=== PATIENT | male | born 1955 | race Caucasian/White ===

== ENCOUNTER 2019-06-09 15:57 | Inpatient (IN) | payer MEDICARE ==
[2019-06-09] MEDS ORDERED: methylPREDNISolone SOD SUCCI 125 MG/2 ML VIAL IV SCH (18:06)
[2019-06-09 19:22] LABS: Basophils # (A) 0.1 k/uL (0-0.2); Basophils % (A) 1 %; Eosinophils # (A) 0.1 k/uL (0-0.7); Eosinophils % (A) 1 %; HCT 41.7 % (39.0-53.0); HGB 12.6 gm/dL (13.0-17.5); Hypochromasia Marked; Lymphocytes # (A) 0.7 k/uL (1.0-4.8); Lymphocytes % (A) 8 %; MCH 32.2 pg (25.0-35.0); MCHC 30.4 g/dL (31.0-37.0); MCV 106.1 fL (80.0-100.0); Macrocytosis Moderate; Mean Platelet Volume 9.3; Monocytes # (A) 0.5 k/uL (0-1.0); Monocytes % (A) 6 %; Neutrophils # (A) 7.3 k/uL (1.3-7.7); Neutrophils % (A) 84 %; Platelet Count 126 k/uL (150-450); RBC 3.93 m/uL (4.30-5.90); RDW 14.2 % (11.5-15.5); WBC 8.7 k/uL (3.8-10.6)
--- NOTE | 2019-06-09 19:36 | P.CNPUL ---
History of Present Illness Consult date: 06/09/19 Reason for consult: dyspnea, COPD History of present illness: This is a 64-year-old male patient with chronic hypoxic respiratory failure maintain oxygen at 5 L per minute nasal cannula, severe COPD with an FEV1 of 20% of predicted and chronic exertional dyspnea and significant limitation in exercise capacity. His other comorbidities include seasonal ALLERGIC rhinitis, generalized anxiety disorder and hypertension. The patient was transferred to us as a direct admit from his PCP because of worsening shortness of breath. His pulse ox was in the mid 70s at the doctor's office. The patient is coughing up some increased mucus which is thick creamy white in color. No hemoptysis. No pleurisy. There is some limited increase in lower extremity edema. No angina. No chest pain. No palpitations. No cardiac arrhythmias. No syncope. No previous history of DVT or pulmonary embolism. No loss in consciousness. Patient currently is on 5 L of oxygen by nasal cannula. His pulse ox was brought up to 90%. Note that his home concentrator was not functioning right and he was given a new concentrator that goes up to 10 L. He states that he was not getting the same benefit from the same machine. Currently he is on a combination of Spiriva and Wixela Inhub regarding his COPD and the patient uses Ventolin rescue inhaler and albuterol nebulizer on an as-needed basis. This is his first admission for COPD related complications. Most of childhood asthma. the patient exposure. No fever or chills. Chest x-ray showing some increased interstitial changes bilaterally in lung bases. The patient has a barrel chest consistent with COPD and some mild cardiomegaly. Labs are still pending for now. Review of Systems Constitutional: Reports daytime sleepiness, Reports fatigue, Reports weight gain Eyes: denies as per HPI, denies blurred vision, denies bulging eye, denies decreased vision, denies diplopia, denies discharge, denies dry eye, denies irritation, denies itching, denies pain, denies photophobia, denies loss of peripheral vision, denies loss of vision, denies tunnel vision/blind spots Ears: deny: decreased hearing, ear discharge, earache, tinnitus Ears, nose, mouth and throat: Reports as per HPI Breasts: absent: as per HPI, gynecomastia Cardiovascular: Reports decreased exercise tolerance, Reports dyspnea on exertion Respiratory: Reports dyspnea, Reports snoring, Reports wheezing Gastrointestinal: Reports as per HPI Genitourinary: Reports as per HPI Musculoskeletal: Reports as per HPI Musculoskeletal: bilateral: ankle swelling, absent: ankle pain, ankle stiffness, as per HPI, elbow pain, elbow stiffness, elbow swelling, foot pain, foot stiffness, foot swelling, hand pain, hand stiffness, hand swelling, hip pain, hi p stiffness, hip swelling, knee pain, knee stiffness, knee swelling, shoulder pain, shoulder stiffness, shoulder swelling, wrist pain, wrist stiffness, wrist swelling Integumentary: Reports as per HPI Neurological: Reports as per HPI, Reports gait dysfunction Endocrine: Reports as per HPI, Reports fatigue Hematologic/Lymphatic: Reports as per HPI Allergic/Immunologic: Reports as per HPI Past Medical History Past Medical History: COPD, Hypertension Additional Past Medical History / Comment(s): Obesity, previous history of cellulitis of the lower extremities, hypertension, COPD, chronic hypoxic respiratory failure, osteoarthritis History of Any Multi-Drug Resistant Organisms: None Reported Past Surgical History: No Surgical Hx Reported Additional Past Surgical History / Comment(s): no Reported history of surgeries Past Anesthesia/Blood Transfusion Reactions: No Reported Reaction Past Psychological History: No Psychological Hx Reported Smoking Status: Never smoker - Past Family History Father Additional Family Medical History / Comment(s): Patient states father at 76 of a blood clot, mother had breast cancer Mother Family Medical History: Dementia Medications and Allergies Home Medications Medication Instructions Recorded Confirmed Type Albuterol Nebulized [Ventolin 2.5 mg INHALATION RT-Q4H PRN 06/22/14 06/09/19 History Nebulized] Albuterol Sulfate [Proair Hfa] 2 puff INHALATION RT-QID PRN 06/22/14 06/09/19 History Tiotropium [place] [Spiriva] 1 cap INHALATION RT-DAILY 06/22/14 06/09/19 History amLODIPine [Norvasc] 5 mg PO DAILY 06/22/14 06/09/19 History Cholecalciferol (Vitamin D3) 2,000 unit PO HS 06/09/19 06/09/19 History [Vitamin D3] Fluticasone Propion/Salmeterol 1 puff INHALATION RT-BID 06/09/19 06/09/19 History [Wixela 250-50 Inhub] Furosemide [Lasix] 20 mg PO DAILY PRN 06/09/19 06/09/19 History Lisinopril [Prinivil] 20 mg PO HS 06/09/19 06/09/19 History Metoprolol Succinate (ER) [Toprol 25 mg PO HS 06/09/19 06/09/19 History Xl] Montelukast [Singulair] 10 mg PO HS 06/09/19 06/09/19 History Otc Allergy(Unknown) 1 tab PO DAILY 06/09/19 06/09/19 History clonazePAM [KlonoPIN] 0.5 mg PO DAILY PRN 06/09/19 06/09/19 History guaiFENesin SYRUP 100MG/5ML 200 mg PO Q6H PRN 06/09/19 06/09/19 History [Robitussin] Allergies Allergy/AdvReac Type Severity Reaction Status Date / Time clarithromycin [From Biaxin] AdvReac TREMORS Verified 06/09/19 19:16 Physical Exam Vitals: Vital Signs Pulse Resp BP Pulse Ox 06/09/19 18:10 93 L 06/09/19 17:57 108 H 24 163/73 92 L Intake and Output 06/09/19 06/09/19 06/09/19 06:59 14:59 22:59 Other: # Voids 0 # Bowel Movements 0 Weight 151.9 kg Morbid obese, comfortable and mild degree of respiratory distress, is able to speak of. This is. He is currently on oxygen at 5 L per minute nasal cannula. Head exam was generally normal. There was no scleral icterus or corneal arcus. Mucous membranes were moist. Neck was supple and without jugular venous distension, thyromegaly, or carotid bruits. Carotids were easily palpable bilaterally. There was no adenopathy. Lungs sounds are diminished bilaterally nearly silent chest with scattered ex piratory wheezes on forced extremity maneuvers. Heart sounds are distant regular rate and rhythm normal S1-S2 and there is no significant murmurs appreciated. Abdominal exam revealed normal bowel sounds. The abdomen was soft, non-tender, and without masses, organomegaly, or appreciable enlargement of the abdominal aorta. Patient is morbidly obese and the organs cannot be accurately palpated. Extremities revealed +1 pitting edema and there is no cyanosis or clubbing or cellulitis. Examination of the skin revealed no evidence of significant rashes, suspicious appearing nevi or other concerning lesions. Neurologically awake and alert and there is no focal neurological deficit. Results - Laboratory Findings CBC and BMP: 06/09/19 18:50 Abnormal lab findings: Abnormal Labs 06/09/19 18:50 RBC 3.93 L Hgb 12.6 L MCV 106.1 H MCHC 30.4 L Plt Count 126 L Lymphocytes # 0.7 L - Diagnostic Findings Chest x-ray: image reviewed Assessment and Plan Plan: 1 acute on chronic hypoxic respiratory failure secondary exacerbation of COPD. The patient was profoundly hypoxic at his doctor's office and currently is back to 5 L about 2 by nasal cannula. Suspect COPD exacerbation 2 severe COPD with a based on FEV1 of less than 20% of predicted at baseline 3 chronic hypoxic respiratory failure maintained on oxygen at 5 L per minute nasal cannula 4 chronic exertional dyspnea secondary to above and marked impairment in exercise capacity 5 obesity with a BMI of 45.4 6 chronic ALLERGIC rhinitis 7 chronic anxiety disorder 8 hypertension 9 osteoarthritis Plan With the patient on DuoNeb about treatments around the clock. Add Pulmicort and Perforomist nebulized treatments during this current hospital stay. IV Solu Medrol 60 mg every 6 hours. Obtain sputum Gram stain and culture. IV Rocephin. Awaiting blood work and of interest will be his electrolytes and cardiac enzymes and BNP level. Gentle diuresis with Lasix 20 mg IV push every 12 hours. Obtain echocardiogram at baseline. DVT and GI prophylaxis. We'll continue to follow. We will arrange home oxygen concentrator. Outpatient respiratory medications for COPD maintenance is adequate. The patient is an ex-smoker.
[2019-06-09 19:38] LABS: ALT 40 U/L (21-72); AST 30 U/L (17-59); African American GFR (CKD) >90 (>60 ml/min/1.73 sqM); Albumin 3.9 g/dL (3.5-5.0); Alkaline Phosphatase 110 U/L (38-126); Blood Urea Nitrogen 18 mg/dL (9-20); Chloride 92 mmol/L (98-107); Glucose 135 mg/dL (74-99); Potassium 4.7 mmol/L (3.5-5.1); Sodium 142 mmol/L (137-145); Total Bilirubin 0.8 mg/dL (0.2-1.3); Total Protein 7.4 g/dL (6.3-8.2)
[2019-06-09 19:44] LABS: Anion Gap 7 mmol/L
[2019-06-09 19:50] LABS: Carbon Dioxide 43 mmol/L (22-30)
[2019-06-09] MEDS: IPRATROPIUM-ALBUTEROL 3 ML NEB INHALATION SCH (20:28)
[2019-06-09] MEDS: BUDESONIDE 1 MG/2 ML NEBU INHALATION SCH (20:28)
[2019-06-09] MEDS: FORMOTEROL FUMARATE 20 MCG/2 ML NEBU INHALATION SCH (20:28)
--- NOTE | 2019-06-09 20:47 | XR ---
EXAMINATION: XR chest 2V DATE AND TIME: 06/09/2019 6:51 PM CLINICAL INDICATION: PHH; COPD exacerbation TECHNIQUE: Departmental protocol COMPARISON: None FINDINGS: There is prominent hyperinflation with a coarse reticular pattern of increased density mildly silhoue tting the arborization of the pulmonary vasculature bilaterally and symmetrically. These changes sugg est chronic interstitial lung change. The lungs are bilaterally well expanded and there are no focal pulmonary consolidative opacity. The pleural spaces are negative. The cardiac silhouette is mildly enlarged. The remainder of the mediastinal silhouette is unremarkabl e. The skeletal structures and soft tissues are negative for acute findings. IMPRESSION: Sable chest radiographic findings. No definite acute radiographic process.
[2019-06-09 21:27] LABS: ABG Base Excess 21.5 mmol/L; ABG Oxygen Saturation 90.9 % (94-97); ABG PH 7.35 (7.35-7.45); ABG PO2 62 mmHg (83-108); ABG TCO2 50 mmol/L (19-24); Allen Test Performed? Yes
[2019-06-09 21:30] LABS: ABG HCO3 47 mmol/L (21-25); ABG PCO2 84 mmHg (35-45)
[2019-06-09 22:16] LABS: Glucose,Whole Blood 219 mg/dL (75-99)
[2019-06-09] MEDS ORDERED: FUROSEMIDE 20 MG TAB PO PRN (23:00)
[2019-06-09] MEDS ORDERED: clonazePAM 0.5 MG TAB PO PRN (23:00)
[2019-06-09] MEDS ORDERED: guaiFENesin SYRUP 100MG/5ML 200 MG/10 ML CUP PO PRN (23:00)
[2019-06-09] MEDS: INSULIN ASPART (NovoLOG) 100 UNIT/ML VIAL SQ SCH (23:35)
[2019-06-09] MEDS: LISINOPRIL 20 MG TAB PO SCH (23:35)
[2019-06-09] MEDS: METOPROLOL SUCCINATE (ER) 25 MG TAB.ER.24H PO SCH (23:35)
[2019-06-09] MEDS: MONTELUKAST 10 MG TAB PO SCH (23:35)
[2019-06-09] MEDS: IPRATROPIUM-ALBUTEROL 3 ML NEB INHALATION PRN (23:36)
[2019-06-09] MEDS: HEPARIN SODIUM,PORCINE 5,000 UNIT/ML 1 ML VIAL SQ SCH (23:38)
[2019-06-10] MEDS: IPRATROPIUM-ALBUTEROL 3 ML NEB INHALATION PRN (04:14)
[2019-06-10 06:26] LABS: Glucose,Whole Blood 174 mg/dL (75-99)
[2019-06-10] MEDS: PANTOPRAZOLE 40 MG TABLET PO SCH (06:26)
[2019-06-10] MEDS: methylPREDNISolone SOD SUCCI 125 MG/2 ML VIAL IV SCH ×3 (06:28→17:47)
[2019-06-10] MEDS: INSULIN ASPART (NovoLOG) 100 UNIT/ML VIAL SQ SCH ×4 (06:28→21:18)
[2019-06-10 07:15] LABS: Basophils % (A) 1 %; Eosinophils % (A) 0 %; HGB 12.1 gm/dL (13.0-17.5); Hypochromasia Marked; Lymphocytes # (A) 0.3 k/uL (1.0-4.8); Lymphocytes % (A) 6 %; MCH 32.4 pg (25.0-35.0); MCV 104.6 fL (80.0-100.0); Macrocytosis Slight; Mean Platelet Volume 9.4; Monocytes # (A) 0.2 k/uL (0-1.0); Monocytes % (A) 3 %; Neutrophils # (A) 4.2 k/uL (1.3-7.7); Neutrophils % (A) 89 %; Platelet Count 103 k/uL (150-450); RBC 3.73 m/uL (4.30-5.90); RDW 13.2 % (11.5-15.5); WBC 4.7 k/uL (3.8-10.6)
[2019-06-10 07:26] LABS: ALT 41 U/L (21-72); AST 28 U/L (17-59); African American GFR (CKD) >90 (>60 ml/min/1.73 sqM); Albumin 3.7 g/dL (3.5-5.0); Alkaline Phosphatase 100 U/L (38-126); Blood Urea Nitrogen 18 mg/dL (9-20); Calcium 8.5 mg/dL (8.4-10.2); Chloride 94 mmol/L (98-107); Glucose 158 mg/dL (74-99); Sodium 141 mmol/L (137-145); Total Bilirubin 0.6 mg/dL (0.2-1.3); Total Protein 6.9 g/dL (6.3-8.2)
[2019-06-10] MEDS ORDERED: INSULIN ASPART (NovoLOG) 100 UNIT/ML VIAL SQ SCH (07:30)
[2019-06-10 07:34] LABS: Anion Gap 6 mmol/L
[2019-06-10 07:37] LABS: Carbon Dioxide 41 mmol/L (22-30)
[2019-06-10] MEDS: IPRATROPIUM-ALBUTEROL 3 ML NEB INHALATION SCH ×4 (08:15→20:05)
[2019-06-10] MEDS: BUDESONIDE 1 MG/2 ML NEBU INHALATION SCH ×2 (08:15→20:04)
[2019-06-10] MEDS: FORMOTEROL FUMARATE 20 MCG/2 ML NEBU INHALATION SCH ×2 (08:15→20:05)
[2019-06-10] MEDS: amLODIPine 5 MG TAB PO SCH (08:22)
[2019-06-10] MEDS: CHOLECALCIFEROL 1,000 UNIT TAB PO SCH (08:22)
[2019-06-10] MEDS: HEPARIN SODIUM,PORCINE 5,000 UNIT/ML 1 ML VIAL SQ SCH ×2 (08:22→17:47)
[2019-06-10] MEDS: METOPROLOL SUCCINATE (ER) 25 MG TAB.ER.24H PO SCH (08:22)
[2019-06-10] MEDS: LISINOPRIL 20 MG TAB PO SCH (08:22)
--- NOTE | 2019-06-10 10:38 | P.HPIM ---
History of Present Illness H&P Date: 06/10/19 This is a 64-year-old male patient was a direct admit from PCP due to COPD exacerbation and low SpO2. Patient's pulse ox in PCP office was in the mid 70s and patient is complaining of worsening shortness of breath. Patient has a known past medical history of advanced COPD in which he wears 5 L at home, essential hypertension, obesity, chronic hypoxic respiratory failure and osteoarthritis. Chest x-ray completed showing stable chest radiographic findings no definitive acute radiographic process. Pulmonary services have been consulted patient started on Rocephin, updraft breathing treatments and IV Solu-Medrol. Patient's BNP 568. Patient is currently resting comfortably bed. Patient reports significant improvement with overall shortness of breath since arrival to the hospital. Sputum culture has been collected. Patient denies any chest pain. Patient denies any nausea vomiting or diarrhea. Patient burning or frequency. Case management will be consulted to address home equipment needs. Review of Systems Please refer to HPI otherwise unremarkable Past Medical History Past Medical History: COPD, Hypertension Additional Past Medical History / Comment(s): Obesity, previous history of cellulitis of the lower extremities, hypertension, COPD, chronic hypoxic respiratory failure, osteoarthritis History of Any Multi-Drug Resistant Organisms: None Reported Past Surgical History: No Surgical Hx Reported Additional Past Surgical History / Comment(s): no Reported history of surgeries Past Anesthesia/Blood Transfusion Reactions: No Reported Reaction Past Psychological History: No Psychological Hx Reported Smoking Status: Never smoker - Past Family History Father Additional Family Medical History / Comment(s): Patient states father at 76 of a blood clot, mother had breast cancer Mother Family Medical History: Dementia Medications and Allergies Home Medications Medication Instructions Recorded Confirmed Type Albuterol Nebulized [Ventolin 2.5 mg INHALATION RT-Q4H PRN 06/22/14 06/09/19 H istory Nebulized] Albuterol Sulfate [Proair Hfa] 2 puff INHALATION RT-QID PRN 06/22/14 06/09/19 History Tiotropium [place] [Spiriva] 1 cap INHALATION RT-DAILY 06/22/14 06/09/19 History amLODIPine [Norvasc] 5 mg PO DAILY 06/22/14 06/09/19 History Cholecalciferol (Vitamin D3) 2,000 unit PO HS 06/09/19 06/09/19 History [Vitamin D3] Fluticasone Propion/Salmeterol 1 puff INHALATION RT-BID 06/09/19 06/09/19 History [Wixela 250-50 Inhub] Furosemide [Lasix] 20 mg PO DAILY PRN 06/09/19 06/09/19 History Lisinopril [Prinivil] 20 mg PO HS 06/09/19 06/09/19 History Metoprolol Succinate (ER) [Toprol 25 mg PO HS 06/09/19 06/09/19 History Xl] Montelukast [Singulair] 10 mg PO HS 06/09/19 06/09/19 History Otc Allergy(Unknown) 1 tab PO DAILY 06/09/19 06/09/19 History clonazePAM [KlonoPIN] 0.5 mg PO DAILY PRN 06/09/19 06/09/19 History guaiFENesin SYRUP 100MG/5ML 200 mg PO Q6H PRN 06/09/19 06/09/19 History [Robitussin] Allergies Allergy/AdvReac Type Severity Reaction Status Date / Time clarithromycin [From Biaxin] AdvReac TREMORS Verified 06/09/19 19:16 Physical Exam Vitals: Vital Signs Temp Pulse Pulse Resp BP Pulse Ox 06/10/19 08:46 108 H 06/10/19 08:35 110 H 06/10/19 08:34 110 H 06/10/19 08:18 116 H 91 L 06/10/19 08:00 98.2 F 100 23 165/70 91 L 06/10/19 04:27 96 06/10/19 04:14 92 96 06/10/19 03:50 98.4 F 98 18 182/86 93 L 06/09/19 23:55 99 F 93 19 180/82 95 06/09/19 23:53 92 L 06/09/19 23:45 96 06/09/19 23:40 88 06/09/19 20:55 112 H 06/09/19 20:47 104 H 06/09/19 20:46 98 06/09/19 20:31 102 H 95 06/09/19 20:00 97.3 F L 100 20 170/88 92 L 06/09/19 18:10 93 L 06/09/19 17:57 108 H 24 163/73 92 L Intake and Output 06/09/19 06/10/19 06/10/19 22:59 06:59 14:59 Intake Total 236 Balance 236 Intake: Oral 236 Other: # Voids 0 1 1 # Bowel Movements 0 Weight 151.9 kg 152 kg Headnormocephalic Neck supple Lungs Diminished bilaterally ith expiratory wheezing Heart regular rate and rhythm S1-S2, no rub or gallop Abdomen is soft nontender nondistended positive bowel sounds no hepatosplenomegaly Extremities no edema. Bilateral lower extremity erythema which patient reports chronicw Neuro alert and orientated to 3 Results CBC & Chem 7: 06/10/19 06:01 06/10/19 06:01 Labs: Abnormal Lab Results - Last 24 Hours (Table) 06/09/19 06/09/19 06/09/19 Range/Units 18:50 18:50 21:22 RBC 3.93 L (4.30-5.90) m/uL Hgb 12.6 L (13.0-17.5) gm/dL MCV 106.1 H (80.0-100.0) fL MCHC 30.4 L (31.0-37.0) g/dL Plt Count 126 L (150-450) k/uL Lymphocytes # 0.7 L (1.0-4.8) k/uL ABG pCO2 84 H* (35-45) mmHg ABG pO2 62 L (83-108) mmHg ABG HCO3 47 H* (21-25) mmol/L ABG Total CO2 50 H (19-24) mmol/L ABG O2 Saturation 90.9 L (94-97) % Chloride 92 L (98-107) mmol/L Carbon Dioxide 43 H* (22-30) mmol/L Glucose 135 H (74-99) mg/dL POC Glucose (mg/dL) (75-99) mg/dL 06/09/19 06/10/19 06/10/19 Range/Units 22:15 06:01 06:01 RBC 3.73 L (4.30-5.90) m/uL Hgb 12.1 L (13.0-17.5) gm/dL MCV 104.6 H (80.0-100.0) fL MCHC (31.0-37.0) g/dL Plt Count 103 L (150-450) k/uL Lymphocytes # 0.3 L (1.0-4.8) k/uL ABG pCO2 (35-45) mmHg ABG pO2 (83-108) mmHg ABG HCO3 (21-25) mmol/L ABG Total CO2 (19-24) mmol/L ABG O2 Saturation (94-97) % Chloride 94 L (98-107) mmol/L Carbon Dioxide 41 H* (22-30) mmol/L Glucose 158 H (74-99) mg/dL POC Glucose (mg/dL) 219 H (75-99) mg/dL 06/10/19 Range/Units 06:25 RBC (4.30-5.90) m/uL Hgb (13.0-17.5) gm/dL MCV (80.0-100.0) fL MCHC (31.0-37.0) g/dL Plt Count (150-450) k/uL Lymphocytes # (1.0-4.8) k/uL ABG pCO2 (35-45) mmHg ABG pO2 (83-108) mmHg ABG HCO3 (21-25) mmol/L ABG Total CO2 (19-24) mmol/L ABG O2 Saturation (94-97) % Chloride (98-107) mmol/L Carbon Dioxide (22-30) mmol/L Glucose (74-99) mg/dL POC Glucose (mg/dL) 174 H (75-99) mg/dL Thrombosis Risk Factor Assmnt - Choose All That Apply Each Factor Represents 1 point: Abnormal pulmonary function (COPD), Obesity (BMI >25), Swollen legs (current) Each Risk Factor Represents 2 Points: Age 61-74 years Thrombosis Risk Factor Assessment Total Risk Factor Score: 5 Thrombosis Risk Factor Assessment Level: High Risk Assessment and Plan Assessment: 1. Increased shortness of breath related to COPD exacerbation. Chest x-ray completed showing stable chest radiographic findings and definitive acute radiographic process. Pulmonary services are following. Patient started on IV Solu-Medrol, updraft breathing treatment and Rocephin for antibiotics. Sputum Culture collected. 2-D echo ordered 2. Acute on chronic hypoxic respiratory failure secondary to COPD exacerbation. Patient is maintained on 5 L oxygen at home services following 3. History of essential hypertension 4. History of arthritis 5. History of obesity 6. History of ALLERGIC rhinitis DVT prophylaxis heparin. GI prophylaxis Protonix Pulmonary services following Patient maintained on IV Solu-Medrol, Rocephin and updraft breathing treatment Hemoglobin A1c ordered Time with Patient: Greater than 30 (Greater than 60% of the total time spent in counseling and coordination of care. I performed an examination of the patient and discussed their management with the Nurse Practitioner. I have reviewed the Nurse Practitioner's notes and agree with the documented findings and plan of care)
--- NOTE | 2019-06-10 11:13 | ECHOF ---
Referral Reason:Dyspnea, CHF MEASUREMENTS -------- HEIGHT: 182.9 cm WEIGHT: 152.0 kg BP: 182/86 RVIDd: 3.7 cm (< 3.3) IVSd: 1.6 cm (0.6 - 1.1) LVIDd: 5.6 cm (3.9 - 5.3) LVPWd: 1.6 cm (0.6 - 1.1) IVSs: 2.1 cm LVIDs: 4.2 cm LVPWs: 2.2 cm LA Diam: 3.8 cm (2.7 - 3.8) LAESV Index (A-L): 27.86 ml/m Ao Diam: 3.5 cm (2.0 - 3.7) AV Cusp: 2.2 cm (1.5 - 2.6) MV EXCURSION: 23.492 mm (> 18.000) MV EF SLOPE: 128 mm/s (70 - 150) EPSS: 1.4 cm MV E Shahab: 1.30 m/s MV DecT: 47 ms MV A Shahab: 1.42 m/s MV E/A Ratio: 0.92 RAP: 5.00 mmHg RVSP: 49.95 mmHg FINDINGS -------- Resting tachycardia (HR>100bpm). This was a technically difficult study with suboptimal views. The left ventricular size is normal. There is moderate concentric left ventricular hypertrophy. O verall left ventricular systolic function is low-normal with, an EF between 50 - 55 %. The right ventricle is mild to moderately enlarged. Normal LA size by volume 22+/-6 ml/m2. The right atrium is normal in size. 5 ml of Lumason was utilized for enhancement of images. Interatrial and interventricular septum intact. The aortic valve was not well visualized. There is trace to mild mitral regurgitation. Mild tricuspid regurgitation present. There is moderate pulmonary hypertension. The right ventric ular systolic pressure, as measured by Doppler, is 49.95mmHg. The pulmonic valve was not well visualized. The aortic root size is normal. IVC Not well visulized. There is no pericardial effusion. CONCLUSIONS -------- 1. Resting tachycardia (HR>100bpm). 2. This was a technically difficult study with suboptimal views. 3. The left ventricular size is normal. 4. There is moderate concentric left ventricular hypertrophy. 5. Overall left ventricular systolic function is low-normal with, an EF between 50 - 55 %. 6. The right ventricle is mild to moderately enlarged. 7. Normal LA size by volume 22+/-6 ml/m2. 8. The right atrium is normal in size. 9. 5 ml of Lumason was utilized for enhancement of images. 10. Interatrial and interventricular septum intact. 11. The aortic valve was not well visualized. 12. There is trace to mild mitral regurgitation. 13. Mild tricuspid regurgitation present. 14. There is moderate pulmonary hypertension. 15. The right ventricular systolic pressure, as measured by Doppler, is 49.95mmHg. 16. The pulmonic valve was not well visualized. 17. The aortic root size is normal. 18. IVC Not well visulized. 19. There is no pericardial effusion. [facility]: Mireya Pryor RDCS
[2019-06-10 11:47] LABS: Glucose,Whole Blood 175 mg/dL (75-99)
--- NOTE | 2019-06-10 13:25 | P.PN ---
Subjective Progress Note Date: 06/10/19 Principal diagnosis: Acute on chronic hypoxic rest or a failure secondary to exacerbation of COPD This is a 64-year-old male patient with chronic hypoxic respiratory failure maintain oxygen at 5 L per minute nasal cannula, severe COPD with an FEV1 of 20% of predicted and chronic exertional dyspnea and significant limitation in exercise capacity. His other comorbidities include seasonal ALLERGIC rhinitis, generalized anxiety disorder and hypertension. The patient was transferred to us as a direct admit from his PCP because of worsening shortness of breath. His pulse ox was in the mid 70s at the doctor's office. The patient is coughing up some increased mucus which is thick creamy white in color. No hemoptysis. No pleurisy. There is some limited increase in lower extremity edema. No angina. No chest pain. No palpitations. No cardiac arrhythmias. No syncope. No previous history of DVT or pulmonary embolism. No loss in consciousness. Patient currently is on 5 L of oxygen by nasal cannula. His pulse ox was brought up to 90%. Note that his home concentrator was not functioning right and he was given a new concentrator that goes up to 10 L. He states that he was not getting the same benefit from the same machine. Currently he is on a combination of Spiriva and Wixela Inhub regarding his COPD and the patient uses Ventolin rescue inhaler and albuterol nebulizer on an as-needed basis. This is his first admission for COPD related complications. Most of childhood asthma. the patient exposure. No fever or chills. Chest x-ray showing some increased interstitial changes bilaterally in lung bases. The patient has a barrel chest consistent with COPD and some mild cardiomegaly. Labs are still pending for now. On 06/10/2019 patient seen in follow-up on selective care unit, he is doing much better today, breathing easier, he did not require BiPAP support last night, is currently at his home dose O2 at 5 L, his pulse ox of 91%, he is afebrile, hemodynamically stable, lung sounds are diminished, with expiratory wheezing, but overall patient states he is feeling much better. Today's labs have been reviewed, showing white blood cell count of 4.7, hemoglobin of 12.1, sodium of 141, potassium is 5.0, chloride is 94, CO2 is 41, BUN is 18, creatinine 0.75, LFTs were within normal limits. Chest x-ray showed no definite acute radiographic process. No fever or chills. Patient states he is hoping to go home tomorrow Objective - Vital Signs Vital signs: Vital Signs Temp 98.2 F 06/10/19 08:00 Pulse 110 H 06/10/19 11:44 Resp 23 06/10/19 08:00 BP 165/70 06/10/19 08:00 Pulse Ox 91 L 06/10/19 08:18 Intake & Output 06/09/19 06/10/19 06/10/19 18:59 06:59 18:59 Intake Total 472 Balance 472 Weight 151.9 kg 152 kg Intake: Oral 472 Other: # Voids 0 1 1 # Bowel Movements 0 - Exam GENERAL EXAM: Alert, pleasant, 64-year-old white male patient on 5 L of oxygen with a pulse ox of 91%, comfortable in no apparent distress. HEAD: Normocephalic/atraumatic. EYES: Normal reaction of pupils, equal size. Conjunctiva pink, sclera white. NOSE: Clear with pink turbinates. THROAT: No erythema or exudates. NECK: No masses, no JVD, no thyroid enlargement, no adenopathy. CHEST: No chest wall deformity. Symmetrical expansion. LUNGS: Diminished air entry with expiratory wheezing CVS: Regular rate and rhythm, normal S1 and S2, no gallops, no murmurs, no rubs ABDOMEN: Soft, nontender. No hepatosplenomegaly, normal bowel sounds, no guarding or rigidity. EXTREMITIES: No clubbing, no edema, no cyanosis, 2+ pulses and upper and lower extremities. MUSCULOSKELETAL: Muscle strength and tone normal. SPINE: No scoliosis or deformity SKIN: No rashes CENTRAL NERVOUS SYSTEM: Alert and oriented -3. No focal deficits, tone is normal in all 4 extremities. PSYCHIATRIC: Alert and oriented -3. Appropriate affect. Intact judgment and insight. - Labs CBC & Chem 7: 06/10/19 06:01 06/10/19 06:01 Labs: Abnormal Lab Results - Last 24 Hours (Table) 06/09/19 06/09/19 06/09/19 Range/Units 18:50 18:50 21:22 RBC 3.93 L (4.30-5.90) m/uL Hgb 12.6 L (13.0-17.5) gm/dL MCV 106.1 H (80.0-100.0) fL MCHC 30.4 L (31.0-37.0) g/dL Plt Count 126 L (150-450) k/uL Lymphocytes # 0.7 L (1.0-4.8) k/uL ABG pCO2 84 H* (35-45) mmHg ABG pO2 62 L (83-108) mmHg ABG HCO3 47 H* (21-25) mmol/L ABG Total CO2 50 H (19-24) mmol/L ABG O2 Saturation 90.9 L (94-97) % Chloride 92 L (98-107) mmol/L Carbon Dioxide 43 H* (22-30) mmol/L Glucose 135 H (74-99) mg/dL POC Glucose (mg/dL) (75-99) mg/dL 06/09/19 06/10/19 06/10/19 Range/Units 22:15 06:01 06:01 RBC 3.73 L (4.30-5.90) m/uL Hgb 12.1 L (13.0-17.5) gm/dL MCV 104.6 H (80.0-100.0) fL MCHC (31.0-37.0) g/dL Plt Count 103 L (150-450) k/uL Lymphocytes # 0.3 L (1.0-4.8) k/uL ABG pCO2 (35-45) mmHg ABG pO2 (83-108) mmHg ABG HCO3 (21-25) mmol/L ABG Total CO2 (19-24) mmol/L ABG O2 Saturation (94-97) % Chloride 94 L (98-107) mmol/L Carbon Dioxide 41 H* (22-30) mmol/L Glucose 158 H (74-99) mg/dL POC Glucose (mg/dL) 219 H (75-99) mg/dL 06/10/19 06/10/19 Range/Units 06:25 11:45 RBC (4.30-5.90) m/uL Hgb (13.0-17.5) gm/dL MCV (80.0-100.0) fL MCHC (31.0-37.0) g/dL Plt Count (150-450) k/uL Lymphocytes # (1.0-4.8) k/uL ABG pCO2 (35-45) mmHg ABG pO2 (83-108) mmHg ABG HCO3 (21-25) mmol/L ABG Total CO2 (19-24) mmol/L ABG O2 Saturation (94-97) % Chloride (98-107) mmol/L Carbon Dioxide (22-30) mmol/L Glucose (74-99) mg/dL POC Glucose (mg/dL) 174 H 175 H (75-99) mg/dL Assessment and Plan Plan: Assessment: 1 acute on chronic hypoxic respiratory failure secondary exacerbation of COPD. The patient was profoundly hypoxic at his doctor's office and currently is back to 5 L about 2 by nasal cannula. Suspect COPD exacerbation 2 severe COPD with a based on FEV1 of less than 20% of predicted at baseline 3 chronic hypoxic respiratory failure maintained on oxygen at 5 L per minute nasal cannula 4 chronic exertional dyspnea secondary to above and marked impairment in exercise capacity 5 obesity with a BMI of 45.4 6 chronic ALLERGIC rhinitis 7 chronic anxiety disorder 8 hypertension 9 osteoarthritis Plan: Continue nebulized bronchodilators, continue Pulmicort and Perforomist, continue IV Solu-Medrol, and empiric antibiotics, sputum culture has been sent, results are pending, patient has been afebrile, he is feeling much better today, breathing easier, did not require BiPAP support last night, patient is hoping to be able to go home tomorrow, he is at home dose O2, no acute events overnight. We'll continue to follow I performed a history & physical examination of the patient and discussed their management with my nurse practitioner, Felisha Banuelos. I reviewed the nurse practitioner's note and agree with the documented findings and plan of care. Lung sounds are positive for diffuse wheezes throughout the lung evans. The findings and the impression was discussed with the patient. I attest to the documentation by the nurse practitioner. Time with Patient: Less than 30
[2019-06-10 16:36] LABS: Glucose,Whole Blood 160 mg/dL (75-99)
[2019-06-10] MEDS ORDERED: methylPREDNISolone SOD SUCCI 125 MG/2 ML VIAL IV SCH ×2 (18:00)
[2019-06-10 18:04] LABS: Hemoglobin A1C 6.2 % (4.0-6.0)
[2019-06-10] MEDS: MONTELUKAST 10 MG TAB PO SCH (20:44)
[2019-06-10 20:58] LABS: Glucose,Whole Blood 175 mg/dL (75-99)
[2019-06-11] MEDS: HEPARIN SODIUM,PORCINE 5,000 UNIT/ML 1 ML VIAL SQ SCH ×2 (00:21→10:05)
[2019-06-11] MEDS: methylPREDNISolone SOD SUCCI 125 MG/2 ML VIAL IV SCH ×3 (00:21→14:32)
[2019-06-11 06:16] LABS: Basophils % (A) 0 %; Eosinophils # (A) 0.1 k/uL (0-0.7); Eosinophils % (A) 1 %; HCT 41.6 % (39.0-53.0); HGB 12.7 gm/dL (13.0-17.5); Hypochromasia Moderate; Lymphocytes # (A) 0.3 k/uL (1.0-4.8); Lymphocytes % (A) 6 %; MCHC 30.4 g/dL (31.0-37.0); MCV 105.2 fL (80.0-100.0); Macrocytosis Slight; Monocytes # (A) 0.3 k/uL (0-1.0); Monocytes % (A) 5 %; Neutrophils # (A) 5.2 k/uL (1.3-7.7); Neutrophils % (A) 88 %; Platelet Count 113 k/uL (150-450); RBC 3.96 m/uL (4.30-5.90); RDW 14.4 % (11.5-15.5)
[2019-06-11 06:30] LABS: Glucose,Whole Blood 170 mg/dL (75-99)
[2019-06-11] MEDS: INSULIN ASPART (NovoLOG) 100 UNIT/ML VIAL SQ SCH ×2 (06:42→14:33)
[2019-06-11] MEDS: PANTOPRAZOLE 40 MG TABLET PO SCH (06:42)
[2019-06-11 06:52] LABS: ALT 37 U/L (21-72); AST 33 U/L (17-59); African American GFR (CKD) >90 (>60 ml/min/1.73 sqM); Alkaline Phosphatase 101 U/L (38-126); Anion Gap 6 mmol/L; Blood Urea Nitrogen 23 mg/dL (9-20); Calcium 9.1 mg/dL (8.4-10.2); Chloride 93 mmol/L (98-107); Glucose 171 mg/dL (74-99); Potassium 5.3 mmol/L (3.5-5.1); Sodium 139 mmol/L (137-145); Total Bilirubin 0.5 mg/dL (0.2-1.3); Total Protein 7.4 g/dL (6.3-8.2)
[2019-06-11 07:16] LABS: Carbon Dioxide 40 mmol/L (22-30)
[2019-06-11] MEDS: FORMOTEROL FUMARATE 20 MCG/2 ML NEBU INHALATION SCH (08:12)
[2019-06-11] MEDS: BUDESONIDE 1 MG/2 ML NEBU INHALATION SCH (08:12)
[2019-06-11] MEDS: IPRATROPIUM-ALBUTEROL 3 ML NEB INHALATION SCH ×2 (08:12→12:21)
[2019-06-11] MEDS: amLODIPine 5 MG TAB PO SCH (10:05)
[2019-06-11] MEDS: METOPROLOL SUCCINATE (ER) 25 MG TAB.ER.24H PO SCH (10:05)
[2019-06-11] MEDS: LISINOPRIL 20 MG TAB PO SCH (10:05)
[2019-06-11] MEDS: CHOLECALCIFEROL 1,000 UNIT TAB PO SCH (10:06)
[2019-06-11] MEDS ORDERED: FUROSEMIDE 20 MG TAB PO SCH (11:27)
--- NOTE | 2019-06-11 11:35 | P.PN ---
Subjective Progress Note Date: 06/11/19 This is a 64-year-old male patient was a direct admit from PCP due to COPD exacerbation and low SpO2. Patient's pulse ox in PCP office was in the mid 70s and patient is complaining of worsening shortness of breath. Patient has a known past medical history of advanced COPD in which he wears 5 L at home, essential hypertension, obesity, chronic hypoxic respiratory failure and osteoarthritis. Chest x-ray completed showing stable chest radiographic findings no definitive acute radiographic process. Pulmonary services have been consulted patient started on Rocephin, updraft breathing treatments and IV Solu-Medrol. Patient's BNP 568. Patient is currently resting comfortably bed. Patient reports significant improvement with overall shortness of breath since arrival to the hospital. Sputum culture has been collected. Patient denies any chest pain. Patient denies any nausea vomiting or diarrhea. Patient burning or frequency. Case management will be consulted to address home equipment needs. 06/11/2019 patient is reporting improvement in his cough and shortness of breath. However, he is still wheezing with coarse breath sounds. He denies any chest pain any nausea or vomiting following changes or urinary symptoms. He is asking when he'll be discharged home. Echo shows an EF of 50-55% with moderate pulmonary hypertension. CO2 level is trending down to 40. A1c 6.2 blood press ure 162/76. Patient does have some lower extremity edema reports that he does Lasix as needed at home. We'll change his Lasix to scheduled dosage. He remains on IV Solu-Medrol and Rocephin for his COPD exacerbation Objective - Vital Signs Vital signs: Vital Signs Temp 96.5 F L 06/11/19 07:57 Pulse 100 06/11/19 08:39 Resp 16 06/11/19 08:26 BP 162/76 06/11/19 07:57 Pulse Ox 94 L 06/11/19 08:12 Intake & Output 06/10/19 06/11/19 06/11/19 18:59 06:59 18:59 Intake Total 708 350 236 Balance 708 350 236 Weight 150.6 kg Intake: Oral 708 350 236 Other: Voiding Method Toilet # Voids 0 2 1 # Bowel Movements 0 - Exam Head normocephalic Neck supple Lungs coarse breath sounds and wheezing noted bilaterally Heart regular rate and rhythm S1-S2, no rub or gallop Abdomen is soft nontender nondistended positive bowel sounds no hepatosplenomegaly Extremities no edema Neuro alert and orientated to 3 - Labs CBC & Chem 7: 06/11/19 05:44 06/11/19 05:44 Labs: Abnormal Lab Results - Last 24 Hours (Table) 06/10/19 06/10/19 06/10/19 Range/Units 06:02 11:45 16:35 RBC (4.30-5.90) m/uL Hgb (13.0-17.5) gm/dL MCV (80.0-100.0) fL MCHC (31.0-37.0) g/dL Plt Count (150-450) k/uL Lymphocytes # (1.0-4.8) k/uL Potassium (3.5-5.1) mmol/L Chloride (98-107) mmol/L Carbon Dioxide (22-30) mmol/L BUN (9-20) mg/dL Glucose (74-99) mg/dL POC Glucose (mg/dL) 175 H 160 H (75-99) mg/dL Hemoglobin A1c 6.2 H (4.0-6.0) % 06/10/19 06/11/19 06/11/19 Range/Units 20:57 05:44 05:44 RBC 3.96 L (4.30-5.90) m/uL Hgb 12.7 L (13.0-17.5) gm/dL MCV 105.2 H (80.0-100.0) fL MCHC 30.4 L (31.0-37.0) g/dL Plt Count 113 L (150-450) k/uL Lymphocytes # 0.3 L (1.0-4.8) k/uL Potassium 5.3 H (3.5-5.1) mmol/L Chloride 93 L (98-107) mmol/L Carbon Dioxide 40 H (22-30) mmol/L BUN 23 H (9-20) mg/dL Glucose 171 H (74-99) mg/dL POC Glucose (mg/dL) 175 H (75-99) mg/dL Hemoglobin A1c (4.0-6.0) % 06/11/19 Range/Units 06:29 RBC (4.30-5.90) m/uL Hgb (13.0-17.5) gm/dL MCV (80.0-100.0) fL MCHC (31.0-37.0) g/dL Plt Count (150-450) k/uL Lymphocytes # (1.0-4.8) k/uL Potassium (3.5-5.1) mmol/L Chloride (98-107) mmol/L Carbon Dioxide (22-30) mmol/L BUN (9-20) mg/dL Glucose (74-99) mg/dL POC Glucose (mg/dL) 170 H (75-99) mg/dL Hemoglobin A1c (4.0-6.0) % Microbiology - Last 24 Hours (Table) 06/09/19 23:43 Gram Stain - Preliminary Sputum Assessment and Plan Assessment: 1. Increased shortness of breath related to COPD exacerbation. Chest x-ray completed showing stable chest radiographic findings and definitive acute radiographic process. Pulmonary services are following. Patient started on IV Solu-Medrol, updraft breathing treatment and Rocephin for antibiotics. Sputum Culture collected. We'll await further pulmonary recommendations 2. Acute on chronic hypoxic respiratory failure secondary to COPD exacerbation. Patient is maintained on 5 L oxygen at home 3. History of essential hypertension: Some mildly elevated blood pressures should show improvement with the addition of the Lasix. We'll monitor 4. History of arthritis 5. History of obesity 6. History of ALLERGIC rhinitis 7. Bilateral lower extremity edema. Patient takes Lasix 20 mg as needed at home for lower extremity swelling. We'll resume Lasix 20 mg daily scheduled 8. Hyperkalemia potassium 5.3 should correct with the Lasix. GI prophylaxis Protonix and DVT prophylaxis subcu heparin Consult physical therapy I performed an examination of the patient and discussed their management with the physician Loan Review Officer. I have reviewed the Physician Loan Review Officer's notes and agree with the documented findings and plan of care
[2019-06-11 11:42] LABS: Glucose,Whole Blood 208 mg/dL (75-99)
[2019-06-11 12:24] VITALS: RESP 22
[2019-06-11 12:52] VITALS: BP 142/77; PULSE 90; TEMP 96.3
--- NOTE | 2019-06-11 13:06 | P.DS ---
Providers Date of admission: 06/09/19 17:28 Expected date of discharge: 06/11/19 Attending physician: Sofiya Albrecht Consults: 06/09/19 18:01 Consult Physician Routine Consulting Provider: Ketan Zepeda Consult Reason/Comments: COPD exacerbation Do you want consulting provider notified?: Yes Placement Type Exists?: Yes Primary care physician: Stated None Hospital Course: Discharge diagnosis 1. Increased shortness of breath related to acute COPD exacerbation. Chest x- ray completed showing stable chest radiographic findings and definitive acute radiographic process. Continue prednisone taper and Ceftin for 7 days 2. Acute on chronic hypoxic respiratory failure secondary to COPD exacerbation. Patient is maintained on 5 L oxygen at home 3. History of essential hypertension: Some mildly elevated blood pressures should show improvement with the addition of the Lasix. We'll monitor 4. History of arthritis 5. History of obesity 6. History of ALLERGIC rhinitis 7. Bilateral lower extremity edema. Patient takes Lasix 20 mg as needed at home for lower extremity swelling. At this time we'll continue Lasix 20 mg by mouth daily for the next 3 days, then he can resume the Lasix as needed for his lower extremity edema 8. Hyperkalemia potassium 5.3 should correct with the Lasix. Hospital course This is a 64-year-old male patient was a direct admit from PCP due to COPD exacerbation and low SpO2. Patient's pulse ox in PCP office was in the mid 70s and patient is complaining of worsening shortness of breath. Patient has a known past medical history of advanced COPD in which he wears 5 L at home, essential hypertension, obesity, chronic hypoxic respiratory failure and osteoarthritis. Chest x-ray completed showing stable chest radiographic fi ndings no definitive acute radiographic process. Pulmonary services have been consulted patient started on Rocephin, updraft breathing treatments and IV Solu-Medrol. Patient's BNP 568. Patient is currently resting comfortably bed. Patient reports significant improvement with overall shortness of breath since arrival to the hospital. Sputum culture has been collected. Patient denies any chest pain. Patient denies any nausea vomiting or diarrhea. Patient burning or frequency. Case management will be consulted to address home equipment needs. 06/11/2019 patient is reporting improvement in his cough and shortness of breath. However, he is still wheezing with coarse breath sounds. He denies any chest pain any nausea or vomiting following changes or urinary symptoms. He is asking when he'll be discharged home. Echo shows an EF of 50-55% with moderate pulmonary hypertension. CO2 level is trending down to 40. A1c 6.2 blood pressure 162/76. Patient does have some lower extremity edema reports that he does Lasix as needed at home. We'll change his Lasix to scheduled dosage. He remains on IV Solu-Medrol and Rocephin for his COPD exacerbation 06/11/2019 patient was seen evaluated by pulmonary service. They have cleared him for discharge. Patient is still having some wheezing even during his breathing treatment. Dr. Albrecht discussed with patient about staying 1 more day for another dose of IV steroids and IV antibiotics. However, patient is very adamant and eager for discharge home. He will be discharged with a prednisone taper and Ceftin for 7 more days. He'll follow-up with pulmonary service in the outpatient setting. While patient follow-up in the office on Saturday. Also educated patient to take the Lasix over daily for the next 3 days. And then he can resume his Lasix as needed for lower extremity edema. Patient is medically stable for discharge. I performed an examination of the patient and discussed their management with [facility] physician Assistant Branch Operations Manager. I have reviewed the Physician Assistant Branch Operations Manager's notes and agree with the documented findings and plan of care Patient Condition at Discharge: Stable Plan - Discharge Summary Discharge Rx Participant: No New Discharge Prescriptions: New Cefuroxime Axetil [Ceftin] 500 mg PO BID #14 tab predniSONE 10 mg PO DIRECTED #30 tab Continue Albuterol Sulfate [Proair Hfa] 2 puff INHALATION RT-QID PRN PRN Reason: Shortness Of Breath Albuterol Nebulized [Ventolin Nebulized] 2.5 mg INHALATION RT-Q4H PRN PRN Reason: Shortness Of Breath amLODIPine [Norvasc] 5 mg PO DAILY Tiotropium [place] [Spiriva] 1 cap INHALATION RT-DAILY guaiFENesin SYRUP 100MG/5ML [Robitussin] 200 mg PO Q6H PRN PRN Reason: Cough Lisinopril [Prinivil] 20 mg PO HS Fluticasone Propion/Salmeterol [Wixela 250-50 Inhub] 1 puff INHALATION RT-BID Cholecalciferol (Vitamin D3) [Vitamin D3] 2,000 unit PO HS Montelukast [Singulair] 10 mg PO HS Metoprolol Succinate (ER) [Toprol XL] 25 mg PO HS clonazePAM [KlonoPIN] 0.5 mg PO DAILY PRN PRN Reason: Anxiety Otc Allergy(Unknown) 1 tab PO DAILY Changed Furosemide [Lasix] 20 mg PO DAILY #0 Discharge Medication List Albuterol Nebulized [Ventolin Nebulized] 2.5 mg INHALATION RT-Q4H PRN 06/22/14 [History] Albuterol Sulfate [Proair Hfa] 2 puff INHALATION RT-QID PRN 06/22/14 [History] Tiotropium [place] [Spiriva] 1 cap INHALATION RT-DAILY 06/22/14 [History] amLODIPine [Norvasc] 5 mg PO DAILY 06/22/14 [History] Cholecalciferol (Vitamin D3) [Vitamin D3] 2,000 unit PO HS 06/09/19 [History] Fluticasone Propion/Salmeterol [Wixela 250-50 Inhub] 1 puff INHALATION RT-BID 06/09/19 [History] Lisinopril [Prinivil] 20 mg PO HS 06/09/19 [History] Metoprolol Succinate (ER) [Toprol XL] 25 mg PO HS 06/09/19 [History] Montelukast [Singulair] 10 mg PO HS 06/09/19 [History] Otc Allergy(Unknown) 1 tab PO DAILY 06/09/19 [History] clonazePAM [KlonoPIN] 0.5 mg PO DAILY PRN 06/09/19 [History] guaiFENesin SYRUP 100MG/5ML [Robitussin] 200 mg PO Q6H PRN 06/09/19 [History] Cefuroxime Axetil [Ceftin] 500 mg PO BID #14 tab 06/11/19 [Rx] Furosemide [Lasix] 20 mg PO DAILY #0 06/11/19 [Rx] predniSONE 10 mg PO DIRECTED #30 tab 06/11/19 [Rx] Follow up Appointment(s)/Referral(s): Cierra Glass NPC [Nurse Practitioner] - 06/26/19 2:45 pm (Saturday) Sofiya Albrecht MD [STAFF PHYSICIAN] - 06/19/19 11:30 am (Saturday) Patient Instructions/Handouts: COPD (Chronic Obstructive Pulmonary Disease) (DC) Activity/Diet/Wound Care/Special Instructions: Diet: cardiac Activity: as tolerated Discharge Disposition: HOME SELF-CARE
--- NOTE | 2019-06-11 14:58 | P.PN ---
Subjective Progress Note Date: 06/11/19 Principal diagnosis: Acute on chronic hypoxic rest or a failure secondary to exacerbation of COPD This is a 64-year-old male patient with chronic hypoxic respiratory failure maintain oxygen at 5 L per minute nasal cannula, severe COPD with an FEV1 of 20% of predicted and chronic exertional dyspnea and significant limitation in exercise capacity. His other comorbidities include seasonal ALLERGIC rhinitis, generalized anxiety disorder and hypertension. The patient was transferred to us as a direct admit from his PCP because of worsening shortness of breath. His pulse ox was in the mid 70s at the doctor's office. The patient is coughing up some increased mucus which is thick creamy white in color. No hemoptysis. No pleurisy. There is some limited increase in lower extremity edema. No angina. No chest pain. No palpitations. No cardiac arrhythmias. No syncope. No previous history of DVT or pulmonary embolism. No loss in consciousness. Patient currently is on 5 L of oxygen by nasal cannula. His pulse ox was brought up to 90%. Note that his home concentrator was not functioning right and he was given a new concentrator that goes up to 10 L. He states that he was not getting the same benefit from the same machine. Currently he is on a combination of Spiriva and Wixela Inhub regarding his COPD and the patient uses Ventolin rescue inhaler and albuterol nebulizer on an as-needed basis. This is his first admission for COPD related complications. Most of childhood asthma. the patient exposure. No fever or chills. Chest x-ray showing some increased interstitial changes bilaterally in lung bases. The patient has a barrel chest consistent with COPD and some mild cardiomegaly. Labs are still pending for now. On 06/10/2019 patient seen in follow-up on selective care unit, he is doing much better today, breathing easier, he did not require BiPAP support last night, is currently at his home dose O2 at 5 L, his pulse ox of 91%, he is afebrile, hemodynamically stable, lung sounds are diminished, with expiratory wheezing, but overall patient states he is feeling much better. Today's labs have been reviewed, showing white blood cell count of 4.7, hemoglobin of 12.1, sodium of 141, potassium is 5.0, chloride is 94, CO2 is 41, BUN is 18, creatinine 0.75, LFTs were within normal limits. Chest x-ray showed no definite acute radiographic process. No fever or chills. Patient states he is hoping to go home tomorrow On 06/11/2019 patient seen in follow-up on selective care unit, he is improving, still has some scattered wheezes, but good air entry noted bilaterally, less dyspneic, he is on his home dose O2, at 5 L with a pulse ox of 94%, afebrile, hemodynamically stable. Today's labs have been reviewed, showing cell count of 6.0, hemoglobin of 12.7, sodium of 139, potassium is 5.3, chloride is 93, CO2 is 40, B1 is 23, creatinine 0.78. Patient has been treated with IV steroids, nebulized bronchodilators, and empiric antibiotics, clinically improving, requesting to go home today. From pulmonary perspective patient is stable for discharge home today Objective - Vital Signs Vital signs: Vital Signs Temp 96.3 F L 06/11/19 12:00 Pulse 106 H 06/11/19 12:35 Resp 22 06/11/19 12:21 BP 142/77 06/11/19 12:00 Pulse Ox 94 L 06/11/19 08:12 Intake & Output 06/10/19 06/11/19 06/11/19 18:59 06:59 18:59 Intake Total 708 350 592 Balance 708 350 592 Weight 150.6 kg Intake: Oral 708 350 592 Other: Voiding Method Toilet # Voids 0 2 1 # Bowel Movements 0 - Exam GENERAL EXAM: Alert, pleasant, 64-year-old white male patient on 5 L of oxygen with a pulse ox of 94%, comfortable in no apparent distress. HEAD: Normocephalic/atraumatic. EYES: Normal reaction of pupils, equal size. Conjunctiva pink, sclera white. NOSE: Clear with pink turbinates. THROAT: No erythema or exudates. NECK: No masses, no JVD, no thyroid enlargement, no adenopathy. CHEST: No chest wall deformity. Symmetrical expansion. LUNGS: Diminished air entry with expiratory wheezing CVS: Regular rate and rhythm, normal S1 and S2, no gallops, no murmurs, no rubs ABDOMEN: Soft, nontender. No hepatosplenomegaly, normal bowel sounds, no guarding or rigidity. EXTREMITIES: No clubbing, no edema, no cyanosis, 2+ pulses and upper and lower extremities. MUSCULOSKELETAL: Muscle strength and tone normal. SPINE: No scoliosis or deformity SKIN: No rashes CENTRAL NERVOUS SYSTEM: Alert and oriented -3. No focal deficits, tone is normal in all 4 extremities. PSYCHIATRIC: Alert and oriented -3. Appropriate affect. Intact judgment and insight. - Labs CBC & Chem 7: 06/11/19 05:44 06/11/19 05:44 Labs: Abnormal Lab Results - Last 24 Hours (Table) 06/10/19 06/10/19 06/10/19 Range/Units 06:02 16:35 20:57 RBC (4.30-5.90) m/uL Hgb (13.0-17.5) gm/dL MCV (80.0-100.0) fL MCHC (31.0-37.0) g/dL Plt Count (150-450) k/uL Lymphocytes # (1.0-4.8) k/uL Potassium (3.5-5.1) mmol/L Chloride (98-107) mmol/L Carbon Dioxide (22-30) mmol/L BUN (9-20) mg/dL Glucose (74-99) mg/dL POC Glucose (mg/dL) 160 H 175 H (75-99) mg/dL Hemoglobin A1c 6.2 H (4.0-6.0) % 06/11/19 06/11/19 06/11/19 Range/Units 05:44 05:44 06:29 RBC 3.96 L (4.30-5.90) m/uL Hgb 12.7 L (13.0-17.5) gm/dL MCV 105.2 H (80.0-100.0) fL MCHC 30.4 L (31.0-37.0) g/dL Plt Count 113 L (150-450) k/uL Lymphocytes # 0.3 L (1.0-4.8) k/uL Potassium 5.3 H (3.5-5.1) mmol/L Chloride 93 L (98-107) mmol/L Carbon Dioxide 40 H (22-30) mmol/L BUN 23 H (9-20) mg/dL Glucose 171 H (74-99) mg/dL POC Glucose (mg/dL) 170 H (75-99) mg/dL Hemoglobin A1c (4.0-6.0) % 06/11/19 Range/Units 11:41 RBC (4.30-5.90) m/uL Hgb (13.0-17.5) gm/dL MCV (80.0-100.0) fL MCHC (31.0-37.0) g/dL Plt Count (150-450) k/uL Lymphocytes # (1.0-4.8) k/uL Potassium (3.5-5.1) mmol/L Chloride (98-107) mmol/L Carbon Dioxide (22-30) mmol/L BUN (9-20) mg/dL Glucose (74-99) mg/dL POC Glucose (mg/dL) 208 H (75-99) mg/dL Hemoglobin A1c (4.0-6.0) % Microbiology - Last 24 Hours (Table) 06/09/19 23:43 Gram Stain - Preliminary Sputum Sputum Culture - Preliminary Assessment and Plan Plan: Assessment: 1 acute on chronic hypoxic respiratory failure secondary exacerbation of COPD. The patient was profoundly hypoxic at his doctor's office and currently is back to 5 L about 2 by nasal cannula. Suspect COPD exacerbation 2 severe COPD with a based on FEV1 of less than 20% of predicted at baseline 3 chronic hypoxic respiratory failure maintained on oxygen at 5 L per minute nasal cannula 4 chronic exertional dyspnea secondary to above and marked impairment in exerci se capacity 5 obesity with a BMI of 45.4 6 chronic ALLERGIC rhinitis 7 chronic anxiety disorder 8 hypertension 9 osteoarthritis Plan: Patient is improving, breathing easier, he is pretty close to his baseline. His home dose O2, his pulse ox is 94%, no fever or chills, sputum culture is pendi ng, Gram stain with many normal respiratory danitza. Vital signs are stable, patient is stable for discharge home from pulmonary perspective with outpatient follow-up Dr. Sanchez in the office he can complete her course of antibiotics, and there are taper, he can resume his normal inhalers and breathing treatments I performed a history & physical examination of the patient and discussed their management with my nurse practitioner, Felisha Banuelos. I reviewed the nurse practitioner's note and agree with the documented findings and plan of care. Lung sounds are positive for diffuse wheezes throughout the lung evans. The findings and the impression was discussed with the patient. I attest to the documentation by the nurse practitioner. Time with Patient: Less than 30
== END 2019-06-11 15:14 | disposition home or self-care (01) | DRG 190 ==
LOC: 3SCARD 17:28
PROVIDERS: ADMIT Internal Medicine; ATTEND Internal Medicine
DX: J44.1 Chronic obstructive pulmonary disease with (acute) exacerbation (principal); J96.21 Acute and chronic respiratory failure with hypoxia; Z68.42 Body mass index [BMI] 45.0-49.9, adult; I27.20 Pulmonary hypertension, unspecified; E87.5 Hyperkalemia; E66.9 Obesity, unspecified; I10 Essential (primary) hypertension; F41.1 Generalized anxiety disorder; M95.4 Acquired deformity of chest and rib; M19.90 Unspecified osteoarthritis, unspecified site; R73.9 Hyperglycemia, unspecified; T38.0X5A Adverse effect of glucocorticoids and synthetic analogues, initial encounter; R60.0 Localized edema; Z99.81 Dependence on supplemental oxygen; Z79.51 Long term (current) use of inhaled steroids; Z79.899 Other long term (current) drug therapy; Z91.048 Other nonmedicinal substance allergy status; Z88.1 Allergy status to other antibiotic agents; Z81.8 Family history of other mental and behavioral disorders; Z80.3 Family history of malignant neoplasm of breast
CPT/HCPCS: 36600; 71046; 80053; 82805; 83036; 83880; 84484; 85025; 87070; 87205; 93306; 94640; 94760

== ENCOUNTER 2019-08-27 15:08 | Inpatient (IN) | payer MEDICARE ==
[2019-08-27] MEDS ORDERED: IPRATROPIUM-ALBUTEROL 3 ML NEB INHALATION STA (15:54)
[2019-08-27] MEDS ORDERED: MAGNESIUM SULFATE-D5W PMX 1 GM in DEXTROSE/WATER 1 100ML.BAG IVPB STA (15:54)
[2019-08-27] MEDS ORDERED: methylPREDNISolone SOD SUCCI 125 MG/2 ML VIAL IV STA (15:54)
[2019-08-27 16:25] LABS: Basophils # (A) 0.1 k/uL (0-0.2); Basophils % (A) 2 %; Eosinophils % (A) 1 %; HCT 46.4 % (39.0-53.0); HGB 13.7 gm/dL (13.0-17.5); Hypochromasia Marked; Lymphocytes # (A) 0.5 k/uL (1.0-4.8); Lymphocytes % (A) 7 %; MCH 31.8 pg (25.0-35.0); MCHC 29.5 g/dL (31.0-37.0); MCV 107.8 fL (80.0-100.0); Macrocytosis Moderate; Mean Platelet Volume 9.4; Monocytes # (A) 0.5 k/uL (0-1.0); Monocytes % (A) 6 %; Neutrophils % (A) 84 %; Platelet Count 116 k/uL (150-450); RDW 12.9 % (11.5-15.5); WBC 7.1 k/uL (3.8-10.6)
--- NOTE | 2019-08-27 16:29 | XR ---
EXAMINATION TYPE: XR chest 2V DATE OF EXAM: 08/27/2019 COMPARISON: 06/09/2019 HISTORY: 64 year-old male shortness of breath, difficulty breathing TECHNIQUE: AP and lateral views FINDINGS: Left heart margin obscured by adjacent pleural parenchymal opacity. Findings suggest a moderate left pleural effusion and small right pleural effusions with adjacent opacity. Diffuse interstitial promin ence. New 5.9 cm posterior left upper lung mass. IMPRESSION: 1. Correlate for CHF with interstitial pulmonary edema. 2. New moderate left and small right pleural effusions with adjacent atelectasis and/or consolidation . 3. As compared to 06/09/2019, there is a new 5.9 cm posterior left upper lung mass. This could represen t loculated fluid along the superior major fissure or a focus of infection. Neoplasm is also possible but considered less likely given the relatively rapid development. Appropriate follow-up and evaluat ion is recommended.
[2019-08-27 16:34] LABS: ALT 49 U/L (21-72); AST 42 U/L (17-59); African American GFR (CKD) >90 (>60 ml/min/1.73 sqM); Albumin 3.9 g/dL (3.5-5.0); Alkaline Phosphatase 105 U/L (38-126); Blood Urea Nitrogen 23 mg/dL (9-20); Calcium 8.8 mg/dL (8.4-10.2); Chloride 93 mmol/L (98-107); Glucose 191 mg/dL (74-99); Non-African American GFR(CKD) >90 (>60 ml/min/1.73 sqM); Sodium 140 mmol/L (137-145); Total Bilirubin 0.9 mg/dL (0.2-1.3); Total Protein 7.2 g/dL (6.3-8.2)
[2019-08-27 16:36] LABS: Partial Thromboplastin Time 24.7 sec (22.0-30.0); Prothrombin Time 10.4 sec (9.0-12.0)
[2019-08-27 16:46] LABS: D-Dimer 1.72 mg/L FEU (<0.60)
[2019-08-27 16:52] LABS: Anion Gap 8 mmol/L; Carbon Dioxide 39 mmol/L (22-30); Potassium 5.1 mmol/L (3.5-5.1)
[2019-08-27] MEDS ORDERED: VANCOMYCIN 1,000 MG in SODIUM CHLORIDE 0.9% 250 ML IVPB STA (18:01)
[2019-08-27] MEDS ORDERED: VANCOMYCIN 2,000 MG in SODIUM CHLORIDE 0.9% 500 ML 500 ML IVPB STA (18:04)
--- NOTE | 2019-08-27 18:04 | CT ---
EXAMINATION TYPE: CT chest angio for PE DATE OF EXAM: 08/27/2019 COMPARISON: None HISTORY: Elevated d-dimer. CT DLP: 714.1 mGycm Automated exposure control for dose reduction was used. CONTRAST: CT Chest for pulmonary embolism performed with with IV Contrast, patient injected with 100 mL of Isov ue 370. FINDINGS: There are moderate bilateral pleural effusions and larger on the left side. There is some atelectasis in both lower lobes and more on the left side. There is probably also some airspace infiltrate both lower lobes. There is no pericardial effusion. There is no mediastinal adenopathy. There is some cystic changes in the inferior left and right thyroid lobe. There are no hilar masses. Thoracic aorta shows no aneurysm or dissection. There is no evidence of fi lling defect in the pulmonary arteries. There is spurring in the thoracic spine. I see no bony destructive process. IMPRESSION: Bilateral pleural effusions. Bilateral basilar pulmonary infiltrates and atelectasis. No evidence of pulmonary embolism.
[2019-08-27] MEDS ORDERED: FUROSEMIDE 10 MG/ML 4 ML VIAL IV STA (18:12)
--- NOTE | 2019-08-27 18:12 | ED ---
General Adult HPI - General Chief complaint: Shortness of Breath Stated complaint: SOB/COPD Time Seen by Provider: 08/27/19 15:34 Source: patient, family Mode of arrival: wheelchair Limitations: no limitations - History of Present Illness Initial comments: The patient is a 64 year old male with past medical history of COPD and hypertension who presents the emergency room with reported shortness of breath. He states that he wears 5 L oxygen at all times. He was recently hospitalized in June for a COPD exacerbation. He sees Dr. Earl. States that over the past several days has had increased shortness of breath. Also had a productive cough with brown sputum production. He is unsure if it is blood. Denies history of DVT or PE. Denies any chest pain. His nephew was recently diagnosed with pneumonia who he lives with. No nausea or vomiting. No lower extremity swelling. Denies a history of congestive heart failure. No fevers or chills. There are no other alleviating, precipitating or modifying factors - Related Data Home Medications Medication Instructions Recorded Confirmed Albuterol Nebulized [Ventolin 2.5 mg INHALATION RT-QID PRN 06/22/14 08/27/19 Nebulized] amLODIPine [Norvasc] 5 mg PO DAILY 06/22/14 08/27/19 Cholecalciferol (Vitamin D3) 2,000 unit PO HS 06/09/19 08/27/19 [Vitamin D3] Lisinopril [Prinivil] 20 mg PO HS 06/09/19 08/27/19 Montelukast [Singulair] 10 mg PO HS 06/09/19 08/27/19 clonazePAM [KlonoPIN] 0.5 mg PO DAILY PRN 06/09/19 08/27/19 Albuterol Sulfate [Ventolin HFA] 2 puff INHALATION RT-Q4H PRN 08/27/19 08/27/19 Fluticasone/Salmeterol [Advair 1 puff INHALATION RT-BID 08/27/19 08/27/19 250-50 Diskus] Pseudoephedrine [Sudafed] 30 mg PO Q4H PRN 08/27/19 08/27/19 diphenhydrAMINE HCL [Benadryl] 25 mg PO BID 08/27/19 08/27/19 guaiFENesin [Mucinex] 600 mg PO BID PRN 08/27/19 08/27/19 Previous Rx's Medication Instructions Recorded Furosemide [Lasix] 40 mg PO BID@0900,1600 30 Days #60 09/01/19 tab Metoprolol Tartrate 25 mg PO BID #60 tab 09/01/19 predniSONE 10 mg PO DIRECTED 12 Days #30 09/01/19 tab Allergies Allergy/AdvReac Type Severity Reaction Status Date / Time clarithromycin [From Biaxin] AdvReac TREMORS Verified 08/27/19 18:40 Review of Systems ROS Statement: Those systems with pertinent positive or pertinent negative responses have been documented in the HPI. ROS Other: All systems not noted in ROS Statement are negative. Past Medical History Past Medical History: COPD, Hypertension Additional Past Medical History / Comment(s): Obesity, previous history of cellulitis of the lower extremities, hypertension, COPD, chronic hypoxic respiratory failure, osteoarthritis History of Any Multi-Drug Resistant Organisms: None Reported Past Surgical History: No Surgical Hx Reported Additional Past Surgical History / Comment(s): no Reported history of surgeries Past Anesthesia/Blood Transfusion Reactions: No Reported Reaction Past Psychological History: No Psychological Hx Reported Smoking Status: Never smoker - Past Family History Father Additional Family Medical History / Comment(s): Patient states father at 76 of a blood clot, mother had breast cancer Mother Family Medical History: Dementia General Exam Limitations: no limitations General appearance: alert, in no apparent distress Head exam: Present: atraumatic, normocephalic, normal inspection Eye exam: Present: normal appearance, PERRL, EOMI. Absent: scleral icterus, conjunctival injection, periorbital swelling ENT exam: Present: normal exam, mucous membranes moist Neck exam: Present: normal inspection. Absent: tenderness, meningismus, lymphadenopathy Respiratory exam: Present: respiratory distress, wheezes, accessory muscle use, decreased breath sounds. Absent: rales, rhonchi, stridor Cardiovascular Exam: Present: normal rhythm, tachycardia, normal heart sounds. Absent: systolic murmur, diastolic murmur, rubs, gallop, clicks GI/Abdominal exam: Present: soft, normal bowel sounds. Absent: distended, tenderness, guarding, rebound, rigid Extremities exam: Present: normal inspection, full ROM, normal capillary refill. Absent: tenderness, pedal edema, joint swelling, calf tenderness Back exam: Present: normal inspection Neurological exam: Present: alert, oriented X3, CN II-XII intact Psychiatric exam: Present: normal affect, normal mood Skin exam: Present: warm, dry, intact, normal color. Absent: rash Course Vital Signs 08/27/19 08/27/19 08/27/19 15:15 16:11 16:26 Temperature 97.6 F Pulse Rate 113 H 99 96 Respiratory 26 H 20 Rate Blood Pressure 128/69 150/78 O2 Sat by Pulse 80 L 93 L Oximetry 08/27/19 08/27/19 08/27/19 16:36 17:20 19:25 Temperature 98.4 F Pulse Rate 96 93 71 Respiratory 22 22 Rate Blood Pressure 128/97 170/90 O2 Sat by Pulse 97 91 L Oximetry 08/27/19 08/27/19 19:28 19:42 Temperature Pulse Rate 98 98 Respiratory Rate Blood Pressure O2 Sat by Pulse Oximetry EKG Findings - EKG Comments: EKG Findings:: EKG demonstrates a sinus tachycardia with a ventricular rate of 103. AL interval 144. QRS 136. QTC of 516. Right bundle branch block present. No acute ST segment elevations or depressions concerning for ischemic changes Medical Decision Making - Medical Decision Making The patient is placed into room 2. He is diffusely wheezy. I do order a DuoNeb breathing treatment. He is also given 125 mg of Solu-Medrol and 1 g of magnesium. He recommended laboratory studies. The patient does have hemoptysis I did order a d-dimer level. CBC shows a platelet count of 116. D-dimer is elevated at 1.7. Chloride low at 93. Trop elevated at 0.051. Original chest x- ray demonstrated interstitial pulmonary edema and new moderate left and right- sided pleural effusions with adjacent atelectasis and or consolidation. There is also a new 5.9 cm posterior left upper lung mass which could represent a loculated fluid collection. Because the patient's elevated d-dimer send him over for a CTA which demonstrates bilateral pleural effusions and bilateral basilar pulmonary infiltrates vs atelectasis. He did obtain blood cultures and initiated the patient on antibiotics. I did give him a dose of Lasix for volume overload. I recommended hospital admission for which the patient did agree. I didn't the patient to Dr. Albrecht. I will consult Dr. Burger and cardiology. I will trend the patient's troponins. He remained in stable condition awaiting a bed on the floor - Lab Data Result diagrams: 09/01/19 09:39 09/01/19 09:39 Lab Results 08/27/19 08/27/19 08/27/19 Range/Units 15:40 15:40 15:40 WBC 7.1 (3.8-10.6) k/uL RBC 4.30 (4.30-5.90) m/uL Hgb 13.7 (13.0-17.5) gm/dL Hct 46.4 (39.0-53.0) % MCV 107.8 H (80.0-100.0) fL MCH 31.8 (25.0-35.0) pg MCHC 29.5 L (31.0-37.0) g/dL RDW 12.9 (11.5-15.5) % Plt Count 116 L (150-450) k/uL Neutrophils % 84 % Lymphocytes % 7 % Monocytes % 6 % Eosinophils % 1 % Basophils % 2 % Neutrophils # 6.0 (1.3-7.7) k/uL Lymphocytes # 0.5 L (1.0-4.8) k/uL Monocytes # 0.5 (0-1.0) k/uL Eosinophils # 0.0 (0-0.7) k/uL Basophils # 0.1 (0-0.2) k/uL Hypochromasia Marked Macrocytosis Moderate PT 10.4 (9.0-12.0) sec INR 1.0 (<1.2) APTT 24.7 (22.0-30.0) sec D-Dimer 1.72 H (<0.60) mg/L FEU Sodium 140 (137-145) mmol/L Potassium 5.1 (3.5-5.1) mmol/L Chloride 93 L (98-107) mmol/L Carbon Dioxide 39 H (22-30) mmol/L Anion Gap 8 mmol/L BUN 23 H (9-20) mg/dL Creatinine 0.86 (0.66-1.25) mg/dL Est GFR (CKD-EPI)AfAm >90 (>60 ml/min/1.73 sqM) Est GFR (CKD-EPI)NonAf >90 (>60 ml/min/1.73 sqM) Glucose 191 H (74-99) mg/dL Calcium 8.8 (8.4-10.2) mg/dL Total Bilirubin 0.9 (0.2-1.3) mg/dL AST 42 (17-59) U/L ALT 49 (21-72) U/L Alkaline Phosphatase 105 (38-126) U/L Troponin I (0.000-0.034) ng/mL NT-Pro-B Natriuret Pep pg/mL Total Protein 7.2 (6.3-8.2) g/dL Albumin 3.9 (3.5-5.0) g/dL 08/27/19 08/27/19 Range/Units 15:40 15:40 WBC (3.8-10.6) k/uL RBC (4.30-5.90) m/uL Hgb (13.0-17.5) gm/dL Hct (39.0-53.0) % MCV (80.0-100.0) fL MCH (25.0-35.0) pg MCHC (31.0-37.0) g/dL RDW (11.5-15.5) % Plt Count (150-450) k/uL Neutrophils % % Lymphocytes % % Monocytes % % Eosinophils % % Basophils % % Neutrophils # (1.3-7.7) k/uL Lymphocytes # (1.0-4.8) k/uL Monocytes # (0-1.0) k/uL Eosinophils # (0-0.7) k/uL Basophils # (0-0.2) k/uL Hypochromasia Macrocytosis PT (9.0-12.0) sec INR (<1.2) APTT (22.0-30.0) sec D-Dimer (<0.60) mg/L FEU Sodium (137-145) mmol/L Potassium (3.5-5.1) mmol/L Chloride (98-107) mmol/L Carbon Dioxide (22-30) mmol/L Anion Gap mmol/L BUN (9-20) mg/dL Creatinine (0.66-1.25) mg/dL Est GFR (CKD-EPI)AfAm (>60 ml/min/1.73 sqM) Est GFR (CKD-EPI)NonAf (>60 ml/min/1.73 sqM) Glucose (74-99) mg/dL Calcium (8.4-10.2) mg/dL Total Bilirubin (0.2-1.3) mg/dL AST (17-59) U/L ALT (21-72) U/L Alkaline Phosphatase (38-126) U/L Troponin I 0.051 H* (0.000-0.034) ng/mL NT-Pro-B Natriuret Pep 1420 pg/mL Total Protein (6.3-8.2) g/dL Albumin (3.5-5.0) g/dL Disposition Clinical Impression: Congestive heart failure, Hypoxia Disposition: ADMITTED IP TO THIS [facility] Condition: Stable Is patient prescribed a controlled substance at d/c from ED?: No Decision to Admit Reason: Admit from EC Decision Date: 08/27/19 Decision Time: 18:23
[2019-08-27] MEDS ORDERED: PIPERACILLIN-TAZOBACTAM 3.375 GM in SODIUM CHLORIDE 0.9% 100 ML IVPB ONE (18:15)
[2019-08-27] MEDS ORDERED: NALOXONE 0.4 MG/ML 1 ML VIAL IV PRN (18:25)
[2019-08-27] MEDS: IPRATROPIUM-ALBUTEROL 3 ML NEB INHALATION SCH (19:28)
[2019-08-27] MEDS ORDERED: guaiFENesin 600 MG TABLET.ER PO PRN (19:52)
[2019-08-27] MEDS ORDERED: ALBUTEROL NEBULIZED 2.5 MG/3 ML INHALATION PRN (19:52)
[2019-08-27] MEDS: SYMBICORT 80-4.5 MCG INHALER INHALATION SCH (20:48)
[2019-08-27] MEDS ORDERED: METOPROLOL SUCCINATE (ER) 25 MG TAB.ER.24H PO SCH (21:00)
[2019-08-27] MEDS: LISINOPRIL 20 MG TAB PO SCH (21:15)
[2019-08-27] MEDS: MONTELUKAST 10 MG TAB PO SCH (21:15)
[2019-08-28] MEDS: IPRATROPIUM-ALBUTEROL 3 ML NEB INHALATION SCH ×6 (00:21→19:13)
[2019-08-28] MEDS: PIPERACILLIN-TAZOBACTAM 3.375 GM in SODIUM CHLORIDE 0.9% 100 ML IVPB SCH ×3 (02:34→18:06)
[2019-08-28 04:01] LABS: Basophils % (A) 1 %; Eosinophils % (A) 0 %; HCT 42.3 % (39.0-53.0); HGB 12.8 gm/dL (13.0-17.5); Hypochromasia Marked; Lymphocytes # (A) 0.3 k/uL (1.0-4.8); Lymphocytes % (A) 6 %; MCHC 30.2 g/dL (31.0-37.0); MCV 105.9 fL (80.0-100.0); Macrocytosis Slight; Monocytes # (A) 0.2 k/uL (0-1.0); Monocytes % (A) 5 %; Neutrophils % (A) 87 %; Platelet Count 110 k/uL (150-450); RBC 3.99 m/uL (4.30-5.90); RDW 12.6 % (11.5-15.5); WBC 4.6 k/uL (3.8-10.6)
[2019-08-28 04:06] LABS: African American GFR (CKD) >90 (>60 ml/min/1.73 sqM); Blood Urea Nitrogen 21 mg/dL (9-20); Calcium 8.6 mg/dL (8.4-10.2); Chloride 89 mmol/L (98-107); Glucose 147 mg/dL (74-99); Non-African American GFR(CKD) >90 (>60 ml/min/1.73 sqM); Potassium 4.7 mmol/L (3.5-5.1); Sodium 139 mmol/L (137-145)
[2019-08-28 04:15] LABS: Anion Gap 4 mmol/L
[2019-08-28 04:22] LABS: Carbon Dioxide 46 mmol/L (22-30)
[2019-08-28] MEDS: FUROSEMIDE 10 MG/ML 4 ML VIAL IV SCH ×2 (08:20→20:50)
[2019-08-28] MEDS: amLODIPine 5 MG TAB PO SCH (08:20)
[2019-08-28] MEDS: SYMBICORT 80-4.5 MCG INHALER INHALATION SCH (09:08)
[2019-08-28] MEDS: acetaZOLAMIDE 250 MG TAB PO SCH ×2 (09:12→20:50)
[2019-08-28] MEDS ORDERED: clonazePAM 0.5 MG TAB PO PRN (10:04)
--- NOTE | 2019-08-28 10:19 | P.HPIM ---
History of Present Illness H&P Date: 08/28/19 Chief Complaint: Increased shortness congestion This is a 64-year-old male patient who presented with complaints of increased shortness of breath. Patient reports that over the past few days he's had increasing shortness of breath with productive cough and increased sputum production. Patient does have known past medical history of COPD in which she is maintained on 5 L nasal cannula at home and follows with Dr. Earl per pulmonary. Patient denies any recent fevers. Patient doesn't above medical history of essential hypertension, obesity, bilateral lower extremity cellulitis and chronic hypoxic respiratory failure. Chest x-ray completed showing correlation for CHF with interstitial pulmonary edema. Moderate left and small right pleural effusions with adjacent atelectasis and/or consolidation as compared to 06/09/2019 there is a new 5.9 cm posterior left lung upper lung masses could represent loculated fluid along this. Major fascia or focus of infection neoplasm is also possible considered less likely given the relatively rapid development. BNP elevated at 1420. D-dimer was elevated at 1.72. Chest CTA performed showing bilateral pleural effusions. Bilateral basilar pulmonary infiltrates and atelectasis no evidence of pulmonary embolism. Troponin 0.051, 0.069 0.059. Patient started on IV Lasix 40 mg every 12 hours. Cardiology services have been consulted. Patient started on Zosyn for IV antibiotics and DuoNeb breathing treatments. Mucinex ordered sputum culture ordered. Pulmonary service is consulted. At this time patient reports improvement with shortness of breath. Patient denies any chest pain. Patient denies nausea vomiting or diarrhea. Patient denies any urinary burning or frequency. Review of Systems Please refer to HPI otherwise unremarkable Past Medical History Past Medical History: COPD, Hypertension Additional Past Medical History / Comment(s): Obesity, previous history of cellulitis of the lower extremities, hypertension, COPD, chronic hypoxic respiratory failure, osteoarthritis History of Any Multi-Drug Resistant Organisms: None Reported Past Surgical History: No Surgical Hx Reported Additional Past Surgical History / Comment(s): no Reported history of surgeries Past Anesthesia/Blood Transfusion Reactions: No Reported Reaction Past Psychological History: No Psychological Hx Reported Smoking Status: Former smoker - Past Family History Father Additional Family Medical History / Comment(s): Patient states father at 76 of a blood clot, mother had breast cancer Mother Family Medical History: Dementia Medications and Allergies Home Medications Medication Instructions Recorded Confirmed Type Albuterol Nebulized [Ventolin 2.5 mg INHALATION RT-QID PRN 06/22/14 08/27/19 History Nebulized] amLODIPine [Norvasc] 5 mg PO DAILY 06/22/14 08/27/19 History Cholecalciferol (Vitamin D3) 2,000 unit PO HS 06/09/19 08/27/19 History [Vitamin D3] Lisinopril [Prinivil] 20 mg PO HS 06/09/19 08/27/19 History Metoprolol Succinate (ER) [Toprol 25 mg PO HS 06/09/19 08/27/19 History XL] Montelukast [Singulair] 10 mg PO HS 06/09/19 08/27/19 History clonazePAM [KlonoPIN] 0.5 mg PO DAILY PRN 06/09/19 08/27/19 History Albuterol Sulfate [Ventolin HFA] 2 puff INHALATION RT-Q4H PRN 08/27/19 08/27/19 History Fluticasone/Salmeterol [Advair 1 puff INHALATION RT-BID 08/27/19 08/27/19 History 250-50 Diskus] Furosemide [Lasix] 20 mg PO DAILY PRN 08/27/19 08/27/19 History Pseudoephedrine [Sudafed] 30 mg PO Q4H PRN 08/27/19 08/27/19 History diphenhydrAMINE HCL [Benadryl] 25 mg PO BID 08/27/19 08/27/19 History guaiFENesin [Mucinex] 600 mg PO BID PRN 08/27/19 08/27/19 History Allergies Allergy/AdvReac Type Severity Reaction Status Date / Time clarithromycin [From Biaxin] AdvReac TREMORS Verified 08/27/19 18:40 Physical Exam Vitals: Vital Signs Temp Pulse Pulse Resp BP BP Pulse Ox 08/28/19 09:34 88 08/28/19 09:24 88 08/28/19 08:25 96.9 F L 79 20 138/96 95 08/28/19 04:34 88 08/28/19 04:27 92 08/28/19 04:00 98.8 F 97 22 109/81 97 08/28/19 00:36 96 08/28/19 00:21 93 08/28/19 00:00 98.9 F 101 H 24 143/73 91 L 08/27/19 20:45 98.4 F 115 H 25 H 155/73 91 L 08/27/19 20:30 98.4 F 115 H 26 H 155/73 85 L 08/27/19 19:42 98 08/27/19 19:28 98 08/27/19 19:25 98.4 F 71 22 170/90 91 L 08/27/19 17:20 93 22 128/97 97 08/27/19 16:36 96 08/27/19 16:26 96 08/27/19 16:11 99 20 150/78 93 L 08/27/19 15:15 97.6 F 113 H 26 H 128/69 80 L Intake and Output 08/27/19 08/28/19 08/28/19 22:59 06:59 14:59 Output Total 500 400 910 Balance -500 -400 -910 Output: Urine 500 400 910 Other: Voiding Method Urinal # Voids 1 Weight 144.242 kg 142.6 kg Head normocephalic Neck supple Lungs diminished bilaterally Heart regular rate and rhythm S1-S2, no rub or gallop Abdomen is soft nontender nondistended positive bowel sounds no hepatosplenomegaly Extremities no edema. Bilateral lower extreme erythema patient reports that this is chronic improved for him Neuro alert and orientated to 3 Results CBC & Chem 7: 08/28/19 03:25 08/28/19 03:25 Labs: Abnormal Lab Results - Last 24 Hours (Table) 08/27/19 08/27/19 08/27/19 Range/Units 15:40 15:40 15:40 RBC (4.30-5.90) m/uL Hgb (13.0-17.5) gm/dL MCV 107.8 H (80.0-100.0) fL MCHC 29.5 L (31.0-37.0) g/dL Plt Count 116 L (150-450) k/uL Lymphocytes # 0.5 L (1.0-4.8) k/uL D-Dimer 1.72 H (<0.60) mg/L FEU Chloride 93 L (98-107) mmol/L Carbon Dioxide 39 H (22-30) mmol/L BUN 23 H (9-20) mg/dL Glucose 191 H (74-99) mg/dL Troponin I (0.000-0.034) ng/mL 08/27/19 08/27/19 08/28/19 Range/Units 15:40 22:21 03:25 RBC 3.99 L (4.30-5.90) m/uL Hgb 12.8 L (13.0-17.5) gm/dL MCV 105.9 H (80.0-100.0) fL MCHC 30.2 L (31.0-37.0) g/dL Plt Count 110 L (150-450) k/uL Lymphocytes # 0.3 L (1.0-4.8) k/uL D-Dimer (<0.60) mg/L FEU Chloride (98-107) mmol/L Carbon Dioxide (22-30) mmol/L BUN (9-20) mg/dL Glucose (74-99) mg/dL Troponin I 0.051 H* 0.069 H* (0.000-0.034) ng/mL 08/28/19 08/28/19 Range/Units 03:25 03:25 RBC (4.30-5.90) m/uL Hgb (13.0-17.5) gm/dL MCV (80.0-100.0) fL MCHC (31.0-37.0) g/dL Plt Count (150-450) k/uL Lymphocytes # (1.0-4.8) k/uL D-Dimer (<0.60) mg/L FEU Chloride 89 L (98-107) mmol/L Carbon Dioxide 46 H* (22-30) mmol/L BUN 21 H (9-20) mg/dL Glucose 147 H (74-99) mg/dL Troponin I 0.059 H* (0.000-0.034) ng/mL Thrombosis Risk Factor Assmnt - Choose All That Apply Any of the Below Risk Factors Present?: Yes Each Factor Represents 1 point: Abnormal pulmonary function (COPD), Obesity (BMI >25) Other Risk Factors: Yes Each Risk Factor Represents 2 Points: Age 61-74 years Thrombosis Risk Factor Assessment Total Risk Factor Score: 4 Thrombosis Risk Factor Assessment Level: Moderate Risk Assessment and Plan Assessment: 1. Increased shortness of breath secondary to possible pneumonia and CHF exacerbation. Chest x-ray completed showing correlation for CHF with interstitial pulmonary edemaModerate left and small right pleural effusions with adjacent atelectasis or consolidation. As compared of 06/09/2019 there is a new 5.9 cm posterior left upper lung mass this could represent loculated fluid along the superior Major fissure or focus of infection neoplasm is also possible but considered less likely given the relatively rapid development. Patient started on IV Lasix. Cardiology services have been consulted. Pulmonary service is consulted. Patient started on IV Zosyn, DuoNeb breathing treatments and sputum culture ordered 2. Elevated troponin. Troponin 0.051, 0.069 and 0.059. Cardiology services have been consulted 3. Elevated d-dimer. D-dimer 1.72. Chest CTA completed showing bilateral pleural effusions. Bilateral basilar pulmonary infiltrates and atelectasis. No evidence of pulmonary embolism. 4. Chronic hypoxic respiratory failure maintained on oxygen at 5 L 5. History of essential hypertension. Home meds resumed 6. History of obesity 7. History of ALLERGIC rhinitis 8. History of bilateral lower extreme any cellulitis. Per patient this is improved. DVT prophylaxis heparin. GI prophylaxis Pepcid Time with Patient: Greater than 30 (Greater than 60% of the total time spent in counseling and coordination of care. I performed an examination of the patient and discussed their management with the Nurse Practitioner. I have reviewed the Nurse Practitioner's notes and agree with the documented findings and plan of care)
--- NOTE | 2019-08-28 11:36 | P.CRDCN ---
History of Present Illness Consult date: 08/28/19 History of present illness: This is a pleasant 60-year-old gentleman with no prior cardiac history but history of hypertension and also history of chronic hypoxic respiratory failure with the patient maintains 5 L of oxygen at home presented to the hospital complaining of increasing in the shortness of breath. He stated that he owes was shortness of breath with exertion which is a chronic but for the last several days, shortness of breath has been increasing and it was associated with cough productive of sputum. He did not have any symptoms of fever or chills. For the last 24 hours he developed bilateral lower extremities edema as well. No change in the weight. No symptoms of chest pain or chest discomfort. When the patient presented to the hospital he underwent a chest x-ray which showed findings consistent with fluid overload as well as left pleural effusion. He also underwent a computed tomography scan of the chest which revealed new 5.9 cm left upper lung mass as well. Earlier today he underwent an ultrasound of the left chest to assess the amount of pleural effusion and also he was seen by the pulmonary team. He was started on Lasix yesterday and the lower extremities edema has improved. The patient is not aware of any prior history of congestive heart failure and never seen any western felt hat blocker in the past. The BMP when he presented was about 1420. Troponin was checked and came in to be slightly abnormal but the patient was tachycardic when he presented to the hospital. The d-dimer was elevated but the computed tomography scan of the chest did not show any evidence of PE. The patient also was started on antibiotic. Otherwise he denies any abdominal discomfort, or nausea or vomiting or any fever or any chills. He states that the lower extremities edema has improved. On examination, he does have diminished breathing sounds over the left lung but he still have bilateral lower extremities edema and chronic skin changes. The patient was admitted to the hospital a month ago and he underwent an echocardiogram which revealed normal LV function was mild MR and mild TR. Past Medical History Past Medical History: COPD, Hypertension Additional Past Medical History / Comment(s): Obesity, previous history of cellulitis of the lower extremities, hypertension, COPD, chronic hypoxic respiratory failure, osteoarthritis History of Any Multi-Drug Resistant Organisms: None Reported Past Surgical History: No Surgical Hx Reported Additional Past Surgical History / Comment(s): no Reported history of surgeries Past Anesthesia/Blood Transfusion Reactions: No Reported Reaction Past Psychological History: No Psychological Hx Reported Smoking Status: Former smoker - Past Family History Father Additional Family Medical History / Comment(s): Patient states father at 76 of a blood clot, mother had breast cancer Mother Family Medical History: Dementia Medications and Allergies Home Medications Medication Instructions Recorded Confirmed Type Albuterol Nebulized [Ventolin 2.5 mg INHALATION RT-QID PRN 06/22/14 08/27/19 History Nebulized] amLODIPine [Norvasc] 5 mg PO DAILY 06/22/14 08/27/19 History Cholecalciferol (Vitamin D3) 2,000 unit PO HS 06/09/19 08/27/19 History [Vitamin D3] Lisinopril [Prinivil] 20 mg PO HS 06/09/19 08/27/19 History Metoprolol Succinate (ER) [Toprol 25 mg PO HS 06/09/19 08/27/19 History XL] Montelukast [Singulair] 10 mg PO HS 06/09/19 08/27/19 History clonazePAM [KlonoPIN] 0.5 mg PO DAILY PRN 06/09/19 08/27/19 History Albuterol Sulfate [Ventolin HFA] 2 puff INHALATION RT-Q4H PRN 08/27/19 08/27/19 History Fluticasone/Salmeterol [Advair 1 puff INHALATION RT-BID 08/27/19 08/27/19 History 250-50 Diskus] Furosemide [Lasix] 20 mg PO DAILY PRN 08/27/19 08/27/19 History Pseudoephedrine [Sudafed] 30 mg PO Q4H PRN 08/27/19 08/27/19 History diphenhydrAMINE HCL [Benadryl] 25 mg PO BID 08/27/19 08/27/19 History guaiFENesin [Mucinex] 600 mg PO BID PRN 08/27/19 08/27/19 History Allergies Allergy/AdvReac Type Severity Reaction Status Date / Time clarithromycin [From Biaxin] AdvReac TREMORS Verified 08/27/19 18:40 Physical Exam Vitals: Vital Signs Temp Pulse Pulse Resp BP BP Pulse Ox 08/28/19 09:34 88 08/28/19 09:24 88 08/28/19 08:25 96.9 F L 79 20 138/96 95 08/28/19 04:34 88 08/28/19 04:27 92 08/28/19 04:00 98.8 F 97 22 109/81 97 08/28/19 00:36 96 08/28/19 00:21 93 08/28/19 00:00 98.9 F 101 H 24 143/73 91 L 08/27/19 20:45 98.4 F 115 H 25 H 155/73 91 L 08/27/19 20:30 98.4 F 115 H 26 H 155/73 85 L 08/27/19 19:42 98 08/27/19 19:28 98 08/27/19 19:25 98.4 F 71 22 170/90 91 L 08/27/19 17:20 93 22 128/97 97 08/27/19 16:36 96 08/27/19 16:26 96 08/27/19 16:11 99 20 150/78 93 L 08/27/19 15:15 97.6 F 113 H 26 H 128/69 80 L Intake and Output 08/27/19 08/28/19 08/28/19 22:59 06:59 14:59 Output Total 500 400 910 Balance -500 -400 -910 Output: Urine 500 400 910 Other: Voiding Method Urinal # Voids 1 Weight 144.242 kg 142.6 kg - Constitutional General appearance: no acute distress - Respiratory Respiratory: right: CTA, left: diminished - Cardiovascular Rhythm: regular Heart sounds: normal: S1, S2 Results 08/28/19 03:25 08/28/19 03:25 Cardiac Enzymes 08/27/19 08/27/19 08/27/19 Range/Units 15:40 15:40 22:21 AST 42 (17-59) U/L Troponin I 0.051 H* 0.069 H* (0.000-0.034) ng/mL 08/28/19 Range/Units 03:25 AST (17-59) U/L Troponin I 0.059 H* (0.000-0.034) ng/mL Coagulation 08/27/19 Range/Units 15:40 PT 10.4 (9.0-12.0) sec APTT 24.7 (22.0-30.0) sec CBC 08/27/19 08/28/19 Range/Units 15:40 03:25 WBC 7.1 4.6 (3.8-10.6) k/uL RBC 4.30 3.99 L (4.30-5.90) m/uL Hgb 13.7 12.8 L (13.0-17.5) gm/dL Hct 46.4 42.3 (39.0-53.0) % Plt Count 116 L 110 L (150-450) k/uL Comprehensive Metabolic Panel 08/27/19 08/28/19 Range/Units 15:40 03:25 Sodium 140 139 (137-145) mmol/L Potassium 5.1 4.7 (3.5-5.1) mmol/L Chloride 93 L 89 L (98-107) mmol/L Carbon Dioxide 39 H 46 H* (22-30) mmol/L BUN 23 H 21 H (9-20) mg/dL Creatinine 0.86 0.74 (0.66-1.25) mg/dL Glucose 191 H 147 H (74-99) mg/dL Calcium 8.8 8.6 (8.4-10.2) mg/dL AST 42 (17-59) U/L ALT 49 (21-72) U/L Alkaline Phosphatase 105 (38-126) U/L Total Protein 7.2 (6.3-8.2) g/dL Albumin 3.9 (3.5-5.0) g/dL Current Medications Generic Name Dose Route Start Last Admin Trade Name Freq PRN Reason Stop Dose Admin Acetazolamide 250 mg 08/28/19 09:00 08/28/19 09:12 Diamox PO 250 mg BID DANA Administration Albuterol Sulfate 2.5 mg 08/27/19 19:52 Ventolin Nebulized INHALATION RT-QID PRN Shortness Of Breath Albuterol/Ipratropium 3 ml 08/27/19 20:00 08/28/19 09:08 Duoneb 0.5 Mg-3 Mg/3 Ml Soln INHALATION 3 ml RT-Q4H DANA Administration Amlodipine Besylate 5 mg 08/28/19 09:00 08/28/19 08:20 Norvasc PO 5 mg DAILY DANA Administration Budesonide/Formoterol Fumarate 2 puff 08/27/19 20:00 11/22/19 09:08 Symbicort 80-4.5 Mcg Inhaler INHALATION 2 puff RT-BID DANA Administration Clonazepam 0.5 mg 08/28/19 10:04 Klonopin PO DAILY PRN Anxiety Famotidine 20 mg 08/29/19 09:00 Pepcid PO DAILY DANA Furosemide 40 mg 08/28/19 09:00 08/28/19 08:20 Lasix IV 40 mg Q12HR DANA Administration Guaifenesin 600 mg 08/27/19 19:52 08/28/19 09:12 Mucinex PO 600 mg BID PRN Administration Congestion Heparin Sodium (Porcine) 5,000 unit 08/28/19 21:00 Heparin SQ Q12HR DANA Piperacillin Sod/Tazobactam 100 mls @ 25 mls/hr 08/28/19 02:00 08/28/19 10:15 Sod 3.375 gm/ Sodium Chloride IVPB 25 mls/hr Q8H DANA Administration Lisinopril 20 mg 08/27/19 21:00 08/27/19 21:15 Zestril PO 20 mg HS DANA Administration Metoprolol Succinate 25 mg 08/27/19 21:00 08/27/19 21:15 Toprol Xl PO 25 mg HS DANA Administration Montelukast Sodium 10 mg 08/27/19 21:00 08/27/19 21:15 Singulair PO 10 mg HS DANA Administration Naloxone HCl 0.2 mg 08/27/19 18:25 Narcan IV Q2M PRN Opioid Reversal Intake and Output 08/27/19 08/28/19 08/28/19 22:59 06:59 14:59 Output Total 500 400 910 Balance -500 -400 -910 Output: Urine 500 400 910 Other: Voiding Method Urinal # Voids 1 Weight 144.242 kg 142.6 kg 08/28/19 03:25 08/28/19 03:25 Assessment and Plan Assessment: Assessment #1 congestive heart failure exacerbation secondary to diastole dysfunction #2 left upper lung mass which seems to be new #3 bilateral pleural effusion worse on the left side #4 sinus tachycardia #5 mildly abnormal troponin #6 chronic hypoxic respiratory failure Plan #1 continue the current dose of Lasix IV #2 follow-up on the ultrasound of the chest #3 continue monitor the kidney function and electrolytes #4 consider conservative medical approach regarding the abnormal troponin which is likely related to the sinus tachycardia and hypoxemia. I would add aspirin to the current medical regimen #5 increase the dose of metoprolol #6 follow-up with the patient Thank you for allowing us participate in his care
--- NOTE | 2019-08-28 12:10 | US ---
EXAMINATION TYPE: US chest DATE OF EXAM: 08/28/2019 COMPARISON: NONE CLINICAL HISTORY: Left pleural effusion. left pleural effusion TECHNIQUE: Targeted ultrasound of the posterior lower left hemithorax EXAM MEASUREMENTS: Left Pleural Effusion pocket size: 12.4 cm Left skin surface to fluid distance: 5.2 cm Left side marked for possible thoracentesis outside the dept. Pulmonologists are able to review the images in the patient?s EMR. IMPRESSIONS: Pleural effusion as noted.
[2019-08-28] MEDS ORDERED: IPRATROPIUM-ALBUTEROL 3 ML NEB INHALATION PRN (13:25)
--- NOTE | 2019-08-28 13:59 | CONS ---
CONSULTATION PULMONARY/CRITICAL CARE CONSULTATION: DATE OF SERVICE: 08/28/2019 This is a 64-year-old male who was brought into the emergency room with complaints of shortness of breath. The patient was recently inpatient for similar episode of shortness of breath back in June. At that time, he saw my partner Dr. Zepeda. At that time, his diagnosis was that of acute on chronic hypoxemic respiratory failure, COPD exacerbation, obesity, chronic allergic rhinitis, chronic anxiety, hypertension and DJD. Anyway, the patient comes in again with shortness of breath. He states is very similar to his prior episode. He does use oxygen of [address] Earl as his dispensing audiologist. Over the past several days prior to admission, he notes increasing shortness of breath. He also has a productive cough with brown sputum. He denies any hemoptysis. He denies any chest pain or chest discomfort. No fever or chills. The patient had a nephew who was recently diagnosed with pneumonia. That nephew lives with him. He was concerned that he might have pneumonia. The patient denies any chest pain or chest discomfort. Denies any nausea, vomiting or diarrhea. Denies any genitourinary complaints. He is resting comfortably in his room. He is currently on O2 of 5 L by nasal cannula, which is his baseline amount of oxygen. HOME MEDICATIONS: Include albuterol updrafts, Norvasc, vitamin D3, lisinopril, metoprolol, Singulair, Klonopin, albuterol inhaler, Advair Diskus, Lasix, Sudafed, Benadryl, and Mucinex. ALLERGIES: Include CLARITHROMYCIN/BIAXIN. MEDICAL HISTORY: Positive for COPD. He also has a history of hypertension, chronic anxiety, DJD, allergic rhinitis, obesity, and chronic hypoxemic respiratory failure. He also carries with him a diagnosis of cellulitis of the lower extremities. SURGICAL HISTORY: Unremarkable. SOCIAL HISTORY: Negative for tobacco use and he denies any illicit drug use or any significant alcohol use. FAMILY HISTORY: Positive for father who had from a blood clot and mother who had breast cancer. His mother apparently also had dementia. REVIEW OF SYSTEMS: CONSTITUTIONAL: Negative. NEUROLOGIC: Negative. HEENT: Negative. CARDIOVASCULAR: Negative. PULMONARY: Shortness of breath, chest tightness, wheezing, cough, chest congestion and brown phlegm production. GI: Negative. : Negative. RHEUMATOLOGIC: Negative. IMMUNOLOGIC: Negative. ENDOCRINOLOGIC: Negative. DERMATOLOGIC: Negative. Current vital signs, good temperature 97.2, heart rate 112, respiratory rate 18, blood pressure 140/73 mean 95, 6 L saturation 92%. Appears in no acute distress. Mildly tachypneic and dyspneic. Mild conversational dyspnea. No audible wheezing or use of accessory muscles. HEENT: Examination is grossly unremarkable. Nasal O2 is noted. NECK: Supple. Full range of motion. No adenopathy or thyromegaly. Neck veins are flat. CARDIOVASCULAR: Examination reveals regular rhythm and rate. Heart rate about 100 beats per minute. S1, S2 normal. Heart sounds are distant. LUNGS: Reveal coarse inspiratory and expiratory rhonchi and wheezes. Breath sounds are diminished. No crackles. Breath sounds are diminished throughout. ABDOMEN: Soft. Bowel sounds are heard. EXTREMITIES: Intact. Slight edema. No cyanosis or clubbing. SKIN: Without rash. NEUROLOGIC: Examination is brief but nonfocal. The patient had a chest x-ray which shows possible CHF with interstitial pulmonary edema. In addition, there is bilateral pleural effusions, left greater than right. Finally, there is apparently a 5.9 cm posterior left upper lung mass. This to me looks like pseudotumor rather than actual neoplasm. His CAT scan suggests bilateral pleural effusions and bilateral basilar pulmonary infiltrates and atelectasis. There is no evidence of pulmonary embolism. The chest ultrasound done today shows a left-sided pleural effusion of 12.4 cm. It is rather deep at 5.2 cm. Current medications are reviewed. ASSESSMENT: 1. Acute shortness of breath with hypoxemic respiratory failure, likely secondary to chronic obstructive pulmonary disease and probably exacerbated by left-sided pleural effusion. 2. Severe chronic obstructive pulmonary disease with an FEV1 that is about 17% of predicted. 3. Chronic hypoxemic respiratory failure, maintained on oxygen at 5 L/minute. 4. Chronic exertional dyspnea. 5. Obesity. 6. Chronic allergic rhinitis. 7. Chronic anxiety disorder. 8. History of hypertension. 9. History of degenerative joint disease. 10.History of lower extremity cellulitis. PLAN: The patient likely would benefit from a left-sided thoracentesis. I likely will have Interventional Radiology do the procedure as the distance from skin to fluid pocket is quite significant and our needles probably will not be able to reach the pleural fluid. It probably also should be done under ultrasound guidance. In addition, he has horrible lung disease with an FEV1 apparently which is at 17% of predicted and he does suffer from chronic hypoxemic respiratory failure. Additional recommendations and suggestions are forthcoming. Prognosis is guarded. Medications are reviewed. Will continue to follow. MMODL / IJN: [id number] /
[2019-08-28 14:21] LABS: Total Protein 6.6 g/dL (6.3-8.2)
--- NOTE | 2019-08-28 15:32 | XR ---
EXAMINATION TYPE: XR chest 1V portable DATE OF EXAM: 08/28/2019 HISTORY: Shortness of breath. COMPARISON: None. TECHNIQUE: Single view of the chest is submitted. FINDINGS: Demonstrated are scattered senescent parenchymal change. Scattered infiltrates noted. No evidence for pneumothorax. Small effusions. The heart is stable. Hilar and mediastinal structures are within normal limits. Degenerative changes are seen of the dorsal spine. IMPRESSION: 1. No evidence for pneumothorax.
[2019-08-28] MEDS: methylPREDNISolone SOD SUCCI 125 MG/2 ML VIAL IV SCH ×3 (15:53→23:50)
--- NOTE | 2019-08-28 16:10 | US ---
EXAMINATION TYPE: US thoracentesis DATE OF EXAM: 08/28/2019 COMPARISON: NONE HISTORY: Pleural effusion. FINDINGS: Maximal barrier technique was utilized. The skin overlying a suitable pocket of fluid was localized and the overlying skin prepped and draped. Lidocaine was used for local anesthesia. Ultras ound was used with sterile technique. A 5 Macedonian catheter over guide needle was advanced into the pl eural fluid collection using ultrasound guidance and the catheter advanced, needle removed. Approxim ately 1 liter(s) of serous fluid was removed. Catheter was withdrawn and hemostasis achieved. There is no immediate complication. The patient discharged in stable condition without complication. IMPRESSION: STATUS POST ULTRASOUND GUIDED THORACENTESIS, POST PROCEDURE CHEST X-RAY PENDING. THIS DC OCEDURE WAS PERFORMED BY THE UNDERSIGNED. Specimen sent for laboratory analysis.
[2019-08-28 18:01] LABS: Appearance,BF Clear; Nucleated Cells, Body Fluid 215 /uL
[2019-08-28 18:02] LABS: RBC, Body Fluid 255 /uL
[2019-08-28 18:22] LABS: Mononuclear WBC,Body Fluid 92 %; Polynuclear WBC,Body Fluid 8 %; Total Cells Counted,Body Fluid 100
[2019-08-28] MEDS: FORMOTEROL FUMARATE 20 MCG/2 ML NEBU INHALATION SCH (19:13)
[2019-08-28] MEDS: BUDESONIDE 1 MG/2 ML NEBU INHALATION SCH (19:13)
[2019-08-28] MEDS: MONTELUKAST 10 MG TAB PO SCH (20:49)
[2019-08-28] MEDS: LISINOPRIL 20 MG TAB PO SCH (20:49)
[2019-08-28] MEDS: METOPROLOL SUCCINATE (ER) 25 MG TAB.ER.24H PO SCH (20:50)
[2019-08-28] MEDS: HEPARIN SODIUM,PORCINE 5,000 UNIT/ML 1 ML VIAL SQ SCH (20:50)
[2019-08-29] MEDS: PIPERACILLIN-TAZOBACTAM 3.375 GM in SODIUM CHLORIDE 0.9% 100 ML IVPB SCH ×3 (02:50→17:16)
[2019-08-29 04:20] LABS: Total Protein, Body Fluid 2951 mg/dL
[2019-08-29 04:35] LABS: Glucose, BF Source Pleural Fluid; Glucose, Body Fluid 158 mg/dL; LDH, Body Fluid Source Pleural Fluid
[2019-08-29 05:46] LABS: Basophils % (A) 0 %; Eosinophils % (A) 0 %; HCT 44.2 % (39.0-53.0); HGB 13.3 gm/dL (13.0-17.5); Hypochromasia Marked; Lymphocytes # (A) 0.3 k/uL (1.0-4.8); Lymphocytes % (A) 6 %; MCH 32.2 pg (25.0-35.0); MCV 107.3 fL (80.0-100.0); Macrocytosis Moderate; Mean Platelet Volume 8.8; Monocytes # (A) 0.2 k/uL (0-1.0); Monocytes % (A) 3 %; Neutrophils # (A) 4.7 k/uL (1.3-7.7); Neutrophils % (A) 90 %; Platelet Count 111 k/uL (150-450); RBC 4.12 m/uL (4.30-5.90); RDW 12.7 % (11.5-15.5); WBC 5.3 k/uL (3.8-10.6)
[2019-08-29 06:00] LABS: Albumin 3.8 g/dL (3.5-5.0); Potassium 4.9 mmol/L (3.5-5.1); Total Bilirubin 0.6 mg/dL (0.2-1.3); Total Protein 7.1 g/dL (6.3-8.2)
[2019-08-29 06:28] LABS: Glucose,Whole Blood 143 mg/dL (75-99)
[2019-08-29] MEDS: methylPREDNISolone SOD SUCCI 125 MG/2 ML VIAL IV SCH ×4 (07:07→23:32)
[2019-08-29] MEDS: INSULIN ASPART (NovoLOG) 100 UNIT/ML VIAL SQ SCH ×4 (07:08→20:59)
[2019-08-29] MEDS: FORMOTEROL FUMARATE 20 MCG/2 ML NEBU INHALATION SCH ×2 (09:16→20:09)
[2019-08-29] MEDS: BUDESONIDE 1 MG/2 ML NEBU INHALATION SCH ×2 (09:16→20:09)
[2019-08-29] MEDS: IPRATROPIUM-ALBUTEROL 3 ML NEB INHALATION SCH ×4 (09:16→20:09)
[2019-08-29] MEDS: FAMOTIDINE 20 MG TAB PO SCH (09:17)
[2019-08-29] MEDS: METOPROLOL SUCCINATE (ER) 25 MG TAB.ER.24H PO SCH ×2 (09:17→20:40)
[2019-08-29] MEDS: ASPIRIN 81 MG PO SCH (09:17)
[2019-08-29] MEDS: acetaZOLAMIDE 250 MG TAB PO SCH ×2 (09:17→20:40)
[2019-08-29] MEDS: amLODIPine 5 MG TAB PO SCH (09:17)
[2019-08-29] MEDS: FUROSEMIDE 10 MG/ML 4 ML VIAL IV SCH ×2 (09:18→20:39)
[2019-08-29] MEDS: HEPARIN SODIUM,PORCINE 5,000 UNIT/ML 1 ML VIAL SQ SCH ×2 (09:18→20:39)
[2019-08-29 11:41] LABS: Glucose,Whole Blood 245 mg/dL (75-99)
--- NOTE | 2019-08-29 12:51 | P.PN ---
Subjective Progress Note Date: 08/29/19 This is a 64-year-old male patient who presented with complaints of increased shortness of breath. Patient reports that over the past few days he's had increasing shortness of breath with productive cough and increased sputum production. Patient does have known past medical history of COPD in which she is maintained on 5 L nasal cannula at home and follows with Dr. Earl per pulmonary. Patient denies any recent fevers. Patient doesn't above medical history of essential hypertension, obesity, bilateral lower extremity cellulitis and chronic hypoxic respiratory failure. Chest x-ray completed showing correlation for CHF with interstitial pulmonary edema. Moderate left and small right pleural effusions with adjacent atelectasis and/or consolidation as compared to 06/09/2019 there is a new 5.9 cm posterior left lung upper lung masses could represent loculated fluid along this. Major fascia or focus of infection neoplasm is also possible considered less likely given the relatively rapid development. BNP elevated at 1420. D-dimer was elevated at 1.72. Chest CTA performed showing bilateral pleural effusions. Bilateral basilar pulmonary infiltrates and atelectasis no evidence of pulmonary embolism. Troponin 0.051, 0.069 0.059. Patient started on IV Lasix 40 mg every 12 hours. Cardiology services have been consulted. Patient started on Zosyn for IV antibiotics and DuoNeb breathing treatments. Mucinex ordered sputum culture ordered. Pulmonary service is consulted. At this time patient reports improvement with shortness of breath. Patient denies any chest pain. Patient denies nausea vomiting or diarrhea. Patient denies any urinary burning or frequency. On 08/29/2019 patient was seen and examined on the medical floor he is alert and oriented 3 he states that his shortness of breath has improved since yesterday he is still complaining of cough otherwise he denies any complaints there is no fever or chills no headache or dizziness no chest pain no nausea or vomiting no abdominal pain no diarrhea no burning with urination no frequency or urgency and no hematuria sided thoracentesis yesterday with about 1 L of fluid removed Objective - Vital Signs Vital signs: Vital Signs Temp 97.7 F 08/29/19 09:15 Pulse 102 H 08/29/19 12:42 Resp 16 08/29/19 11:00 BP 143/65 08/29/19 11:00 Pulse Ox 95 08/29/19 11:00 Intake & Output 08/28/19 08/29/19 08/29/19 18:59 06:59 18:59 Intake Total 600 240 240 Output Total 1750 3525 Balance -1150 -5835 240 Weight 140.3 kg Intake: Oral 600 240 240 Output: Urine 1750 3525 Other: Voiding Method Urinal Urinal # Voids 1 1 - Exam In general patient is alert and oriented 3 in no apparent distress Head normocephalic and atraumatic Neck supple no JVD no goiter Lungs diminished bilaterally Heart regular rate and rhythm S1-S2, no rub or gallop Abdomen is soft nontender nondistended positive bowel sounds no hepatosplenomegaly Extremities no edema. Bilateral lower extreme erythema patient reports that this is chronic improved for him Neuro no gross focal neurological deficit - Labs CBC & Chem 7: 08/29/19 05:31 08/29/19 05:31 Labs: Abnormal Lab Results - Last 24 Hours (Table) 08/29/19 08/29/19 08/29/19 Range/Units 05:31 05:31 06:26 RBC 4.12 L (4.30-5.90) m/uL MCV 107.3 H (80.0-100.0) fL MCHC 30.0 L (31.0-37.0) g/dL Plt Count 111 L (150-450) k/uL Lymphocytes # 0.3 L (1.0-4.8) k/uL Chloride 89 L (98-107) mmol/L Carbon Dioxide 47 H* (22-30) mmol/L BUN 21 H (9-20) mg/dL Glucose 164 H (74-99) mg/dL POC Glucose (mg/dL) 143 H (75-99) mg/dL 08/29/19 Range/Units 11:39 RBC (4.30-5.90) m/uL MCV (80.0-100.0) fL MCHC (31.0-37.0) g/dL Plt Count (150-450) k/uL Lymphocytes # (1.0-4.8) k/uL Chloride (98-107) mmol/L Carbon Dioxide (22-30) mmol/L BUN (9-20) mg/dL Glucose (74-99) mg/dL POC Glucose (mg/dL) 245 H (75-99) mg/dL Microbiology - Last 24 Hours (Table) 08/28/19 13:30 Gram Stain - Preliminary Sputum Sputum Culture - Preliminary 08/28/19 15:09 Body Fluid Culture - Preliminary Pleural Fluid 08/28/19 15:09 Anaerobic Culture - Preliminary Pleural Fluid 08/28/19 15:09 Body Fluid Culture - Preliminary Pleural Fluid 08/27/19 15:40 Blood Culture - Preliminary Blood No Growth after 24 hours Assessment and Plan Plan: 1. Increased shortness of breath secondary to possible pneumonia and CHF exacerbation. Chest x-ray completed showing correlation for CHF with interstitial pulmonary edema witn moderate left and small right pleural ef fusions with adjacent atelectasis or consolidation. As compared of 06/09/2019 there is a new 5.9 cm posterior left upper lung mass this could represent loculated fluid along the superior Major fissure or focus of infection neoplasm is also possible but considered less likely given the relatively rapid development. Patient started on IV Lasix. Cardiology services have been consulted. Pulmonary service is consulted. Patient started on IV Zosyn, DuoNeb breathing treatments and sputum culture ordered 2. Elevated troponin. Troponin 0.051, 0.069 and 0.059. Cardiology services have been consulted 3. Elevated d-dimer. D-dimer 1.72. Chest CTA completed showing bilateral pleural effusions. Bilateral basilar pulmonary infiltrates and atelectasis. No evidence of pulmonary embolism. 4. Chronic hypoxic respiratory failure maintained on oxygen at 5 L 5. History of essential hypertension. Home meds resumed 6. History of obesity 7. History of ALLERGIC rhinitis 8. History of bilateral lower extreme any cellulitis. Per patient this is improved. 9. Moderate to large left sided pleural effusion status post thoracentesis with 1 L of fluid removed yesterday DVT prophylaxis heparin. GI prophylaxis Pepcid
--- NOTE | 2019-08-29 13:40 | PN ---
PROGRESS NOTE PULMONARY/CRITICAL CARE PROGRESS NOTE: 08/29/2019 A 64-year-old male that we saw in consultation on 08/28. He apparently was brought into the emergency room with complaints of shortness of breath. He had a similar episode back in June, was seen by my partner, Dr. Zepeda. At that time, he was diagnosed as having acute on chronic hypoxemic respiratory failure, COPD exacerbation, obesity, chronic allergic rhinitis, chronic anxiety, hypertension and DJD. He does use oxygen at home at 5 L/minute, . His repairer is typically Dr. Earl. He came with complaints of shortness of breath and difficulty breathing as well as cough and productive sputum that was brown. He denied any chest pain or chest discomfort. He was found on x-ray to have a pleural effusion. This was drained by in Interventional Radiology yesterday. One L was removed from the left pleural space and the patient is feeling much better. The patient states that he is much improved. Still having some shortness of breath, cough, wheezing and tightness in his chest. Not coughing up any phlegm today. No fever or chills. No nausea, no vomiting, or diarrhea. No genitourinary complaints. No chest pain or pressure. Current vital signs are reviewed, temperature 97.7, heart rate is 90, respiratory rate 18, blood pressure is 140/67 with mean 91 and 8 L high-flow oxygen. Saturations are 91%-92%. Appears mildly tachypneic and dyspneic with some mild conversational dyspnea. No audible wheezing or use of accessory muscles. HEENT: Examination is grossly unremarkable. Mucous membranes are moist. No oral lesions. Nasal O2 in place. NECK: Supple. Full range of motion. No adenopathy, thyromegaly or neck vein distention. CARDIOVASCULAR: Examination reveals distant heart sounds. Heart rate about 100. S1, S2 normal. No S3, S4, or murmur. LUNGS: Reveal improved breath sounds on the left. There is some inspiratory and expiratory wheezes and rhonchi. No crackles. Breath sounds are diminished throughout. ABDOMEN: Obese. Bowel sounds are heard. EXTREMITIES: Intact. Mild edema. No cyanosis or clubbing. SKIN: Without rash. NEUROLOGIC: Examination is brief but nonfocal. LAB DATA: Reviewed. White count 5.3, hemoglobin 13.3, hematocrit 44.2, platelet count 111,000. Sodium 140, potassium 4.9, chloride 89, CO2 is 47, anion gap 4. BUN and creatinine were 21 and 1.17. The rest of the comprehensive metabolic profile was normal. The pleural fluid analysis reveals a transudate. Total protein 2.9 g, glucose 158, LDH was 108. Microbiologic studies are negative or pending currently. . Chest x-ray following the thoracentesis shows no complication and improved aeration in the left lung. Medications are reviewed. ASSESSMENT: 1. Acute shortness of breath, with hypoxemic respiratory failure, likely secondary to chronic obstructive pulmonary disease exacerbation and complicated by left-sided pleural effusion. 2. Status post left-sided thoracentesis by Interventional Radiology with 1 L removed. 3. Very severe chronic obstructive pulmonary disease with an FEV1 that is about 17% of predicted, Gold stage IV. 4. Chronic hypoxemic respiratory failure, maintained on oxygen at 5 L/minute, . 5. Chronic exertional dyspnea. 6. Obesity. 7. Chronic allergic rhinitis. 8. Chronic anxiety disorder. 9. History of hypertension. 10.Degenerative joint disease. 11.History of lower extremity cellulitis. PLAN: The patient's medications were adjusted yesterday. He feels like his breathing is much improved, status post thoracentesis. He will continue on all the normal medications for COPD exacerbation. Will continue to follow him. Not yet quite quite ready for discharge. Additional recommendations and suggestions are forthcoming. The fluid appears to be transudative in nature. MMODL / IJN: [id number] /
--- NOTE | 2019-08-29 13:40 | PN ---
PROGRESS NOTE Mr. Escalera is a 64-year-old male with a history of severe chronic obstructive lung disease, who presented with symptoms of progressive dyspnea, was found to have a pleural effusion, underwent thoracentesis yesterday and he is feeling much better today. He is denying any chest pain. He denies any dizziness, palpitation. He denies any nausea. The patient continues to be at this time on amlodipine 5 mg daily, aspirin 81 mg daily, Lasix 40 mg IV q.12 hours, lisinopril 20 mg daily, metoprolol succinate of 25 mg twice a day, methyl prednisolone and piperacillin. PHYSICAL EXAMINATION: Blood pressure 140/60 with a heart rate in the 90s. LUNGS: With severe decreased air exchange with scattered wheezes. HEART: Regular rhythm, S1, S2. No S3. No rub. ABDOMEN: Soft, nontender, obese. EXTREMITIES: Chronic skin changes with 1+ edema. LAB DATA: Revealed BUN and creatinine of 21 and 1.17, bicarb 47, potassium 4.9, hemoglobin is 13.3. IMPRESSION: 1. Progressive respiratory failure related to exacerbation of chronic obstructive pulmonary disease. 2. Possible mild fluid overload could be related to diastolic dysfunction and hypoxemia. 3. History of hypertension. 4. History of lower extremities cellulitis. 5. Chronic hypoxemia. RECOMMENDATION: From the cardiac standpoint, will continue present therapy. I will follow his renal function. Continue IV Lasix for another 24 hours and depending on his progress, further recommendation will be made. The patient had an echocardiogram in June of this year that revealed ejection fraction of 50% to 55% with moderate pulmonary hypertension. MMODL / IJN: [id number] /
[2019-08-29 16:56] LABS: Glucose,Whole Blood 194 mg/dL (75-99)
[2019-08-29] MEDS: LISINOPRIL 20 MG TAB PO SCH (20:39)
[2019-08-29] MEDS: MONTELUKAST 10 MG TAB PO SCH (20:40)
[2019-08-29 20:54] LABS: Glucose,Whole Blood 221 mg/dL (75-99)
[2019-08-30] MEDS: PIPERACILLIN-TAZOBACTAM 3.375 GM in SODIUM CHLORIDE 0.9% 100 ML IVPB SCH ×3 (02:34→17:15)
[2019-08-30] MEDS: methylPREDNISolone SOD SUCCI 125 MG/2 ML VIAL IV SCH ×4 (05:43→23:11)
[2019-08-30 06:26] LABS: Glucose,Whole Blood 168 mg/dL (75-99)
[2019-08-30] MEDS: INSULIN ASPART (NovoLOG) 100 UNIT/ML VIAL SQ SCH ×4 (06:37→20:27)
[2019-08-30 06:41] LABS: Basophils % (A) 1 %; Eosinophils % (A) 0 %; HCT 42.9 % (39.0-53.0); HGB 12.6 gm/dL (13.0-17.5); Hypochromasia Marked; Lymphocytes # (A) 0.2 k/uL (1.0-4.8); Lymphocytes % (A) 4 %; MCH 31.3 pg (25.0-35.0); MCHC 29.3 g/dL (31.0-37.0); MCV 106.8 fL (80.0-100.0); Macrocytosis Moderate; Mean Platelet Volume 9.6; Monocytes # (A) 0.3 k/uL (0-1.0); Monocytes % (A) 7 %; Neutrophils % (A) 87 %; Platelet Count 108 k/uL (150-450); RBC 4.01 m/uL (4.30-5.90); RDW 12.8 % (11.5-15.5); WBC 4.6 k/uL (3.8-10.6)
[2019-08-30 06:53] LABS: Albumin 3.5 g/dL (3.5-5.0); Calcium 8.7 mg/dL (8.4-10.2); Potassium 4.3 mmol/L (3.5-5.1); Total Bilirubin 0.4 mg/dL (0.2-1.3); Total Protein 6.5 g/dL (6.3-8.2)
[2019-08-30] MEDS: FORMOTEROL FUMARATE 20 MCG/2 ML NEBU INHALATION SCH ×2 (08:36→19:30)
[2019-08-30] MEDS: IPRATROPIUM-ALBUTEROL 3 ML NEB INHALATION SCH ×4 (08:36→19:30)
[2019-08-30] MEDS: BUDESONIDE 1 MG/2 ML NEBU INHALATION SCH ×2 (08:36→19:30)
[2019-08-30] MEDS: amLODIPine 5 MG TAB PO SCH (09:25)
[2019-08-30] MEDS: ASPIRIN 81 MG PO SCH (09:25)
[2019-08-30] MEDS: FAMOTIDINE 20 MG TAB PO SCH (09:25)
[2019-08-30] MEDS: acetaZOLAMIDE 250 MG TAB PO SCH ×2 (09:25→20:26)
[2019-08-30] MEDS: METOPROLOL SUCCINATE (ER) 25 MG TAB.ER.24H PO SCH ×2 (09:25→20:27)
[2019-08-30] MEDS: HEPARIN SODIUM,PORCINE 5,000 UNIT/ML 1 ML VIAL SQ SCH ×2 (09:27→20:27)
[2019-08-30] MEDS: FUROSEMIDE 10 MG/ML 4 ML VIAL IV SCH (09:27)
--- NOTE | 2019-08-30 10:14 | P.PN ---
Subjective Progress Note Date: 08/30/19 Principal diagnosis: Acute shortness of breath with acute hypoxemic respiratory failure secondary to acute exacerbation of chronic objective pulmonary disease complicated by a left- sided pleural effusion On 08/30/2019 patient seen in follow-up on selective care unit, he is sitting up in the chair, in no acute distress, states his breathing has significantly improved since admission, still has some limited wheezes on today's exam, but overall is feeling better, he is status post left-sided thoracentesis by interventional radiology would removal of 1 L of pleural fluid, which was transudatif in nature. Pleural fluid cytology is pending, pleural fluid cultures are pending, negative thus far. Today's labs have been reviewed, showing white blood cell count of 4.6, hemoglobin 12.6, sodium is 139, potassium is 4.3, chloride is 90, CO2 is 42, B1 is 31 and creatinine is 1.25. Patient states he had a episode of pressure-like sensation in his midsternal area, but no nausea vomiting or diaphoresis, no radiation, the pressure is constant in nature, mild in severity, we'll obtain an EKG Objective - Vital Signs Vital signs: Vital Signs Temp 97.9 F 08/30/19 07:45 Pulse 88 08/30/19 08:57 Resp 16 08/30/19 07:45 BP 136/74 08/30/19 07:45 Pulse Ox 93 L 08/30/19 07:45 Intake & Output 08/29/19 08/30/19 08/30/19 18:59 06:59 18:59 Intake Total 780 360 Output Total 820 2175 Balance -40 -2175 360 Weight 140.5 kg Intake: Oral 780 360 Output: Urine 820 2175 Other: Voiding Method Urinal Urinal # Voids 2 1 # Bowel Movements 1 - Exam GENERAL EXAM: Alert, pleasant, 64-year-old white male on 6 L of oxygen with a pulse ox of 93% comfortable in no apparent distress. HEAD: Normocephalic/atraumatic. EYES: Normal reaction of pupils, equal size. Conjunctiva pink, sclera white. NOSE: Clear with pink turbinates. THROAT: No erythema or exudates. NECK: No masses, no JVD, no thyroid enlargement, no adenopathy. CHEST: No chest wall deformity. Symmetrical expansion. LUNGS: Equal air entry with diffuse expiratory wheezes CVS: Regular rate and rhythm, normal S1 and S2, no gallops, no murmurs, no rubs ABDOMEN: Soft, nontender. No hepatosplenomegaly, normal bowel sounds, no guarding or rigidity. EXTREMITIES: No clubbing, no edema, no cyanosis, 2+ pulses and upper and lower extremities. MUSCULOSKELETAL: Muscle strength and tone normal. SPINE: No scoliosis or deformity SKIN: No rashes CENTRAL NERVOUS SYSTEM: Alert and oriented -3. No focal deficits, tone is normal in all 4 extremities. PSYCHIATRIC: Alert and oriented -3. Appropriate affect. Intact judgment and insight. - Labs CBC & Chem 7: 08/30/19 05:45 08/30/19 05:45 Labs: Abnormal Lab Results - Last 24 Hours (Table) 08/29/19 08/29/19 08/29/19 Range/Units 11:39 16:55 20:54 RBC (4.30-5.90) m/uL Hgb (13.0-17.5) gm/dL MCV (80.0-100.0) fL MCHC (31.0-37.0) g/dL Plt Count (150-450) k/uL Lymphocytes # (1.0-4.8) k/uL Chloride (98-107) mmol/L Carbon Dioxide (22-30) mmol/L BUN (9-20) mg/dL Glucose (74-99) mg/dL POC Glucose (mg/dL) 245 H 194 H 221 H (75-99) mg/dL 08/30/19 08/30/19 08/30/19 Range/Units 05:45 05:45 06:24 RBC 4.01 L (4.30-5.90) m/uL Hgb 12.6 L (13.0-17.5) gm/dL MCV 106.8 H (80.0-100.0) fL MCHC 29.3 L (31.0-37.0) g/dL Plt Count 108 L (150-450) k/uL Lymphocytes # 0.2 L (1.0-4.8) k/uL Chloride 90 L (98-107) mmol/L Carbon Dioxide 42 H* (22-30) mmol/L BUN 31 H (9-20) mg/dL Glucose 193 H (74-99) mg/dL POC Glucose (mg/dL) 168 H (75-99) mg/dL Microbiology - Last 24 Hours (Table) 08/27/19 15:40 Blood Culture - Preliminary Blood No Growth after 48 hours 08/28/19 15:09 Gram Stain - Preliminary Pleural Fluid Body Fluid Culture - Preliminary 08/28/19 15:09 Gram Stain - Preliminary Pleural Fluid Body Fluid Culture - Preliminary 08/28/19 13:30 Gram Stain - Preliminary Sputum Sputum Culture - Preliminary Assessment and Plan Plan: Assessment: #1. Acute hypoxemic respiratory failure related to acute exacerbation of COPD, up acute by left-sided pleural effusion #2. Bilateral pleural effusions, left greater than right, status post left- sided thoracentesis on 08/28/2019 with removal of 1 L of transudate of fluid, cytology and pleural fluid cultures are pending #3. Severe chronic obstructive pulmonary disease with an FEV1 of 17% of predicted, Gold stage IV with chronic hypoxemic respiratory failure on 5 L of home O2 on a regular basis #4. Chronic exertional dyspnea #5. Morbid obesity #6. Chronic ALLERGIC rhinitis #7. Chronic anxiety disorder #8. History of hypertension #9. Degenerative joint disease #10. History of lower extremity cellulitis Plan: Continue current inpatient treatment, patient is breathing easier, still has some residual wheezing, but overall feeling better. Pleural fluid was transudate in nature, cultures and cytology are pending. Patient had episode of chest pressure this morning, constant in nature, mild in severity, not brought on by any exertion, will obtain EKG. Cardiology is following. We'll continue to follow I performed a history & physical examination of the patient and discussed their management with my nurse practitioner, Felisha Banuelos. I reviewed the nurse practitioner's note and agree with the documented findings and plan of care. Lung sounds are positive for diffuse wheezes throughout the lung evans. The findings and the impression was discussed with the patient. I attest to the documentation by the nurse practitioner. Time with Patient: Less than 30
--- NOTE | 2019-08-30 11:13 | PN ---
PROGRESS NOTE Mr. Escalera is a 64-year-old male who presented with symptoms of progressive dyspnea and had a pleural effusion that was drained. He is feeling much better. He is breathing is better. He had a brief episode of chest discomfort today. There was no EKG changes. He denies any dizziness or palpitation. He denies any nausea. He continues to be in sinus mechanism. He continues to be at this time on Diamox 250 mg twice a day, amlodipine 5 mg daily, aspirin once a day, Pepcid, furosemide 40 mg IV q.12 hours, metoprolol succinate 25 mg twice a day, methyl prednisolone, lisinopril 20 mg daily. PHYSICAL EXAMINATION: Blood pressure 136/70 with a heart rate in the 70s. Lungs with decreased air exchange, but no wheezes. HEART: Regular rate and rhythm, S1, S2. No S3. No rub. ABDOMEN: Soft and nontender. EXTREMITIES: No significant edema. LAB DATA: Lab data revealed BUN and creatinine 31 1.25, carbon dioxide of 42. IMPRESSION: 1. Symptoms of progressive dyspnea with element of CHF and pleural effusion, improving. 2. Mild troponin elevation related to his hypoxemia and dyspnea. 3. Obesity. RECOMMENDATIONS: From the cardiac standpoint, I will stop the IV Lasix. Continue on oral medication. Follow his renal function and depending on his progress, further recommendations will be made. MMSIMONL / IJN: [id number] /
[2019-08-30 11:44] LABS: Glucose,Whole Blood 189 mg/dL (75-99)
--- NOTE | 2019-08-30 13:09 | P.PN ---
Subjective Progress Note Date: 08/30/19 This is a 64-year-old male patient who presented with complaints of increased shortness of breath. Patient reports that over the past few days he's had increasing shortness of breath with productive cough and increased sputum production. Patient does have known past medical history of COPD in which she is maintained on 5 L nasal cannula at home and follows with Dr. Earl per pulmonary. Patient denies any recent fevers. Patient doesn't above medical history of essential hypertension, obesity, bilateral lower extremity cellulitis and chronic hypoxic respiratory failure. Chest x-ray completed showing correlation for CHF with interstitial pulmonary edema. Moderate left and small right pleural effusions with adjacent atelectasis and/or consolidation as compared to 06/09/2019 there is a new 5.9 cm posterior left lung upper lung masses could represent loculated fluid along this. Major fascia or focus of infection neoplasm is also possible considered less likely given the relatively rapid development. BNP elevated at 1420. D-dimer was elevated at 1.72. Chest CTA performed showing bilateral pleural effusions. Bilateral basilar pulmonary infiltrates and atelectasis no evidence of pulmonary embolism. Troponin 0.051, 0.069 0.059. Patient started on IV Lasix 40 mg every 12 hours. Cardiology services have been consulted. Patient started on Zosyn for IV antibiotics and DuoNeb breathing treatments. Mucinex ordered sputum culture ordered. Pulmonary service is consulted. At this time patient reports improvement with shortness of breath. Patient denies any chest pain. Patient denies nausea vomiting or diarrhea. Patient denies any urinary burning or frequency. On 08/29/2019 patient was seen and examined on the medical floor he is alert and oriented 3 he states that his shortness of breath has improved since yesterday he is still complaining of cough otherwise he denies any complaints there is no fever or chills no headache or dizziness no chest pain no nausea or vomiting no abdominal pain no diarrhea no burning with urination no frequency or urgency and no hematuria sided thoracentesis yesterday with about 1 L of fluid removed On 08/30/2019 patient was seen and examined on the medical floor he is alert and oriented 3 in no apparent distress he had an episode of chest pain this morning, EKG was done and did not reveal any ischemic changes patient was evalua chelle by cardiology, otherwise patient is feeling well he is stating that his cough and shortness of breath are improving, there is no fever or chills no headache or dizziness no nausea or vomiting no abdominal pain no diarrhea no burning with urination no frequency or urgency and no hematuria. Objective - Vital Signs Vital signs: Vital Signs Temp 97.9 F 08/30/19 07:45 Pulse 88 08/30/19 12:19 Resp 16 08/30/19 11:10 BP 117/68 08/30/19 11:10 Pulse Ox 96 08/30/19 11:10 Intake & Output 08/29/19 08/30/19 08/30/19 18:59 06:59 18:59 Intake Total 780 360 Output Total 820 2175 Balance -40 -2175 360 Weight 140.5 kg Intake: Oral 780 360 Output: Urine 820 2175 Other: Voiding Method Urinal Urinal Urinal # Voids 2 1 # Bowel Movements 1 - Exam In general patient is alert and oriented 3 in no apparent distress Head normocephalic and atraumatic Neck supple no JVD no goiter Lungs diminished bilaterally Heart regular rate and rhythm S1-S2, no rub or gallop Abdomen is soft nontender nondistended positive bowel sounds no hepatosplenomegaly Extremities no edema. Bilateral lower extreme erythema patient reports that th is is chronic improved for him Neuro no gross focal neurological deficit - Labs CBC & Chem 7: 08/30/19 05:45 08/30/19 05:45 Labs: Abnormal Lab Results - Last 24 Hours (Table) 08/29/19 08/29/19 08/30/19 Range/Units 16:55 20:54 05:45 RBC 4.01 L (4.30-5.90) m/uL Hgb 12.6 L (13.0-17.5) gm/dL MCV 106.8 H (80.0-100.0) fL MCHC 29.3 L (31.0-37.0) g/dL Plt Count 108 L (150-450) k/uL Lymphocytes # 0.2 L (1.0-4.8) k/uL Chloride (98-107) mmol/L Carbon Dioxide (22-30) mmol/L BUN (9-20) mg/dL Glucose (74-99) mg/dL POC Glucose (mg/dL) 194 H 221 H (75-99) mg/dL 08/30/19 08/30/19 08/30/19 Range/Units 05:45 06:24 11:42 RBC (4.30-5.90) m/uL Hgb (13.0-17.5) gm/dL MCV (80.0-100.0) fL MCHC (31.0-37.0) g/dL Plt Count (150-450) k/uL Lymphocytes # (1.0-4.8) k/uL Chloride 90 L (98-107) mmol/L Carbon Dioxide 42 H* (22-30) mmol/L BUN 31 H (9-20) mg/dL Glucose 193 H (74-99) mg/dL POC Glucose (mg/dL) 168 H 189 H (75-99) mg/dL Microbiology - Last 24 Hours (Table) 08/28/19 13:30 Gram Stain - Final Sputum Sputum Culture - Final 08/27/19 15:40 Blood Culture - Preliminary Blood No Growth after 48 hours 08/28/19 15:09 Gram Stain - Preliminary Pleural Fluid Body Fluid Culture - Preliminary 08/28/19 15:09 Gram Stain - Preliminary Pleural Fluid Body Fluid Culture - Preliminary Assessment and Plan Plan: 1. Increased shortness of breath secondary to possible pneumonia and CHF exacerbation. Chest x-ray completed showing correlation for CHF with interstitial pulmonary edema witn moderate left and small right pleural effusions with adjacent atelectasis or consolidation. As compared of 06/09/2019 there is a new 5.9 cm posterior left upper lung mass this could represent lo culated fluid along the superior Major fissure or focus of infection neoplasm is also possible but considered less likely given the relatively rapid development. Patient started on IV Lasix. Cardiology services have been consulted. Pulmonary service is consulted. Patient started on IV Zosyn, DuoNeb breathing treatments and sputum culture ordered 2. Elevated troponin. Troponin 0.051, 0.069 and 0.059. Cardiology services have been consulted 3. Elevated d-dimer. D-dimer 1.72. Chest CTA completed showing bilateral pleural effusions. Bilateral basilar pulmonary infiltrates and atelectasis. No evidence of pulmonary embolism. 4. Acute on Chronic hypoxic and hypercapnic respiratory failure maintained on oxygen at 5 L via nasal cannula also started on Diamox during this admission for hypercapnia 5. History of essential hypertension. Home meds resumed 6. History of obesity 7. History of ALLERGIC rhinitis 8. History of bilateral lower extreme any cellulitis. Per patient this is improved. 9. Moderate to large left sided pleural effusion status post thoracentesis with 1 L of fluid removed yesterday DVT prophylaxis heparin. GI prophylaxis Pepcid
[2019-08-30 16:58] LABS: Glucose,Whole Blood 254 mg/dL (75-99)
[2019-08-30] MEDS: FUROSEMIDE 40 MG TAB PO SCH (17:15)
[2019-08-30 20:07] LABS: Glucose,Whole Blood 195 mg/dL (75-99)
[2019-08-30] MEDS: LISINOPRIL 20 MG TAB PO SCH (20:27)
[2019-08-30] MEDS: MONTELUKAST 10 MG TAB PO SCH (20:27)
[2019-08-31] MEDS: PIPERACILLIN-TAZOBACTAM 3.375 GM in SODIUM CHLORIDE 0.9% 100 ML IVPB SCH ×3 (02:51→17:27)
[2019-08-31 06:06] LABS: Glucose,Whole Blood 235 mg/dL (75-99)
[2019-08-31] MEDS: methylPREDNISolone SOD SUCCI 125 MG/2 ML VIAL IV SCH ×2 (06:11→12:37)
[2019-08-31] MEDS: INSULIN ASPART (NovoLOG) 100 UNIT/ML VIAL SQ SCH ×4 (06:11→20:58)
[2019-08-31 06:35] LABS: Basophils % (A) 0 %; Eosinophils % (A) 0 %; HCT 44.7 % (39.0-53.0); HGB 13.4 gm/dL (13.0-17.5); Hypochromasia Marked; Lymphocytes # (A) 0.2 k/uL (1.0-4.8); Lymphocytes % (A) 5 %; MCH 32.3 pg (25.0-35.0); MCV 107.7 fL (80.0-100.0); Macrocytosis Moderate; Monocytes # (A) 0.3 k/uL (0-1.0); Monocytes % (A) 7 %; Neutrophils # (A) 4.2 k/uL (1.3-7.7); Neutrophils % (A) 87 %; Platelet Count 106 k/uL (150-450); RBC 4.15 m/uL (4.30-5.90); RDW 12.8 % (11.5-15.5); WBC 4.8 k/uL (3.8-10.6)
[2019-08-31 06:50] LABS: Albumin 3.6 g/dL (3.5-5.0); Calcium 8.9 mg/dL (8.4-10.2); Potassium 4.4 mmol/L (3.5-5.1); Total Bilirubin 0.5 mg/dL (0.2-1.3); Total Protein 6.4 g/dL (6.3-8.2)
[2019-08-31] MEDS: BUDESONIDE 1 MG/2 ML NEBU INHALATION SCH ×2 (07:51→20:10)
[2019-08-31] MEDS: FORMOTEROL FUMARATE 20 MCG/2 ML NEBU INHALATION SCH ×2 (07:51→20:10)
[2019-08-31] MEDS: IPRATROPIUM-ALBUTEROL 3 ML NEB INHALATION SCH ×4 (07:51→20:10)
[2019-08-31] MEDS: FUROSEMIDE 40 MG TAB PO SCH ×2 (08:02→15:51)
[2019-08-31] MEDS: acetaZOLAMIDE 250 MG TAB PO SCH (08:02)
[2019-08-31] MEDS: HEPARIN SODIUM,PORCINE 5,000 UNIT/ML 1 ML VIAL SQ SCH ×2 (08:02→19:49)
[2019-08-31] MEDS: FAMOTIDINE 20 MG TAB PO SCH (08:03)
[2019-08-31] MEDS: METOPROLOL SUCCINATE (ER) 25 MG TAB.ER.24H PO SCH ×2 (08:03→19:48)
[2019-08-31] MEDS: ASPIRIN 81 MG PO SCH (08:03)
[2019-08-31] MEDS: amLODIPine 5 MG TAB PO SCH (08:03)
--- NOTE | 2019-08-31 09:38 | PN ---
PROGRESS NOTE Mr. Escalera is a 64-year-old male who presented with symptoms of progressive dyspnea, underwent thoracentesis. He is feeling better today. His breathing is better. He denies any chest pain. No dizziness. No palpitation. He denies any nausea. He has been ambulating. He continues to be at this time on Diamox 250 mg twice a day, amlodipine 5 mg daily, aspirin once a day, Pepcid, furosemide 40 mg twice a day, lisinopril 20 mg daily, Solu-Medrol. Toprol-XL 25 mg twice a day. PHYSICAL EXAMINATION: Blood pressure 135/60 with the heart rate in the 80s. LUNGS: With mild decrease in breath sounds at the bases. No wheezes. HEART: Regular rate and rhythm. S1, S2. No S3. No rub. ABDOMEN: Soft, nontender. EXTREMITIES: No edema. LAB DATA: Lab data revealed BUN and creatinine 40 and 1.37, potassium 4.4. IMPRESSION: 1. Progressive dyspnea with chronic obstructive pulmonary disease exacerbation and probable mild congestive heart failure with preserved systolic function. 2. Obesity. 3. Hypertension. RECOMMENDATION: From the cardiac standpoint, he is stable. I would expect he should be able to be discharged home soon. MMODL / IJN: [id number] /
[2019-08-31 12:10] LABS: Glucose,Whole Blood 241 mg/dL (75-99)
--- NOTE | 2019-08-31 14:54 | P.PN ---
Subjective Progress Note Date: 08/31/19 This is a 64-year-old male patient who presented with complaints of increased shortness of breath. Patient reports that over the past few days he's had increasing shortness of breath with productive cough and increased sputum production. Patient does have known past medical history of COPD in which she is maintained on 5 L nasal cannula at home and follows with Dr. Earl per pulmonary. Patient denies any recent fevers. Patient doesn't above medical history of essential hypertension, obesity, bilateral lower extremity cellulitis and chronic hypoxic respiratory failure. Chest x-ray completed showing correlation for CHF with interstitial pulmonary edema. Moderate left and small right pleural effusions with adjacent atelectasis and/or consolidation as compared to 06/09/2019 there is a new 5.9 cm posterior left lung upper lung masses could represent loculated fluid along this. Major fascia or focus of infection neoplasm is also possible considered less likely given the relatively rapid development. BNP elevated at 1420. D-dimer was elevated at 1.72. Chest CTA performed showing bilateral pleural effusions. Bilateral basilar pulmonary infiltrates and atelectasis no evidence of pulmonary embolism. Troponin 0.051, 0.069 0.059. Patient started on IV Lasix 40 mg every 12 hours. Cardiology services have been consulted. Patient started on Zosyn for IV antibiotics and DuoNeb breathing treatments. Mucinex ordered sputum culture ordered. Pulmonary service is consulted. At this time patient reports improvement with shortness of breath. Patient denies any chest pain. Patient denies nausea vomiting or diarrhea. Patient denies any urinary burning or frequency. On 08/29/2019 patient was seen and examined on the medical floor he is alert and oriented 3 he states that his shortness of breath has improved since yesterday he is still complaining of cough otherwise he denies any complaints there is no fever or chills no headache or dizziness no chest pain no nausea or vomiting no abdominal pain no diarrhea no burning with urination no frequency or urgency and no hematuria sided thoracentesis yesterday with about 1 L of fluid removed On 08/30/2019 patient was seen and examined on the medical floor he is alert and oriented 3 in no apparent distress he had an episode of chest pain this morning, EKG was done and did not reveal any ischemic changes patient was evalu ated by cardiology, otherwise patient is feeling well he is stating that his cough and shortness of breath are improving, there is no fever or chills no headache or dizziness no nausea or vomiting no abdominal pain no diarrhea no burning with urination no frequency or urgency and no hematuria. On 08/31/2019 patient is alert and oriented 3. Patient is feeling improved. Per nursing staff pulmonary would like to keep 24 more hours. Patient has been transitioned to oral prednisone. At this time patient denies chest pain. Still having some shortness of breath. Patient denies nausea vomiting or diarrhea. Patient denies any urinary burning or frequency. Elevated creatinine 1.37, will continue to monitor. Steroids and Lasix has been switched to oral Objective - Vital Signs Vital signs: Vital Signs Temp 98.1 F 08/31/19 07:55 Pulse 83 08/31/19 12:00 Resp 18 08/31/19 12:00 BP 125/62 08/31/19 11:20 Pulse Ox 92 L 08/31/19 11:20 Intake & Output 08/30/19 08/31/19 08/31/19 18:59 06:59 18:59 Intake Total 1400 20 480 Output Total 600 850 300 Balance 800 -830 180 Weight 141.1 kg Intake: Intake, IV Titration 200 Amount Piperacillin-Tazobactam 3 200 .375 gm In Sodium Chloride 0.9% 100 ml @ 25 mls/hr IVPB Q8H [facility] Rx#: [id number] Oral 1200 20 480 Output: Urine 600 850 300 Other: Voiding Method Urinal Urinal # Voids 1 1 # Bowel Movements 0 - Exam In general patient is alert and oriented 3 in no apparent distress Head normocephalic and atraumatic Neck supple no JVD no goiter Lungs diminished bilaterally Heart regular rate and rhythm S1-S2, no rub or gallop Abdomen is soft nontender nondistended positive bowel sounds no hepatosplenomegaly Extremities no edema. Bilateral lower extreme erythema patient reports that this is chronic improved for him Neuro no gross focal neurological deficit - Labs CBC & Chem 7: 08/31/19 05:58 08/31/19 05:58 Labs: Abnormal Lab Results - Last 24 Hours (Table) 08/30/19 08/30/19 08/31/19 Range/Units 16:57 20:06 05:58 RBC 4.15 L (4.30-5.90) m/uL MCV 107.7 H (80.0-100.0) fL MCHC 30.0 L (31.0-37.0) g/dL Plt Count 106 L (150-450) k/uL Lymphocytes # 0.2 L (1.0-4.8) k/uL Chloride (98-107) mmol/L Carbon Dioxide (22-30) mmol/L BUN (9-20) mg/dL Creatinine (0.66-1.25) mg/dL Glucose (74-99) mg/dL POC Glucose (mg/dL) 254 H 195 H (75-99) mg/dL ALT (21-72) U/L 08/31/19 08/31/19 08/31/19 Range/Units 05:58 06:04 12:00 RBC (4.30-5.90) m/uL MCV (80.0-100.0) fL MCHC (31.0-37.0) g/dL Plt Count (150-450) k/uL Lymphocytes # (1.0-4.8) k/uL Chloride 92 L (98-107) mmol/L Carbon Dioxide 42 H* (22-30) mmol/L BUN 40 H (9-20) mg/dL Creatinine 1.37 H (0.66-1.25) mg/dL Glucose 237 H (74-99) mg/dL POC Glucose (mg/dL) 235 H 241 H (75-99) mg/dL ALT 89 H (21-72) U/L Microbiology - Last 24 Hours (Table) 08/28/19 15:09 Anaerobic Culture - Preliminary Pleural Fluid 08/28/19 15:09 Gram Stain - Preliminary Pleural Fluid Body Fluid Culture - Preliminary 08/28/19 15:09 Gram Stain - Preliminary Pleural Fluid Body Fluid Culture - Preliminary 08/27/19 15:40 Blood Culture - Preliminary Blood No Growth after 72 hours 08/28/19 13:30 Gram Stain - Final Sputum Sputum Culture - Final Assessment and Plan Assessment: 1. Acute hypoxic respiratory failure related to acute exacerbation of COPD and left-sided pleural effusion . Chest x-ray completed showing correlation for CHF with interstitial pulmonary edema witn moderate left and small right pleural effusions with adjacent atelectasis or consolidation. As compared of 06/09/2019 there is a new 5.9 cm posterior left upper lung mass this could represent loculated fluid along the superior Major fissure or focus of infection neoplasm is also possible but considered less likely given the relatively rapid development. Patient started on IV Lasix. Cardiology services have been consulted. Pulmonary service is consulted. Patient started on IV Zosyn, DuoNeb breathing treatments and sputum culture ordered. Per pulmonary service is patient has been switched to prednisone 40 mg daily. Patient has been switched to oral Lasix 2. Elevated troponin. Troponin 0.051, 0.069 and 0.059. Cardiology services have been consulted. Per cardiology mild troponin elevation related to hypoxemia and dyspnea 3. Elevated d-dimer. D-dimer 1.72. Chest CTA completed showing bilateral pleural effusions. Bilateral basilar pulmonary infiltrates and atelectasis. No evidence of pulmonary embolism. 4. Acute on Chronic hypoxic and hypercapnic respiratory failure maintained on oxygen at 5 L via nasal cannula also started on Diamox during this admission for hypercapnia 5. History of essential hypertension. Home meds resumed 6. History of obesity 7. History of ALLERGIC rhinitis 8. History of bilateral lower extreme any cellulitis. Per patient this is improved. 9. Moderate to large left sided pleural effusion status post thoracentesis with 1 L of fluid removed yesterday 10. Acute kidney injury. Creatinine elevated 1.37 and bun 40. Lasix has been transitioned to oral. We'll continue to monitor DVT prophylaxis heparin. GI prophylaxis Pepcid I performed an examination of the patient and discussed their management with the Nurse Practitioner. I have reviewed the Nurse Practitioner's notes and agree with the documented findings and plan of care
--- NOTE | 2019-08-31 15:19 | P.PN ---
Subjective Progress Note Date: 08/31/19 Principal diagnosis: Acute shortness of breath with acute hypoxemic respiratory failure secondary to acute exacerbation of chronic objective pulmonary disease complicated by a left- sided pleural effusion On 08/30/2019 patient seen in follow-up on selective care unit, he is sitting up in the chair, in no acute distress, states his breathing has significantly improved since admission, still has some limited wheezes on today's exam, but overall is feeling better, he is status post left-sided thoracentesis by interventional radiology would removal of 1 L of pleural fluid, which was transudatif in nature. Pleural fluid cytology is pending, pleural fluid cultures are pending, negative thus far. Today's labs have been reviewed, showing white blood cell count of 4.6, hemoglobin 12.6, sodium is 139, potassium is 4.3, chloride is 90, CO2 is 42, B1 is 31 and creatinine is 1.25. Patient states he had a episode of pressure-like sensation in his midsternal area, but no nausea vomiting or diaphoresis, no radiation, the pressure is constant in nature, mild in severity, we'll obtain an EKG On 08/31/2019 patient seen in follow-up on the selective care unit, he is breathing easier, feeling better, lung sounds are diminished, with decreased air entry bilaterally, but no acute distress, patient is on 6 L of oxygen the pulse ox of 92%, no fever or chills, occasional cough. Patient is on breathing treatments, he is on oral Lasix, IV Solu-Medrol, and Zosyn for empiric anti biotic coverage. He is status post left-sided thoracentesis by interventional radiology would removal of 1 L of pleural fluid which was transudate in nature. Pleural fluid cultures are negative. Cytology is pending Objective - Vital Signs Vital signs: Vital Signs Temp 98.1 F 08/31/19 07:55 Pulse 83 08/31/19 12:00 Resp 18 08/31/19 12:00 BP 125/62 08/31/19 11:20 Pulse Ox 92 L 08/31/19 11:20 Intake & Output 08/30/19 08/31/19 08/31/19 18:59 06:59 18:59 Intake Total 1400 20 480 Output Total 600 850 300 Balance 800 -830 180 Weight 141.1 kg Intake: Intake, IV Titration 200 Amount Piperacillin-Tazobactam 3 200 .375 gm In Sodium Chloride 0.9% 100 ml @ 25 mls/hr IVPB Q8H [facility] Rx#: [id number] Oral 1200 20 480 Output: Urine 600 850 300 Other: Voiding Method Urinal Urinal # Voids 1 1 # Bowel Movements 0 - Exam GENERAL EXAM: Alert, pleasant, 64-year-old white male on 6 L of oxygen with a pulse ox of 92% comfortable in no apparent distress. HEAD: Normocephalic/atraumatic. EYES: Normal reaction of pupils, equal size. Conjunctiva pink, sclera white. NOSE: Clear with pink turbinates. THROAT: No erythema or exudates. NECK: No masses, no JVD, no thyroid enlargement, no adenopathy. CHEST: No chest wall deformity. Symmetrical expansion. LUNGS: Equal air entry with diffuse expiratory wheezes CVS: Regular rate and rhythm, normal S1 and S2, no gallops, no murmurs, no rubs ABDOMEN: Soft, nontender. No hepatosplenomegaly, normal bowel sounds, no guarding or rigidity. EXTREMITIES: No clubbing, no edema, no cyanosis, 2+ pulses and upper and lower extremities. MUSCULOSKELETAL: Muscle strength and tone normal. SPINE: No scoliosis or deformity SKIN: No rashes CENTRAL NERVOUS SYSTEM: Alert and oriented -3. No focal deficits, tone is normal in all 4 extremities. PSYCHIATRIC: Alert and oriented -3. Appropriate affect. Intact judgment and insight. - Labs CBC & Chem 7: 08/31/19 05:58 08/31/19 05:58 Labs: Abnormal Lab Results - Last 24 Hours (Table) 08/30/19 08/30/19 08/31/19 Range/Units 16:57 20:06 05:58 RBC 4.15 L (4.30-5.90) m/uL MCV 107.7 H (80.0-100.0) fL MCHC 30.0 L (31.0-37.0) g/dL Plt Count 106 L (150-450) k/uL Lymphocytes # 0.2 L (1.0-4.8) k/uL Chloride (98-107) mmol/L Carbon Dioxide (22-30) mmol/L BUN (9-20) mg/dL Creatinine (0.66-1.25) mg/dL Glucose (74-99) mg/dL POC Glucose (mg/dL) 254 H 195 H (75-99) mg/dL ALT (21-72) U/L 08/31/19 08/31/19 08/31/19 Range/Units 05:58 06:04 12:00 RBC (4.30-5.90) m/uL MCV (80.0-100.0) fL MCHC (31.0-37.0) g/dL Plt Count (150-450) k/uL Lymphocytes # (1.0-4.8) k/uL Chloride 92 L (98-107) mmol/L Carbon Dioxide 42 H* (22-30) mmol/L BUN 40 H (9-20) mg/dL Creatinine 1.37 H (0.66-1.25) mg/dL Glucose 237 H (74-99) mg/dL POC Glucose (mg/dL) 235 H 241 H (75-99) mg/dL ALT 89 H (21-72) U/L Microbiology - Last 24 Hours (Table) 08/28/19 15:09 Anaerobic Culture - Preliminary Pleural Fluid 08/28/19 15:09 Gram Stain - Preliminary Pleural Fluid Body Fluid Culture - Preliminary 08/28/19 15:09 Gram Stain - Preliminary Pleural Fluid Body Fluid Culture - Preliminary 08/27/19 15:40 Blood Culture - Preliminary Blood No Growth after 72 hours 08/28/19 13:30 Gram Stain - Final Sputum Sputum Culture - Final Assessment and Plan Plan: Assessment: #1. Acute hypoxemic respiratory failure related to acute exacerbation of COPD, up acute by left-sided pleural effusion #2. Bilateral pleural effusions, left greater than right, status post left- sided thoracentesis on 08/28/2019 with removal of 1 L of transudate of fluid, cytology and pleural fluid cultures are pending #3. Severe chronic obstructive pulmonary disease with an FEV1 of 17% of predicted, Gold stage IV with chronic hypoxemic respiratory failure on 5 L of home O2 on a regular basis #4. Chronic exertional dyspnea #5. Morbid obesity #6. Chronic ALLERGIC rhinitis #7. Chronic anxiety disorder #8. History of hypertension #9. Degenerative joint disease #10. History of lower extremity cellulitis Plan: Continue current treatment, will transition the IV steroids to oral prednisone, patient has been diuresed, and he is feeling better, no complaints of chest pain, vital signs have been stable, creased activity as tolerated, patient is clinically stable, will discharge home in the next 24 hours continues to improve I performed a history & physical examination of the patient and discussed their management with my nurse practitioner, Felisha Banuelos. I reviewed the nurse practitioner's note and agree with the documented findings and plan of care. Lung sounds are positive for diffuse wheezes throughout the lung evans. The findings and the impression was discussed with the patient. I attest to the documentation by the nurse practitioner. Time with Patient: Less than 30
[2019-08-31 16:43] LABS: Glucose,Whole Blood 227 mg/dL (75-99)
[2019-08-31] MEDS: MONTELUKAST 10 MG TAB PO SCH (19:49)
[2019-08-31] MEDS: LISINOPRIL 20 MG TAB PO SCH (19:49)
[2019-08-31 20:47] LABS: Glucose,Whole Blood 266 mg/dL (75-99)
[2019-09-01] MEDS: PIPERACILLIN-TAZOBACTAM 3.375 GM in SODIUM CHLORIDE 0.9% 100 ML IVPB SCH ×2 (05:30→09:29)
[2019-09-01 06:14] LABS: Glucose,Whole Blood 157 mg/dL (75-99)
[2019-09-01] MEDS: INSULIN ASPART (NovoLOG) 100 UNIT/ML VIAL SQ SCH ×2 (06:15→12:26)
[2019-09-01] MEDS: FORMOTEROL FUMARATE 20 MCG/2 ML NEBU INHALATION SCH (08:09)
[2019-09-01] MEDS: IPRATROPIUM-ALBUTEROL 3 ML NEB INHALATION SCH ×3 (08:09→16:16)
[2019-09-01] MEDS: BUDESONIDE 1 MG/2 ML NEBU INHALATION SCH (08:09)
[2019-09-01] MEDS: FAMOTIDINE 20 MG TAB PO SCH (08:15)
[2019-09-01] MEDS: FUROSEMIDE 40 MG TAB PO SCH (08:15)
[2019-09-01] MEDS: METOPROLOL SUCCINATE (ER) 25 MG TAB.ER.24H PO SCH (08:15)
[2019-09-01] MEDS: amLODIPine 5 MG TAB PO SCH (08:15)
[2019-09-01] MEDS: ASPIRIN 81 MG PO SCH (08:15)
[2019-09-01] MEDS: HEPARIN SODIUM,PORCINE 5,000 UNIT/ML 1 ML VIAL SQ SCH (08:16)
[2019-09-01] MEDS ORDERED: predniSONE 20 MG TAB PO SCH (09:00)
[2019-09-01 09:46] VITALS: RESP 18; TEMP 98.5
[2019-09-01 10:30] LABS: Albumin 3.6 g/dL (3.5-5.0); Calcium 8.6 mg/dL (8.4-10.2); Potassium 4.2 mmol/L (3.5-5.1); Total Bilirubin 0.8 mg/dL (0.2-1.3); Total Protein 6.4 g/dL (6.3-8.2)
[2019-09-01 11:24] VITALS: BMI 42.6
[2019-09-01 11:38] LABS: Glucose,Whole Blood 165 mg/dL (75-99)
[2019-09-01 11:46] LABS: Basophils # (A) 0.1 k/uL (0-0.2); Basophils % (A) 2 %; Eosinophils % (A) 0 %; HCT 46.8 % (39.0-53.0); HGB 14.2 gm/dL (13.0-17.5); Hypochromasia Marked; Lymphocytes # (A) 0.4 k/uL (1.0-4.8); Lymphocytes % (A) 6 %; MCH 32.4 pg (25.0-35.0); MCHC 30.2 g/dL (31.0-37.0); MCV 107.1 fL (80.0-100.0); Macrocytosis Moderate; Mean Platelet Volume 10.3; Monocytes # (A) 0.7 k/uL (0-1.0); Monocytes % (A) 10 %; Neutrophils # (A) 5.3 k/uL (1.3-7.7); Neutrophils % (A) 79 %; RBC 4.37 m/uL (4.30-5.90); RDW 13.1 % (11.5-15.5); WBC 6.7 k/uL (3.8-10.6)
[2019-09-01 12:26] VITALS: BP 128/62; PULSE 92
--- NOTE | 2019-09-01 12:51 | P.PN ---
Subjective Progress Note Date: 09/01/19 Acute shortness of breath with acute hypoxemic respiratory failure secondary to acute exacerbation of chronic objective pulmonary disease complicated by a left- sided pleural effusion On 08/30/2019 patient seen in follow-up on selective care unit, he is sitting up in the chair, in no acute distress, states his breathing has significantly improved since admission, still has some limited wheezes on today's exam, but overall is feeling better, he is status post left-sided thoracentesis by interventional radiology would removal of 1 L of pleural fluid, which was transudatif in nature. Pleural fluid cytology is pending, pleural fluid cultures are pending, negative thus far. Today's labs have been reviewed, showing white blood cell count of 4.6, hemoglobin 12.6, sodium is 139, potassium is 4.3, chloride is 90, CO2 is 42, B1 is 31 and creatinine is 1.25. Patient states he had a episode of pressure-like sensation in his midsternal area, but no nausea vomiting or diaphoresis, no radiation, the pressure is constant in nature, mild in severity, we'll obtain an EKG On 08/31/2019 patient seen in follow-up on the selective care unit, he is breathing easier, feeling better, lung sounds are diminished, with decreased air entry bilaterally, but no acute distress, patient is on 6 L of oxygen the pulse ox of 92%, no fever or chills, occasional cough. Patient is on breathing treatments, he is on oral Lasix, IV Solu-Medrol, and Zosyn for empiric antibiotic coverage. He is status post left-sided thoracentesis by interventional radiology would removal of 1 L of pleural fluid which was transudate in nature. Pleural fluid cultures are negative. Cytology is pending On 09/01/2019 I'm seeing the patient for a follow-up. Is stable. Taken off the IV Solu-Medrol. Currently on a prednisone burst taper. Completing course of Zosyn. No nausea. No vomiting. No diarrhea. No abdominal pain. He is on high flow oxygen 6 L and his baseline oxygen requirements at 5 L per minute. Still awaiting the fluid cytology from the pleural fluid postthoracentesis on the left. Objective - Vital Signs Vital signs: Vital Signs Temp 98.5 F 09/01/19 08:00 Pulse 90 09/01/19 12:01 Resp 18 09/01/19 12:00 BP 128/62 09/01/19 12:00 Pulse Ox 91 L 09/01/19 12:00 Intake & Output 08/31/19 09/01/19 09/01/19 18:59 06:59 18:59 Intake Total 720 240 480 Output Total 300 300 Balance 420 -60 480 Weight 142.5 kg 142.5 kg Intake: Oral 720 240 480 Output: Urine 300 300 Other: Voiding Method Urinal # Voids 1 1 2 # Bowel Movements 0 - Exam GENERAL EXAM: Alert, pleasant, 64-year-old white male on 6 L of oxygen with a pulse ox of 92% comfortable in no apparent distress. HEAD: Normocephalic/atraumatic. EYES: Normal reaction of pupils, equal size. Conjunctiva pink, sclera white. NOSE: Clear with pink turbinates. THROAT: No erythema or exudates. NECK: No masses, no JVD, no thyroid enlargement, no adenopathy. CHEST: No chest wall deformity. Symmetrical expansion. LUNGS: Equal air entry with diffuse expiratory wheezes CVS: Regular rate and rhythm, normal S1 and S2, no gallops, no murmurs, no rubs ABDOMEN: Soft, nontender. No hepatosplenomegaly, normal bowel sounds, no guarding or rigidity. EXTREMITIES: No clubbing, no edema, no cyanosis, 2+ pulses and upper and lower extremities. MUSCULOSKELETAL: Muscle strength and tone normal. SPINE: No scoliosis or deformity SKIN: No rashes CENTRAL NERVOUS SYSTEM: Alert and oriented -3. No focal deficits, tone is normal in all 4 extremities. PSYCHIATRIC: Alert and oriented -3. Appropriate affect. Intact judgment and insight. - Labs CBC & Chem 7: 09/01/19 09:39 09/01/19 09:39 Labs: Abnormal Lab Results - Last 24 Hours (Table) 08/31/19 08/31/19 09/01/19 Range/Units 16:40 20:46 06:12 MCV (80.0-100.0) fL MCHC (31.0-37.0) g/dL Chloride (98-107) mmol/L Carbon Dioxide (22-30) mmol/L BUN (9-20) mg/dL Creatinine (0.66-1.25) mg/dL Glucose (74-99) mg/dL POC Glucose (mg/dL) 227 H 266 H 157 H (75-99) mg/dL AST (17-59) U/L ALT (21-72) U/L 09/01/19 09/01/19 09/01/19 Range/Units 09:39 09:39 11:36 MCV 107.1 H (80.0-100.0) fL MCHC 30.2 L (31.0-37.0) g/dL Chloride 95 L (98-107) mmol/L Carbon Dioxide 39 H (22-30) mmol/L BUN 44 H (9-20) mg/dL Creatinine 1.33 H (0.66-1.25) mg/dL Glucose 198 H (74-99) mg/dL POC Glucose (mg/dL) 165 H (75-99) mg/dL AST 88 H (17-59) U/L ALT 156 H (21-72) U/L Microbiology - Last 24 Hours (Table) 08/27/19 15:40 Blood Culture - Preliminary Blood No Growth after 96 hours 08/28/19 15:09 Gram Stain - Preliminary Pleural Fluid Body Fluid Culture - Preliminary Assessment and Plan Plan: #1. Acute hypoxemic respiratory failure related to acute exacerbation of COPD, up acute by left-sided pleural effusion #2. Bilateral pleural effusions, left greater than right, status post left- sided thoracentesis on 08/28/2019 with removal of 1 L of transudate of fluid, cytology and pleural fluid cultures are pending #3. Severe chronic obstructive pulmonary disease with an FEV1 of 17% of predict ed, Gold stage IV with chronic hypoxemic respiratory failure on 5 L of home O2 on a regular basis #4. Chronic exertional dyspnea #5. Morbid obesity #6. Chronic ALLERGIC rhinitis #7. Chronic anxiety disorder #8. History of hypertension #9. Degenerative joint disease #10. History of lower extremity cellulitis graft #11 acute kidney injury, improving Plan Continue management. We'll follow. Condition is stable for now. Completed IV Solu-Medrol and currently is on a prednisone burst taper. Continue oral Lasix and monitor the renal function. Discharge planning is in progress. Awaiting the fluid cytology from the thoracentesis was done on the left 7 days ago. Discharge planning is in progress. Monitor kidney function.
[2019-09-01 13:38] LABS: Platelet Count 98 k/uL (150-450)
--- NOTE | 2019-09-01 13:40 | P.DS ---
Providers Date of admission: 08/27/19 18:25 Expected date of discharge: 09/01/19 Attending physician: Sofiya Albrecht Consults: 08/27/19 18:26 Consult Physician Urgent Consulting Provider: [facility] Consult Reason/Comments: AECHF Do you want consulting provider notified?: Yes Consult Physician Urgent Consulting Provider: Chelsea Earl Reason/Comments: acute/chronic hypoxic resp failure Do you want consulting provider notified?: Yes Primary care physician: Sofiya Albrecht Hospital Course: Discharge diagnosis 1. Acute hypoxic respiratory failure related to acute exacerbation of COPD and left-sided pleural effusion . Chest x-ray completed showing correlation for CHF with interstitial pulmonary edema witn moderate left and small right pleural effusions with adjacent atelectasis or consolidation. As compared of 06/09/2019 there is a new 5.9 cm posterior left upper lung mass this could represent loculated fluid along the superior Major fissure or focus of infection neoplasm is also possible but considered less likely given the relatively rapid development. Patient started on IV Lasix. Cardiology services have been consulted. Pulmonary service is consulted. Patient started on IV Zosyn, DuoNeb breathing treatments and sputum culture ordered. Per pulmonary service is patient has been switched to prednisone 40 mg daily. Patient has been switched to oral Lasix 2. Elevated troponin. Troponin 0.051, 0.069 and 0.059. Cardiology services have been consulted. Per cardiology mild troponin elevation related to hypoxe alvino and dyspnea 3. Elevated d-dimer. D-dimer 1.72. Chest CTA completed showing bilateral pleural effusions. Bilateral basilar pulmonary infiltrates and atelectasis. No evidence of pulmonary embolism. 4. Acute on Chronic hypoxic and hypercapnic respiratory failure maintained on oxygen at 5 L via nasal cannula also started on Diamox during this admission for hypercapnia 5. History of essential hypertension. Home meds resumed 6. History of obesity 7. History of ALLERGIC rhinitis 8. History of bilateral lower extreme any cellulitis. Per patient this is improved. 9. Moderate to large left sided pleural effusion status post thoracentesis with 1 L of fluid removed yesterday 10. Acute kidney injury. Creatinine elevated 1.37 and bun 40. Lasix has been transitioned to oral. We'll continue to monitor. Improving to 1.33. Patient follow-up PCP for further management Hospital course This is a 64-year-old male patient who presented with complaints of increased shortness of breath. Patient reports that over the past few days he's had increasing shortness of breath with productive cough and increased sputum production. Patient does have known past medical history of COPD in which she is maintained on 5 L nasal cannula at home and follows with Dr. Earl per pulmonary. Patient denies any recent fevers. Patient doesn't above medical history of essential hypertension, obesity, bilateral lower extremity cellulitis and chronic hypoxic respiratory failure. Chest x-ray completed showing correlation for CHF with interstitial pulmonary edema. Moderate left and small right pleural effusions with adjacent atelectasis and/or consolidation as compared to 06/09/2019 there is a new 5.9 cm posterior left lung upper lung masses could represent loculated fluid along this. Major fascia or focus of infection neoplasm is also possible considered less likely given the relatively rapid development. BNP elevated at 1420. D-dimer was elevated at 1.72. Chest CTA performed showing bilateral pleural effusions. Bilateral basilar pulmonary infiltrates and atelectasis no evidence of pulmonary embolism. Troponin 0.051, 0.069 0.059. Patient started on IV Lasix 40 mg every 12 hours. Cardiology services have been consulted. Patient started on Zosyn for IV antibiotics and DuoNeb breathing treatments. Mucinex ordered sputum culture ordered. Pulmonary service is consulted. At this time patient reports improvement with shortness of breath. Patient denies any chest pain. Patient denies nausea vomiting or diarrhea. Patient denies any urinary burning or frequency. On 08/29/2019 patient was seen and examined on the medical floor he is alert and oriented 3 he states that his shortness of breath has improved since yesterday he is still complaining of cough otherwise he denies any complaints there is no fever or chills no headache or dizziness no chest pain no nausea or vomiting no abdominal pain no diarrhea no burning with urination no frequency or urgency and no hematuria sided thoracentesis yesterday with about 1 L of fluid removed On 08/30/2019 patient was seen and examined on the medical floor he is alert and oriented 3 in no apparent distress he had an episode of chest pain this morning, EKG was done and did not reveal any ischemic changes patient was evaluated by cardiology, otherwise patient is feeling well he is stating that his cough and shortness of breath are improving, there is no fever or chills no headache or dizziness no nausea or vomiting no abdominal pain no diarrhea no burning with urination no frequency or urgency and no hematuria. On 08/31/2019 patient is alert and oriented 3. Patient is feeling improved. Per nursing staff pulmonary would like to keep 24 more hours. Patient has been transitioned to oral prednisone. At this time patient denies chest pain. Still having some shortness of breath. Patient denies nausea vomiting or diarrhea. Patient denies any urinary burning or frequency. Elevated creatinine 1.37, will continue to monitor. Steroids and Lasix has been switched to oral 09/01/2019 patient alert and oriented 3. Patient feels improved and ready to go home. Pulmonary has cleared patient for discharge. Patient will be DC'd on prednisone taper. No antibiotics needed. Patient also will be discharged on increased dose of Lasix per cardiology recommendation discussed case with Dr. Baltazar per cardiology. This time patient has returned to baseline in regards to pulmonary status. Patient denies chest pain. Patient denies nausea vomiting or diarrhea. Patient denies any urinary burning or frequency. Repeat CMP has been ordered for today's patient to follow-up in office with PCP for further management I performed an examination of the patient and discussed their management with the Nurse Practitioner. I have reviewed the Nurse Practitioner's notes and agree with the documented findings and plan of care Patient Condition at Discharge: Stable Plan - Discharge Summary Discharge Rx Participant: Yes New Discharge Prescriptions: New Furosemide [Lasix] 40 mg PO BID@0900,1600 30 Days #60 tab predniSONE 10 mg PO DIRECTED 12 Days #30 tab Continue Albuterol Nebulized [Ventolin Nebulized] 2.5 mg INHALATION RT-QID PRN PRN Reason: Shortness Of Breath amLODIPine [Norvasc] 5 mg PO DAILY Lisinopril [Prinivil] 20 mg PO HS Cholecalciferol (Vitamin D3) [Vitamin D3] 2,000 unit PO HS Montelukast [Singulair] 10 mg PO HS Metoprolol Succinate (ER) [Toprol XL] 25 mg PO HS clonazePAM [KlonoPIN] 0.5 mg PO DAILY PRN PRN Reason: Anxiety Albuterol Sulfate [Ventolin HFA] 2 puff INHALATION RT-Q4H PRN PRN Reason: Shortness Of Breath Fluticasone/Salmeterol [Advair 250-50 Diskus] 1 puff INHALATION RT-BID diphenhydrAMINE HCL [Benadryl] 25 mg PO BID Pseudoephedrine [Sudafed] 30 mg PO Q4H PRN PRN Reason: Congestion guaiFENesin [Mucinex] 600 mg PO BID PRN PRN Reason: Congestion Discontinued Furosemide [Lasix] 20 mg PO DAILY PRN PRN Reason: Edema Discharge Medication List Albuterol Nebulized [Ventolin Nebulized] 2.5 mg INHALATION RT-QID PRN 06/22/14 [History] amLODIPine [Norvasc] 5 mg PO DAILY 06/22/14 [History] Cholecalciferol (Vitamin D3) [Vitamin D3] 2,000 unit PO HS 06/09/19 [History] Lisinopril [Prinivil] 20 mg PO HS 06/09/19 [History] Metoprolol Succinate (ER) [Toprol XL] 25 mg PO HS 06/09/19 [History] Montelukast [Singulair] 10 mg PO HS 06/09/19 [History] clonazePAM [KlonoPIN] 0.5 mg PO DAILY PRN 06/09/19 [History] Albuterol Sulfate [Ventolin HFA] 2 puff INHALATION RT-Q4H PRN 08/27/19 [History] Fluticasone/Salmeterol [Advair 250-50 Diskus] 1 puff INHALATION RT-BID 08/27/19 [History] Pseudoephedrine [Sudafed] 30 mg PO Q4H PRN 08/27/19 [History] diphenhydrAMINE HCL [Benadryl] 25 mg PO BID 08/27/19 [History] guaiFENesin [Mucinex] 600 mg PO BID PRN 08/27/19 [History] Furosemide [Lasix] 40 mg PO BID@0900,1600 30 Days #60 tab 09/01/19 [Rx] predniSONE 10 mg PO DIRECTED 12 Days #30 tab 09/01/19 [Rx] Follow up Appointment(s)/Referral(s): Chelsea Earl MD [Family Provider] - 09/15/19 1:00 pm (Saturday) Sofiya Albrecht MD [Primary Care Provider] - 09/08/19 2:00 pm (Saturday) Ambulatory/Diagnostic Orders: Comprehensive Metabolic Panel [LAB.AMB] Time Frame: 2 Days, Location: None Selected Activity/Diet/Wound Care/Special Instructions: Patient requires a walker at discharge for dx: unsteady gait/COPD Discharge Disposition: HOME SELF-CARE
--- NOTE | 2019-09-01 15:32 | P.PN ---
Subjective Progress Note Date: 09/01/19 This is a pleasant 60-year-old gentleman with no prior cardiac history but history of hypertension and also history of chronic hypoxic respiratory failure with the patient maintains 5 L of oxygen at home presented to the hospital complaining of increasing in the shortness of breath. He was seen in follow-up today, stable, blood pressure 128/60 with a heart rate in the 90s, 91% on 5 L of oxygen. White blood cell count 6.7, hemoglobin 14.2, platelet count 98. Sodium 140, potassium 4.2, BUN 44 and creatinine 1.3. Objective - Vital Signs Vital signs: Vital Signs Temp 98.5 F 09/01/19 08:00 Pulse 90 09/01/19 12:01 Resp 18 09/01/19 12:00 BP 128/62 09/01/19 12:00 Pulse Ox 91 L 09/01/19 12:00 Intake & Output 08/31/19 09/01/19 09/01/19 18:59 06:59 18:59 Intake Total 720 240 480 Output Total 300 300 Balance 420 -60 480 Weight 142.5 kg 142.5 kg Intake: Oral 720 240 480 Output: Urine 300 300 Other: Voiding Method Urinal # Voids 1 1 2 # Bowel Movements 0 - Exam GENERAL EXAM: Alert, pleasant, 64-year-old white male on 6 L of oxygen with a pulse ox of 92% comfortable in no apparent distress. HEAD: Normocephalic/atraumatic. EYES: Normal reaction of pupils, equal size. Conjunctiva pink, sclera white. NOSE: Clear with pink turbinates. THROAT: No erythema or exudates. NECK: No masses, no JVD, no thyroid enlargement, no adenopathy. CHEST: No chest wall deformity. Symmetrical expansion. LUNGS: Equal air entry with diffuse expiratory wheezes CVS: Regular rate and rhythm, normal S1 and S2, no gallops, no murmurs, no rubs ABDOMEN: Soft, nontender. No hepatosplenomegaly, normal bowel sounds, no guarding or rigidity. EXTREMITIES: No clubbing, no edema, no cyanosis, 2+ pulses and upper and lower extremities. MUSCULOSKELETAL: Muscle strength and tone normal. SPINE: No scoliosis or deformity SKIN: No rashes CENTRAL NERVOUS SYSTEM: Alert and oriented -3. No focal deficits, tone is normal in all 4 extremities. PSYCHIATRIC: Alert and oriented -3. Appropriate affect. Intact judgment and insight. - Labs CBC & Chem 7: 09/01/19 09:39 09/01/19 09:39 Labs: Abnormal Lab Results - Last 24 Hours (Table) 08/31/19 08/31/19 09/01/19 Range/Units 16:40 20:46 06:12 MCV (80.0-100.0) fL MCHC (31.0-37.0) g/dL Plt Count (150-450) k/uL Lymphocytes # (1.0-4.8) k/uL Chloride (98-107) mmol/L Carbon Dioxide (22-30) mmol/L BUN (9-20) mg/dL Creatinine (0.66-1.25) mg/dL Glucose (74-99) mg/dL POC Glucose (mg/dL) 227 H 266 H 157 H (75-99) mg/dL AST (17-59) U/L ALT (21-72) U/L 09/01/19 09/01/19 09/01/19 Range/Units 09:39 09:39 11:36 MCV 107.1 H (80.0-100.0) fL MCHC 30.2 L (31.0-37.0) g/dL Plt Count 98 L (150-450) k/uL Lymphocytes # 0.4 L (1.0-4.8) k/uL Chloride 95 L (98-107) mmol/L Carbon Dioxide 39 H (22-30) mmol/L BUN 44 H (9-20) mg/dL Creatinine 1.33 H (0.66-1.25) mg/dL Glucose 198 H (74-99) mg/dL POC Glucose (mg/dL) 165 H (75-99) mg/dL AST 88 H (17-59) U/L ALT 156 H (21-72) U/L Microbiology - Last 24 Hours (Table) 08/27/19 15:40 Blood Culture - Preliminary Blood No Growth after 96 hours 08/28/19 15:09 Gram Stain - Preliminary Pleural Fluid Body Fluid Culture - Preliminary Assessment and Plan Plan: Assessment and Plan: #1. Acute hypoxemic respiratory failure related to acute exacerbation of COPD, up acute by left-sided pleural effusion #2. Bilateral pleural effusions, left greater than right, status post left- sided thoracentesis on 08/28/2019 with removal of 1 L of transudate of fluid, cytology and pleural fluid cultures are pending #3. Severe chronic obstructive pulmonary disease #4. Chronic exertional dyspnea #5. Morbid obesity #6. Chronic ALLERGIC rhinitis #7. Chronic anxiety disorder #8. History of hypertension #9. Degenerative joint disease #10. History of lower extremity cellulitis graft #11 acute kidney injury, improving Plan From cardiology's perspective patient may be able to be discharged home, follow- up appointment in the office post discharge. DNP note has been reviewed, I agree with a documented findings and plan of care. Patient was seen and examined.
== END 2019-09-01 16:32 | disposition home or self-care (01) | DRG 291 ==
LOC: EC 15:08 → 3SCARD 18:25
PROVIDERS: ADMIT Internal Medicine; ATTEND Internal Medicine
PROC: 0W9B3ZZ Drainage of Left Pleural Cavity, Percutaneous Approach (ICD-10-PCS; principal; 2019-08-28)
DX: I50.33 Acute on chronic diastolic (congestive) heart failure (principal); J96.21 Acute and chronic respiratory failure with hypoxia; J96.22 Acute and chronic respiratory failure with hypercapnia; J44.1 Chronic obstructive pulmonary disease with (acute) exacerbation; J98.11 Atelectasis; N17.9 Acute kidney failure, unspecified; Z68.41 Body mass index [BMI] 40.0-44.9, adult; I11.0 Hypertensive heart disease with heart failure; I08.1 Rheumatic disorders of both mitral and tricuspid valves; E66.01 Morbid (severe) obesity due to excess calories; F41.9 Anxiety disorder, unspecified; J30.9 Allergic rhinitis, unspecified; M19.90 Unspecified osteoarthritis, unspecified site; R79.89 Other specified abnormal findings of blood chemistry; R91.8 Other nonspecific abnormal finding of lung field; Z79.82 Long term (current) use of aspirin; Z79.899 Other long term (current) drug therapy; Z99.81 Dependence on supplemental oxygen; Z87.891 Personal history of nicotine dependence; Z88.1 Allergy status to other antibiotic agents; Z80.3 Family history of malignant neoplasm of breast; Z82.49 Family history of ischemic heart disease and other diseases of the circulatory system; Z82.0 Family history of epilepsy and other diseases of the nervous system
CPT/HCPCS: 32555; 36415; 71045; 71046; 71275; 76604; 80048; 80053; 82945; 83615; 83880; 84155; 84157; 84484; 85025; 85379; 85610; 85730; 87040; 87070; 87075; 87205; 88108; 88305; 89050; 93005; 94640; 94760; 96365; 96366; 96367; 96375; 99285

== ENCOUNTER 2022-06-16 15:35 | Inpatient (IN) | payer MEDICARE ==
[2022-06-16] MEDS ORDERED: IPRATROPIUM-ALBUTEROL 3 ML NEB INHALATION STA (15:40)
[2022-06-16] MEDS ORDERED: ALBUTEROL NEBULIZED 2.5 MG/3 ML INHALATION STA (15:40)
[2022-06-16] MEDS ORDERED: methylPREDNISolone SOD SUCCI 125 MG/2 ML VIAL IV STA (15:40)
[2022-06-16] MEDS ORDERED: SODIUM CHLORIDE 0.9% 500 ML 500 ML IV STA (15:56)
[2022-06-16 16:04] LABS: VBG PH 7.31 (7.31-7.41)
[2022-06-16 16:15] LABS: Albumin 4.2 g/dL (3.5-5.0); Calcium 9.1 mg/dL (8.4-10.2); Total Bilirubin 1.1 mg/dL (0.2-1.3); Total Protein 7.3 g/dL (6.3-8.2)
[2022-06-16 16:18] LABS: Prothrombin Time 10.6 sec (9.0-12.0)
--- NOTE | 2022-06-16 16:22 | ED ---
General Adult HPI - General Chief complaint: Shortness of Breath Stated complaint: Respiratory failure Time Seen by Provider: 06/16/22 15:39 Source: patient, family, EMS, RN notes reviewed, old records reviewed Mode of arrival: EMS Limitations: altered mental status - History of Present Illness Initial comments: 67-year-old male presenting in extremis, hypoxia with respiratory distress, history of oxygen dependent COPD normally wear 6 L. Patient was found in the kitchen unresponsive with respiratory distress by family member. Paramedics were called patient was initially in the 50s on nasal cannula. He was transported priority 1. Patient is able to tell me his name but is unable to contribute to the history. There is no external signs of trauma. Uncertain exactly what the circumstances were surrounding his collapse in the kitchen. According the family received been at his usual state of health which is predominantly sedentary. - Related Data Home Medications Medication Instructions Recorded Confirmed Albuterol Nebulized [Ventolin 2.5 mg INHALATION RT-QID PRN 06/22/14 08/27/19 Nebulized] amLODIPine [Norvasc] 5 mg PO DAILY 06/22/14 08/27/19 Cholecalciferol (Vitamin D3) 2,000 unit PO HS 06/09/19 08/27/19 [Vitamin D3] Montelukast [Singulair] 10 mg PO HS 06/09/19 08/27/19 clonazePAM [KlonoPIN] 0.5 mg PO DAILY PRN 06/09/19 08/27/19 lisinopriL [Prinivil] 20 mg PO HS 06/09/19 08/27/19 Albuterol Sulfate [Ventolin HFA] 2 puff INHALATION RT-Q4H PRN 08/27/19 08/27/19 Fluticasone Propion/Salmeterol 1 puff INHALATION RT-BID 08/27/19 08/27/19 [Advair 250-50 Diskus] Pseudoephedrine [Sudafed] 30 mg PO Q4H PRN 08/27/19 08/27/19 diphenhydrAMINE HCL [Benadryl] 25 mg PO BID 08/27/19 08/27/19 guaiFENesin [Mucinex] 600 mg PO BID PRN 08/27/19 08/27/19 Previous Rx's Medication Instructions Recorded Furosemide [Lasix] 40 mg PO BID@0900,1600 30 Days #60 09/01/19 tab Metoprolol Tartrate 25 mg PO BID #60 tab 09/01/19 predniSONE 10 mg PO DIRECTED 12 Days #30 09/01/19 tab Allergies Allergy/AdvReac Type Severity Reaction Status Date / Time clarithromycin [From Biaxin] AdvReac TREMORS Verified 08/27/19 18:40 Review of Systems ROS Statement: Those systems with pertinent positive or pertinent negative responses have been documented in the HPI. ROS Other: All systems not noted in ROS Statement are negative. Past Medical History Past Medical History: COPD, Hypertension Additional Past Medical History / Comment(s): Obesity, previous history of cellulitis of the lower extremities, hypertension, COPD, chronic hypoxic respiratory failure, osteoarthritis History of Any Multi-Drug Resistant Organisms: None Reported Past Surgical History: No Surgical Hx Reported Additional Past Surgical History / Comment(s): no Reported history of surgeries Past Anesthesia/Blood Transfusion Reactions: No Reported Reaction Past Psychological History: No Psychological Hx Reported - Past Family History Father Additional Family Medical History / Comment(s): Patient states father at 76 of a blood clot, mother had breast cancer Mother Family Medical History: Dementia General Exam General appearance: obtunded, in distress Head exam: Present: atraumatic, normocephalic Eye exam: Present: normal appearance, PERRL ENT exam: Present: mucous membranes moist Respiratory exam: Present: respiratory distress, wheezes, accessory muscle use, decreased breath sounds Cardiovascular Exam: Present: normal rhythm, tachycardia GI/Abdominal exam: Present: soft, distended Extremities exam: Present: pedal edema, other (Chronic venous Stasis) Neurological exam: Present: alert. Absent: oriented X3, motor sensory deficit Skin exam: Present: cyanosis, diaphoretic, pallor Course Vital Signs 06/16/22 06/16/22 06/16/22 15:37 15:49 15:50 Temperature 98.9 F Pulse Rate 120 H Respiratory 20 30 H Rate Blood Pressure 104/52 O2 Sat by Pulse 100 Oximetry Fraction of 50 Inspired Oxygen (FIO2) 06/16/22 06/16/22 06/16/22 15:52 15:55 15:57 Temperature Pulse Rate 121 H 120 H 115 H Respiratory 32 H 20 Rate Blood Pressure 95/49 85/45 O2 Sat by Pulse 97 100 Oximetry Fraction of Inspired Oxygen (FIO2) 06/16/22 06/16/22 06/16/22 16:00 16:04 16:10 Temperature Pulse Rate 115 H 114 H 112 H Respiratory 20 24 Rate Blood Pressure 85/45 93/49 O2 Sat by Pulse 100 100 Oximetry Fraction of Inspired Oxygen (FIO2) 06/16/22 06/16/22 06/16/22 16:20 16:30 16:33 Temperature Pulse Rate 112 H 112 H 112 H Respiratory 24 22 Rate Blood Pressure 82/50 91/49 O2 Sat by Pulse 100 99 Oximetry Fraction of Inspired Oxygen (FIO2) 06/16/22 06/16/22 16:40 16:50 Temperature Pulse Rate 109 H 107 H Respiratory 20 20 Rate Blood Pressure 109/93 103/44 O2 Sat by Pulse 99 99 Oximetry Fraction of Inspired Oxygen (FIO2) EKG Findings - EKG Comments: EKG Findings:: Tachycardia, sinus mechanism, right bundle branch block, widening of the QRS, rate of 120, SC interval 167, QRS duration 124, QTC 389 Medical Decision Making - Medical Decision Making 67-year-old male with oxygen dependent COPD presents in respiratory distress, profound hypoxia and altered level consciousness. History limited initially. Patient medially placed on BiPAP, given steroids, albuterol, Atrovent. He has significant improvement while in the emergency department. Mental status improves he is able to answer simple questions. His vital signs improve including decrease in heart rate, improved oxygenation and respiratory rate. Patient has white blood cell count which is elevated, stable chronic anemia, elevated CO2 consistent with retention at 83. He has a hyperkalemia at 6.0 and acute kidney injury with a creatinine of 1.90. His troponin level is mildly elevated which I suspect is from hypoxia this level will be trended. His potassium is treated with IV fluids and albuterol this level will be repeated on the emergency department. Case is discussed with Dr. Houston who will admit covering for Dr. Albrecht, pulmonology placed on consult. Patient will be continued on BiPAP, albuterol, Atrovent, IV steroids. Additionally is given a dose of IV antibiotics given the COPD exacerbation with elevated white blood cell count. - Lab Data Result diagrams: 06/16/22 15:52 06/16/22 15:52 Lab Results 06/16/22 06/16/22 06/16/22 Range/Units 15:52 15:52 15:52 WBC 16.2 H (3.8-10.6) k/uL RBC 3.44 L (4.30-5.90) m/uL Hgb 12.1 L (13.0-17.5) gm/dL Hct 37.8 L (39.0-53.0) % MCV 109.9 H (80.0-100.0) fL MCH 35.1 H (25.0-35.0) pg MCHC 31.9 (31.0-37.0) g/dL RDW 13.4 (11.5-15.5) % Plt Count 95 L (150-450) k/uL MPV 11.0 Neutrophils % 93 % Lymphocytes % 3 % Monocytes % 3 % Eosinophils % 1 % Basophils % 0 % Neutrophils # 15.1 H (1.3-7.7) k/uL Lymphocytes # 0.5 L (1.0-4.8) k/uL Monocytes # 0.4 (0-1.0) k/uL Eosinophils # 0.1 (0-0.7) k/uL Basophils # 0.0 (0-0.2) k/uL Manual Slide Review Performed Macrocytosis Marked A PT 10.6 (9.0-12.0) sec INR 1.0 (<1.2) APTT 22.0 (22.0-30.0) sec VBG pH (7.31-7.41) VBG pCO2 (37-51) mmHg VBG HCO3 (24-28) mmol/L Sodium 137 (137-145) mmol/L Potassium 6.0 H (3.5-5.1) mmol/L Chloride 91 L (98-107) mmol/L Carbon Dioxide 38 H (22-30) mmol/L Anion Gap 8 mmol/L BUN 59 H (9-20) mg/dL Creatinine 1.94 H (0.66-1.25) mg/dL Est GFR (CKD-EPI)AfAm 40 (>60 ml/min/1.73 sqM) Est GFR (CKD-EPI)NonAf 34 (>60 ml/min/1.73 sqM) Glucose 139 H (74-99) mg/dL Plasma Lactic Acid Vikram (0.7-2.0) mmol/L Calcium 9.1 (8.4-10.2) mg/dL Magnesium 2.0 (1.6-2.3) mg/dL Total Bilirubin 1.1 (0.2-1.3) mg/dL AST 49 (17-59) U/L ALT 38 (4-49) U/L Alkaline Phosphatase 142 H (38-126) U/L Troponin I (0.000-0.034) ng/mL NT-Pro-B Natriuret Pep pg/mL Total Protein 7.3 (6.3-8.2) g/dL Albumin 4.2 (3.5-5.0) g/dL 06/16/22 06/16/22 06/16/22 Range/Units 15:52 15:52 15:52 WBC (3.8-10.6) k/uL RBC (4.30-5.90) m/uL Hgb (13.0-17.5) gm/dL Hct (39.0-53.0) % MCV (80.0-100.0) fL MCH (25.0-35.0) pg MCHC (31.0-37.0) g/dL RDW (11.5-15.5) % Plt Count (150-450) k/uL MPV Neutrophils % % Lymphocytes % % Monocytes % % Eosinophils % % Basophils % % Neutrophils # (1.3-7.7) k/uL Lymphocytes # (1.0-4.8) k/uL Monocytes # (0-1.0) k/uL Eosinophils # (0-0.7) k/uL Basophils # (0-0.2) k/uL Manual Slide Review Macrocytosis PT (9.0-12.0) sec INR (<1.2) APTT (22.0-30.0) sec VBG pH (7.31-7.41) VBG pCO2 (37-51) mmHg VBG HCO3 (24-28) mmol/L Sodium (137-145) mmol/L Potassium (3.5-5.1) mmol/L Chloride (98-107) mmol/L Carbon Dioxide (22-30) mmol/L Anion Gap mmol/L BUN (9-20) mg/dL Creatinine (0.66-1.25) mg/dL Est GFR (CKD-EPI)AfAm (>60 ml/min/1.73 sqM) Est GFR (CKD-EPI)NonAf (>60 ml/min/1.73 sqM) Glucose (74-99) mg/dL Plasma Lactic Acid Vikram 1.8 (0.7-2.0) mmol/L Calcium (8.4-10.2) mg/dL Magnesium (1.6-2.3) mg/dL Total Bilirubin (0.2-1.3) mg/dL AST (17-59) U/L ALT (4-49) U/L Alkaline Phosphatase (38-126) U/L Troponin I 0.044 H* (0.000-0.034) ng/mL NT-Pro-B Natriuret Pep 560 pg/mL Total Protein (6.3-8.2) g/dL Albumin (3.5-5.0) g/dL 06/16/22 Range/Units 15:52 WBC (3.8-10.6) k/uL RBC (4.30-5.90) m/uL Hgb (13.0-17.5) gm/dL Hct (39.0-53.0) % MCV (80.0-100.0) fL MCH (25.0-35.0) pg MCHC (31.0-37.0) g/dL RDW (11.5-15.5) % Plt Count (150-450) k/uL MPV Neutrophils % % Lymphocytes % % Monocytes % % Eosinophils % % Basophils % % Neutrophils # (1.3-7.7) k/uL Lymphocytes # (1.0-4.8) k/uL Monocytes # (0-1.0) k/uL Eosinophils # (0-0.7) k/uL Basophils # (0-0.2) k/uL Manual Slide Review Macrocytosis PT (9.0-12.0) sec INR (<1.2) APTT (22.0-30.0) sec VBG pH 7.31 (7.31-7.41) VBG pCO2 83 H* (37-51) mmHg VBG HCO3 42 H (24-28) mmol/L Sodium (137-145) mmol/L Potassium (3.5-5.1) mmol/L Chloride (98-107) mmol/L Carbon Dioxide (22-30) mmol/L Anion Gap mmol/L BUN (9-20) mg/dL Creatinine (0.66-1.25) mg/dL Est GFR (CKD-EPI)AfAm (>60 ml/min/1.73 sqM) Est GFR (CKD-EPI)NonAf (>60 ml/min/1.73 sqM) Glucose (74-99) mg/dL Plasma Lactic Acid Vikram (0.7-2.0) mmol/L Calcium (8.4-10.2) mg/dL Magnesium (1.6-2.3) mg/dL Total Bilirubin (0.2-1.3) mg/dL AST (17-59) U/L ALT (4-49) U/L Alkaline Phosphatase (38-126) U/L Troponin I (0.000-0.034) ng/mL NT-Pro-B Natriuret Pep pg/mL Total Protein (6.3-8.2) g/dL Albumin (3.5-5.0) g/dL Critical Care Time Critical Care Time: Yes Total Critical Care Time: 35 Disposition Clinical Impression: COPD exacerbation, Hypoxia Disposition: ADMITTED IP TO THIS HOSP Condition: Serious Is patient prescribed a controlled substance at d/c from ED?: No Time of Disposition: 17:56
--- NOTE | 2022-06-16 16:23 | XR ---
EXAMINATION TYPE: XR chest 1V portable DATE OF EXAM: 06/16/2022 COMPARISON: NONE HISTORY: Short of breath TECHNIQUE: FINDINGS: There is no heart failure nor confluent pneumonic infiltrate. Costophrenic angles are clear . There are chest leads. There are no hilar masses. There is mild coarsening of interstitial markings . IMPRESSION: Minimal pulmonary fibrotic changes. No acute lung disease. There is probably some COPD.
[2022-06-16 16:25] LABS: Basophils % (A) 0 %; Eosinophils # (A) 0.1 k/uL (0-0.7); Eosinophils % (A) 1 %; HCT 37.8 % (39.0-53.0); HGB 12.1 gm/dL (13.0-17.5); Lymphocytes # (A) 0.5 k/uL (1.0-4.8); Lymphocytes % (A) 3 %; MCH 35.1 pg (25.0-35.0); MCHC 31.9 g/dL (31.0-37.0); MCV 109.9 fL (80.0-100.0); Macrocytosis Marked; Monocytes # (A) 0.4 k/uL (0-1.0); Monocytes % (A) 3 %; Neutrophils # (A) 15.1 k/uL (1.3-7.7); Neutrophils % (A) 93 %; RBC 3.44 m/uL (4.30-5.90); RDW 13.4 % (11.5-15.5); WBC 16.2 k/uL (3.8-10.6)
[2022-06-16] MEDS ORDERED: SODIUM CHLORIDE 0.9% 500 ML 500 ML IV ONE ×2 (16:29→21:52)
[2022-06-16] MEDS ORDERED: LEVOFLOXACIN 500MG-D5W PMX 500 MG in DEXTROSE/WATER 1 100ML.BAG IVPB STA (16:35)
[2022-06-16 16:42] LABS: Platelet Count 95 k/uL (150-450)
[2022-06-16] MEDS ORDERED: IPRATROPIUM-ALBUTEROL 3 ML NEB INHALATION PRN (17:02)
[2022-06-16] MEDS ORDERED: NALOXONE 0.4 MG/ML 1 ML VIAL IVP PRN (17:02)
[2022-06-16 17:56] LABS: Calcium 8.7 mg/dL (8.4-10.2); Potassium 5.3 mmol/L (3.5-5.1)
[2022-06-16] MEDS: SODIUM CHLORIDE 0.9% 1,000 ML IV SCH (18:55)
[2022-06-16] MEDS: methylPREDNISolone SOD SUCCI 125 MG/2 ML VIAL IV SCH (18:55)
[2022-06-16] MEDS: IPRATROPIUM-ALBUTEROL 3 ML NEB INHALATION SCH (19:36)
[2022-06-16] MEDS ORDERED: MORPHINE SULFATE 4 MG/ML SYRINGE IV PRN (21:26)
[2022-06-16] MEDS ORDERED: MORPHINE SULFATE 4 MG/ML SYRINGE IVP STA (21:26)
[2022-06-16] MEDS ORDERED: ACETAMINOPHEN TAB 325 MG TAB PO PRN (21:56)
[2022-06-17] MEDS: methylPREDNISolone SOD SUCCI 125 MG/2 ML VIAL IV SCH ×5 (00:23→23:08)
--- NOTE | 2022-06-17 00:29 | P.HPIM ---
History of Present Illness H&P Date: 06/16/22 Chief Complaint: Found unresponsive Patient is a 67-year-old male with a known history of COPD, chronic hypoxic respiratory failure requiring 6 L oxygen via nasal cannula and chronic dyspnea, bilateral lower extremity cellulitis history and hypertension was brought to the hospital by EMS as a family found him unresponsive on the floor with respiratory distress. Patient was wearing oxygen at that time and found to be hypoxic with pulse ox 70% by EMS. At baseline patient is able to walk from the couch to the bathroom and dyspnea with minimal exertion. On admission patient was able to tell his name but very confused and lethargic. No evidence of bruising noted on the external surface of the body. Patient denied hitting his head. Currently not on any anticoagulation. Patient has been afebrile. No cough or sputum production. Patient was placed on BiPAP in the ER. Chest x-ray showed minimal pulmonary fibrotic changes. No acute lung disease. Probably some COPD. EKG showed sinus tachycardia Laboratory test showed WBC 16.2 hemoglobin 12.9 and platelets 95 Sodium 137 potassium 6.0 chloride 91 bicarb is 38 BUN 59 and creatinine 1.94 and lactic acid 1.8 Troponin 0.044 and 0.081 and proBNP is 560. Review of Systems Complete review of systems could not be obtained from the patient at this time. Past Medical History Past Medical History: COPD, Hypertension Additional Past Medical History / Comment(s): Obesity, previous history of cellulitis of the lower extremities, hypertension, COPD, chronic hypoxic respiratory failure, osteoarthritis History of Any Multi-Drug Resistant Organisms: None Reported Past Surgical History: No Surgical Hx Reported Additional Past Surgical History / Comment(s): no Reported history of surgeries Past Anesthesia/Blood Transfusion Reactions: No Reported Reaction Past Psychological History: No Psychological Hx Reported - Past Family History Father Additional Family Medical History / Comment(s): Patient states father at 76 of a blood clot, mother had breast cancer Mother Family Medical History: Dementia Medications and Allergies Home Medications Medication Instructions Recorded Confirmed Type Albuterol Nebulized [Ventolin 2.5 mg INHALATION RT-QID PRN 06/22/14 06/16/22 History Nebulized] Montelukast [Singulair] 10 mg PO HS@2100 06/09/19 06/16/22 History clonazePAM [KlonoPIN] 0.5 mg PO DAILY PRN 06/09/19 06/16/22 History lisinopriL [Prinivil] 20 mg PO HS@209906/09/19 06/16/22 History Albuterol Sulfate [Ventolin HFA] 2 puff INHALATION RT-Q4H PRN 08/27/19 06/16/22 History Fluticasone Propion/Salmeterol 1 puff INHALATION RT-BID 08/27/19 06/16/22 History [Advair 250-50 Diskus] Furosemide [Lasix] 40 mg PO BID@0900,1600 30 Days #60 09/01/19 06/16/22 Rx tab Cholecalciferol [Vitamin D3 (25 25 mcg PO DAILY 06/16/22 06/16/22 History Mcg = 1000 Iu)] Metoprolol Tartrate [Lopressor] 50 mg PO BID@0900,2100 06/16/22 06/16/22 History Spironolactone [Aldactone] 25 mg PO DAILY 06/16/22 06/16/22 History Allergies Allergy/AdvReac Type Severity Reaction Status Date / Time clarithromycin [From Biaxin] AdvReac TREMORS Verified 06/16/22 18:06 Physical Exam Vitals: Vital Signs Temp Pulse Resp BP Pulse Ox FiO2 06/16/22 21:36 106 H 22 80/49 98 06/16/22 19:50 98 06/16/22 19:37 96 50 06/16/22 18:30 107 H 20 115/87 97 06/16/22 18:00 102 H 16 98/53 98 06/16/22 17:00 105 H 13 105/48 99 06/16/22 16:50 107 H 20 103/44 99 06/16/22 16:40 109 H 20 109/93 99 06/16/22 16:33 112 H 06/16/22 16:30 112 H 22 91/49 99 06/16/22 16:20 112 H 24 82/50 100 06/16/22 16:10 112 H 24 93/49 100 06/16/22 16:04 114 H 06/16/22 16:00 115 H 20 85/45 100 06/16/22 15:57 115 H 20 85/45 100 06/16/22 15:55 120 H 06/16/22 15:52 121 H 32 H 95/49 97 06/16/22 15:50 50 06/16/22 15:49 30 H 06/16/22 15:37 98.9 F 120 H 20 104/52 100 Intake and Output 06/16/22 06/16/22 06/16/22 06:59 14:59 22:59 Other: Weight 113.398 kg PHYSICAL EXAMINATION: Patient is lying in the bed. Mild acute distress. On BiPAP. HEENT: Normocephalic. Neck is supple. Pupils reactive. Nostrils clear. Oral cavity is moist. Neck reveals no JVD, carotid bruits, or thyromegaly. CHEST EXAMINATION: Trachea is central. Symmetrical expansion bibasilar di minished sounds. Wheezing present.. CARDIAC: Normal S1, S2 with no gallops. No murmurs ABDOMEN: Soft. Bowel sounds present. Nontender. No organomegaly. No abdominal bruits. Extremities: reveal trace edema. No clubbing or cyanosis Neurologically awake, alert, oriented x3 with well-coordinated movements. No focal deficits noted Skin: No rash or skin lesions. Psychiatric: Could not be assessed., Musculoskeletal: No joint swelling or deformity. Results CBC & Chem 7: 06/17/22 06:45 06/17/22 06:45 Labs: Abnormal Lab Results - Last 24 Hours (Table) 06/16/22 06/16/22 06/16/22 Range/Units 15:52 15:52 15:52 WBC 16.2 H (3.8-10.6) k/uL RBC 3.44 L (4.30-5.90) m/uL Hgb 12.1 L (13.0-17.5) gm/dL Hct 37.8 L (39.0-53.0) % MCV 109.9 H (80.0-100.0) fL MCH 35.1 H (25.0-35.0) pg Plt Count 95 L (150-450) k/uL Neutrophils # 15.1 H (1.3-7.7) k/uL Lymphocytes # 0.5 L (1.0-4.8) k/uL Macrocytosis Marked A VBG pCO2 (37-51) mmHg VBG HCO3 (24-28) mmol/L Potassium 6.0 H (3.5-5.1) mmol/L Chloride 91 L (98-107) mmol/L Carbon Dioxide 38 H (22-30) mmol/L BUN 59 H (9-20) mg/dL Creatinine 1.94 H (0.66-1.25) mg/dL Glucose 139 H (74-99) mg/dL Alkaline Phosphatase 142 H (38-126) U/L Troponin I 0.044 H* (0.000-0.034) ng/mL 06/16/22 06/16/22 06/16/22 Range/Units 15:52 17:29 17:29 WBC (3.8-10.6) k/uL RBC (4.30-5.90) m/uL Hgb (13.0-17.5) gm/dL Hct (39.0-53.0) % MCV (80.0-100.0) fL MCH (25.0-35.0) pg Plt Count (150-450) k/uL Neutrophils # (1.3-7.7) k/uL Lymphocytes # (1.0-4.8) k/uL Macrocytosis VBG pCO2 83 H* (37-51) mmHg VBG HCO3 42 H (24-28) mmol/L Potassium 5.3 H (3.5-5.1) mmol/L Chloride 92 L (98-107) mmol/L Carbon Dioxide 40 H (22-30) mmol/L BUN 60 H (9-20) mg/dL Creatinine 2.23 H (0.66-1.25) mg/dL Glucose 151 H (74-99) mg/dL Alkaline Phosphatase (38-126) U/L Troponin I 0.081 H* (0.000-0.034) ng/mL Thrombosis Risk Factor Assmnt - DVT/VTE Prophylaxis DVT/VTE Prophylaxis: Pharmacologic Prophylaxis ordered Assessment and Plan Assessment: Acute on chronic acute on chronic hypoxic respiratory failure due to pulmonary fibrosis and COPD. Requiring requiring BiPAP and requiring BiPAP on admission Acute COPD exacerbation Leukocytosis with possible underlying pneumonia Acute kidney injury likely prerenal CKD stage III mild hyperkalemia secondary to acute kidney injury Elevated troponin level due to demand mismatch/type II MO Hypertension DVT prophylaxis with Lovenox subcu Plan: Patient is currently on BiPAP. Continue with oxygen supplementation. Continue with duo nebs and IV steroids and monitor renal function. Patient was given a dose of Levaquin. Procalcitonin level will be ordered. Pulmonary consult for further evaluation. Prognosis is guarded at this time. Discussed with the family at bedside in detail. Time with Patient: Greater than 30
[2022-06-17] MEDS ORDERED: PIPERACILLIN-TAZOBACTAM 3.375 GM in SODIUM CHLORIDE 0.9% 100 ML IVPB STA (07:03)
[2022-06-17] MEDS: SYMBICORT 80-4.5 MCG INHALER INHALATION SCH ×2 (07:12→19:27)
[2022-06-17] MEDS: IPRATROPIUM-ALBUTEROL 3 ML NEB INHALATION SCH ×4 (07:12→19:27)
[2022-06-17 07:25] LABS: HCT 33.5 % (39.0-53.0); HGB 10.5 gm/dL (13.0-17.5); Hypochromasia Moderate; MCH 35.1 pg (25.0-35.0); MCHC 31.2 g/dL (31.0-37.0); MCV 112.3 fL (80.0-100.0); Macrocytosis Marked; RBC 2.98 m/uL (4.30-5.90); RDW 13.2 % (11.5-15.5); WBC 18.6 k/uL (3.8-10.6)
[2022-06-17 07:28] LABS: ALT 36 U/L (4-49); AST 48 U/L (17-59); African American GFR (CKD) 40 (>60 ml/min/1.73 sqM); Albumin 3.5 g/dL (3.5-5.0); Alkaline Phosphatase 92 U/L (38-126); Anion Gap 5 mmol/L; Blood Urea Nitrogen 59 mg/dL (9-20); Calcium 8.2 mg/dL (8.4-10.2); Carbon Dioxide 38 mmol/L (22-30); Chloride 94 mmol/L (98-107); Creatine Kinase 142 U/L (55-170); Glucose 212 mg/dL (74-99); Non-African American GFR(CKD) 34 (>60 ml/min/1.73 sqM); Potassium 5.1 mmol/L (3.5-5.1); Sodium 137 mmol/L (137-145); Total Protein 6.3 g/dL (6.3-8.2)
[2022-06-17 07:54] LABS: Band Neutrophils % 8 %; Lymphocytes # (M) 0.56 k/uL (1.0-4.8); Metamyelocytes # (M) 0.19 k/uL (0); Metamyelocytes % 1 %; Monocytes # (M) 0.37 k/uL (0-1.0); Neutrophils % (M) 87 %; Nucleated Red Blood Cells 0 /100 WBC (0-0); Total Cells Counted 200
[2022-06-17 07:57] LABS: Platelet Count 53 k/uL (150-450)
[2022-06-17 08:23] LABS: T4, Free (Free Thyroxine) 1.02 ng/dL (0.78-2.19)
[2022-06-17] MEDS: SODIUM CHLORIDE 0.9% 1,000 ML IV SCH (08:54)
[2022-06-17] MEDS: METOPROLOL TARTRATE 50 MG TAB PO SCH ×2 (08:55→20:39)
--- NOTE | 2022-06-17 13:11 | P.CNPUL ---
History of Present Illness Consult date: 06/17/22 Requesting physician: Aureliano Foster Reason for consult: dyspnea, COPD Chief complaint: Shortness of breath, cough, congestion History of present illness: and There is a very pleasant 67-year-old male patient who follows with Dr. Albrecht as her history primary care provider. He has a history of chronic obstructive pulmonary disease an FEV1 value 20% of predicted in 2019, oxygen dependent on 6 L in the outpatient setting, previous pleural effusion status post thoracentesis in 2019, hypertension, obesity, chronic cellulitis lower extremities, osteoarthritis. He was last seen in our office in 2019. He's been maintained on Advair, Singulair, albuterol. he presented to the emergency room yesterday with 2-3 day history of increasing shortness of breath, cough congestion chest tightness and wheezing. S x-ray revealed minimal pulmonary fibrotic changes. No acute pulmonary process. Evidence of COPD. One blood culture revealing streptococcus species. white count 18.6. Hemoglobin 10.5. Glipizide 0.56. Sodium 137. Potassium 5.1. Bicarb 38. BUN 59. Creatinine 1.94. Glucose 212. Troponins 0.044, 0.081, 0.098. proBNP 560. He's been initiated and DuoNeb inhalations, Symbicort, IV Solu-Medrol, Singulair. Antibiotics in the form of Zosyn. He is seen today in consultation on the regular medical floor. He is currently sitting up at the bedside. Awake and alert in no acute distress. Breathing a bit easier today compared to yesterday. He's been afebrile. Hemodynamically stable. Currently on 6 L/m per nasal cannula with O2 saturations in the mid 90s. Review of Systems REVIEW OF SYSTEMS: CONSTITUTIONAL: Denies any recent significant weight loss or weight gain. EYES: Denies change in vision. EARS, NOSE, MOUTH, THROAT: Denies headaches, denies sore throat. CARDIOVASCULAR: Denies chest pain, palpitations or syncopal episodes. RESPIRATORY: Positive for shortness of breath, cough, congestion no hemoptysis. GASTROINTESTINAL: Denies change in appetite, denies abdominal pain GENITOURINARY: Denies hematuria, denies infections. MUSKULOSKELETAL: Denies pain, denies swelling. INTEGUMENTARY: Denies rash, denies eczema. NEUROLOGICAL: Denies recent memory loss, no recent seizure activity. PSYCHIATRIC: Denies anxiety, denies depression. HEMATOLOGIC/LYMPHATIC: Denies anemia, denies enlarged lymph nodes. Past Medical History Past Medical History: COPD, Hypertension Additional Past Medical History / Comment(s): Obesity, previous history of cellulitis of the lower extremities, hypertension, COPD, chronic hypoxic respiratory failure, osteoarthritis History of Any Multi-Drug Resistant Organisms: None Reported Past Surgical History: No Surgical Hx Reported Additional Past Surgical History / Comment(s): no Reported history of surgeries Past Anesthesia/Blood Transfusion Reactions: No Reported Reaction Past Psychological History: No Psychological Hx Reported - Past Family History Father Additional Family Medical History / Comment(s): Patient states father at 76 of a blood clot, mother had breast cancer Mother Family Medical History: Dementia Medications and Allergies Home Medications Medication Instructions Recorded Confirmed Type Albuterol Nebulized [Ventolin 2.5 mg INHALATION RT-QID PRN 06/22/14 06/16/22 History Nebulized] Montelukast [Singulair] 10 mg PO HS@209906/09/19 06/16/22 History clonazePAM [KlonoPIN] 0.5 mg PO DAILY PRN 06/09/19 06/16/22 History lisinopriL [Prinivil] 20 mg PO HS@209906/09/19 06/16/22 History Albuterol Sulfate [Ventolin HFA] 2 puff INHALATION RT-Q4H PRN 08/27/19 06/16/22 History Fluticasone Propion/Salmeterol 1 puff INHALATION RT-BID 08/27/19 06/16/22 H istory [Advair 250-50 Diskus] Furosemide [Lasix] 40 mg PO BID@0900,1600 30 Days #60 09/01/19 06/16/22 Rx tab Cholecalciferol [Vitamin D3 (25 25 mcg PO DAILY 06/16/22 06/16/22 History Mcg = 1000 Iu)] Metoprolol Tartrate [Lopressor] 50 mg PO BID@0900,209906/16/22 06/16/22 History Spironolactone [Aldactone] 25 mg PO DAILY 06/16/22 06/16/22 History Allergies Allergy/AdvReac Type Severity Reaction Status Date / Time clarithromycin [From Biaxin] AdvReac TREMORS Verified 06/16/22 18:06 Physical Exam Vitals: Vital Signs Temp Pulse Pulse Resp BP BP Pulse Ox 06/17/22 12:00 89 06/17/22 11:51 87 06/17/22 08:03 98.3 F 76 19 97/62 96 06/17/22 07:21 89 06/17/22 07:18 96 06/17/22 07:13 95 06/17/22 06:46 97.9 F 94 20 142/64 95 06/17/22 04:00 88 18 108/58 98 06/16/22 23:44 100/46 06/16/22 21:36 106 H 22 80/49 98 06/16/22 19:50 98 06/16/22 19:37 96 06/16/22 18:30 107 H 20 115/87 97 06/16/22 18:00 102 H 16 98/53 98 06/16/22 17:00 105 H 13 105/48 99 06/16/22 16:50 107 H 20 103/44 99 06/16/22 16:40 109 H 20 109/93 99 06/16/22 16:33 112 H 06/16/22 16:30 112 H 22 91/49 99 06/16/22 16:20 112 H 24 82/50 100 06/16/22 16:10 112 H 24 93/49 100 06/16/22 16:04 114 H 06/16/22 16:00 115 H 20 85/45 100 06/16/22 15:57 115 H 20 85/45 100 06/16/22 15:55 120 H 06/16/22 15:52 121 H 32 H 95/49 97 06/16/22 15:50 06/16/22 15:49 30 H 06/16/22 15:37 98.9 F 120 H 20 104/52 100 FiO2 06/17/22 12:00 06/17/22 11:51 06/17/22 08:03 06/17/22 07:21 06/17/22 07:18 06/17/22 07:13 06/17/22 06:46 06/17/22 04:00 06/16/22 23:44 06/16/22 21:36 06/16/22 19:50 06/16/22 19:37 50 06/16/22 18:30 06/16/22 18:00 06/16/22 17:00 06/16/22 16:50 06/16/22 16:40 06/16/22 16:33 06/16/22 16:30 06/16/22 16:20 06/16/22 16:10 06/16/22 16:04 06/16/22 16:00 06/16/22 15:57 06/16/22 15:55 06/16/22 15:52 06/16/22 15:50 50 06/16/22 15:49 06/16/22 15:37 Intake and Output 06/16/22 06/17/22 06/17/22 22:59 06:59 14:59 Intake Total 240 Balance 240 Intake: Oral 240 Other: Voiding Method External Catheter # Voids 1 # Bowel Movements 1 Weight 113.398 kg GENERAL EXAM: Alert, 67-year-old male patient, on 6 L nasal cannula, comfortable in no apparent distress. HEAD: Normocephalic. EYES: Normal reaction of pupils, equal size. NOSE: Clear with pink turbinates. THROAT: No erythema or exudates. NECK: No masses, no JVD. CHEST: No chest wall deformity. LUNGS: Equal air entry with faint end expiratory wheeze, diminisheds. CVS: S1 and S2 normal with no audible murmur, regular rhythm. ABDOMEN: No hepatosplenomegaly, normal bowel sounds, no guarding or rigidity. SPINE: No scoliosis or deformity SKIN: No rashes CENTRAL NERVOUS SYSTEM: No focal deficits, tone is normal in all 4 extremities. EXTREMITIES: There is no peripheral edema. No clubbing, no cyanosis. Peripheral pulses are intact. Results - Laboratory Findings CBC and BMP: 06/17/22 06:45 06/17/22 06:45 PT/INR, D-dimer PT 10.6 sec (9.0-12.0) 06/16/22 15:52 INR 1.0 (<1.2) 06/16/22 15:52 Abnormal lab findings: Abnormal Labs 06/16/22 06/16/22 06/16/22 15:52 15:52 15:52 WBC 16.2 H RBC 3.44 L Hgb 12.1 L Hct 37.8 L MCV 109.9 H MCH 35.1 H Plt Count 95 L Neutrophils # 15.1 H Neutrophils # (Manual) Lymphocytes # 0.5 L Lymphocytes # (Manual) Metamyelocytes # (Man) Macrocytosis Marked A VBG pCO2 VBG HCO3 Potassium 6.0 H Chloride 91 L Carbon Dioxide 38 H BUN 59 H Creatinine 1.94 H Glucose 139 H Calcium Alkaline Phosphatase 142 H Troponin I 0.044 H* TSH 06/16/22 06/16/22 06/16/22 15:52 17:29 17:29 WBC RBC Hgb Hct MCV MCH Plt Count Neutrophils # Neutrophils # (Manual) Lymphocytes # Lymphocytes # (Manual) Metamyelocytes # (Man) Macrocytosis VBG pCO2 83 H* VBG HCO3 42 H Potassium 5.3 H Chloride 92 L Carbon Dioxide 40 H BUN 60 H Creatinine 2.23 H Glucose 151 H Calcium Alkaline Phosphatase Troponin I 0.081 H* TSH 06/17/22 06/17/22 06/17/22 00:23 06:45 06:45 WBC 18.6 H RBC 2.98 L Hgb 10.5 L Hct 33.5 L MCV 112.3 H MCH 35.1 H Plt Count 53 L Neutrophils # Neutrophils # (Manual) 17.60 H Lymphocytes # Lymphocytes # (Manual) 0.56 L Metamyelocytes # (Man) 0.19 H Macrocytosis Marked A VBG pCO2 VBG HCO3 Potassium Chloride 94 L Carbon Dioxide 38 H BUN 59 H Creatinine 1.94 H Glucose 212 H Calcium 8.2 L Alkaline Phosphatase Troponin I 0.098 H* TSH 0.130 L - Diagnostic Findings Chest x-ray: image reviewed Assessment and Plan Assessment: Acute on chronic hypoxemic respiratory failure secondary to an acute exacerbation of chronic obstructive pulmonary disease Severe oxygen dependent chronic obstructive pulmonary disease with an FEV1 value 20% of predicted back in 2019 Bacteremia secondary to Streptococcus species Obesity Chronic anxiety Hypertension Chronic ALLERGIC rhinitis Degenerative joint disease History of lower extremity cellulitis Plan: The patient was seen and evaluated Chest x-ray, labs and medications reviewed Continue Symbicort, Singulair, Solu Medrol, DuoNeb inhalations Antibiotics in the form of Zosyn Check a pro-calcitonin We will continue to follow and make further recommendations based on his clinical status I have personally seen and examined the patient, performed the documentation and the assessment and plan as written. Number of minutes spent on the visit: 20
[2022-06-17] MEDS: PIPERACILLIN-TAZOBACTAM 3.375 GM in SODIUM CHLORIDE 0.9% 100 ML IVPB SCH ×2 (13:28→20:39)
--- NOTE | 2022-06-17 16:13 | P.CRDCN ---
History of Present Illness History of present illness: HISTORY OF PRESENTING ILLNESS Patient is a pleasant 67-year-old male with a history of end-stage COPD on 6 L, previous tobacco abuse since quit, pleural effusions status post thoracentesis 2 019, obesity, chronic lower extremity edema, diastolic heart failure who presents secondary to syncopal episode. Patient states he has been chronically short of breath for a number of years. He had been feeling okay however apparently his grandson found him passed out and therefore brought him to emergency department. He does not recall how this happened. Per ER note patient was in respiratory distress per family member. Paramedics found patient with pulse ox in the 50s on nasal cannula and was transported to emergency department. He denies any chest pain or pressure. He was given steroids and inhalers and currently states he feels near his normal self. Initial EKG showing sinus rhythm with right bundle branch block with nonspecific diffuse ST depressions and severe right axis deviation. Telemetry reveals sinus rhythm. Previous echocardiogram had shown EF 50-55% with mild to moderately dilated right ventricle and an RVSP of 49 from 2019. REVIEW OF SYSTEMS At the time of my exam: CONSTITUTIONAL: Denies fever or chills. CARDIOVASCULAR: Denies chest pain, +shortness of breath, no orthopnea, PND or palpitations. +LE edema RESPIRATORY: Denies cough. GASTROINTESTINAL: Denies abdominal pain, diarrhea, constipation, nausea or vomiting. MUSCULOSKELETAL: Denies myalgias. NEUROLOGIC: Denies numbness, tingling or weakness. ENDOCRINE: Denies fatigue, weight change, polydipsia or polyurina. GENITOURINARY: Denies burning, hematuria or urgency with micturation. HEMATOLOGIC: Denies history of anemia or bleeding. PHYSICAL EXAMINATION Vital signs reviewed. CONSTITUTIONAL: No apparent distress, chronically ill appearing HEENT: Head is normocephalic. Pupils are equal, round. Sclerae anicteric. Mucous membranes of the mouth are moist. No JVD. No carotid bruit. CHEST EXAMINATION: Diffuse wheeze HEART EXAMINATION: Regular rate and rhythm. S1, S2 heard. No murmurs, gallops or rub. ABDOMEN: Soft, nontender. Positive bowel sounds. EXTREMITIES: 2+ peripheral pulses, 2+ lower extremity edema and no calf tenderness. NEUROLOGIC EXAMINATION: Patient is awake, alert and oriented x3. ASSESSMENT 1. Acute on chronic respiratory failure mainly related to COPD exacerbation plus component of heart failure exacerbation 2. Acute on chronic diastolic heart failure 3. COPD on home 6 L nasal cannula 4. Previous tobacco abuse 5. Non-STEMI likely type II mechanism related to severe hypoxia oxygen saturations in the 50s on nasal cannula when paramedics arrived 6. Loss of consciousness, unclear if true syncope appears related to severe hypoxia 7. Pulmonary hypertension likely related to COPD 8. CKD PLAN Check 2-D echo to evaluate left ventricular function. Majority of presentation including loss of consciousness and elevated troponins appear related to severe hypoxia. Continue treatment of underlying COPD. Additionally continue Lasix with 80 mg IV twice a day. Monitor kidney function closely. Monitor ins and outs. Further recommendations to follow. Past Medical History Past Medical History: COPD, Hypertension Additional Past Medical History / Comment(s): Obesity, previous history of cellulitis of the lower extremities, hypertension, COPD, chronic hypoxic respiratory failure, osteoarthritis History of Any Multi-Drug Resistant Organisms: None Reported Past Surgical History: No Surgical Hx Reported Additional Past Surgical History / Comment(s): no Reported history of surgeries Past Anesthesia/Blood Transfusion Reactions: No Reported Reaction Past Psychological History: No Psychological Hx Reported Smoking Status: Former smoker Past Alcohol Use History: None Reported Past Drug Use History: None Reported - Past Family History Father History Unknown: Yes Additional Family Medical History / Comment(s): Patient states father at 76 of a blood clot, mother had breast cancer Mother History Unknown: Yes Family Medical History: Dementia Medications and Allergies Home Medications Medication Instructions Recorded Confirmed Type Albuterol Nebulized [Ventolin 2.5 mg INHALATION RT-QID PRN 06/22/14 06/16/22 History Nebulized] Montelukast [Singulair] 10 mg PO HS@209906/09/19 06/16/22 History clonazePAM [KlonoPIN] 0.5 mg PO DAILY PRN 06/09/19 06/16/22 History lisinopriL [Prinivil] 20 mg PO HS@209906/09/19 06/16/22 History Albuterol Sulfate [Ventolin HFA] 2 puff INHALATION RT-Q4H PRN 08/27/19 06/16/22 History Fluticasone Propion/Salmeterol 1 puff INHALATION RT-BID 08/27/19 06/16/22 History [Advair 250-50 Diskus] Furosemide [Lasix] 40 mg PO BID@0900,1600 30 Days #60 09/01/19 06/16/22 Rx tab Cholecalciferol [Vitamin D3 (25 25 mcg PO DAILY 06/16/22 06/16/22 History Mcg = 1000 Iu)] Metoprolol Tartrate [Lopressor] 50 mg PO BID@0900,2100 06/16/22 06/16/22 History Spironolactone [Aldactone] 25 mg PO DAILY 06/16/22 06/16/22 History Allergies Allergy/AdvReac Type Severity Reaction Status Date / Time clarithromycin [From Biaxin] AdvReac TREMORS Verified 06/16/22 18:06 Physical Exam Vitals: Vital Signs Temp Pulse Pulse Resp BP BP Pulse Ox 06/17/22 15:41 93 06/17/22 15:26 94 94 L 06/17/22 14:45 19 06/17/22 12:25 98.3 F 89 19 111/63 97 06/17/22 12:00 89 06/17/22 11:51 87 06/17/22 08:03 98.3 F 76 19 97/62 96 06/17/22 07:21 89 06/17/22 07:18 96 06/17/22 07:13 95 06/17/22 06:46 97.9 F 94 20 142/64 95 06/17/22 04:00 88 18 108/58 98 06/16/22 23:44 100/46 06/16/22 21:36 106 H 22 80/49 98 06/16/22 19:50 98 06/16/22 19:37 96 06/16/22 18:30 107 H 20 115/87 97 06/16/22 18:00 102 H 16 98/53 98 06/16/22 17:00 105 H 13 105/48 99 06/16/22 16:50 107 H 20 103/44 99 06/16/22 16:40 109 H 20 109/93 99 06/16/22 16:33 112 H 06/16/22 16:30 112 H 22 91/49 99 06/16/22 16:20 112 H 24 82/50 100 FiO2 06/17/22 15:41 06/17/22 15:26 06/17/22 14:45 06/17/22 12:25 06/17/22 12:00 06/17/22 11:51 06/17/22 08:03 06/17/22 07:21 06/17/22 07:18 06/17/22 07:13 06/17/22 06:46 06/17/22 04:00 06/16/22 23:44 06/16/22 21:36 06/16/22 19:50 06/16/22 19:37 50 06/16/22 18:30 06/16/22 18:00 06/16/22 17:00 06/16/22 16:50 06/16/22 16:40 06/16/22 16:33 06/16/22 16:30 06/16/22 16:20 Intake and Output 06/17/22 06/17/22 06/17/22 06:59 14:59 22:59 Intake Total 358 Balance 358 Intake: Oral 358 Other: Voiding Method Urinal # Voids 1 # Bowel Movements 1 Weight 113.398 kg Results 06/17/22 06:45 06/17/22 06:45 Cardiac Enzymes 06/16/22 06/16/22 06/16/22 Range/Units 15:52 15:52 17:29 AST 49 (17-59) U/L Troponin I 0.044 H* 0.081 H* (0.000-0.034) ng/mL 06/17/22 06/17/22 Range/Units 00:23 06:45 AST 48 (17-59) U/L Troponin I 0.098 H* (0.000-0.034) ng/mL Coagulation 06/16/22 Range/Units 15:52 PT 10.6 (9.0-12.0) sec APTT 22.0 (22.0-30.0) sec CBC 06/16/22 06/17/22 Range/Units 15:52 06:45 WBC 16.2 H 18.6 H (3.8-10.6) k/uL RBC 3.44 L 2.98 L (4.30-5.90) m/uL Hgb 12.1 L 10.5 L (13.0-17.5) gm/dL Hct 37.8 L 33.5 L (39.0-53.0) % Plt Count 95 L 53 L (150-450) k/uL Comprehensive Metabolic Panel 06/16/22 06/16/22 06/17/22 Range/Units 15:52 17:29 06:45 Sodium 137 138 137 (137-145) mmol/L Potassium 6.0 H 5.3 H 5.1 (3.5-5.1) mmol/L Chloride 91 L 92 L 94 L (98-107) mmol/L Carbon Dioxide 38 H 40 H 38 H (22-30) mmol/L BUN 59 H 60 H 59 H (9-20) mg/dL Creatinine 1.94 H 2.23 H 1.94 H (0.66-1.25) mg/dL Glucose 139 H 151 H 212 H (74-99) mg/dL Calcium 9.1 8.7 8.2 L (8.4-10.2) mg/dL AST 49 48 (17-59) U/L ALT 38 36 (4-49) U/L Alkaline Phosphatase 142 H 92 (38-126) U/L Total Protein 7.3 6.3 (6.3-8.2) g/dL Albumin 4.2 3.5 (3.5-5.0) g/dL Current Medications Generic Name Dose Route Start Last Admin Trade Name Freq PRN Reason Stop Dose Admin Acetaminophen 325 mg 06/16/22 21:56 06/16/22 22:09 Acetaminophen Tab 325 Mg Tab PO 325 mg Q6HR PRN Administration Fever and/ or Pain Albuterol/Ipratropium 3 ml 06/16/22 17:02 Ipratropium-Albuterol 3 Ml Neb INHALATION RT-Q2H PRN Shortness Of Breath Or Wheezing Albuterol/Ipratropium 3 ml 06/16/22 20:00 06/17/22 15:25 Ipratropium-Albuterol 3 Ml Neb INHALATION 3 ml RT-QID DANA Administration Budesonide/Formoterol Fumarate 2 puff 06/17/22 08:00 06/17/22 07:12 Symbicort 80-4.5 Mcg Inhaler INHALATION 2 puff RT-BID DANA Administration Sodium Chloride 1,000 mls @ 75 mls/hr 06/16/22 17:15 06/17/22 08:54 Saline 0.9% IV 75 mls/hr .[id number] DANA Administration Piperacillin Sod/Tazobactam 100 mls @ 25 mls/hr 06/17/22 12:00 06/17/22 13:28 Sod 3.375 gm/ Sodium Chloride IVPB 25 mls/hr Q8H DANA Administration Protocol Methylprednisolone Sodium Succinate 60 mg 06/16/22 18:00 06/17/22 13:27 Methylprednisolone Sod Succi 125 Mg/2 Ml Vial IV 60 mg Q6HR DANA Administration Metoprolol Tartrate 50 mg 06/17/22 09:00 06/17/22 08:55 Metoprolol Tartrate 50 Mg Tab PO 50 mg BID@0900,2100 DANA Administration Montelukast Sodium 10 mg 06/17/22 21:00 Montelukast 10 Mg Tab PO HS@2100 [facility] Morphine Sulfate 4 mg 06/16/22 21:26 Morphine Sulfate 4 Mg/Ml Syringe IV Q4HR PRN Severe Pain (Scale 7 to 10) Naloxone HCl 0.2 mg 06/16/22 17:02 Naloxone 0.4 Mg/Ml 1 Ml Vial IVP Q2M PRN Opioid Reversal Intake and Output 06/17/22 06/17/22 06/17/22 06:59 14:59 22:59 Intake Total 358 Balance 358 Intake: Oral 358 Other: Voiding Method Urinal # Voids 1 # Bowel Movements 1 Weight 113.398 kg Patient Weight 06/18/22 06:59 Weight 113.398 kg 06/17/22 06:45 06/17/22 06:45
[2022-06-17 16:45] LABS: Glucose,Whole Blood 224 mg/dL (70-110)
[2022-06-17] MEDS: FUROSEMIDE 10 MG/ML 10 ML VIAL IV SCH ×2 (17:23→20:39)
[2022-06-17] MEDS ORDERED: DEXTROSE 50% SYRINGE 50 ML IVP PRN ×2 (18:07)
[2022-06-17] MEDS: INSULIN ASPART (NovoLOG) 100 UNIT/ML VIAL SQ SCH ×2 (18:19→20:39)
--- NOTE | 2022-06-17 19:28 | P.PN ---
Subjective Progress Note Date: 06/17/22 Patient is a 67-year-old male with a known history of COPD, chronic hypoxic respiratory failure requiring 6 L oxygen via nasal cannula and chronic dyspnea, bilateral lower extremity cellulitis history and hypertension was brought to the hospital by EMS as a family found him unresponsive on the floor with respiratory distress. Patient was wearing oxygen at that time and found to be hypoxic with pulse ox 70% by EMS. At baseline patient is able to walk from the couch to the bathroom and dyspnea with minimal exertion. On admission patient was able to tell his name but very confused and lethargic. No evidence of bruising noted on the external surface of the body. Patient denied hitting his head. Currently not on any anticoagulation. Patient has been afebrile. No cough or sputum production. Patient was placed on BiPAP in the ER. Chest x-ray showed minimal pulmonary fibrotic changes. No acute lung disease. Probably some COPD. EKG showed sinus tachycardia Laboratory test showed WBC 16.2 hemoglobin 12.9 and platelets 95 Sodium 137 potassium 6.0 chloride 91 bicarb is 38 BUN 59 and creatinine 1.94 and lactic acid 1.8 Troponin 0.044 and 0.081 and proBNP is 560. 06/17/2022 Patient is currently sitting on side of bed. Oxygen titrated down to 6 L via nasal cannula. Patient has been afebrile. No complaints of chest pain or worsening shortness of breath. Blood cultures positive for streptococcal species and was started on Zosyn. Follow-up final culture report. Procalcitonin level is also elevated. Laboratory data showed WBC 18.6 hemoglobin 10.5 and platelets 53 Sodium 137 potassium 5.1 chloride 94 bicarb is 28 BUN 59 creatinine 1.94 and blood sugar is 212 Troponin 0.044, 0.081 and 0.098. Procalcitonin level is 26.4. Pulmonary and cardiology is on board. Current medications reviewed. Objective - Vital Signs Vital signs: Vital Signs Temp 97.9 F 06/17/22 16:29 Pulse 96 06/17/22 16:29 Resp 19 06/17/22 16:29 BP 149/54 06/17/22 16:29 Pulse Ox 91 L 06/17/22 16:29 FiO2 50 06/16/22 19:37 Intake & Output 06/17/22 06/17/22 06/18/22 06:59 18:59 06:59 Intake Total 358 Output Total 600 Balance -242 Weight 113.398 kg Intake: Oral 358 Output: Urine 600 Other: Voiding Method Urinal # Voids 1 # Bowel Movements 1 1 - Exam PHYSICAL EXAMINATION: Patient is lying in the bed comfortably, no acute distress, awake alert and oriented.. HEENT: Normocephalic. Neck is supple. Pupils reactive. Nostrils clear. Oral cavity is moist. Neck reveals no JVD, carotid bruits, or thyromegaly. CHEST EXAMINATION: Trachea is central. Symmetrical expansion. Bilateral wheezing and diminished basilar sounds.. CARDIAC: Normal S1, S2 with no gallops. No murmurs ABDOMEN: Soft. Bowel sounds present. Nontender. No organomegaly. No abdominal bruits. Extremities: reveal no edema. No clubbing or cyanosis Neurologically awake, alert, oriented x2-3 with well-coordinated movements. No focal deficits noted Skin: No rash or skin lesions. Psychiatric: Coperative. Nonsuicidal, Musculoskeletal: No joint swelling or deformity. Normal range of motion. - Labs CBC & Chem 7: 06/17/22 06:45 06/17/22 06:45 Labs: Abnormal Lab Results - Last 24 Hours (Table) 06/17/22 06/17/22 06/17/22 Range/Units 00:23 06:45 06:45 WBC 18.6 H (3.8-10.6) k/uL RBC 2.98 L (4.30-5.90) m/uL Hgb 10.5 L (13.0-17.5) gm/dL Hct 33.5 L (39.0-53.0) % MCV 112.3 H (80.0-100.0) fL MCH 35.1 H (25.0-35.0) pg Plt Count 53 L (150-450) k/uL Neutrophils # (Manual) 17.60 H (1.3-7.7) k/uL Lymphocytes # (Manual) 0.56 L (1.0-4.8) k/uL Metamyelocytes # (Man) 0.19 H (0) k/uL Macrocytosis Marked A Chloride 94 L (98-107) mmol/L Carbon Dioxide 38 H (22-30) mmol/L BUN 59 H (9-20) mg/dL Creatinine 1.94 H (0.66-1.25) mg/dL Glucose 212 H (74-99) mg/dL POC Glucose (mg/dL) (70-110) mg/dL Calcium 8.2 L (8.4-10.2) mg/dL Troponin I 0.098 H* (0.000-0.034) ng/mL Procalcitonin (0.02-0.09) ng/mL TSH 0.130 L (0.465-4.680) mIU/L 06/17/22 06/17/22 Range/Units 06:45 16:43 WBC (3.8-10.6) k/uL RBC (4.30-5.90) m/uL Hgb (13.0-17.5) gm/dL Hct (39.0-53.0) % MCV (80.0-100.0) fL MCH (25.0-35.0) pg Plt Count (150-450) k/uL Neutrophils # (Manual) (1.3-7.7) k/uL Lymphocytes # (Manual) (1.0-4.8) k/uL Metamyelocytes # (Man) (0) k/uL Macrocytosis Chloride (98-107) mmol/L Carbon Dioxide (22-30) mmol/L BUN (9-20) mg/dL Creatinine (0.66-1.25) mg/dL Glucose (74-99) mg/dL POC Glucose (mg/dL) 224 H (70-110) mg/dL Calcium (8.4-10.2) mg/dL Troponin I (0.000-0.034) ng/mL Procalcitonin 26.40 H (0.02-0.09) ng/mL TSH (0.465-4.680) mIU/L Microbiology - Last 24 Hours (Table) 06/16/22 16:30 Blood Culture Gram Stain - Preliminary Blood Blood Culture - Preliminary Streptococcus species 06/16/22 16:30 Blood Culture - Final Blood 06/16/22 16:45 Blood Culture - Final Blood Assessment and Plan Assessment: Acute on chronic acute on chronic hypoxic respiratory failure due to pulmonary fibrosis and COPD. Requiring requiring BiPAP and requiring BiPAP on admission. 6L via NC now Acute COPD exacerbation Streptococcal species bacteremia Acute kidney injury likely prerenal CKD stage III mild hyperkalemia secondary to acute kidney injury Elevated troponin level due to demand mismatch/type II MT Hypertension DVT prophylaxis with Lovenox subcu Plan: Patient is currently off BiPAP and cannula 6 L oxygen via nasal cannula. Continue with Zosyn and follow-up repeat blood cultures and final culture report. Continued IV steroids and duo nebs and follow-up renal function. Pulmonary and cardiology is on board. Prognosis is guarded at this time. . Time with Patient: Greater than 30
[2022-06-17 20:24] LABS: Glucose,Whole Blood 225 mg/dL (70-110)
[2022-06-17] MEDS: MONTELUKAST 10 MG TAB PO SCH (20:38)
[2022-06-18] MEDS: PIPERACILLIN-TAZOBACTAM 3.375 GM in SODIUM CHLORIDE 0.9% 100 ML IVPB SCH (03:27)
[2022-06-18 05:42] LABS: Glucose,Whole Blood 195 mg/dL (70-110)
[2022-06-18] MEDS: methylPREDNISolone SOD SUCCI 125 MG/2 ML VIAL IV SCH ×4 (05:44→23:47)
[2022-06-18] MEDS: INSULIN ASPART (NovoLOG) 100 UNIT/ML VIAL SQ SCH ×4 (06:30→20:08)
[2022-06-18 07:24] LABS: Basophils % (A) 0 %; Eosinophils % (A) 0 %; HCT 35.9 % (39.0-53.0); Hypochromasia Moderate; Lymphocytes # (A) 0.3 k/uL (1.0-4.8); Lymphocytes % (A) 3 %; MCH 34.1 pg (25.0-35.0); MCHC 30.7 g/dL (31.0-37.0); MCV 110.9 fL (80.0-100.0); Macrocytosis Marked; Mean Platelet Volume 11.3; Monocytes # (A) 0.5 k/uL (0-1.0); Monocytes % (A) 4 %; Neutrophils # (A) 11.8 k/uL (1.3-7.7); Neutrophils % (A) 92 %; RBC 3.23 m/uL (4.30-5.90); RDW 12.8 % (11.5-15.5); WBC 12.8 k/uL (3.8-10.6)
[2022-06-18] MEDS: IPRATROPIUM-ALBUTEROL 3 ML NEB INHALATION SCH ×4 (07:31→19:53)
[2022-06-18] MEDS: SYMBICORT 80-4.5 MCG INHALER INHALATION SCH ×2 (07:31→19:53)
[2022-06-18 07:32] LABS: Calcium 8.6 mg/dL (8.4-10.2); Platelet Count 55 k/uL (150-450); Potassium 4.8 mmol/L (3.5-5.1)
[2022-06-18] MEDS: METOPROLOL TARTRATE 50 MG TAB PO SCH ×2 (09:06→20:05)
[2022-06-18] MEDS: FUROSEMIDE 10 MG/ML 10 ML VIAL IV SCH ×2 (09:06→20:05)
--- NOTE | 2022-06-18 10:25 | P.PN ---
Subjective Patient is a pleasant 67-year-old male with a history of end-stage COPD on 6 L, previous tobacco abuse since quit, pleural effusions status post thoracentesis 2019, obesity, chronic lower extremity edema, diastolic heart failure. He followed with Dr. Pearl in the office. Patient presents secondary to syncopal episode. Patient states he has been chronically short of breath for a number of years. He had been feeling okay however apparently his grandson found him passed out and therefore brought him to emergency department. He does not recall how this happened. Per ER note patient was in respiratory distress per family member. Paramedics found patient with pulse ox in the 50s on nasal cannula and was transported to emergency department. He was given steroids and inhalers with improvement. Initial EKG showing sinus rhythm with right bundle branch block with nonspecific diffuse ST depressions and severe right axis deviation. Previous echocardiogram in 2019 had shown EF 50-55% with mild to moderately dilated right ventricle and an RVSP of 49. Troponin 0.04 0.08 and 0.098, serum creatinine also elevated at 2.2. 06/18/2022 Patient seen and examined at bedside, in no distress. Denies an chest pain. Continues to be short of breath. Patient was 2.2 L urine out over the past 24 hours, negative fluid balance. Labs pending. Echo pending. Blood pressure 112/62, heart rate 101, Temp 99, 94% on 6L nasal cannula . Telemetry reviewed patient is in sinus rhythm, heart rate trends 80s-105 PHYSICAL EXAMINATION Vital signs reviewed. CONSTITUTIONAL: No apparent distress, chronically ill appearing HEENT: Head is normocephalic. Neck supple. No JVD. No carotid bruit. CHEST EXAMINATION: Diffuse wheeze HEART EXAMINATION: Regular rate and rhythm. S1, S2 heard. No murmurs, gallops or rub. ABDOMEN: Soft, nontender. Positive bowel sounds. EXTREMITIES: 2+ peripheral pulses, 2+ lower extremity edema and no calf tenderness. NEUROLOGIC EXAMINATION: Patient is awake, alert and oriented x3. ASSESSMENT Acute on chronic respiratory failure mainly related to COPD exacerbation plus component of heart failure exacerbation Acute on chronic heart failure with preserved ejection fraction COPD on home 6 L nasal cannula Previous tobacco abuse Non-STEMI likely type II mechanism related to severe hypoxia oxygen saturations in the 50s on nasal cannula when paramedics arrived Loss of consciousness, unclear if true syncope appears related to severe hypoxia Pulmonary hypertension likely related to COPD CKD PLAN Check 2-D echo to evaluate left ventricular function. Continue IV Lasix for additional 24 hours Monitor I/Os daily weights Monitor renal function and electrolytes Majority of presentation including loss of consciousness and elevated troponins appear related to severe hypoxia. Continue treatment of underlying COPD. Further recommendations to follow Nurse practitioner note has been reviewed by physician. Signing provider agrees with the documented findings, assessment, and plan of care. Objective - Vital Signs Vital signs: Vital Signs Temp 99.0 F 06/18/22 08:43 Pulse 101 H 06/18/22 08:43 Resp 22 06/18/22 08:43 BP 112/62 06/18/22 08:43 Pulse Ox 94 L 06/18/22 08:43 FiO2 50 06/16/22 19:37 Intake & Output 06/17/22 06/18/22 06/18/22 18:59 06:59 18:59 Intake Total 358 100 Output Total 600 1650 Balance -242 -1550 Weight 113.398 kg 126.4 kg Intake: Intake, IV Titration 100 Amount Piperacillin-Tazobactam 3 100 .375 gm In Sodium Chloride 0.9% 100 ml @ 25 mls/hr IVPB Q8H [facility] Rx#: [id number] Oral 358 Output: Urine 600 1650 Other: Voiding Method Urinal Urinal # Voids 1 1 # Bowel Movements 1 1 - Labs CBC & Chem 7: 06/18/22 06:54 06/18/22 06:54 Labs: Abnormal Lab Results - Last 24 Hours (Table) 06/17/22 06/17/22 06/17/22 Range/Units 06:45 16:43 20:22 WBC (3.8-10.6) k/uL RBC (4.30-5.90) m/uL Hgb (13.0-17.5) gm/dL Hct (39.0-53.0) % MCV (80.0-100.0) fL MCHC (31.0-37.0) g/dL Plt Count (150-450) k/uL Neutrophils # (1.3-7.7) k/uL Lymphocytes # (1.0-4.8) k/uL Macrocytosis Chloride (98-107) mmol/L Carbon Dioxide (22-30) mmol/L BUN (9-20) mg/dL Creatinine (0.66-1.25) mg/dL Glucose (74-99) mg/dL POC Glucose (mg/dL) 224 H 225 H (70-110) mg/dL Procalcitonin 26.40 H (0.02-0.09) ng/mL 06/18/22 06/18/22 06/18/22 Range/Units 05:41 06:54 06:54 WBC 12.8 H (3.8-10.6) k/uL RBC 3.23 L (4.30-5.90) m/uL Hgb 11.0 L (13.0-17.5) gm/dL Hct 35.9 L (39.0-53.0) % MCV 110.9 H (80.0-100.0) fL MCHC 30.7 L (31.0-37.0) g/dL Plt Count 55 L (150-450) k/uL Neutrophils # 11.8 H (1.3-7.7) k/uL Lymphocytes # 0.3 L (1.0-4.8) k/uL Macrocytosis Marked A Chloride 93 L (98-107) mmol/L Carbon Dioxide 36 H (22-30) mmol/L BUN 64 H (9-20) mg/dL Creatinine 1.71 H (0.66-1.25) mg/dL Glucose 180 H (74-99) mg/dL POC Glucose (mg/dL) 195 H (70-110) mg/dL Procalcitonin (0.02-0.09) ng/mL Microbiology - Last 24 Hours (Table) 06/16/22 16:45 Blood Culture Gram Stain - Preliminary Blood Blood Culture - Preliminary Beta Hemolytic Strep Group G 06/16/22 16:30 Blood Culture Gram Stain - Preliminary Blood Blood Culture - Preliminary Beta Hemolytic Strep Group G 06/16/22 16:30 Blood Culture - Final Blood
--- NOTE | 2022-06-18 10:32 | P.PN ---
Subjective Progress Note Date: 06/18/22 This is a 67-year-old male patient presented to the hospital on 06/16/2022 with complaints of increased shortness of breath and cough. According to ER report patient was found unresponsive on the floor in respiratory distress with a pulse ox of 70% by EMS. Patient was admitted and pulmonary cardiology services were consulted. Initial chest x-ray showed minimal pulmonary fibrotic changes with no acute lung disease. Patient does have an extensive medical history of COPD in which she is maintained on 6 L home oxygen. Additional medical history includes hypertension, obesity, cellulitis and ex-smoker. She was started on IV steroids and IV Lasix. Patient was also found to have positive blood culture was started on IV Zosyn. On 06/18/2022 patient is alert and oriented 3 currently sitting up in bed. Patient reports improvement with shortness of breath and cough. Patient is on 6 L which is at home. Patient remains on IV Lasix, IV steroids and IV antibiotics. Blood culture positive infectious disease service is consulted. 2-D echo has been ordered per cardiology services. This time she denies chest pain. Patient denies nausea vomiting or diarrhea. Patient denies any urinary burning or frequency. white Blood cell is improving to 12.8. Creatinine down to 1.7 and bun 64 Objective - Vital Signs Vital signs: Vital Signs Temp 99.0 F 06/18/22 08:43 Pulse 101 H 06/18/22 08:43 Resp 22 06/18/22 08:43 BP 112/62 06/18/22 08:43 Pulse Ox 94 L 06/18/22 08:43 FiO2 50 06/16/22 19:37 Intake & Output 06/17/22 06/18/22 06/18/22 18:59 06:59 18:59 Intake Total 358 100 Output Total 600 1650 Balance -242 -1550 Weight 113.398 kg 126.4 kg Intake: Intake, IV Titration 100 Amount Piperacillin-Tazobactam 3 100 .375 gm In Sodium Chloride 0.9% 100 ml @ 25 mls/hr IVPB Q8H [facility] Rx#: [id number] Oral 358 Output: Urine 600 1650 Other: Voiding Method Urinal Urinal # Voids 1 1 # Bowel Movements 1 1 - Exam Head normocephalic Neck supple Lungs diminished bilaterally Heart regular rate and rhythm S1-S2, no rub or gallop Abdomen is soft nontender nondistended positive bowel sounds no hepatosplenomegaly Extremities no edema Neuro alert and orientated to 3 - Labs CBC & Chem 7: 06/18/22 06:54 06/18/22 06:54 Labs: Abnormal Lab Results - Last 24 Hours (Table) 06/17/22 06/17/22 06/17/22 Range/Units 06:45 16:43 20:22 WBC (3.8-10.6) k/uL RBC (4.30-5.90) m/uL Hgb (13.0-17.5) gm/dL Hct (39.0-53.0) % MCV (80.0-100.0) fL MCHC (31.0-37.0) g/dL Plt Count (150-450) k/uL Neutrophils # (1.3-7.7) k/uL Lymphocytes # (1.0-4.8) k/uL Macrocytosis Chloride (98-107) mmol/L Carbon Dioxide (22-30) mmol/L BUN (9-20) mg/dL Creatinine (0.66-1.25) mg/dL Glucose (74-99) mg/dL POC Glucose (mg/dL) 224 H 225 H (70-110) mg/dL Procalcitonin 26.40 H (0.02-0.09) ng/mL 06/18/22 06/18/22 06/18/22 Range/Units 05:41 06:54 06:54 WBC 12.8 H (3.8-10.6) k/uL RBC 3.23 L (4.30-5.90) m/uL Hgb 11.0 L (13.0-17.5) gm/dL Hct 35.9 L (39.0-53.0) % MCV 110.9 H (80.0-100.0) fL MCHC 30.7 L (31.0-37.0) g/dL Plt Count 55 L (150-450) k/uL Neutrophils # 11.8 H (1.3-7.7) k/uL Lymphocytes # 0.3 L (1.0-4.8) k/uL Macrocytosis Marked A Chloride 93 L (98-107) mmol/L Carbon Dioxide 36 H (22-30) mmol/L BUN 64 H (9-20) mg/dL Creatinine 1.71 H (0.66-1.25) mg/dL Glucose 180 H (74-99) mg/dL POC Glucose (mg/dL) 195 H (70-110) mg/dL Procalcitonin (0.02-0.09) ng/mL Microbiology - Last 24 Hours (Table) 06/16/22 16:45 Blood Culture Gram Stain - Preliminary Blood Blood Culture - Preliminary Beta Hemolytic Strep Group G 06/16/22 16:30 Blood Culture Gram Stain - Preliminary Blood Blood Culture - Preliminary Beta Hemolytic Strep Group G 06/16/22 16:30 Blood Culture - Final Blood Assessment and Plan Assessment: 1. Acute on chronic hypoxic respiratory failure secondary to COPD and pulmonary fibrosis. 2. History of COPD maintained on 6 L nasal cannula at home 3. Streptococcal species bacteremia. Patient currently on IV Zosyn infectious disease service is consulted 4. Acute on chronic kidney disease stage III 5. Essential hypertension 6. Elevated troponin level due to demand mismatch type II OR 7. Acute on chronic diastolic heart failure DVT prophylaxis Lovenox. GI prophylaxis Protonix remains on IV steroids, IV antibiotics and IV Lasix 2-D echo has been ordered Pulmonary, cardiology and infectious disease services have been consulted
[2022-06-18 12:15] LABS: Glucose,Whole Blood 303 mg/dL (70-110)
--- NOTE | 2022-06-18 15:00 | P.PN ---
Subjective Progress Note Date: 06/18/22 There is a very pleasant 67-year-old male patient who follows with Dr. Albrecht as her history primary care provider. He has a history of chronic obstructive pulmonary disease an FEV1 value 20% of predicted in 2019, oxygen dependent on 6 L in the outpatient setting, previous pleural effusion status post thoracentesis in 2019, hypertension, obesity, chronic cellulitis lower extremities, osteoarthritis. He was last seen in our office in 2019. He's been maintained on Advair, Singulair, albuterol. he presented to the emergency room yesterday with 2-3 day history of increasing shortness of breath, cough congestion chest tightness and wheezing. S x-ray revealed minimal pulmonary fibrotic changes. No acute pulmonary process. Evidence of COPD. One blood culture revealing streptococcus species. white count 18.6. Hemoglobin 10.5. Glipizide 0.56. Sodium 137. Potassium 5.1. Bicarb 38. BUN 59. Creatinine 1.94. Glucose 212. Troponins 0.044, 0.081, 0.098. proBNP 560. He's been initiated and DuoNeb inhalations, Symbicort, IV Solu-Medrol, Singulair. Antibiotics in the form of Zosyn. He is seen today in consultation on the regular medical floor. He is currently sitting up at the bedside. Awake and alert in no acute distress. Breathing a bit easier today compared to yesterday. He's been afebrile. Hemodynamically stable. Currently on 6 L/m per nasal cannula with O2 saturations in the mid 90s. The patient is seen today 06/18/2022 in follow-up on the regular medical floor. He is currently sitting up at the bedside. Awake and alert in no acute distress. Breathing easier today compared to yesterday. Blood culture showing beta-hemolytic strep group G. white count 12.8. Hemoglobin 11.0. Platelets 55,000 sodium 137. Potassium 4.8. BUN 64. Creatinine 1.71. Glucose 180. He is continued on DuoNeb inhalations, Symbicort, IV Solu-Medrol, Zosyn. Objective - Vital Signs Vital signs: Vital Signs Temp 98.5 F 06/18/22 12:31 Pulse 89 06/18/22 12:31 Resp 22 06/18/22 12:31 BP 117/66 06/18/22 12:31 Pulse Ox 92 L 06/18/22 12:31 FiO2 50 06/16/22 19:37 Intake & Output 06/17/22 06/18/22 06/18/22 18:59 06:59 18:59 Intake Total 358 100 118 Output Total 600 1650 450 Balance -925 -4327 -065 Weight 113.398 kg 126.4 kg Intake: Intake, IV Titration 100 Amount Piperacillin-Tazobactam 3 100 .375 gm In Sodium Chloride 0.9% 100 ml @ 25 mls/hr IVPB Q8H [facility] Rx#: [id number] Oral 358 118 Output: Urine 600 1650 450 Other: Voiding Method Urinal Urinal Urinal # Voids 1 1 # Bowel Movements 1 1 - Exam GENERAL EXAM: Alert, 67-year-old male patient, on 6 L nasal cannula, comfortable in no apparent distress. HEAD: Normocephalic. EYES: Normal reaction of pupils, equal size. NOSE: Clear with pink turbinates. THROAT: No erythema or exudates. NECK: No masses, no JVD. CHEST: No chest wall deformity. LUNGS: Equal air entry with faint end expiratory wheeze, diminisheds. CVS: S1 and S2 normal with no audible murmur, regular rhythm. ABDOMEN: No hepatosplenomegaly, normal bowel sounds, no guarding or rigidity. SPINE: No scoliosis or deformity SKIN: No rashes CENTRAL NERVOUS SYSTEM: No focal deficits, tone is normal in all 4 extremities. EXTREMITIES: There is no peripheral edema. No clubbing, no cyanosis. Peripheral pulses are intact. - Labs CBC & Chem 7: 06/18/22 06:54 06/18/22 06:54 Labs: Abnormal Lab Results - Last 24 Hours (Table) 06/17/22 06/17/22 06/17/22 Range/Units 06:45 16:43 20:22 WBC (3.8-10.6) k/uL RBC (4.30-5.90) m/uL Hgb (13.0-17.5) gm/dL Hct (39.0-53.0) % MCV (80.0-100.0) fL MCHC (31.0-37.0) g/dL Plt Count (150-450) k/uL Neutrophils # (1.3-7.7) k/uL Lymphocytes # (1.0-4.8) k/uL Macrocytosis Chloride (98-107) mmol/L Carbon Dioxide (22-30) mmol/L BUN (9-20) mg/dL Creatinine (0.66-1.25) mg/dL Glucose (74-99) mg/dL POC Glucose (mg/dL) 224 H 225 H (70-110) mg/dL Procalcitonin 26.40 H (0.02-0.09) ng/mL 06/18/22 06/18/22 06/18/22 Range/Units 05:41 06:54 06:54 WBC 12.8 H (3.8-10.6) k/uL RBC 3.23 L (4.30-5.90) m/uL Hgb 11.0 L (13.0-17.5) gm/dL Hct 35.9 L (39.0-53.0) % MCV 110.9 H (80.0-100.0) fL MCHC 30.7 L (31.0-37.0) g/dL Plt Count 55 L (150-450) k/uL Neutrophils # 11.8 H (1.3-7.7) k/uL Lymphocytes # 0.3 L (1.0-4.8) k/uL Macrocytosis Marked A Chloride 93 L (98-107) mmol/L Carbon Dioxide 36 H (22-30) mmol/L BUN 64 H (9-20) mg/dL Creatinine 1.71 H (0.66-1.25) mg/dL Glucose 180 H (74-99) mg/dL POC Glucose (mg/dL) 195 H (70-110) mg/dL Procalcitonin (0.02-0.09) ng/mL 06/18/22 Range/Units 12:02 WBC (3.8-10.6) k/uL RBC (4.30-5.90) m/uL Hgb (13.0-17.5) gm/dL Hct (39.0-53.0) % MCV (80.0-100.0) fL MCHC (31.0-37.0) g/dL Plt Count (150-450) k/uL Neutrophils # (1.3-7.7) k/uL Lymphocytes # (1.0-4.8) k/uL Macrocytosis Chloride (98-107) mmol/L Carbon Dioxide (22-30) mmol/L BUN (9-20) mg/dL Creatinine (0.66-1.25) mg/dL Glucose (74-99) mg/dL POC Glucose (mg/dL) 303 H (70-110) mg/dL Procalcitonin (0.02-0.09) ng/mL Microbiology - Last 24 Hours (Table) 06/16/22 16:45 Blood Culture Gram Stain - Preliminary Blood Blood Culture - Preliminary Beta Hemolytic Strep Group G 06/16/22 16:30 Blood Culture Gram Stain - Preliminary Blood Blood Culture - Preliminary Beta Hemolytic Strep Group G Assessment and Plan Assessment: Acute on chronic hypoxemic respiratory failure secondary to an acute exacerbation of chronic obstructive pulmonary disease Severe oxygen dependent chronic obstructive pulmonary disease with an FEV1 value 20% of predicted back in 2019 Bacteremia secondary to beta hemolytic strep group G. Procalcitonin 26.4 Obesity Chronic anxiety Hypertension Chronic ALLERGIC rhinitis Degenerative joint disease History of lower extremity cellulitis Plan: The patient was seen and evaluated Labs and medications reviewed Continue Symbicort, Singulair, Solu Medrol, DuoNeb inhalations Titrate the FiO2 as tolerated Antibiotics changed to cefazolin We will continue to follow I have personally seen and examined the patient, performed the documentation and the assessment and plan as written. Number of minutes spent on the visit: 10
--- NOTE | 2022-06-18 15:10 | CA ---
Transthoracic Echo Report Name: Chemo Escalera Age: 67 Gender: M : 1955 Exam Date: 06/18/2022 13:31 Exam Location: [place] [facility] Ht (in): 72 Wt (lb): 278 Ordering Physician: Johanna Gooden Attending/Referring Phys: [employer] Worker Mireya Pryor, MARKEL Procedure CPT: Indications: Syncopal episode, elevated troponin Cardiac Hx: Technical Quality: Technically difficult study Contrast 1: Lumason Total Dose (mL): Contrast 2: Total Dose (mL): MEASUREMENTS (Male / Female) Normal Values 2D ECHO LV Diastolic Diameter PLAX 5.0 cm 4.2 - 5.9 / 3.9 - 5.3 cm LV Systolic Diameter PLAX 3.2 cm IVS Diastolic Thickness 1.5 cm 0.6 - 1.0 / 0.6 - 0.9 cm LVPW Diastolic Thickness 1.4 cm 0.6 - 1.0 / 0.6 - 0.9 cm LV Relative Wall Thickness 0.6 RV Internal Dim ED PLAX 3.4 cm M-MODE Aortic Root Diameter MM 3.4 cm MV E Point Septal Separation 1.4 cm AV Cusp Separation MM 2.4 cm DOPPLER AV Peak Velocity 128.4 cm/s AV Peak Gradient 6.6 mmHg MV Area PHT 3.7 cm??? MV Deceleration Time 55.6 ms TR Peak Velocity 299.5 cm/s TR Peak Gradient 35.9 mmHg Right Ventricular Systolic Press 39.4 mmHg FINDINGS Left Ventricle Left ventricular ejection fraction is estimated at 55-60 %. Left ventricular cavity size normal. Moderate concentric left ventricular hypertrophy. Right Ventricle Mild right ventricular dilatation. Mild pulmonary hypertension. Right Atrium Right atrium not well visualized. Left Atrium Left atrium not well visualized. Mitral Valve Structurally normal mitral valve. No mitral stenosis, regurgitation or prolapse. Aortic Valve No aortic valve stenosis or regurgitation. Tricuspid Valve Mild tricuspid regurgitation. Pulmonic Valve Pulmonic valve not well visualized. Pericardium Small pericardial effusion. Aorta Normal size aortic root and proximal ascending aorta. CONCLUSIONS Normal LV size and systolic function Previewed by: Dr. Jose Carlos Calvillo MD (Electronically Signed) Final Date: 18 June 2022 15:09
[2022-06-18 17:14] LABS: Glucose,Whole Blood 174 mg/dL (70-110)
[2022-06-18] MEDS: MONTELUKAST 10 MG TAB PO SCH (20:05)
[2022-06-18 20:09] LABS: Glucose,Whole Blood 281 mg/dL (70-110)
--- NOTE | 2022-06-18 22:18 | P.CONS ---
History of Present Illness - Reason for Consult Consult date: 06/18/22 - History of Present Illness Patient is a 67-year-old male with a past medical history significant for COPD hypertension obesity history of lower extremity cellulitis presenting to the hospital 4 days ago for evaluation of increasing shortness of breath apparently was going on for few days patient was found to be unresponsive in the kitchen with respiratory status by family member paramedics was called and the patient was brought into the hospital patient on presentation to the hospital was afebrile and no fever have been recorded subsequently patient was hypoxic and need for supplemental oxygen patient did have white count 16.2 with a left shift BUN and creatinine has been elevated but improving troponin is elevated, and the patient did have elevated procalcitonin patient did have blood cultures drawn which grew beta-hemolytic group G strep that has prompted this infectious disease consultation patient did have a chest x-ray mild pulmonary fibrotic changes no acute lung disease patient has been treated with Zosyn infectious disease was consulted because of positive blood culture patient did mention he is breathing more comfortably patient denies having any chest pain he did have a cough but not bringing any sputum patient denies having any nausea or vomiting no abdominal pain and no diarrhea Past Medical History Past Medical History: COPD, Hypertension Additional Past Medical History / Comment(s): Obesity, previous history of cellulitis of the lower extremities, hypertension, COPD, chronic hypoxic respiratory failure, osteoarthritis History of Any Multi-Drug Resistant Organisms: None Reported Past Surgical History: No Surgical Hx Reported Additional Past Surgical History / Comment(s): no Reported history of surgeries Past Anesthesia/Blood Transfusion Reactions: No Reported Reaction Past Psychological History: No Psychological Hx Reported - Past Family History Father History Unknown: Yes Additional Family Medical History / Comment(s): Patient states father at 76 of a blood clot, mother had breast cancer Mother History Unknown: Yes Family Medical History: Dementia Medications and Allergies Home Medications Medication Instructions Recorded Confirmed Type Albuterol Nebulized [Ventolin 2.5 mg INHALATION RT-QID PRN 06/22/14 06/16/22 History Nebulized] Montelukast [Singulair] 10 mg PO HS@209906/09/19 06/16/22 History clonazePAM [KlonoPIN] 0.5 mg PO DAILY PRN 06/09/19 06/16/22 History lisinopriL [Prinivil] 20 mg PO HS@209906/09/19 06/16/22 History Albuterol Sulfate [Ventolin HFA] 2 puff INHALATION RT-Q4H PRN 08/27/19 06/16/22 History Fluticasone Propion/Salmeterol 1 puff INHALATION RT-BID 08/27/19 06/16/22 History [Advair 250-50 Diskus] Furosemide [Lasix] 40 mg PO BID@0900,1600 30 Days #60 09/01/19 06/16/22 Rx tab Cholecalciferol [Vitamin D3 (25 25 mcg PO DAILY 06/16/22 06/16/22 History Mcg = 1000 Iu)] Metoprolol Tartrate [Lopressor] 50 mg PO BID@0900,209906/16/22 06/16/22 History Spironolactone [Aldactone] 25 mg PO DAILY 06/16/22 06/16/22 History Allergies Allergy/AdvReac Type Severity Reaction Status Date / Time clarithromycin [From Biaxin] AdvReac TREMORS Verified 06/16/22 18:06 Physical Exam Vitals: Vital Signs Temp Pulse Pulse Resp BP Pulse Ox 06/18/22 11:21 96 06/18/22 11:05 96 06/18/22 08:43 99.0 F 101 H 22 112/62 94 L 06/18/22 07:45 96 06/18/22 07:31 92 06/18/22 03:55 97.6 F 92 18 109/58 97 06/18/22 01:44 90 17 06/18/22 00:00 97.0 F L 95 20 126/60 93 L 06/17/22 20:00 97.8 F 113 H 18 135/61 93 L 06/17/22 19:42 94 06/17/22 19:27 95 06/17/22 16:29 97.9 F 96 19 149/54 91 L 06/17/22 15:41 93 06/17/22 15:26 94 94 L 06/17/22 14:45 19 06/17/22 12:25 98.3 F 89 19 111/63 97 06/17/22 12:00 89 Intake and Output 06/17/22 06/18/22 06/18/22 22:59 06:59 14:59 Intake Total 100 118 Output Total 600 1650 Balance -600 -1550 118 Intake: Intake, IV Titration 100 Amount Piperacillin-Tazobactam 3 100 .375 gm In Sodium Chloride 0.9% 100 ml @ 25 mls/hr IVPB Q8H [facility] Rx#: [id number] Oral 118 Output: Urine 600 1650 Other: Voiding Method Urinal Urinal Urinal # Voids 1 # Bowel Movements 1 1 Weight 126.4 kg Results CBC & Chem 7: 06/18/22 06:54 06/18/22 06:54 Labs: Abnormal Lab Results - Last 24 Hours (Table) 06/17/22 06/17/22 06/17/22 Range/Units 06:45 16:43 20:22 WBC (3.8-10.6) k/uL RBC (4.30-5.90) m/uL Hgb (13.0-17.5) gm/dL Hct (39.0-53.0) % MCV (80.0-100.0) fL MCHC (31.0-37.0) g/dL Plt Count (150-450) k/uL Neutrophils # (1.3-7.7) k/uL Lymphocytes # (1.0-4.8) k/uL Macrocytosis Chloride (98-107) mmol/L Carbon Dioxide (22-30) mmol/L BUN (9-20) mg/dL Creatinine (0.66-1.25) mg/dL Glucose (74-99) mg/dL POC Glucose (mg/dL) 224 H 225 H (70-110) mg/dL Procalcitonin 26.40 H (0.02-0.09) ng/mL 06/18/22 06/18/22 06/18/22 Range/Units 05:41 06:54 06:54 WBC 12.8 H (3.8-10.6) k/uL RBC 3.23 L (4.30-5.90) m/uL Hgb 11.0 L (13.0-17.5) gm/dL Hct 35.9 L (39.0-53.0) % MCV 110.9 H (80.0-100.0) fL MCHC 30.7 L (31.0-37.0) g/dL Plt Count 55 L (150-450) k/uL Neutrophils # 11.8 H (1.3-7.7) k/uL Lymphocytes # 0.3 L (1.0-4.8) k/uL Macrocytosis Marked A Chloride 93 L (98-107) mmol/L Carbon Dioxide 36 H (22-30) mmol/L BUN 64 H (9-20) mg/dL Creatinine 1.71 H (0.66-1.25) mg/dL Glucose 180 H (74-99) mg/dL POC Glucose (mg/dL) 195 H (70-110) mg/dL Procalcitonin (0.02-0.09) ng/mL Microbiology - Last 24 Hours (Table) 06/16/22 16:45 Blood Culture Gram Stain - Preliminary Blood Blood Culture - Preliminary Beta Hemolytic Strep Group G 06/16/22 16:30 Blood Culture Gram Stain - Preliminary Blood Blood Culture - Preliminary Beta Hemolytic Strep Group G Assessment and Plan Plan: 1patient with group G strep bacteremia which is usually of skin and soft tissue origin however the patient currently do not have any evidence of cellulitis minimal swelling erythema to the left leg, patient did have predominantly respiratory symptoms and did have elevated procalcitonin however initial chest x-ray was reported negative and echocardiogram was negative for any vegetation 2-blood cultures will be repeated document clearance of bacteremia 3-antibiotic will be switched to cefazolin 2 g every 8 hours 4-we will repeat his chest x-ray and try to obtain sputum for gram stain and culture We will follow on clinical condition and cultures to further adjust medication if needed Thank you for this consultation will follow this patient along with you Time with Patient: Greater than 30
[2022-06-18 22:37] LABS: Appearance,Urine Clear (Clear); Bilirubin,Urine Negative (Negative); Blood,Urine Negative (Negative); Color,Urine Light Yellow; Glucose,Urine (UA) 2+ (Negative); Ketones,Urine Negative (Negative); Leukocyte Esterase,Urine Negative (Negative); Nitrite,Urine Negative (Negative); Protein,Urine Negative (Negative); Specific Gravity,Urine 1.008 (1.001-1.035); Urobilinogen,Urine <2.0 mg/dL (<2.0)
[2022-06-19 06:23] LABS: Glucose,Whole Blood 226 mg/dL (70-110)
[2022-06-19] MEDS: methylPREDNISolone SOD SUCCI 125 MG/2 ML VIAL IV SCH ×4 (06:23→23:25)
[2022-06-19] MEDS: INSULIN ASPART (NovoLOG) 100 UNIT/ML VIAL SQ SCH ×4 (06:24→20:35)
[2022-06-19] MEDS: PANTOPRAZOLE 40 MG TABLET PO SCH (06:24)
[2022-06-19] MEDS: IPRATROPIUM-ALBUTEROL 3 ML NEB INHALATION SCH ×4 (07:26→19:41)
[2022-06-19] MEDS: SYMBICORT 80-4.5 MCG INHALER INHALATION SCH ×2 (07:27→19:42)
[2022-06-19 08:48] LABS: Basophils % (A) 0 %; Eosinophils % (A) 0 %; HCT 37.8 % (39.0-53.0); HGB 11.9 gm/dL (13.0-17.5); Hypochromasia Moderate; Lymphocytes # (A) 0.5 k/uL (1.0-4.8); Lymphocytes % (A) 4 %; MCH 35.3 pg (25.0-35.0); MCHC 31.4 g/dL (31.0-37.0); MCV 112.7 fL (80.0-100.0); Macrocytosis Marked; Mean Platelet Volume 10.8; Monocytes # (A) 0.5 k/uL (0-1.0); Monocytes % (A) 5 %; Neutrophils % (A) 90 %; RBC 3.36 m/uL (4.30-5.90); RDW 13.3 % (11.5-15.5)
[2022-06-19] MEDS: METOPROLOL TARTRATE 50 MG TAB PO SCH ×2 (09:17→20:35)
[2022-06-19] MEDS: FUROSEMIDE 10 MG/ML 10 ML VIAL IV SCH (09:17)
[2022-06-19] MEDS: ENOXAPARIN 40 MG/0.4 ML SYRINGE SQ SCH (09:17)
[2022-06-19 09:20] LABS: Potassium 4.2 mmol/L (3.5-5.1)
[2022-06-19 09:21] LABS: Calcium 8.9 mg/dL (8.4-10.2); Magnesium 2.3 mg/dL (1.6-2.3); Total Bilirubin 0.7 mg/dL (0.2-1.3); Total Protein 7.1 g/dL (6.3-8.2)
[2022-06-19 09:32] LABS: Platelet Count 63 k/uL (150-450)
--- NOTE | 2022-06-19 11:10 | P.PN ---
Subjective Patient is a pleasant 67-year-old male with a history of end-stage COPD on 6 L, previous tobacco abuse since quit, pleural effusions status post thoracentesis 2019, obesity, chronic lower extremity edema, diastolic heart failure. He followed with Dr. Pearl in the office. Patient presents secondary to syncopal episode. Patient states he has been chronically short of breath for a number of years. He had been feeling okay however apparently his grandson found him passed out and therefore brought him to emergency department. He does not recall how this happened. Per ER note patient was in respiratory distress per family member. Paramedics found patient with pulse ox in the 50s on nasal cannula and was transported to emergency department. He was given steroids and inhalers with improvement. Initial EKG showing sinus rhythm with right bundle branch block with nonspecific diffuse ST depressions and severe right axis deviation. Previous echocardiogram in 2019 had shown EF 50-55% with mild to moderately dilated right ventricle and an RVSP of 49. Troponin 0.04 0.08 and 0.098, serum creatinine also elevated at 2.2. 06/19/2022 Patient seen and examined at bedside, in no distress. Denies an chest pain. Breathing has improved. Echocardiogram revealed an EF of 5560 percent, moderate concentric LVH,\. Blood pressure 119/62, heart rate 83, afebrile 97% on 6L nasal cannula . Telemetry reviewed patient is in sinus rhythm, HR have improved. PHYSICAL EXAMINATION Vital signs reviewed. CONSTITUTIONAL: No apparent distress, chronically ill appearing HEENT: Head is normocephalic. Neck supple. No JVD. No carotid bruit. CHEST EXAMINATION: Diffuse wheeze, improved HEART EXAMINATION: Regular rate and rhythm. S1, S2 heard. No murmurs, gallops or rub. ABDOMEN: Soft, nontender. Positive bowel sounds. EXTREMITIES: 2+ peripheral pulses, 1-2+ lower extremity edema and no calf tenderness. NEUROLOGIC EXAMINATION: Patient is awake, alert and oriented x3. ASSESSMENT Acute on chronic respiratory failure mainly related to COPD exacerbation plus component of heart failure exacerbation Acute on chronic heart failure with preserved ejection fraction COPD on home 6 L nasal cannula Previous tobacco abuse Non-STEMI likely type II mechanism related to severe hypoxia oxygen saturations in the 50s on nasal cannula when paramedics arrived Loss of consciousness, unclear if true syncope appears related to severe hypoxia Pulmonary hypertension likely related to COPD CKD PLAN Decrease IV Lasix, likely transition to PO tomorrow Monitor I/Os daily weights Monitor renal function and electrolytes Majority of presentation including loss of consciousness and elevated troponins appear related to severe hypoxia. Continue treatment of underlying COPD. Further recommendations to follow Nurse practitioner note has been reviewed by physician. Signing provider agrees with the documented findings, assessment, and plan of care. Objective - Vital Signs Vital signs: Vital Signs Temp 97.5 F L 06/19/22 04:00 Pulse 96 06/19/22 11:04 Resp 18 06/19/22 04:00 BP 119/62 06/19/22 04:00 Pulse Ox 97 06/19/22 04:00 FiO2 50 06/16/22 19:37 Intake & Output 06/18/22 06/19/22 06/19/22 18:59 06:59 18:59 Intake Total 1318 Output Total 775 200 Balance 543 -200 Weight 126.6 kg Intake: Oral 1318 Output: Urine 775 200 Other: Voiding Method Urinal Urinal # Voids 1 - Labs CBC & Chem 7: 06/19/22 08:11 06/19/22 08:11 Labs: Abnormal Lab Results - Last 24 Hours (Table) 06/18/22 06/18/22 06/18/22 Range/Units 07:03 12:02 17:02 WBC (3.8-10.6) k/uL RBC (4.30-5.90) m/uL Hgb (13.0-17.5) gm/dL Hct (39.0-53.0) % MCV (80.0-100.0) fL MCH (25.0-35.0) pg Plt Count (150-450) k/uL Neutrophils # (1.3-7.7) k/uL Lymphocytes # (1.0-4.8) k/uL Macrocytosis Chloride (98-107) mmol/L Carbon Dioxide (22-30) mmol/L BUN (9-20) mg/dL Creatinine (0.66-1.25) mg/dL Glucose (74-99) mg/dL POC Glucose (mg/dL) 303 H 174 H (70-110) mg/dL Urine Glucose (UA) 2+ H (Negative) 06/18/22 06/19/22 06/19/22 Range/Units 20:07 06:22 08:11 WBC (3.8-10.6) k/uL RBC (4.30-5.90) m/uL Hgb (13.0-17.5) gm/dL Hct (39.0-53.0) % MCV (80.0-100.0) fL MCH (25.0-35.0) pg Plt Count (150-450) k/uL Neutrophils # (1.3-7.7) k/uL Lymphocytes # (1.0-4.8) k/uL Macrocytosis Chloride 90 L (98-107) mmol/L Carbon Dioxide 38 H (22-30) mmol/L BUN 70 H (9-20) mg/dL Creatinine 1.86 H (0.66-1.25) mg/dL Glucose 191 H (74-99) mg/dL POC Glucose (mg/dL) 281 H 226 H (70-110) mg/dL Urine Glucose (UA) (Negative) 06/19/22 Range/Units 08:11 WBC 11.0 H (3.8-10.6) k/uL RBC 3.36 L (4.30-5.90) m/uL Hgb 11.9 L (13.0-17.5) gm/dL Hct 37.8 L (39.0-53.0) % MCV 112.7 H (80.0-100.0) fL MCH 35.3 H (25.0-35.0) pg Plt Count 63 L (150-450) k/uL Neutrophils # 10.0 H (1.3-7.7) k/uL Lymphocytes # 0.5 L (1.0-4.8) k/uL Macrocytosis Marked A Chloride (98-107) mmol/L Carbon Dioxide (22-30) mmol/L BUN (9-20) mg/dL Creatinine (0.66-1.25) mg/dL Glucose (74-99) mg/dL POC Glucose (mg/dL) (70-110) mg/dL Urine Glucose (UA) (Negative) Microbiology - Last 24 Hours (Table) 06/16/22 16:45 Blood Culture Gram Stain - Preliminary Blood Blood Culture - Preliminary Beta Hemolytic Strep Group G 06/16/22 16:30 Blood Culture Gram Stain - Preliminary Blood Blood Culture - Preliminary Beta Hemolytic Strep Group G
--- NOTE | 2022-06-19 13:37 | P.PN ---
Subjective Progress Note Date: 06/19/22 There is a very pleasant 67-year-old male patient who follows with Dr. Albrecht as her history primary care provider. He has a history of chronic obstructive pulmonary disease an FEV1 value 20% of predicted in 2019, oxygen dependent on 6 L in the outpatient setting, previous pleural effusion status post thoracentesis in 2019, hypertension, obesity, chronic cellulitis lower extremities, osteoarthritis. He was last seen in our office in 2019. He's been maintained on Advair, Singulair, albuterol. he presented to the emergency room yesterday with 2-3 day history of increasing shortness of breath, cough congestion chest tightness and wheezing. S x-ray revealed minimal pulmonary fibrotic changes. No acute pulmonary process. Evidence of COPD. One blood culture revealing streptococcus species. white count 18.6. Hemoglobin 10.5. Glipizide 0.56. Sodium 137. Potassium 5.1. Bicarb 38. BUN 59. Creatinine 1.94. Glucose 212. Troponins 0.044, 0.081, 0.098. proBNP 560. He's been initiated and DuoNeb inhalations, Symbicort, IV Solu-Medrol, Singulair. Antibiotics in the form of Zosyn. He is seen today in consultation on the regular medical floor. He is currently sitting up at the bedside. Awake and alert in no acute distress. Breathing a bit easier today compared to yesterday. He's been afebrile. Hemodynamically stable. Currently on 6 L/m per nasal cannula with O2 saturations in the mid 90s. The patient is seen today 06/18/2022 in follow-up on the regular medical floor. He is currently sitting up at the bedside. Awake and alert in no acute distress. Breathing easier today compared to yesterday. Blood culture showing beta-hemolytic strep group G. white count 12.8. Hemoglobin 11.0. Platelets 55,000 sodium 137. Potassium 4.8. BUN 64. Creatinine 1.71. Glucose 180. He is continued on DuoNeb inhalations, Symbicort, IV Solu-Medrol, Zosyn. The patient is seen today 06/19/2022 in follow-up on the regular medical floor. Currently sitting up at the bedside. Awake and alert in no acute distress. Breathing easier today compared to yesterday. Blood culture positive for beta- hemolytic strep group G. White count 11.0. Hemoglobin 11.9. Platelets 63,000. Sodium 139. Potassium 4.2. Bicarb 30. BUN 70. Creatinine 1.86. Glucose 191. He is continued on DuoNeb inhalations, Symbicort, IV Solu-Medrol. Antibiotics in the form of cefazolin. Lovenox for DVT prophylaxis. Continued on Lasix 40 mg IV every 12 hours. No accurate I&O. Objective - Vital Signs Vital signs: Vital Signs Temp 97.5 F L 06/19/22 04:00 Pulse 96 06/19/22 11:04 Resp 18 06/19/22 04:00 BP 119/62 06/19/22 04:00 Pulse Ox 97 06/19/22 04:00 FiO2 50 06/16/22 19:37 Intake & Output 06/18/22 06/19/22 06/19/22 18:59 06:59 18:59 Intake Total 1318 180 Output Total 775 200 Balance 543 -200 180 Weight 126.6 kg Intake: Oral 1318 180 Output: Urine 775 200 Other: Voiding Method Urinal Urinal # Voids 1 - Exam GENERAL EXAM: Alert, pleasant 67-year-old male patient, on 6 L nasal cannula, comfortable in no apparent distress. HEAD: Normocephalic. EYES: Normal reaction of pupils, equal size. NOSE: Clear with pink turbinates. THROAT: No erythema or exudates. NECK: No masses, no JVD. CHEST: No chest wall deformity. LUNGS: Equal air entry with faint end expiratory wheeze, diminished. CVS: S1 and S2 normal with no audible murmur, regular rhythm. ABDOMEN: No hepatosplenomegaly, normal bowel sounds, no guarding or rigidity. SPINE: No scoliosis or deformity SKIN: No rashes CENTRAL NERVOUS SYSTEM: No focal deficits, tone is normal in all 4 extremities. EXTREMITIES: There is no peripheral edema. No clubbing, no cyanosis. Peripheral pulses are intact. - Labs CBC & Chem 7: 06/19/22 08:11 06/19/22 08:11 Labs: Abnormal Lab Results - Last 24 Hours (Table) 06/18/22 06/18/22 06/18/22 Range/Units 07:03 17:02 20:07 WBC (3.8-10.6) k/uL RBC (4.30-5.90) m/uL Hgb (13.0-17.5) gm/dL Hct (39.0-53.0) % MCV (80.0-100.0) fL MCH (25.0-35.0) pg Plt Count (150-450) k/uL Neutrophils # (1.3-7.7) k/uL Lymphocytes # (1.0-4.8) k/uL Macrocytosis Chloride (98-107) mmol/L Carbon Dioxide (22-30) mmol/L BUN (9-20) mg/dL Creatinine (0.66-1.25) mg/dL Glucose (74-99) mg/dL POC Glucose (mg/dL) 174 H 281 H (70-110) mg/dL Urine Glucose (UA) 2+ H (Negative) 06/19/22 06/19/22 06/19/22 Range/Units 06:22 08:11 08:11 WBC 11.0 H (3.8-10.6) k/uL RBC 3.36 L (4.30-5.90) m/uL Hgb 11.9 L (13.0-17.5) gm/dL Hct 37.8 L (39.0-53.0) % MCV 112.7 H (80.0-100.0) fL MCH 35.3 H (25.0-35.0) pg Plt Count 63 L (150-450) k/uL Neutrophils # 10.0 H (1.3-7.7) k/uL Lymphocytes # 0.5 L (1.0-4.8) k/uL Macrocytosis Marked A Chloride 90 L (98-107) mmol/L Carbon Dioxide 38 H (22-30) mmol/L BUN 70 H (9-20) mg/dL Creatinine 1.86 H (0.66-1.25) mg/dL Glucose 191 H (74-99) mg/dL POC Glucose (mg/dL) 226 H (70-110) mg/dL Urine Glucose (UA) (Negative) Microbiology - Last 24 Hours (Table) 06/16/22 16:45 Blood Culture Gram Stain - Final Blood Blood Culture - Final Beta Hemolytic Strep Group G 06/16/22 16:30 Blood Culture Gram Stain - Final Blood Blood Culture - Final Beta Hemolytic Strep Group G Assessment and Plan Assessment: Acute on chronic hypoxemic respiratory failure secondary to an acute exacerbation of chronic obstructive pulmonary disease Severe oxygen dependent chronic obstructive pulmonary disease with an FEV1 value 20% of predicted back in 2019 Bacteremia secondary to beta hemolytic strep group G. Procalcitonin 26.4 Obesity Chronic anxiety Hypertension Chronic ALLERGIC rhinitis Degenerative joint disease History of lower extremity cellulitis Plan: The patient was seen and evaluated Labs and medications reviewed Continue the current treatment plan Titrate the FiO2 as tolerated We will continue to follow I have personally seen and examined the patient, performed the documentation and the assessment and plan as written. Number of minutes spent on the visit: 10
[2022-06-19 16:10] LABS: Glucose,Whole Blood 288 mg/dL (70-110)
--- NOTE | 2022-06-19 18:22 | P.PN ---
Subjective Progress Note Date: 06/19/22 This is a 67-year-old male patient presented to the hospital on 06/16/2022 with complaints of increased shortness of breath and cough. According to ER report patient was found unresponsive on the floor in respiratory distress with a pulse ox of 70% by EMS. Patient was admitted and pulmonary cardiology services were consulted. Initial chest x-ray showed minimal pulmonary fibrotic changes with no acute lung disease. Patient does have an extensive medical history of COPD in which she is maintained on 6 L home oxygen. Additional medical history includes hypertension, obesity, cellulitis and ex-smoker. She was started on IV steroids and IV Lasix. Patient was also found to have positive blood culture was started on IV Zosyn. On 06/18/2022 patient is alert and oriented 3 currently sitting up in bed. Patient reports improvement with shortness of breath and cough. Patient is on 6 L which is at home. Patient remains on IV Lasix, IV steroids and IV antibiotics. Blood culture positive infectious disease service is consulted. 2-D echo has been ordered per cardiology services. This time she denies chest pain. Patient denies nausea vomiting or diarrhea. Patient denies any urinary burning or frequency. white Blood cell is improving to 12.8. Creatinine down to 1.7 and bun 64 On 06/19/2022 patient was seen and examined on the medical floor he is alert and oriented 3 in no apparent distress he is still complaining of cough and shortness of breath with any activity otherwise he denies any complaints. He is requesting a large wheelchair upon discharge otherwise he has no complaints or concerns at this time. Objective - Vital Signs Vital signs: Vital Signs Temp 98.0 F 06/19/22 12:00 Pulse 92 06/19/22 16:23 Resp 18 06/19/22 16:00 BP 133/67 06/19/22 16:00 Pulse Ox 95 06/19/22 16:00 FiO2 50 06/16/22 19:37 Intake & Output 06/18/22 06/19/22 06/19/22 18:59 06:59 18:59 Intake Total 1318 478 Output Total 992 231 3186 Balance 543 200 574 Weight 126.6 kg Intake: Oral 1318 478 Output: Urine 536 625 9186 Other: Voiding Method Urinal Urinal Urinal # Voids 1 - Exam Head normocephalic and atraumatic Neck supple no JVD no goiter Lungs diminished bilaterally, with coarse crackles bilaterally Heart regular rate and rhythm S1-S2, no rub or gallop Abdomen is soft nontender nondistended positive bowel sounds no hepatosplenomegaly Extremities no edema Neuro alert and orientated to 3 - Labs CBC & Chem 7: 06/19/22 08:11 06/19/22 08:11 Labs: Abnormal Lab Results - Last 24 Hours (Table) 06/18/22 06/18/22 06/19/22 Range/Units 07:03 20:07 06:22 WBC (3.8-10.6) k/uL RBC (4.30-5.90) m/uL Hgb (13.0-17.5) gm/dL Hct (39.0-53.0) % MCV (80.0-100.0) fL MCH (25.0-35.0) pg Plt Count (150-450) k/uL Neutrophils # (1.3-7.7) k/uL Lymphocytes # (1.0-4.8) k/uL Macrocytosis Chloride (98-107) mmol/L Carbon Dioxide (22-30) mmol/L BUN (9-20) mg/dL Creatinine (0.66-1.25) mg/dL Glucose (74-99) mg/dL POC Glucose (mg/dL) 281 H 226 H (70-110) mg/dL Urine Glucose (UA) 2+ H (Negative) 06/19/22 06/19/22 06/19/22 Range/Units 08:11 08:11 16:07 WBC 11.0 H (3.8-10.6) k/uL RBC 3.36 L (4.30-5.90) m/uL Hgb 11.9 L (13.0-17.5) gm/dL Hct 37.8 L (39.0-53.0) % MCV 112.7 H (80.0-100.0) fL MCH 35.3 H (25.0-35.0) pg Plt Count 63 L (150-450) k/uL Neutrophils # 10.0 H (1.3-7.7) k/uL Lymphocytes # 0.5 L (1.0-4.8) k/uL Macrocytosis Marked A Chloride 90 L (98-107) mmol/L Carbon Dioxide 38 H (22-30) mmol/L BUN 70 H (9-20) mg/dL Creatinine 1.86 H (0.66-1.25) mg/dL Glucose 191 H (74-99) mg/dL POC Glucose (mg/dL) 288 H (70-110) mg/dL Urine Glucose (UA) (Negative) Microbiology - Last 24 Hours (Table) 06/16/22 16:45 Blood Culture Gram Stain - Final Blood Blood Culture - Final Beta Hemolytic Strep Group G 06/16/22 16:30 Blood Culture Gram Stain - Final Blood Blood Culture - Final Beta Hemolytic Strep Group G Assessment and Plan Assessment: 1. Acute on chronic hypoxic respiratory failure secondary to COPD and pulmonary fibrosis. 2. History of COPD maintained on 6 L nasal cannula at home 3. Streptococcal species bacteremia. Patient currently on IV Zosyn infectious disease service is consulted 4. Acute on chronic kidney disease stage III 5. Essential hypertension 6. Elevated troponin level due to demand mismatch type II GA 7. Acute on chronic diastolic heart failure DVT prophylaxis Lovenox. GI prophylaxis Protonix remains on IV steroids, IV antibiotics and IV Lasix 2-D echo has been ordered Pulmonary, cardiology and infectious disease services have been consulted
[2022-06-19 20:27] LABS: Glucose,Whole Blood 221 mg/dL (70-110)
[2022-06-19] MEDS: MONTELUKAST 10 MG TAB PO SCH (20:34)
[2022-06-19] MEDS: guaiFENesin 600 MG TABLET.ER PO SCH (20:35)
[2022-06-19] MEDS ORDERED: FUROSEMIDE 10 MG/ML 4 ML VIAL IV SCH (21:00)
--- NOTE | 2022-06-19 21:59 | P.PN ---
Subjective Progress Note Date: 06/19/22 Principal diagnosis: Bacteremia Patient is a 67 year old male with a past medical history significant for COPD presented to hospital with increasing shortness of breath, patient did have evidence of probably strep bacteremia. On today's evaluation and that is 06/19/2022, the patient denies having any fever or chills his previous study comfortably, patient denies having any chest pain no worsening cough or sputum production no abdominal pain no diarrhea Objective - Vital Signs Vital signs: Vital Signs Temp 97.5 F L 06/19/22 04:00 Pulse 96 06/19/22 11:04 Resp 18 06/19/22 04:00 BP 119/62 06/19/22 04:00 Pulse Ox 97 06/19/22 04:00 FiO2 50 06/16/22 19:37 Intake & Output 06/18/22 06/19/22 06/19/22 18:59 06:59 18:59 Intake Total 1318 180 Output Total 775 200 Balance 543 -200 180 Weight 126.6 kg Intake: Oral 1318 180 Output: Urine 775 200 Other: Voiding Method Urinal Urinal # Voids 1 - Exam GENERAL DESCRIPTION: An elderly male lying in bed in no distress RESPIRATORY SYSTEM: Unlabored breathing , decreased breath sounds at bases HEART: S1 S2 regular rate and rhythm , ABDOMEN: Soft , no tenderness EXTREMITIES: Diffuse swelling but no significant redness - Labs CBC & Chem 7: 06/19/22 08:11 06/19/22 08:11 Labs: Abnormal Lab Results - Last 24 Hours (Table) 06/18/22 06/18/22 06/18/22 Range/Units 07:03 17:02 20:07 WBC (3.8-10.6) k/uL RBC (4.30-5.90) m/uL Hgb (13.0-17.5) gm/dL Hct (39.0-53.0) % MCV (80.0-100.0) fL MCH (25.0-35.0) pg Plt Count (150-450) k/uL Neutrophils # (1.3-7.7) k/uL Lymphocytes # (1.0-4.8) k/uL Macrocytosis Chloride (98-107) mmol/L Carbon Dioxide (22-30) mmol/L BUN (9-20) mg/dL Creatinine (0.66-1.25) mg/dL Glucose (74-99) mg/dL POC Glucose (mg/dL) 174 H 281 H (70-110) mg/dL Urine Glucose (UA) 2+ H (Negative) 06/19/22 06/19/22 06/19/22 Range/Units 06:22 08:11 08:11 WBC 11.0 H (3.8-10.6) k/uL RBC 3.36 L (4.30-5.90) m/uL Hgb 11.9 L (13.0-17.5) gm/dL Hct 37.8 L (39.0-53.0) % MCV 112.7 H (80.0-100.0) fL MCH 35.3 H (25.0-35.0) pg Plt Count 63 L (150-450) k/uL Neutrophils # 10.0 H (1.3-7.7) k/uL Lymphocytes # 0.5 L (1.0-4.8) k/uL Macrocytosis Marked A Chloride 90 L (98-107) mmol/L Carbon Dioxide 38 H (22-30) mmol/L BUN 70 H (9-20) mg/dL Creatinine 1.86 H (0.66-1.25) mg/dL Glucose 191 H (74-99) mg/dL POC Glucose (mg/dL) 226 H (70-110) mg/dL Urine Glucose (UA) (Negative) Microbiology - Last 24 Hours (Table) 06/16/22 16:45 Blood Culture Gram Stain - Final Blood Blood Culture - Final Beta Hemolytic Strep Group G 06/16/22 16:30 Blood Culture Gram Stain - Final Blood Blood Culture - Final Beta Hemolytic Strep Group G Assessment and Plan (1) Bacteremia Current Visit: Yes Status: Acute Code(s): R78.81 - BACTEREMIA SNOMED Code(s): 3806967 Plan: 1patient with group G strep bacteremia which is usually of skin and soft tissue origin however the patient currently do not have any evidence of cellulitis minimal swelling erythema to the left leg, patient did have predominantly respiratory symptoms and did have elevated procalcitonin however initial chest x-ray was reported negative and echocardiogram was negative for any vegetation 2-blood cultures has been repeated document clearance of bacteremia The patient will continue with cefazolin 2 g every 8 hours
[2022-06-19] MEDS: FLUTICASONE 50MCG/SPRAY NASAL 16GM EA NOSTRIL SCH (23:08)
[2022-06-20] MEDS: methylPREDNISolone SOD SUCCI 125 MG/2 ML VIAL IV SCH ×2 (05:41→12:48)
[2022-06-20 06:23] LABS: Glucose,Whole Blood 240 mg/dL (70-110)
[2022-06-20] MEDS: PANTOPRAZOLE 40 MG TABLET PO SCH (06:23)
[2022-06-20] MEDS: INSULIN ASPART (NovoLOG) 100 UNIT/ML VIAL SQ SCH ×2 (06:23→12:49)
--- NOTE | 2022-06-20 07:42 | XR ---
EXAMINATION TYPE: XR chest 2V DATE OF EXAM: 06/20/2022 6:18 AM COMPARISON: Chest radiographs from 06/16/2022 TECHNIQUE: XR chest 2V Frontal and lateral views of the chest. CLINICAL INDICATION:Male, 67 years old with history of Pneumonia; FINDINGS: Lungs/Pleura: There is no evidence of pleural effusion, focal consolidation, or pneumothorax. Minima l increased fibrotic changes in the lung bases. Pulmonary vascularity: Unremarkable. Heart/mediastinum: Cardiomediastinal silhouette is unremarkable. Musculoskeletal: No acute osseous pathology. IMPRESSION: 1. No acute cardiopulmonary disease/process. 2. Minimal fibrotic changes suggested in the lung bases right greater than left.
[2022-06-20] MEDS: IPRATROPIUM-ALBUTEROL 3 ML NEB INHALATION SCH ×3 (07:51→15:21)
[2022-06-20] MEDS: SYMBICORT 80-4.5 MCG INHALER INHALATION SCH (07:51)
[2022-06-20] MEDS: ENOXAPARIN 40 MG/0.4 ML SYRINGE SQ SCH (08:41)
[2022-06-20] MEDS: FLUTICASONE 50MCG/SPRAY NASAL 16GM EA NOSTRIL SCH (08:42)
[2022-06-20] MEDS: METOPROLOL TARTRATE 50 MG TAB PO SCH (08:43)
[2022-06-20] MEDS: guaiFENesin 600 MG TABLET.ER PO SCH (08:43)
[2022-06-20 08:50] LABS: Albumin 3.7 g/dL (3.5-5.0); Potassium 5.1 mmol/L (3.5-5.1); Total Bilirubin 0.7 mg/dL (0.2-1.3); Total Protein 6.8 g/dL (6.3-8.2)
[2022-06-20 09:00] LABS: Basophils % (A) 0 %; Eosinophils % (A) 0 %; HCT 37.9 % (39.0-53.0); Hypochromasia Slight; Lymphocytes # (A) 0.3 k/uL (1.0-4.8); Lymphocytes % (A) 4 %; MCH 35.3 pg (25.0-35.0); MCHC 31.7 g/dL (31.0-37.0); MCV 111.4 fL (80.0-100.0); Macrocytosis Marked; Mean Platelet Volume 11.5; Monocytes # (A) 0.4 k/uL (0-1.0); Monocytes % (A) 6 %; Neutrophils # (A) 5.7 k/uL (1.3-7.7); Neutrophils % (A) 89 %; RDW 13.2 % (11.5-15.5); WBC 6.4 k/uL (3.8-10.6)
[2022-06-20] MEDS ORDERED: FUROSEMIDE 20 MG TAB PO SCH (09:00)
--- NOTE | 2022-06-20 11:35 | P.PN ---
Subjective Progress Note Date: 06/20/22 Principal diagnosis: Shortness of breath. There is a very pleasant 67-year-old male patient who follows with Dr. Albrecht as her history primary care provider. He has a history of chronic obstructive pulmonary disease an FEV1 value 20% of predicted in 2019, oxygen dependent on 6 L in the outpatient setting, previous pleural effusion status post thoracentesis in 2019, hypertension, obesity, chronic cellulitis lower extremities, osteoarthritis. He was last seen in our office in 2019. He's been maintained on Advair, Singulair, albuterol. he presented to the emergency room yesterday with 2-3 day history of increasing shortness of breath, cough congestion chest tightness and wheezing. S x-ray revealed minimal pulmonary fibrotic changes. No acute pulmonary process. Evidence of COPD. One blood culture revealing streptococcus species. white count 18.6. Hemoglobin 10.5. Glipizide 0.56. Sodium 137. Potassium 5.1. Bicarb 38. BUN 59. Creatinine 1.94. Glucose 212. Troponins 0.044, 0.081, 0.098. proBNP 560. He's been initiated and DuoNeb inhalations, Symbicort, IV Solu-Medrol, Singulair. Antibiotics in the form of Zosyn. He is seen today in consultation on the regular medical floor. He is currently sitting up at the bedside. Awake and alert in no acute distress. Breathing a bit easier today compared to yesterday. He's been afebrile. Hemodynamically stable. Currently on 6 L/m per nasal cannula with O2 saturations in the mid 90s. The patient is seen today 06/18/2022 in follow-up on the regular medical floor. He is currently sitting up at the bedside. Awake and alert in no acute distress. Breathing easier today compared to yesterday. Blood culture showing beta-hemolytic strep group G. white count 12.8. Hemoglobin 11.0. Platelets 55,000 sodium 137. Potassium 4.8. BUN 64. Creatinine 1.71. Glucose 180. He is continued on DuoNeb inhalations, Symbicort, IV Solu-Medrol, Zosyn. The patient is seen today 06/19/2022 in follow-up on the regular medical floor. Currently sitting up at the bedside. Awake and alert in no acute distress. Breathing easier today compared to yesterday. Blood culture positive for beta- hemolytic strep group G. White count 11.0. Hemoglobin 11.9. Platelets 63,000. Sodium 139. Potassium 4.2. Bicarb 30. BUN 70. Creatinine 1.86. Glucose 191. He is continued on DuoNeb inhalations, Symbicort, IV Solu-Medrol. Antibiotics in the form of cefazolin. Lovenox for DVT prophylaxis. Continued on Lasix 40 mg IV every 12 hours. No accurate I&O. Progress note dated 06/20/2022. The patient continues to be seen in room 373. He remains on 6 L of oxygen. The patient is on saline at 10 mL an hour. The patient has group B strep in the bloodstream, and for that he is receiving Ancef. Clinically is doing well from the pulmonary standpoint. The patient does have a quite severe COPD, with an FEV1 that is 20% of predicted. That was back in 2019. White count 6.4, hemoglobin 12, hematocrit 37.9, and platelet count is currently pending. Sodium 138, potassium 5.1, chlorides 92, CO2 38, BUN 83, and creatinine 2.02. Chest x- ray shows no acute cardiopulmonary disease, with some minimal fibrotic changes, at the bases. Objective - Vital Signs Vital signs: Vital Signs Temp 98.0 F 06/20/22 00:00 Pulse 91 06/20/22 08:09 Resp 16 06/20/22 08:09 BP 153/78 06/20/22 04:00 Pulse Ox 97 06/20/22 07:51 FiO2 50 06/16/22 19:37 Intake & Output 06/19/22 06/20/22 06/20/22 18:59 06:59 18:59 Intake Total 478 240 Output Total 1050 600 650 Balance -572 -600 -410 Weight 127.5 kg Intake: Oral 478 240 Output: Urine 1050 600 650 Other: Voiding Method Urinal Urinal Urinal # Voids 1 # Bowel Movements 1 - Exam No acute distress, oriented 3. No acute respiratory distress, audible wheezing, or use of accessory muscles. The patient remains on 6 L of oxygen. HEENT examination is grossly unremarkable. Neck supple. Full range of motion. No adenopathy thyromegaly or neck vein distention. Cardiovascular examination reveals regular rhythm rate. S1-S2 normal. No S3 or S4. No discernible murmur noted. Heart sounds are distant. Heart rate 91 bpm. Lungs reveal severely diminished bilateral breath sounds. No wheezes. Scattered rhonchi. No crackles. Breath sounds are equal bilaterally. Saturations are 97% on 6 L. Abdomen soft bowel sounds are heard. No masses or tenderness. Extremities are intact. No cyanosis clubbing or edema. Skin is without rash or lesion. Neurologic examination is brief but nonfocal. - Labs CBC & Chem 7: 06/20/22 07:54 06/20/22 07:54 Labs: Abnormal Lab Results - Last 24 Hours (Table) 06/19/22 06/19/22 06/20/22 Range/Units 16:07 20:25 06:22 RBC (4.30-5.90) m/uL Hgb (13.0-17.5) gm/dL Hct (39.0-53.0) % MCV (80.0-100.0) fL MCH (25.0-35.0) pg Macrocytosis Chloride (98-107) mmol/L Carbon Dioxide (22-30) mmol/L BUN (9-20) mg/dL Creatinine (0.66-1.25) mg/dL Glucose (74-99) mg/dL POC Glucose (mg/dL) 288 H 221 H 240 H (70-110) mg/dL 06/20/22 06/20/22 Range/Units 07:54 07:54 RBC 3.40 L (4.30-5.90) m/uL Hgb 12.0 L (13.0-17.5) gm/dL Hct 37.9 L (39.0-53.0) % MCV 111.4 H (80.0-100.0) fL MCH 35.3 H (25.0-35.0) pg Macrocytosis Marked A Chloride 92 L (98-107) mmol/L Carbon Dioxide 38 H (22-30) mmol/L BUN 83 H (9-20) mg/dL Creatinine 2.02 H (0.66-1.25) mg/dL Glucose 228 H (74-99) mg/dL POC Glucose (mg/dL) (70-110) mg/dL Microbiology - Last 24 Hours (Table) 06/19/22 08:11 Blood Culture - Preliminary Blood No Growth after 24 hours 06/16/22 16:45 Blood Culture Gram Stain - Final Blood Blood Culture - Final Beta Hemolytic Strep Group G 06/16/22 16:30 Blood Culture Gram Stain - Final Blood Blood Culture - Final Beta Hemolytic Strep Group G Assessment and Plan Assessment: Acute on chronic hypoxemic respiratory failure secondary to an acute exacerbation of chronic obstructive pulmonary disease Severe oxygen dependent chronic obstructive pulmonary disease with an FEV1 value 20% of predicted back in 2019 Bacteremia secondary to beta hemolytic strep group G. Obesity Chronic anxiety Hypertension Chronic ALLERGIC rhinitis Degenerative joint disease History of lower extremity cellulitis Plan: Plan dated 06/20/2022. The patient continues on appropriate medications. Labs, x-rays, and medications are reviewed. Clinically, the patient is stable. After discharge, the patient should follow-up with my partner, who he has seen in the distant past. He didn't updated PFTs. I did have a conversation with his daughter Janette. Prognosis is guarded. We will continue to follow while the patient is in the hospital. Time with Patient: Less than 30
[2022-06-20 11:45] LABS: Glucose,Whole Blood 252 mg/dL (70-110)
--- NOTE | 2022-06-20 11:45 | P.PN ---
Subjective Patient is a pleasant 67-year-old male with a history of end-stage COPD on 6 L, previous tobacco abuse since quit, pleural effusions status post thoracentesis 2019, obesity, chronic lower extremity edema, diastolic heart failure. He followed with Dr. Alatorre in the office. Patient presents secondary to syncopal episode. Patient states he has been chronically short of breath for a number of years. He had been feeling okay however apparently his grandson found him passed out and therefore brought him to emergency department. He does not recall how this happened. Per ER note patient was in respiratory distress per family member. Paramedics found patient with pulse ox in the 50s on nasal cannula and was transported to emergency department. He was given steroids and inhalers with improvement. Initial EKG showing sinus rhythm with right bundle branch block with nonspecific diffuse ST depressions and severe right axis deviation. Previous echocardiogram in 2019 had shown EF 50-55% with mild to moderately dilated right ventricle and an RVSP of 49. Troponin 0.04 0.08 and 0.098, serum creatinine also elevated at 2.2. 06/20/2022 Patient seen and examined at bedside, in no distress. Denies an chest pain. Breathing has improved. Echocardiogram revealed an EF of 5560 percent, moderate concentric LVH . BUN 83, serum creatinine 2.02 Blood pressure 153/78 heart rate 77, afebrile 97% on 6L nasal cannula . Telemetry reviewed patient is in sinus rhythm, HR have improved in the 70s PHYSICAL EXAMINATION Vital signs reviewed. CONSTITUTIONAL: No apparent distress, chronically ill appearing HEENT: Head is normocephalic. Neck supple. No JVD. No carotid bruit. CHEST EXAMINATION: Diffuse wheeze, improved HEART EXAMINATION: Regular rate and rhythm. S1, S2 heard. No murmurs, gallops or rub. ABDOMEN: Soft, nontender. Positive bowel sounds. EXTREMITIES: 2+ peripheral pulses, 1-2+ lower extremity edema and no calf tenderness. NEUROLOGIC EXAMINATION: Patient is awake, alert and oriented x3. ASSESSMENT Acute on chronic respiratory failure mainly related to COPD exacerbation plus component of heart failure exacerbation Acute on chronic heart failure with preserved ejection fraction COPD on home 6 L nasal cannula Previous tobacco abuse Non-STEMI likely type II mechanism related to severe hypoxia oxygen saturations in the 50s on nasal cannula when paramedics arrived Loss of consciousness, unclear if true syncope appears related to severe hypoxia Pulmonary hypertension likely related to COPD CKD PLAN Transition to PO Lasix Pulmonary following Continue treatment of underlying COPD. No further changes from a cardiology perspective, discharge per primary and clearance from other consultants Follow up outpatient with Dr. Alatorre Nurse practitioner note has been reviewed by physician. Signing provider agrees with the documented findings, assessment, and plan of care. Objective - Vital Signs Vital signs: Vital Signs Temp 98.0 F 06/20/22 00:00 Pulse 80 06/20/22 11:41 Resp 16 06/20/22 08:09 BP 153/78 06/20/22 04:00 Pulse Ox 97 06/20/22 07:51 FiO2 50 06/16/22 19:37 Intake & Output 06/19/22 06/20/22 06/20/22 18:59 06:59 18:59 Intake Total 478 240 Output Total 1050 600 650 Balance -572 -600 -410 Weight 127.5 kg Intake: Oral 478 240 Output: Urine 1050 600 650 Other: Voiding Method Urinal Urinal Urinal # Voids 1 # Bowel Movements 1 - Labs CBC & Chem 7: 06/20/22 07:54 06/20/22 07:54 Labs: Abnormal Lab Results - Last 24 Hours (Table) 06/19/22 06/19/22 06/20/22 Range/Units 16:07 20:25 06:22 RBC (4.30-5.90) m/uL Hgb (13.0-17.5) gm/dL Hct (39.0-53.0) % MCV (80.0-100.0) fL MCH (25.0-35.0) pg Macrocytosis Chloride (98-107) mmol/L Carbon Dioxide (22-30) mmol/L BUN (9-20) mg/dL Creatinine (0.66-1.25) mg/dL Glucose (74-99) mg/dL POC Glucose (mg/dL) 288 H 221 H 240 H (70-110) mg/dL 06/20/22 06/20/22 Range/Units 07:54 07:54 RBC 3.40 L (4.30-5.90) m/uL Hgb 12.0 L (13.0-17.5) gm/dL Hct 37.9 L (39.0-53.0) % MCV 111.4 H (80.0-100.0) fL MCH 35.3 H (25.0-35.0) pg Macrocytosis Marked A Chloride 92 L (98-107) mmol/L Carbon Dioxide 38 H (22-30) mmol/L BUN 83 H (9-20) mg/dL Creatinine 2.02 H (0.66-1.25) mg/dL Glucose 228 H (74-99) mg/dL POC Glucose (mg/dL) (70-110) mg/dL Microbiology - Last 24 Hours (Table) 06/19/22 08:11 Blood Culture - Preliminary Blood No Growth after 24 hours 06/16/22 16:45 Blood Culture Gram Stain - Final Blood Blood Culture - Final Beta Hemolytic Strep Group G 06/16/22 16:30 Blood Culture Gram Stain - Final Blood Blood Culture - Final Beta Hemolytic Strep Group G
[2022-06-20 12:22] VITALS: BP 168/70; RESP 18; TEMP 97.9
--- NOTE | 2022-06-20 12:55 | P.DS ---
Providers Date of admission: 06/16/22 17:03 Expected date of discharge: 06/20/22 Attending physician: Sofiya Albrecht Consults: 06/16/22 17:02 Consult Physician Routine Consulting Provider: Chelsea Earl Consult Reason/Comments: COPD, resp failure Do you want consulting provider notified?: Already Contacted 06/16/22 21:55 Consult Physician Routine Consulting Provider: Andrea Coates Consult Reason/Comments: blood pressure Do you want consulting provider notified?: Yes, Notify in am 06/18/22 10:25 Consult Physician Routine Consulting Provider: Kingston Salcido Consult Reason/Comments: Positive blood culture Do you want consulting provider notified?: Yes Primary care physician: Sofiya Albrecht [facility] Course: Discharge diagnosis 1. Acute on chronic hypoxic respiratory failure secondary to COPD and pulmonary fibrosis. 2. History of COPD maintained on 6 L nasal cannula at home 3. Streptococcal species bacteremia. Patient currently on IV Zosyn infectious disease service is consulted 4. Acute on chronic kidney disease stage III 5. Essential hypertension 6. Elevated troponin level due to demand mismatch type II [place] 7. Acute on chronic diastolic heart failure Hospital course This is a 67-year-old male patient presented to the hospital on 06/16/2022 with complaints of increased shortness of breath and cough. According to ER report patient was found unresponsive on the floor in respiratory distress with a pulse ox of 70% by EMS. Patient was admitted and pulmonary cardiology services were consulted. Initial chest x-ray showed minimal pulmonary fibrotic changes with no acute lung disease. Patient does have an extensive medical history of COPD in which she is maintained on 6 L home oxygen. Additional medical history includes hypertension, obesity, cellulitis and ex-smoker. She was started on IV steroids and IV Lasix. Patient was also found to have positive blood culture was started on IV Zosyn. On 06/18/2022 patient is alert and oriented 3 currently sitting up in bed. Patient reports improvement with shortness of breath and cough. Patient is on 6 L which is at home. Patient remains on IV Lasix, IV steroids and IV antibiotics. Blood culture positive infectious disease service is consulted. 2-D echo has been ordered per cardiology services. This time she denies chest pain. Patient denies nausea vomiting or diarrhea. Patient denies any urinary burning or frequency. white Blood cell is improving to 12.8. Creatinine down to 1.7 and bun 64 On 06/19/2022 patient was seen and examined on the medical floor he is alert and oriented 3 in no apparent distress he is still complaining of cough and shortness of breath with any activity otherwise he denies any complaints. He is requesting a large wheelchair upon discharge otherwise he has no complaints or concerns at this time. On 06/20/2022 patient's alert and oriented 3. Patient stresses that he is eager to go home. Patient is back to baseline per patient on 6 L in which she wears at home. Discussed case with infectious disease services. Patient will be discharged on Keflex for 10 days. Patient also transitioned to by mouth Lasix increased dose of 60 mg twice a day. Patient will need follow-up with PCP and monitoring of creatinine level. Pulmonary and cardiology services have cleared patient for discharge. We'll be discharged On prednisone taper Patient Condition at Discharge: Stable Plan - Discharge Summary Discharge Rx Participant: No New Discharge Prescriptions: New predniSONE 10 mg PO DIRECTED 12 Days #30 tab Furosemide [Lasix] 60 mg PO BID 30 Days #120 tab Cephalexin [Keflex] 500 mg PO Q6HR 10 Days #40 cap Continue Albuterol Nebulized [Ventolin Nebulized] 2.5 mg INHALATION RT-QID PRN PRN Reason: Shortness Of Breath Montelukast [Singulair] 10 mg PO HS@2100 clonazePAM [KlonoPIN] 0.5 mg PO DAILY PRN PRN Reason: Anxiety Albuterol Sulfate [Ventolin HFA] 2 puff INHALATION RT-Q4H PRN PRN Reason: Shortness Of Breath Fluticasone Propion/Salmeterol [Advair 250-50 Diskus] 1 puff INHALATION RT- BID Cholecalciferol [Vitamin D3 (25 Mcg = 1000 Iu)] 25 mcg PO DAILY Metoprolol Tartrate [Lopressor] 50 mg PO BID@0900,2100 Discontinued lisinopriL [Prinivil] 20 mg PO HS@2100 Furosemide [Lasix] 40 mg PO BID@0900,1600 30 Days #60 tab Spironolactone [Aldactone] 25 mg PO DAILY Discharge Medication List Albuterol Nebulized [Ventolin Nebulized] 2.5 mg INHALATION RT-QID PRN 06/22/14 [History] Montelukast [Singulair] 10 mg PO HS@209906/09/19 [History] clonazePAM [KlonoPIN] 0.5 mg PO DAILY PRN 06/09/19 [History] Albuterol Sulfate [Ventolin HFA] 2 puff INHALATION RT-Q4H PRN 08/27/19 [History] Fluticasone Propion/Salmeterol [Advair 250-50 Diskus] 1 puff INHALATION RT-BID 08/27/19 [History] Cholecalciferol [Vitamin D3 (25 Mcg = 1000 Iu)] 25 mcg PO DAILY 06/16/22 [History] Metoprolol Tartrate [Lopressor] 50 mg PO BID@0900,209906/16/22 [History] Cephalexin [Keflex] 500 mg PO Q6HR 10 Days #40 cap 06/20/22 [Rx] Furosemide [Lasix] 60 mg PO BID 30 Days #120 tab 06/20/22 [Rx] predniSONE 10 mg PO DIRECTED 12 Days #30 tab 06/20/22 [Rx] Follow up Appointment(s)/Referral(s): Danilo Whatley [NON-STAFF] - Sofiya Albrecht MD [Primary Care Provider] - 1-2 days Chelsea Earl MD [STAFF PHYSICIAN] - 1 Week Activity/Diet/Wound Care/Special Instructions: Patient will require a transport chair r/t COPD and weakness and needs this to complete ADLs which cannot be complete with a walker, cane or a regular wheelch air. Patient has a family member who can assist to propel patient. Discharge/Stand Alone Forms: Who Do I Call?, Community Resources, Personal Oceanographer Assistant
[2022-06-20 13:25] LABS: Platelet Count 53 k/uL (150-450)
[2022-06-20 15:34] VITALS: PULSE 80
== END 2022-06-20 17:24 | disposition home health service (06) | DRG 196 ==
LOC: EC 15:35 → 3SCARD 17:03
PROVIDERS: ADMIT Internal Medicine; ATTEND Internal Medicine
PROC: 5A09357 Assistance with Respiratory Ventilation, Less than 24 Consecutive Hours, Continuous Positive Airway Pressure (ICD-10-PCS; principal; 2022-06-19)
DX: J84.10 Pulmonary fibrosis, unspecified (principal); I21.A1 Myocardial infarction type 2; J96.21 Acute and chronic respiratory failure with hypoxia; I50.33 Acute on chronic diastolic (congestive) heart failure; R78.81 Bacteremia; N17.9 Acute kidney failure, unspecified; I13.0 Hypertensive heart and chronic kidney disease with heart failure and stage 1 through stage 4 chronic kidney disease, or unspecified chronic kidney disease; J44.1 Chronic obstructive pulmonary disease with (acute) exacerbation; L03.116 Cellulitis of left lower limb; L03.115 Cellulitis of right lower limb; I27.20 Pulmonary hypertension, unspecified; N18.30 Chronic kidney disease, stage 3 unspecified; E66.9 Obesity, unspecified; D63.1 Anemia in chronic kidney disease; M19.90 Unspecified osteoarthritis, unspecified site; E87.5 Hyperkalemia; R00.0 Tachycardia, unspecified; B95.4 Other streptococcus as the cause of diseases classified elsewhere; F41.9 Anxiety disorder, unspecified; J30.9 Allergic rhinitis, unspecified; I45.10 Unspecified right bundle-branch block; Z99.81 Dependence on supplemental oxygen; Z87.891 Personal history of nicotine dependence; Z79.51 Long term (current) use of inhaled steroids; Z79.899 Other long term (current) drug therapy; Z88.1 Allergy status to other antibiotic agents; Z80.3 Family history of malignant neoplasm of breast; Z82.49 Family history of ischemic heart disease and other diseases of the circulatory system; Z82.0 Family history of epilepsy and other diseases of the nervous system
CPT/HCPCS: 36415; 71045; 71046; 80048; 80053; 81003; 82550; 82803; 83605; 83735; 83880; 84145; 84439; 84443; 84484; 85025; 85610; 85730; 87040; 87077; 87186; 93005; 93306; 94640; 94644; 94660; 94760; 96361; 96365; 96375; 96376; 99291

== ENCOUNTER 2022-08-29 09:35 | Inpatient (IN) | payer MEDICARE ==
[2022-08-29] MEDS ORDERED: methylPREDNISolone SOD SUCCI 125 MG/2 ML VIAL IV STA (09:42)
[2022-08-29] MEDS ORDERED: IPRATROPIUM-ALBUTEROL 3 ML NEB INHALATION STA (09:42)
--- NOTE | 2022-08-29 09:44 | ED ---
General Adult HPI - General Stated complaint: SOB Time Seen by Provider: 08/29/22 09:37 Source: patient, EMS, RN notes reviewed Mode of arrival: EMS Limitations: no limitations - History of Present Illness Initial comments: Patient is a pleasant 67-year-old male presenting to the emergency department with concerns with difficulty breathing. Onset of symptoms was a few days ago. Patient does have cough that is been nonproductive. No fevers however EMS reports temperature of 99.5. Patient states symptoms are similar to previous COPD. Patient does have history of previous COPD as well as CHF. Patient denies leg edema. No calf pain. - Related Data Home Medications Medication Instructions Recorded Confirmed Albuterol Nebulized [Ventolin 2.5 mg INHALATION RT-QID PRN 06/22/14 06/16/22 Nebulized] Montelukast [Singulair] 10 mg PO HS@209906/09/19 06/16/22 clonazePAM [KlonoPIN] 0.5 mg PO DAILY PRN 06/09/19 06/16/22 Albuterol Sulfate [Ventolin HFA] 2 puff INHALATION RT-Q4H PRN 08/27/19 06/16/22 Fluticasone Propion/Salmeterol 1 puff INHALATION RT-BID 08/27/19 06/16/22 [Advair 250-50 Diskus] Cholecalciferol [Vitamin D3 (25 25 mcg PO DAILY 06/16/22 06/16/22 Mcg = 1000 Iu)] Metoprolol Tartrate [Lopressor] 50 mg PO BID@0900,2100 06/16/22 06/16/22 Previous Rx's Medication Instructions Recorded Cephalexin [Keflex] 500 mg PO Q6HR 10 Days #40 cap 06/20/22 Furosemide [Lasix] 60 mg PO BID 30 Days #120 tab 06/20/22 predniSONE 10 mg PO DIRECTED 12 Days #30 06/20/22 tab Allergies Allergy/AdvReac Type Severity Reaction Status Date / Time clarithromycin [From Biaxin] AdvReac TREMORS Verified 06/16/22 18:06 Review of Systems ROS Statement: Those systems with pertinent positive or pertinent negative responses have been documented in the HPI. ROS Other: All systems not noted in ROS Statement are negative. Constitutional: Reports: as per HPI. Denies: fever Eyes: Denies: eye pain ENT: Denies: ear pain Respiratory: Reports: as per HPI, cough, dyspnea Cardiovascular: Denies: chest pain Endocrine: Denies: fatigue Gastrointestinal: Denies: abdominal pain Genitourinary: Denies: dysuria Musculoskeletal: Denies: back pain Skin: Denies: rash Neurological: Denies: weakness Past Medical History Past Medical History: COPD, Hypertension Additional Past Medical History / Comment(s): Obesity, previous history of cellulitis of the lower extremities, hypertension, COPD, chronic hypoxic respiratory failure, osteoarthritis History of Any Multi-Drug Resistant Organisms: None Reported Past Surgical History: No Surgical Hx Reported Additional Past Surgical History / Comment(s): no Reported history of surgeries Past Anesthesia/Blood Transfusion Reactions: No Reported Reaction Past Psychological History: No Psychological Hx Reported Smoking Status: Former smoker Past Alcohol Use History: None Reported Past Drug Use History: None Reported - Past Family History Father History Unknown: Yes Additional Family Medical History / Comment(s): Patient states father at 76 of a blood clot, mother had breast cancer Mother History Unknown: Yes Family Medical History: Dementia General Exam Limitations: no limitations General appearance: alert, in no apparent distress Head exam: Present: normocephalic Eye exam: Present: normal appearance Neck exam: Present: normal inspection Respiratory exam: Present: wheezes, rhonchi Cardiovascular Exam: Present: tachycardia GI/Abdominal exam: Present: soft. Absent: tenderness Extremities exam: Present: pedal edema. Absent: calf tenderness Neurological exam: Present: alert Psychiatric exam: Present: normal affect, normal mood Skin exam: Present: normal color Course Vital Signs 08/29/22 08/29/22 08/29/22 09:36 09:43 10:23 Temperature 99.3 F Pulse Rate 138 H 125 H Respiratory 18 24 Rate Blood Pressure 102/54 O2 Sat by Pulse 99 Oximetry Fraction of Inspired Oxygen (FIO2) 08/29/22 08/29/22 08/29/22 10:34 10:35 10:36 Temperature Pulse Rate 129 H 128 H Respiratory 24 Rate Blood Pressure 100/50 O2 Sat by Pulse 99 Oximetry Fraction of 75 Inspired Oxygen (FIO2) 08/29/22 08/29/22 11:00 11:19 Temperature 99.5 F Pulse Rate 110 H 125 H Respiratory 20 24 Rate Blood Pressure 126/74 90/68 O2 Sat by Pulse 99 99 Oximetry Fraction of Inspired Oxygen (FIO2) - Reevaluation(s) Reevaluation #1: 08/29/22 09:58 Repeat EKG shows tachycardia 133. QRS 129. QT 296. QTc 374. Carey indeterminate. Right bundle branch block. Artifact present. Nonspecific ST-T. 08/29/22 11: Case was discussed with Dr. Zepeda who will consult. 08/29/22 11: Patient has been placed on BiPAP with some improvement. Dr. Albrecht has been pag ed for admission of this patient and patient again reevaluated. Patient and family updated on results and plan. 08/29/22: Case was also discussed with Dr. Albrecht, who will admit his patient. EKG Findings - EKG Comments: EKG Findings:: Tachycardia with rate of 136. NJ 133. QRS 126. QT 288. QTC 368. Carey indeterminate. Right bundle branch block. Nonspecific ST-T. Previous EKG reviewed dated 06/16/22 Medical Decision Making - Lab Data Result diagrams: 08/29/22 09:59 08/29/22 09:59 Lab Results 08/29/22 08/29/22 08/29/22 Range/Units 09:59 09:59 09:59 WBC 16.5 H (3.8-10.6) k/uL RBC 3.57 L (4.30-5.90) m/uL Hgb 12.4 L (13.0-17.5) gm/dL Hct 38.7 L (39.0-53.0) % MCV 108.5 H (80.0-100.0) fL MCH 34.7 (25.0-35.0) pg MCHC 32.0 (31.0-37.0) g/dL RDW 12.8 (11.5-15.5) % MPV 11.6 Hypochromasia Slight Macrocytosis Moderate PT 10.7 (9.0-12.0) sec INR 1.0 (<1.2) APTT 25.0 (22.0-30.0) sec VBG pH (7.31-7.41) VBG pCO2 (37-51) mmHg VBG HCO3 (24-28) mmol/L Sodium 138 (137-145) mmol/L Potassium 5.6 H (3.5-5.1) mmol/L Chloride 95 L (98-107) mmol/L Carbon Dioxide 40 H (22-30) mmol/L Anion Gap 3 mmol/L BUN 36 H (9-20) mg/dL Creatinine 1.44 H (0.66-1.25) mg/dL Est GFR (CKD-EPI)AfAm 57 (>60 ml/min/1.73 sqM) Est GFR (CKD-EPI)NonAf 49 (>60 ml/min/1.73 sqM) Glucose 158 H (74-99) mg/dL Plasma Lactic Acid Vikram (0.7-2.0) mmol/L Calcium 9.1 (8.4-10.2) mg/dL Total Bilirubin 1.3 (0.2-1.3) mg/dL AST 46 (17-59) U/L ALT 34 (4-49) U/L Alkaline Phosphatase 142 H (38-126) U/L Troponin I (0.000-0.034) ng/mL Total Protein 7.8 (6.3-8.2) g/dL Albumin 4.2 (3.5-5.0) g/dL Coronavirus (PCR) (Not Detectd) Influenza Type A RNA (Not Detectd) Influenza Type B (PCR) (Not Detectd) 08/29/22 08/29/22 08/29/22 Range/Units 09:59 09:59 09:59 WBC (3.8-10.6) k/uL RBC (4.30-5.90) m/uL Hgb (13.0-17.5) gm/dL Hct (39.0-53.0) % MCV (80.0-100.0) fL MCH (25.0-35.0) pg MCHC (31.0-37.0) g/dL RDW (11.5-15.5) % MPV Hypochromasia Macrocytosis PT (9.0-12.0) sec INR (<1.2) APTT (22.0-30.0) sec VBG pH (7.31-7.41) VBG pCO2 (37-51) mmHg VBG HCO3 (24-28) mmol/L Sodium (137-145) mmol/L Potassium (3.5-5.1) mmol/L Chloride (98-107) mmol/L Carbon Dioxide (22-30) mmol/L Anion Gap mmol/L BUN (9-20) mg/dL Creatinine (0.66-1.25) mg/dL Est GFR (CKD-EPI)AfAm (>60 ml/min/1.73 sqM) Est GFR (CKD-EPI)NonAf (>60 ml/min/1.73 sqM) Glucose (74-99) mg/dL Plasma Lactic Acid Vikram 2.9 H* (0.7-2.0) mmol/L Calcium (8.4-10.2) mg/dL Total Bilirubin (0.2-1.3) mg/dL AST (17-59) U/L ALT (4-49) U/L Alkaline Phosphatase (38-126) U/L Troponin I (0.000-0.034) ng/mL Total Protein (6.3-8.2) g/dL Albumin (3.5-5.0) g/dL Coronavirus (PCR) Not Detected (Not Detectd) Influenza Type A RNA Not Detected (Not Detectd) Influenza Type B (PCR) Not Detected (Not Detectd) 08/29/22 08/29/22 Range/Units 09:59 10:05 WBC (3.8-10.6) k/uL RBC (4.30-5.90) m/uL Hgb (13.0-17.5) gm/dL Hct (39.0-53.0) % MCV (80.0-100.0) fL MCH (25.0-35.0) pg MCHC (31.0-37.0) g/dL RDW (11.5-15.5) % MPV Hypochromasia Macrocytosis PT (9.0-12.0) sec INR (<1.2) APTT (22.0-30.0) sec VBG pH 7.23 L (7.31-7.41) VBG pCO2 92 H* (37-51) mmHg VBG HCO3 37 H (24-28) mmol/L Sodium (137-145) mmol/L Potassium (3.5-5.1) mmol/L Chloride (98-107) mmol/L Carbon Dioxide (22-30) mmol/L Anion Gap mmol/L BUN (9-20) mg/dL Creatinine (0.66-1.25) mg/dL Est GFR (CKD-EPI)AfAm (>60 ml/min/1.73 sqM) Est GFR (CKD-EPI)NonAf (>60 ml/min/1.73 sqM) Glucose (74-99) mg/dL Plasma Lactic Acid Vikram (0.7-2.0) mmol/L Calcium (8.4-10.2) mg/dL Total Bilirubin (0.2-1.3) mg/dL AST (17-59) U/L ALT (4-49) U/L Alkaline Phosphatase (38-126) U/L Troponin I 1.150 H* (0.000-0.034) ng/mL Total Protein (6.3-8.2) g/dL Albumin (3.5-5.0) g/dL Coronavirus (PCR) (Not Detectd) Influenza Type A RNA (Not Detectd) Influenza Type B (PCR) (Not Detectd) - Radiology Data Radiology results: image reviewed (Chest x-ray also interpreted by myself reveals no acute process) Critical Care Time Critical Care Time: Yes Total Critical Care Time: 33 Disposition Clinical Impression: COPD exacerbation, Acute respiratory failure Disposition: ADMITTED IP TO THIS HOSP Condition: Serious Is patient prescribed a controlled substance at d/c from ED?: No Referrals: Sofiya Albrecht MD [Primary Care Provider] - 1-2 days Time of Disposition: 11:24
[2022-08-29] MEDS ORDERED: ACETAMINOPHEN TAB 500 MG TAB PO STA (09:57)
[2022-08-29 10:16] LABS: VBG PH 7.23 (7.31-7.41)
[2022-08-29 10:26] LABS: Basophils # (A) 0.1 k/uL (0-0.2); Basophils % (A) 0 %; Eosinophils # (A) 0.1 k/uL (0-0.7); Eosinophils % (A) 0 %; HCT 38.7 % (39.0-53.0); HGB 12.4 gm/dL (13.0-17.5); Hypochromasia Slight; Lymphocytes # (A) 0.2 k/uL (1.0-4.8); Lymphocytes % (A) 1 %; MCH 34.7 pg (25.0-35.0); MCV 108.5 fL (80.0-100.0); Macrocytosis Moderate; Mean Platelet Volume 11.6; Monocytes # (A) 0.8 k/uL (0-1.0); Monocytes % (A) 5 %; Neutrophils # (A) 15.1 k/uL (1.3-7.7); Neutrophils % (A) 92 %; RBC 3.57 m/uL (4.30-5.90); RDW 12.8 % (11.5-15.5); WBC 16.5 k/uL (3.8-10.6)
[2022-08-29 10:28] LABS: Albumin 4.2 g/dL (3.5-5.0); Calcium 9.1 mg/dL (8.4-10.2); Potassium 5.6 mmol/L (3.5-5.1); Total Bilirubin 1.3 mg/dL (0.2-1.3); Total Protein 7.8 g/dL (6.3-8.2)
--- NOTE | 2022-08-29 10:28 | XR ---
EXAMINATION TYPE: XR chest 2V DATE OF EXAM: 08/29/2022 CLINICAL HISTORY: pain COMPARISON: 06/20/2022 TECHNIQUE: Frontal, lateral, oblique, swimmers, and open mouth view of the cervical spine are obtaine d. FINDINGS: The cervical spine is visualized in its entirety from C1 thru the top of T1 level. It is s atisfactory in alignment without evidence of acute fracture or dislocation. The pre-vertebral soft t issue appears within normal limits. Disc spaces are well preserved. The C1-C2 articulation is unremar kable on the open mouth view. The oblique images are within normal limits. IMPRESSION: No acute fracture or dislocation is seen in the cervical spine.ICD 10 NO FRACTURE, INITI AL EVALUATION
[2022-08-29 10:31] LABS: Prothrombin Time 10.7 sec (9.0-12.0)
[2022-08-29] MEDS ORDERED: NALOXONE 0.4 MG/ML 1 ML VIAL IVP PRN (11:21)
[2022-08-29] MEDS ORDERED: IPRATROPIUM-ALBUTEROL 3 ML NEB INHALATION PRN (11:21)
[2022-08-29 11:28] LABS: Platelet Count 73 k/uL (150-450)
[2022-08-29] MEDS: methylPREDNISolone SOD SUCCI 125 MG/2 ML VIAL IV SCH ×3 (11:57→23:44)
[2022-08-29] MEDS ORDERED: clonazePAM 0.5 MG TAB PO PRN (12:29)
[2022-08-29] MEDS ORDERED: DEXTROSE 50% SYRINGE 50 ML IVP PRN ×2 (12:30)
--- NOTE | 2022-08-29 13:16 | P.HPIM ---
History of Present Illness H&P Date: 08/29/22 Chief Complaint: Shortness of breath This is a 67-year-old male patient presents to ER with concerns of difficulty breathing. Patient reports that initial symptoms started a few days ago but increasingly became difficulty breathing this a.m. around 4 AM. Patient denies fevers at home. Patient does have a past medical history of COPD, CHF, cellulitis, obesity, ex-smoker, chronic hypoxic respiratory failure and hypertension. Chest x-ray completed showing no evidence for acute pulmonary disease. COVID-19 negative influenza A and B negative. Patient noted to have elevated white count 16.5. Lactic acid 2.9. Troponin also elevated at 1.150. Creatinine 1.44 and bun 36 this does appear improved from baseline. Patient was placed on BiPAP. Pulmonary and cardiology service is consulted. Patient started on IV Solu-Medrol and DuoNeb breathing treatments. Blood cultures ordered. Repeat troponin ordered urine current vital signs temp 98.6, heart rate 108, blood pressure 126/74 patient satting 99% on BiPAP. Review of Systems Please refer to HPI otherwise unremarkable Past Medical History Past Medical History: COPD, Hypertension Additional Past Medical History / Comment(s): Obesity, previous history of cellulitis of the lower extremities, hypertension, COPD, chronic hypoxic respiratory failure, osteoarthritis History of Any Multi-Drug Resistant Organisms: None Reported Past Surgical History: No Surgical Hx Reported Additional Past Surgical History / Comment(s): no Reported history of surgeries Past Anesthesia/Blood Transfusion Reactions: No Reported Reaction Past Psychological History: No Psychological Hx Reported Smoking Status: Former smoker Past Alcohol Use History: None Reported Past Drug Use History: None Reported - Past Family History Father History Unknown: Yes Additional Family Medical History / Comment(s): Patient states father at 76 of a blood clot, mother had breast cancer Mother History Unknown: Yes Family Medical History: Dementia Medications and Allergies Home Medications Medication Instructions Recorded Confirmed Type Albuterol Nebulized [Ventolin 2.5 mg INHALATION RT-QID PRN 06/22/14 08/29/22 History Nebulized] Montelukast [Singulair] 10 mg PO HS@2100 06/09/19 08/29/22 History clonazePAM [KlonoPIN] 0.5 mg PO DAILY PRN 06/09/19 08/29/22 History Albuterol Sulfate [Ventolin HFA] 2 puff INHALATION RT-Q4H PRN 08/27/19 08/29/22 History Fluticasone Propion/Salmeterol 1 puff INHALATION RT-BID 08/27/19 08/29/22 History [Advair 250-50 Diskus] Cholecalciferol [Vitamin D3 (25 25 mcg PO DAILY 06/16/22 08/29/22 History Mcg = 1000 Iu)] Metoprolol Tartrate [Lopressor] 50 mg PO BID@0900,2100 06/16/22 08/29/22 History Furosemide [Lasix] 60 mg PO TID 08/29/22 08/29/22 History Allergies Allergy/AdvReac Type Severity Reaction Status Date / Time clarithromycin [From Biaxin] AdvReac TREMORS Verified 08/29/22 11:41 Physical Exam Vitals: Vital Signs Temp Pulse Resp BP Pulse Ox FiO2 08/29/22 12:00 98.6 F 108 H 20 142/113 100 08/29/22 11:19 125 H 24 90/68 99 08/29/22 11:00 99.5 F 110 H 20 126/74 99 08/29/22 10:36 128 H 08/29/22 10:35 75 08/29/22 10:34 129 H 24 100/50 99 08/29/22 10:23 125 H 08/29/22 09:43 24 08/29/22 09:36 99.3 F 138 H 18 102/54 99 Intake and Output 08/28/22 08/29/22 08/29/22 22:59 06:59 14:59 Other: Weight 121.563 kg Head normocephalic Neck supple Lungs diminished breath sounds with expiratory wheezing Heart regular rate and rhythm S1-S2, no rub or gallop Abdomen is soft nontender nondistended positive bowel sounds no hepatosplenomegaly Extremities erythema bilaterally noted with open areas of ulceration Neuro alert and orientated to 3 Results CBC & Chem 7: 08/29/22 09:59 08/29/22 09:59 Labs: Abnormal Lab Results - Last 24 Hours (Table) 08/29/22 08/29/22 08/29/22 Range/Units 09:59 09:59 09:59 WBC 16.5 H (3.8-10.6) k/uL RBC 3.57 L (4.30-5.90) m/uL Hgb 12.4 L (13.0-17.5) gm/dL Hct 38.7 L (39.0-53.0) % MCV 108.5 H (80.0-100.0) fL Plt Count 73 L (150-450) k/uL Neutrophils # 15.1 H (1.3-7.7) k/uL Lymphocytes # 0.2 L (1.0-4.8) k/uL VBG pH (7.31-7.41) VBG pCO2 (37-51) mmHg VBG HCO3 (24-28) mmol/L Potassium 5.6 H (3.5-5.1) mmol/L Chloride 95 L (98-107) mmol/L Carbon Dioxide 40 H (22-30) mmol/L BUN 36 H (9-20) mg/dL Creatinine 1.44 H (0.66-1.25) mg/dL Glucose 158 H (74-99) mg/dL Plasma Lactic Acid Vikram 2.9 H* (0.7-2.0) mmol/L Alkaline Phosphatase 142 H (38-126) U/L Troponin I (0.000-0.034) ng/mL 08/29/22 08/29/22 08/29/22 Range/Units 09:59 10:05 12:46 WBC (3.8-10.6) k/uL RBC (4.30-5.90) m/uL Hgb (13.0-17.5) gm/dL Hct (39.0-53.0) % MCV (80.0-100.0) fL Plt Count (150-450) k/uL Neutrophils # (1.3-7.7) k/uL Lymphocytes # (1.0-4.8) k/uL VBG pH 7.23 L (7.31-7.41) VBG pCO2 92 H* (37-51) mmHg VBG HCO3 37 H (24-28) mmol/L Potassium (3.5-5.1) mmol/L Chloride (98-107) mmol/L Carbon Dioxide (22-30) mmol/L BUN (9-20) mg/dL Creatinine (0.66-1.25) mg/dL Glucose (74-99) mg/dL Plasma Lactic Acid Vikram 2.1 H* (0.7-2.0) mmol/L Alkaline Phosphatase (38-126) U/L Troponin I 1.150 H* (0.000-0.034) ng/mL Assessment and Plan Assessment: 1. Difficulty in breathing secondary to COPD exacerbation 2. Acute on chronic hypoxic respiratory failure secondary to COPD and pulmonary fibrosis. Patient is maintained on 6 L nasal cannula at home 3. Acute on chronic kidney disease stage III 4. Elevated troponins. Repeat troponin order cardiology consult placed 5. Lower extremity cellulitis 6. History of essential hypertension 7. Acute on chronic diastolic heart failure DVT prophylaxis Lovenox. GI prophylaxis Pepcid Cardiology, pulmonary and infectious disease service is consulted Patient currently maintained on BiPAP, IV Solu-Medrol and DuoNeb breathing treatments Repeat labs ordered Blood culture ordered Two-view chest x-ray ordered for a.m. Time with Patient: Greater than 30 (Greater than 60% of the total time spent in counseling and coordination of care)
[2022-08-29] MEDS: IPRATROPIUM-ALBUTEROL 3 ML NEB INHALATION SCH ×3 (15:13→19:06)
--- NOTE | 2022-08-29 15:46 | P.CNPUL ---
History of Present Illness Consult date: 08/29/22 Reason for consult: dyspnea History of present illness: 67-year-old male patient with known history of advanced COPD and the patient is obese with a BMI of 30.5 and the patient has an FEV1 of 17% of predicted and the patient has been chronically dependent at 5 L O2 nasal cannula. He has had previous hospitalization for COPD exacerbation. The patient has had a recent admission approximately 2 months ago for a Streptococcus sepsis, treated without antibiotics and ultimately the patient was discharged home on oral antibiotics. He did not any valvular vegetation and the patient had an echocardiogram at that time showed negative vegetation. The source of the infection was probably soft tissue and the patient has chronic ulceration and edema lower oximetry is bilaterally. He does get episodic cellulitis of the lower oximetry is bilate rally. The patient came into the hospital because of worsening shortness of breath as of 4:00 this morning. No fever. No chills. His vital screening including Covid 19, influenza A and B were all negative. In the ED, the patient had a white cell count 16.5 and his lactic acid level was at 2.9. The patient's had a hemoglobin of 12.4, BUN of 36 and a creatinine of 1.4 and his sodium was at 138 with a creatinine of 5.6. His lactic acid level was at 2.1. He was quite short of breath and immediately the patient was placed on BiPAP therapy. The patient is also started on bronchodilators and the patient also started on systemic steroids. Chest x-ray showed cardiomegaly, no airspace disease and there was no evidence of any acute cardiopulmonary abnormalities. There is some chronic changes related to COPD and hyperinflation. Noted the patient's to have any chest pain. Initial troponin was at 1.1 and subsequent troponin came back at 1.8. The patient was started on IV cefazolin by emergency. The patient was started on bronchodilators with DuoNeb about treatments [id number] and IV Solu-Medrol. Cultures were sent and is also still pending for now. Note that his EKG showed a chronic left bundle branch block pattern the patient had a normal sinus rhythm. His previous echocardiogram from 06/18/2022 showed no evidence of any valvular vegetation. He had a normal LV function and he had moderate concentric LVH. Review of Systems CONSTITUTIONAL: Denies any recent significant weight loss or weight gain. EYES: Denies change in vision. EARS, NOSE, MOUTH, THROAT: Denies headaches, denies sore throat. CARDIOVASCULAR: Denies chest pain, palpitations or syncopal episodes. No chest pain and worsening shortness of breath RESPIRATORY: Positive for shortness of breath, cough, congestion no hemoptysis. GASTROINTESTINAL: Denies change in appetite, denies abdominal pain GENITOURINARY: Denies hematuria, denies infections. MUSKULOSKELETAL: Denies pain, INTEGUMENTARY: Denies rash, denies eczema. NEUROLOGICAL: Denies recent memory loss, no recent seizure activity. PSYCHIATRIC: Denies anxiety, denies depression. HEMATOLOGIC/LYMPHATIC: Denies anemia, denies enlarged lymph nodes. Past Medical History Past Medical History: COPD, Hypertension Additional Past Medical History / Comment(s): Obesity, previous history of cellulitis of the lower extremities, hypertension, COPD, chronic hypoxic respiratory failure, osteoarthritis History of Any Multi-Drug Resistant Organisms: None Reported Past Surgical History: No Surgical Hx Reported Additional Past Surgical History / Comment(s): no Reported history of surgeries Past Anesthesia/Blood Transfusion Reactions: No Reported Reaction Past Psychological History: No Psychological Hx Reported Smoking Status: Former smoker Past Alcohol Use History: None Reported Past Drug Use History: None Reported - Past Family History Father History Unknown: Yes Additional Family Medical History / Comment(s): Patient states father at 76 of a blood clot, mother had breast cancer Mother History Unknown: Yes Family Medical History: Dementia Medications and Allergies Home Medications Medication Instructions Recorded Confirmed Type Albuterol Nebulized [Ventolin 2.5 mg INHALATION RT-QID PRN 06/22/14 08/29/22 History Nebulized] Montelukast [Singulair] 10 mg PO HS@2100 06/09/19 08/29/22 History clonazePAM [KlonoPIN] 0.5 mg PO DAILY PRN 06/09/19 08/29/22 History Albuterol Sulfate [Ventolin HFA] 2 puff INHALATION RT-Q4H PRN 08/27/19 08/29/22 History Fluticasone Propion/Salmeterol 1 puff INHALATION RT-BID 08/27/19 08/29/22 History [Advair 250-50 Diskus] Cholecalciferol [Vitamin D3 (25 25 mcg PO DAILY 06/16/22 08/29/22 History Mcg = 1000 Iu)] Metoprolol Tartrate [Lopressor] 50 mg PO BID@0900,2100 06/16/22 08/29/22 History Furosemide [Lasix] 60 mg PO TID 08/29/22 08/29/22 History Allergies Allergy/AdvReac Type Severity Reaction Status Date / Time clarithromycin [From Biaxin] AdvReac TREMORS Verified 08/29/22 11:41 Physical Exam Vitals: Vital Signs Temp Pulse Resp BP Pulse Ox FiO2 08/29/22 15:24 101 H 08/29/22 15:13 97 75 08/29/22 13:00 99 20 117/92 99 08/29/22 12:00 98.6 F 108 H 20 142/113 100 08/29/22 11:19 125 H 24 90/68 99 08/29/22 11:00 99.5 F 110 H 20 126/74 99 08/29/22 10:36 128 H 08/29/22 10:35 75 08/29/22 10:34 129 H 24 100/50 99 08/29/22 10:23 125 H 08/29/22 09:43 24 08/29/22 09:36 99.3 F 138 H 18 102/54 99 Intake and Output 08/29/22 08/29/22 08/29/22 06:59 14:59 22:59 Other: Weight 121.563 kg GENERAL EXAM: Alert, pleasant, 64-year-old white male currently having shortness of breath, and the patient is currently on a BiPAP HEAD: Normocephalic/atraumatic. EYES: Normal reaction of pupils, equal size. Conjunctiva pink, sclera white. NOSE: Clear with pink turbinates. THROAT: No erythema or exudates. NECK: No masses, no JVD, no thyroid enlargement, no adenopathy. CHEST: No chest wall deformity. Symmetrical expansion. LUNGS: Equal air entry with diffuse expiratory wheezes CVS: Regular rate and rhythm, normal S1 and S2, no gallops, no murmurs, no rubs ABDOMEN: Soft, nontender. No hepatosplenomegaly, normal bowel sounds, no guarding or rigidity. EXTREMITIES: No clubbing, , no cyanosis, 2+ pulses and upper and lower extrem ities.the patient has chronic edema lower extremities and chronic ulceration no evidence of any acute infection MUSCULOSKELETAL: Muscle strength and tone normal. SPINE: No scoliosis or deformity SKIN: No rashes CENTRAL NERVOUS SYSTEM: Alert and oriented -3. No focal deficits, tone is normal in all 4 extremities. PSYCHIATRIC: Alert and oriented -3. Appropriate affect. Intact judgment and insight. Results - Laboratory Findings CBC and BMP: 08/29/22 09:59 08/29/22 09:59 PT/INR, D-dimer PT 10.7 sec (9.0-12.0) 08/29/22 09:59 INR 1.0 (<1.2) 08/29/22 09:59 Abnormal lab findings: Abnormal Labs 08/29/22 08/29/22 08/29/22 09:59 09:59 09:59 WBC 16.5 H RBC 3.57 L Hgb 12.4 L Hct 38.7 L MCV 108.5 H Plt Count 73 L Neutrophils # 15.1 H Lymphocytes # 0.2 L VBG pH VBG pCO2 VBG HCO3 Potassium 5.6 H Chloride 95 L Carbon Dioxide 40 H BUN 36 H Creatinine 1.44 H Glucose 158 H Plasma Lactic Acid Vikram 2.9 H* Alkaline Phosphatase 142 H Troponin I 08/29/22 08/29/22 08/29/22 09:59 10:05 12:46 WBC RBC Hgb Hct MCV Plt Count Neutrophils # Lymphocytes # VBG pH 7.23 L VBG pCO2 92 H* VBG HCO3 37 H Potassium Chloride Carbon Dioxide BUN Creatinine Glucose Plasma Lactic Acid Vikram 2.1 H* Alkaline Phosphatase Troponin I 1.150 H* 08/29/22 13:21 WBC RBC Hgb Hct MCV Plt Count Neutrophils # Lymphocytes # VBG pH VBG pCO2 VBG HCO3 Potassium Chloride Carbon Dioxide BUN Creatinine Glucose Plasma Lactic Acid Vikram Alkaline Phosphatase Troponin I 1.840 H* - Diagnostic Findings Chest x-ray: image reviewed Assessment and Plan Plan: acute exacerbation of chronic COPD with impending respiratory failure, currently on a BiPAP for respiratory support, chest x-ray is free of any acute pulmonary infiltrates. Acute on chronic hypoxic respiratory failure, the patient is typically on oxygen at 5 L/m nasal cannula Acute shortness of breath secondary to above Advanced COPD with a FEV1 of 70% of predicted at baseline Chronic exertional dyspnea. Acute non-ST segment elevation myocardial infarction. The troponin peaked at 1.8 and this is the second set and the patient is free of any chest pain and EKG showing a chronic left bundle branch block pattern Morbid obesity with a body mass index of 38.5 Hypertension Recent hospitalization for a streptococcal septicemia, treated. Echo showed no valvular vegetation Concentric LVH with hypertensive heart disease Hypertension Chronic lower extremity edema Chronic kidney disease stage III Chronic anxiety Chronic ALLERGIC rhinitis. Plan Continue BiPAP for now Start the patient on DuoNeb about treatments [id number] start the patient on IV Solu-Medrol Continue monitoring the cardiac enzymes Cardiology consultation Recent echo of the heart was within normal limits Blood cultures Check pro calcitonin level Monitor renal function IV cefazolin as an empiric antibiotic coverage resume all home medications We'll continue to follow
[2022-08-29] MEDS: FUROSEMIDE 20 MG TAB PO SCH ×2 (17:28→23:44)
[2022-08-29] MEDS: INSULIN ASPART (NovoLOG) 100 UNIT/ML VIAL SQ SCH ×3 (17:29→22:21)
[2022-08-29 17:30] LABS: Glucose,Whole Blood 233 mg/dL (70-110)
[2022-08-29] MEDS: FORMOTEROL FUMARATE 20 MCG/2 ML NEBU INHALATION SCH (19:06)
[2022-08-29] MEDS: BUDESONIDE 1 MG/2 ML NEBU INHALATION SCH (19:06)
[2022-08-29 20:56] LABS: Glucose,Whole Blood 182 mg/dL (70-110)
[2022-08-29] MEDS: MONTELUKAST 10 MG TAB PO SCH (22:20)
[2022-08-29] MEDS: METOPROLOL TARTRATE 50 MG TAB PO SCH (22:21)
[2022-08-30 06:12] LABS: Glucose,Whole Blood 149 mg/dL (70-110)
[2022-08-30] MEDS: INSULIN ASPART (NovoLOG) 100 UNIT/ML VIAL SQ SCH ×4 (06:23→20:41)
[2022-08-30] MEDS: methylPREDNISolone SOD SUCCI 125 MG/2 ML VIAL IV SCH ×3 (06:23→17:10)
--- NOTE | 2022-08-30 08:06 | XR ---
EXAMINATION TYPE: XR chest 1V portable DATE OF EXAM: 08/30/2022 COMPARISON: 08/29/2022 HISTORY: Shortness of breath TECHNIQUE: Single frontal view of the chest is obtained. FINDINGS: There is no focal air space opacity, pleural effusion, or pneumothorax seen. The cardiac silhouette size is within normal limits. The osseous structures are intact. IMPRESSION: Mildly prominent interstitial markings unchanged compared to the previous. No pneumothor ax, airspace consolidation or pleural effusion. Mild chronic interstitial changes versus mild pulmona ry vascular congestion. Clinical correlation recommended.
[2022-08-30] MEDS: CHOLECALCIFEROL 25 MCG (1000 IU) TABLET PO SCH (08:11)
[2022-08-30] MEDS: METOPROLOL TARTRATE 50 MG TAB PO SCH ×2 (08:11→20:41)
[2022-08-30] MEDS: FAMOTIDINE 20 MG TAB PO SCH (08:11)
[2022-08-30] MEDS: ENOXAPARIN 40 MG/0.4 ML SYRINGE SQ SCH (08:12)
[2022-08-30] MEDS: FUROSEMIDE 20 MG TAB PO SCH ×3 (08:15→20:41)
[2022-08-30] MEDS: FORMOTEROL FUMARATE 20 MCG/2 ML NEBU INHALATION SCH ×2 (08:33→21:25)
[2022-08-30] MEDS: BUDESONIDE 1 MG/2 ML NEBU INHALATION SCH ×2 (08:33→21:25)
[2022-08-30] MEDS: IPRATROPIUM-ALBUTEROL 3 ML NEB INHALATION SCH ×4 (08:34→21:25)
--- NOTE | 2022-08-30 10:10 | P.CONS ---
History of Present Illness - Reason for Consult Consult date: 08/29/22 Elevated lactic acid and lower extremity cellulitis Requesting physician: Sofiya Albrecht - Chief Complaint Increasing shortness of breath x few days - History of Present Illness Patient is a 67-year-old male with a past medical history significant for COPD CHF presenting to the ER for evaluation of increasing shortness of breath patient symptom has been going on for few days before presentation to the hospital patient also complaining of a cough which is mild to moderate intensity but not bring up any sputum patient denies having any pleuritic chest pain anthony ent denies having any nausea no vomiting no abdominal pain or any diarrhea patient also have a bilateral lower extremity swelling and redness concerning for cellulitis did have some relief with pain to the lower legs about 3-4 out of 10 and no radiation patient on presentation to the hospital did have a low-grade fever of 99.5 F patient did have white count of 16.5 with a left shift did have elevated lactic acid creatinine mild elevated 1.44 COVID influenza testing was negative patient did have a chest x-ray no evidence of acute cardiopulmonary disease patient was started on cefazolin for lower extremity cellulitis admitted to the hospital infectious disease was consulted for further management of antibiotic therapy Review of Systems Positive point has been mentioned in the HPI rest of the systems are negative Past Medical History Past Medical History: COPD, Hypertension Additional Past Medical History / Comment(s): Obesity, previous history of cellulitis of the lower extremities, hypertension, COPD, chronic hypoxic respiratory failure, osteoarthritis History of Any Multi-Drug Resistant Organisms: None Reported Past Surgical History: No Surgical Hx Reported Additional Past Surgical History / Comment(s): no Reported history of surgeries Past Anesthesia/Blood Transfusion Reactions: No Reported Reaction Past Psychological History: No Psychological Hx Reported Smoking Status: Former smoker Past Alcohol Use History: None Reported Past Drug Use History: None Reported - Past Family History Father History Unknown: Yes Additional Family Medical History / Comment(s): Patient states father at 76 of a blood clot, mother had breast cancer Mother History Unknown: Yes Family Medical History: Dementia Medications and Allergies Home Medications Medication Instructions Recorded Confirmed Type Albuterol Nebulized [Ventolin 2.5 mg INHALATION RT-QID PRN 06/22/14 08/29/22 History Nebulized] Montelukast [Singulair] 10 mg PO HS@2100 06/09/19 08/29/22 History clonazePAM [KlonoPIN] 0.5 mg PO DAILY PRN 06/09/19 08/29/22 History Albuterol Sulfate [Ventolin HFA] 2 puff INHALATION RT-Q4H PRN 08/27/19 08/29/22 History Fluticasone Propion/Salmeterol 1 puff INHALATION RT-BID 08/27/19 08/29/22 History [Advair 250-50 Diskus] Cholecalciferol [Vitamin D3 (25 25 mcg PO DAILY 06/16/22 08/29/22 History Mcg = 1000 Iu)] Metoprolol Tartrate [Lopressor] 50 mg PO BID@0900,2100 06/16/22 08/29/22 History Furosemide [Lasix] 60 mg PO TID 08/29/22 08/29/22 History Aspirin 81 mg PO DAILY 30 Days #30 tab 09/02/22 Rx Cephalexin [Keflex] 500 mg PO Q6HR 10 Days #40 cap 09/02/22 Rx predniSONE 10 mg PO DIRECTED 12 Days #30 09/02/22 Rx tab Allergies Allergy/AdvReac Type Severity Reaction Status Date / Time clarithromycin [From Biaxin] AdvReac TREMORS Verified 08/29/22 11:41 Physical Exam Vitals: Vital Signs Temp Pulse Resp BP Pulse Ox FiO2 08/29/22 13:00 99 20 117/92 99 08/29/22 12:00 98.6 F 108 H 20 142/113 100 08/29/22 11:19 125 H 24 90/68 99 08/29/22 11:00 99.5 F 110 H 20 126/74 99 08/29/22 10:36 128 H 08/29/22 10:35 75 08/29/22 10:34 129 H 24 100/50 99 08/29/22 10:23 125 H 08/29/22 09:43 24 08/29/22 09:36 99.3 F 138 H 18 102/54 99 Intake and Output 08/28/22 08/29/22 08/29/22 22:59 06:59 14:59 Other: Weight 121.563 kg GENERAL DESCRIPTION: Daily male lying in bed, no distress. No tachypnea or accessory muscle of respiration use. HEENT: Shows Pallor , no scleral icterus. Oral mucous membrane is dry. No pharyngeal erythema or thrush NECK: Trachea central, no thyromegaly. LUNGS: Unlabored breathing. Coarse breath sounds bilaterally with occasional wheeze HEART: S1, S2, regular rate and rhythm. No loud murmur ABDOMEN: Soft, no tenderness , guarding or rigidity, no organomegaly EXTREMITIES: Diffuse swelling to the lower extremity some superficial scratch Vasquez and redness no drainage SKIN: No rash, no masses palpable. NEUROLOGICAL: The patient is awake, alert, oriented x3, mood and affect normal. Results CBC & Chem 7: 09/02/22 10:03 09/02/22 10:03 Labs: Abnormal Lab Results - Last 24 Hours (Table) 08/29/22 08/29/22 08/29/22 Range/Units 09:59 09:59 09:59 WBC 16.5 H (3.8-10.6) k/uL RBC 3.57 L (4.30-5.90) m/uL Hgb 12.4 L (13.0-17.5) gm/dL Hct 38.7 L (39.0-53.0) % MCV 108.5 H (80.0-100.0) fL Plt Count 73 L (150-450) k/uL Neutrophils # 15.1 H (1.3-7.7) k/uL Lymphocytes # 0.2 L (1.0-4.8) k/uL VBG pH (7.31-7.41) VBG pCO2 (37-51) mmHg VBG HCO3 (24-28) mmol/L Potassium 5.6 H (3.5-5.1) mmol/L Chloride 95 L (98-107) mmol/L Carbon Dioxide 40 H (22-30) mmol/L BUN 36 H (9-20) mg/dL Creatinine 1.44 H (0.66-1.25) mg/dL Glucose 158 H (74-99) mg/dL Plasma Lactic Acid Vikram 2.9 H* (0.7-2.0) mmol/L Alkaline Phosphatase 142 H (38-126) U/L Troponin I (0.000-0.034) ng/mL 08/29/22 08/29/22 08/29/22 Range/Units 09:59 10:05 12:46 WBC (3.8-10.6) k/uL RBC (4.30-5.90) m/uL Hgb (13.0-17.5) gm/dL Hct (39.0-53.0) % MCV (80.0-100.0) fL Plt Count (150-450) k/uL Neutrophils # (1.3-7.7) k/uL Lymphocytes # (1.0-4.8) k/uL VBG pH 7.23 L (7.31-7.41) VBG pCO2 92 H* (37-51) mmHg VBG HCO3 37 H (24-28) mmol/L Potassium (3.5-5.1) mmol/L Chloride (98-107) mmol/L Carbon Dioxide (22-30) mmol/L BUN (9-20) mg/dL Creatinine (0.66-1.25) mg/dL Glucose (74-99) mg/dL Plasma Lactic Acid Vikram 2.1 H* (0.7-2.0) mmol/L Alkaline Phosphatase (38-126) U/L Troponin I 1.150 H* (0.000-0.034) ng/mL 08/29/ Range/Units 13:21 WBC (3.8-10.6) k/uL RBC (4.30-5.90) m/uL Hgb (13.0-17.5) gm/dL Hct (39.0-53.0) % MCV (80.0-100.0) fL Plt Count (150-450) k/uL Neutrophils # (1.3-7.7) k/uL Lymphocytes # (1.0-4.8) k/uL VBG pH (7.31-7.41) VBG pCO2 (37-51) mmHg VBG HCO3 (24-28) mmol/L Potassium (3.5-5.1) mmol/L Chloride (98-107) mmol/L Carbon Dioxide (22-30) mmol/L BUN (9-20) mg/dL Creatinine (0.66-1.25) mg/dL Glucose (74-99) mg/dL Plasma Lactic Acid Vikram (0.7-2.0) mmol/L Alkaline Phosphatase (38-126) U/L Troponin I 1.840 H* (0.000-0.034) ng/mL Assessment and Plan (1) Cellulitis Current Visit: Yes Status: Acute Code(s): L03.90 - CELLULITIS, UNSPECIFIED SNOMED Code(s): 225498751 Plan: 1patient with bilateral lower extremity swelling and redness some superficial ulceration to scratching concerning for cellulitis likely from gram-positive skin danitza such as strep. 2patient presenting mostly with increasing shortness of breath more likely related to COPD exacerbation chest x-ray was negative for any pneumonia. 3we will increase the dose of cefazolin to 2 g every 8 hour. We will follow on clinical condition and cultures to further adjust medication if needed Thank you for this consultation will follow this patient along with you Time with Patient: Greater than 30
[2022-08-30 11:48] LABS: Glucose,Whole Blood 188 mg/dL (70-110)
[2022-08-30 12:25] LABS: Basophils % (A) 0 %; Eosinophils % (A) 0 %; HGB 10.5 gm/dL (13.0-17.5); Hypochromasia Marked; Lymphocytes # (A) 0.4 k/uL (1.0-4.8); Lymphocytes % (A) 4 %; MCH 35.1 pg (25.0-35.0); MCHC 31.9 g/dL (31.0-37.0); MCV 110.1 fL (80.0-100.0); Macrocytosis Marked; Mean Platelet Volume 11.1; Monocytes # (A) 0.5 k/uL (0-1.0); Monocytes % (A) 5 %; Neutrophils # (A) 8.3 k/uL (1.3-7.7); Neutrophils % (A) 90 %; Platelet Count 100 k/uL (150-450); RDW 12.3 % (11.5-15.5); WBC 9.3 k/uL (3.8-10.6)
[2022-08-30 12:34] LABS: Albumin 3.6 g/dL (3.5-5.0); Calcium 8.6 mg/dL (8.4-10.2); Total Bilirubin 0.7 mg/dL (0.2-1.3); Total Protein 6.5 g/dL (6.3-8.2)
[2022-08-30 12:51] LABS: Potassium 6.3 mmol/L (3.5-5.1)
[2022-08-30] MEDS: ASPIRIN 81 MG PO SCH (13:57)
[2022-08-30] MEDS: SODIUM CHLORIDE 0.9% 1,000 ML IV STA (13:58)
--- NOTE | 2022-08-30 14:00 | P.CRDCN ---
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 Patient had previously presented 06/18/2022 with questionable syncopal episode and shortness breath and was treated for COPD exacerbation as well as heart failure. At the time he had mildly elevated troponins and echo showed EF 55-60% with mild pulmonary hypertension RVSP 39 and no significant valvular disease. He states that over the last 2 days he has been feeling more short of breath, fatigue and dyspnea with minimal exertion and therefore told family members to bring him in the emergency department. He did have previous hospitalization with strep bacteremia. He denies any fevers or chills. Previous echo did not show any significant vegetation. Workup shows white blood cell count 16.5, hemoglobin 12.4, platelets 73, pCO2 92, creatinine 1.4, potassium 5.6, hemoglobin A1c 6.4, troponin 1.1, 1.8, pro- calcitonin 0.7, proBNP 1960. EKG showing poor R-wave progression with interventricular conduction delay and left bundle branch morphology with what appears to be sinus rhythm. Telemetry reveals REVIEW OF SYSTEMS At the time of my exam: CONSTITUTIONAL: Denies fever or chills. CARDIOVASCULAR: Denies chest pain, +shortness of breath, no orthopnea, PND or palpitations. +chronic LE edema RESPIRATORY: Denies cough. GASTROINTESTINAL: Denies abdominal pain, diarrhea, constipation, nausea or vomiting. MUSCULOSKELETAL: Denies myalgias. NEUROLOGIC: Denies numbness, tingling or weakness. ENDOCRINE: Denies fatigue, weight change, polydipsia or polyurina. GENITOURINARY: Denies burning, hematuria or urgency with micturation. HEMATOLOGIC: Denies history of anemia or bleeding. PHYSICAL EXAMINATION Vital signs reviewed. CONSTITUTIONAL: No apparent distress, chronically ill appearing HEENT: Head is normocephalic. Pupils are equal, round. Sclerae anicteric. Mucous membranes of the mouth are moist. No JVD. No carotid bruit. CHEST EXAMINATION: Diffuse wheeze HEART EXAMINATION: Regular rate and rhythm. S1, S2 heard. No murmurs, gallops or rub. ABDOMEN: Soft, nontender. Positive bowel sounds. EXTREMITIES: 2+ peripheral pulses, 2+ lower extremity edema and no calf tenderness. NEUROLOGIC EXAMINATION: Patient is awake, alert and oriented x3. ASSESSMENT 1. Acute on chronic respiratory failure mainly related to COPD 2. Chronic diastolic heart failure 3. COPD on home 6 L nasal cannula 4. Previous tobacco abuse 5. Non-STEMI somewhat more elevated than previous levels up to 1.7 6. Loss of consciousness, unclear if true syncope appears related to severe hypoxia 7. Pulmonary hypertension likely related to COPD 8. CKD 9. Hyperkalemia PLAN Patient with generalized fatigue and did have previous bacteremia. Monitor symptomatically. Check repeat limited 2-D echo to the left ventricular function with increase in troponin more than expected. Not having any angina-type symptoms. Aspirin and beta kel. Further recommendations to follow. Past Medical History Past Medical History: COPD, Hypertension Additional Past Medical History / Comment(s): Obesity, previous history of cellulitis of the lower extremities, hypertension, COPD, chronic hypoxic respiratory failure, osteoarthritis History of Any Multi-Drug Resistant Organisms: None Reported Past Surgical History: No Surgical Hx Reported Additional Past Surgical History / Comment(s): no Reported history of surgeries Past Anesthesia/Blood Transfusion Reactions: No Reported Reaction Past Psychological History: No Psychological Hx Reported Smoking Status: Former smoker Past Alcohol Use History: None Reported Past Drug Use History: None Reported - Past Family History Father History Unknown: Yes Additional Family Medical History / Comment(s): Patient states father at 76 of a blood clot, mother had breast cancer Mother History Unknown: Yes Family Medical History: Dementia Medications and Allergies Home Medications Medication Instructions Recorded Confirmed Type Albuterol Nebulized [Ventolin 2.5 mg INHALATION RT-QID PRN 06/22/14 08/29/22 History Nebulized] Montelukast [Singulair] 10 mg PO HS@2100 06/09/19 08/29/22 History clonazePAM [KlonoPIN] 0.5 mg PO DAILY PRN 06/09/19 08/29/22 History Albuterol Sulfate [Ventolin HFA] 2 puff INHALATION RT-Q4H PRN 08/27/19 08/29/22 History Fluticasone Propion/Salmeterol 1 puff INHALATION RT-BID 08/27/19 08/29/22 History [Advair 250-50 Diskus] Cholecalciferol [Vitamin D3 (25 25 mcg PO DAILY 06/16/22 08/29/22 History Mcg = 1000 Iu)] Metoprolol Tartrate [Lopressor] 50 mg PO BID@0900,2100 06/16/22 08/29/22 History Furosemide [Lasix] 60 mg PO TID 08/29/22 08/29/22 History Allergies Allergy/AdvReac Type Severity Reaction Status Date / Time clarithromycin [From Biaxin] AdvReac TREMORS Verified 08/29/22 11:41 Physical Exam Vitals: Vital Signs Temp Pulse Pulse Resp BP BP Pulse Ox 08/30/22 12:00 86 71 18 104/56 94 L 08/30/22 11:50 87 08/30/22 09:04 104 H 08/30/22 08:49 106 H 08/30/22 08:48 106 H 08/30/22 08:46 08/30/22 08:36 90 L 08/30/22 08:35 103 H 08/30/22 08:17 92 L 08/30/22 08:11 94 L 08/30/22 08:04 97.5 F L 83 15 117/53 08/30/22 04:00 97.6 F 87 16 103/61 100 08/30/22 03:42 08/30/22 00:00 98.6 F 71 16 98/57 96 08/29/22 23:23 08/29/22 20:00 98.8 F 102 H 18 108/57 100 08/29/22 19:23 107 H 08/29/22 19:20 110 H 08/29/22 19:18 110 H 08/29/22 19:07 107 H 08/29/22 18:57 08/29/22 18:34 95 08/29/22 18:10 98.6 F 106 H 16 104/62 95 08/29/22 17:00 93 16 98/64 99 08/29/22 15:24 101 H 08/29/22 15:13 97 FiO2 08/30/22 12:00 08/30/22 11:50 08/30/22 09:04 08/30/22 08:49 08/30/22 08:48 08/30/22 08:46 70 08/30/22 08:36 08/30/22 08:35 08/30/22 08:17 08/30/22 08:11 08/30/22 08:04 70 08/30/22 04:00 70 08/30/22 03:42 70 08/30/22 00:00 70 08/29/22 23:23 70 08/29/22 20:00 70 08/29/22 19:23 08/29/22 19:20 08/29/22 19:18 08/29/22 19:07 08/29/22 18:57 70 08/29/22 18:34 70 08/29/22 18:10 08/29/22 17:00 08/29/22 15:24 08/29/22 15:13 75 Intake and Output 08/29/22 08/30/22 08/30/22 22:59 06:59 14:59 Output Total 300 300 625 Balance -300 -300 -625 Output: Urine 300 300 625 Other: Voiding Method Urinal Urinal Results 08/30/22 11:18 08/30/22 11:18 Cardiac Enzymes 08/29/22 08/30/22 Range/Units 13:21 11:18 AST 50 (17-59) U/L Troponin I 1.840 H* (0.000-0.034) ng/mL CBC 08/30/22 Range/Units 11:18 WBC 9.3 (3.8-10.6) k/uL RBC 3.00 L (4.30-5.90) m/uL Hgb 10.5 L (13.0-17.5) gm/dL Hct 33.0 L (39.0-53.0) % Plt Count 100 L (150-450) k/uL Comprehensive Metabolic Panel 08/30/22 Range/Units 11:18 Sodium 137 (137-145) mmol/L Potassium 6.3 H* (3.5-5.1) mmol/L Chloride 94 L (98-107) mmol/L Carbon Dioxide 38 H (22-30) mmol/L BUN 57 H (9-20) mg/dL Creatinine 1.49 H (0.66-1.25) mg/dL Glucose 165 H (74-99) mg/dL Calcium 8.6 (8.4-10.2) mg/dL AST 50 (17-59) U/L ALT 30 (4-49) U/L Alkaline Phosphatase 88 (38-126) U/L Total Protein 6.5 (6.3-8.2) g/dL Albumin 3.6 (3.5-5.0) g/dL Current Medications Generic Name Dose Route Start Last Admin Trade Name Freq PRN Reason Stop Dose Admin Albuterol/Ipratropium 3 ml 08/29/22 12:00 08/30/22 11:50 Ipratropium-Albuterol 3 Ml Neb INHALATION 3 ml RT-QID DANA Administration Albuterol/Ipratropium 3 ml 08/29/22 11:21 Ipratropium-Albuterol 3 Ml Neb INHALATION RT-Q2H PRN Shortness Of Breath Or Wheezing Budesonide 1 mg 08/29/22 20:00 08/30/22 08:33 Budesonide 1 Mg/2 Ml Nebu INHALATION 1 mg RT-BID DANA Administration Cholecalciferol 25 mcg 08/30/22 09:00 08/30/22 08:11 Cholecalciferol 25 Mcg (1000 Iu) Tablet PO 25 mcg DAILY DANA Administration Clonazepam 0.5 mg 08/29/22 12:29 Clonazepam 0.5 Mg Tab PO DAILY PRN Anxiety Dextrose/Water 25 ml 08/29/22 12:30 Dextrose 50% Syringe 50 Ml IVP PER PROTOCOL PRN Hypoglycemia Protocol Dextrose/Water 50 ml 08/29/22 12:30 Dextrose 50% Syringe 50 Ml IVP PER PROTOCOL PRN Hypoglycemia Protocol Enoxaparin Sodium 40 mg 08/30/22 09:00 08/30/22 08:12 Enoxaparin 40 Mg/0.4 Ml Syringe SQ 40 mg DAILY DANA Administration Famotidine 20 mg 08/30/22 09:00 08/30/22 08:11 Famotidine 20 Mg Tab PO 20 mg DAILY DANA Administration Formoterol Fumarate 20 mcg 08/29/22 20:00 08/30/22 08:33 Formoterol Fumarate 20 Mcg/2 Ml Nebu INHALATION 20 mcg RT-BID DANA Administration Furosemide 60 mg 08/29/22 16:00 08/30/22 08:15 Furosemide 20 Mg Tab PO 60 mg TID DANA Administration Cefazolin Sodium 2 gm/ Sodium 50 mls @ 100 mls/hr 08/30/22 16:00 Chloride IVPB Q8HR DANA Sodium Chloride 1,000 mls @ 50 mls/hr 08/30/22 13:17 Saline 0.9% IV 08/31/22 09:16 .Q20H STA Insulin Aspart 0 unit 08/29/22 12:30 08/30/22 12:27 Insulin Aspart (Novolog) 100 Unit/Ml Vial SQ 1 unit ACHS DANA Administration Protocol Methylprednisolone Sodium Succinate 60 mg 08/29/22 12:00 08/30/22 12:27 Methylprednisolone Sod Succi 125 Mg/2 Ml Vial IV 60 mg Q6HR DANA Administration Metoprolol Tartrate 50 mg 08/29/22 21:00 08/30/22 08:11 Metoprolol Tartrate 50 Mg Tab PO 50 mg BID@0900,2100 [facility] Administration Montelukast Sodium 10 mg 08/29/22 21:00 08/29/22 22:20 Montelukast 10 Mg Tab PO 10 mg HS@2100 DANA Administration Naloxone HCl 0.2 mg 08/29/22 11:21 Naloxone 0.4 Mg/Ml 1 Ml Vial IVP Q2M PRN Opioid Reversal Intake and Output 08/29/22 08/30/22 08/30/22 22:59 06:59 14:59 Output Total 300 300 625 Balance -300 -300 -625 Output: Urine 300 300 625 Other: Voiding Method Urinal Urinal 08/30/22 11:18 08/30/22 11:18
[2022-08-30] MEDS ORDERED: INSULIN REGULAR 100 UNIT/ML VIAL (IV) IV ONE (14:32)
[2022-08-30] MEDS ORDERED: CALCIUM GLUCONATE IN NACL 1 GM in SALINE 1 100ML.BAG IVPB ONE (14:32)
--- NOTE | 2022-08-30 14:32 | P.PN ---
Subjective Progress Note Date: 08/30/22 This is a 67-year-old male patient presents to ER with concerns of difficulty breathing. Patient reports that initial symptoms started a few days ago but increasingly became difficulty breathing this a.m. around 4 AM. Patient denies fevers at home. Patient does have a past medical history of COPD, CHF, cellulitis, obesity, ex-smoker, chronic hypoxic respiratory failure and hypertension. Chest x-ray completed showing no evidence for acute pulmonary disease. COVID-19 negative influenza A and B negative. Patient noted to have elevated white count 16.5. Lactic acid 2.9. Troponin also elevated at 1.150. Creatinine 1.44 and bun 36 this does appear improved from baseline. Patient was placed on BiPAP. Pulmonary and cardiology service is consulted. Patient started on IV Solu-Medrol and DuoNeb breathing treatments. Blood cultures ordered. Repeat troponin ordered urine current vital signs temp 98.6, heart rate 108, blood pressure 126/74 patient satting 99% on BiPAP. On 08/30/2022 patient was seen and examined on the medical floor, he is alert and oriented 3 in no apparent distress, he reports improvement in his shortness of breath since yesterday there is no fever or chills no headache or dizziness no chest pain, no nausea or vomiting no abdominal pain no diarrhea and no urinary symptoms Objective - Vital Signs Vital signs: Vital Signs Temp 97.5 F L 08/30/22 08:04 Pulse 106 H 08/30/22 08:49 Resp 15 08/30/22 08:04 BP 117/53 08/30/22 08:04 Pulse Ox 90 L 08/30/22 08:36 FiO2 70 08/30/22 08:46 Intake & Output 08/29/22 08/30/22 08/30/22 18:59 06:59 18:59 Output Total 600 625 Balance -600 -625 Weight 121.563 kg Output: Urine 600 625 Other: Voiding Method Urinal - Exam In general patient is alert and oriented x 3 in no distress HEENT head normocephalic and atraumatic Neck is supple no JVD no goiter no lymphadenopathy no carotid bruit Chest examination reveals a scattered crackles bilaterally no wheezing Cardiac exam reveals regular heart sounds S1 and S2 no gallops no murmurs Abdomen is soft nontender no organomegaly with normal bowel sounds Extremity exam reveals no edema no cyanosis or clubbing Neurological examination reveals no gross focal deficits - Labs CBC & Chem 7: 08/30/22 11:18 08/30/22 11:18 Labs: Abnormal Lab Results - Last 24 Hours (Table) 08/29/22 08/29/22 08/29/22 Range/Units 09:59 09:59 09:59 WBC 16.5 H (3.8-10.6) k/uL RBC 3.57 L (4.30-5.90) m/uL Hgb 12.4 L (13.0-17.5) gm/dL Hct 38.7 L (39.0-53.0) % MCV 108.5 H (80.0-100.0) fL Plt Count 73 L (150-450) k/uL Neutrophils # 15.1 H (1.3-7.7) k/uL Lymphocytes # 0.2 L (1.0-4.8) k/uL VBG pH (7.31-7.41) VBG pCO2 (37-51) mmHg VBG HCO3 (24-28) mmol/L Potassium 5.6 H (3.5-5.1) mmol/L Chloride 95 L (98-107) mmol/L Carbon Dioxide 40 H (22-30) mmol/L BUN 36 H (9-20) mg/dL Creatinine 1.44 H (0.66-1.25) mg/dL Glucose 158 H (74-99) mg/dL POC Glucose (mg/dL) (70-110) mg/dL Hemoglobin A1c (0.0-6.0) % Plasma Lactic Acid Vikram 2.9 H* (0.7-2.0) mmol/L Alkaline Phosphatase 142 H (38-126) U/L Troponin I (0.000-0.034) ng/mL Procalcitonin (0.02-0.09) ng/mL 08/29/22 08/29/22 08/29/22 Range/Units 09:59 09:59 09:59 WBC (3.8-10.6) k/uL RBC (4.30-5.90) m/uL Hgb (13.0-17.5) gm/dL Hct (39.0-53.0) % MCV (80.0-100.0) fL Plt Count (150-450) k/uL Neutrophils # (1.3-7.7) k/uL Lymphocytes # (1.0-4.8) k/uL VBG pH (7.31-7.41) VBG pCO2 (37-51) mmHg VBG HCO3 (24-28) mmol/L Potassium (3.5-5.1) mmol/L Chloride (98-107) mmol/L Carbon Dioxide (22-30) mmol/L BUN (9-20) mg/dL Creatinine (0.66-1.25) mg/dL Glucose (74-99) mg/dL POC Glucose (mg/dL) (70-110) mg/dL Hemoglobin A1c 6.4 H (0.0-6.0) % Plasma Lactic Acid Vikram (0.7-2.0) mmol/L Alkaline Phosphatase (38-126) U/L Troponin I 1.150 H* (0.000-0.034) ng/mL Procalcitonin 0.71 H (0.02-0.09) ng/mL 08/29/22 08/29/22 08/29/22 Range/Units 10:05 12:46 13:21 WBC (3.8-10.6) k/uL RBC (4.30-5.90) m/uL Hgb (13.0-17.5) gm/dL Hct (39.0-53.0) % MCV (80.0-100.0) fL Plt Count (150-450) k/uL Neutrophils # (1.3-7.7) k/uL Lymphocytes # (1.0-4.8) k/uL VBG pH 7.23 L (7.31-7.41) VBG pCO2 92 H* (37-51) mmHg VBG HCO3 37 H (24-28) mmol/L Potassium (3.5-5.1) mmol/L Chloride (98-107) mmol/L Carbon Dioxide (22-30) mmol/L BUN (9-20) mg/dL Creatinine (0.66-1.25) mg/dL Glucose (74-99) mg/dL POC Glucose (mg/dL) (70-110) mg/dL Hemoglobin A1c (0.0-6.0) % Plasma Lactic Acid Vikram 2.1 H* (0.7-2.0) mmol/L Alkaline Phosphatase (38-126) U/L Troponin I 1.840 H* (0.000-0.034) ng/mL Procalcitonin (0.02-0.09) ng/mL 08/29/22 08/29/22 08/30/22 Range/Units 17:28 20:53 06:11 WBC (3.8-10.6) k/uL RBC (4.30-5.90) m/uL Hgb (13.0-17.5) gm/dL Hct (39.0-53.0) % MCV (80.0-100.0) fL Plt Count (150-450) k/uL Neutrophils # (1.3-7.7) k/uL Lymphocytes # (1.0-4.8) k/uL VBG pH (7.31-7.41) VBG pCO2 (37-51) mmHg VBG HCO3 (24-28) mmol/L Potassium (3.5-5.1) mmol/L Chloride (98-107) mmol/L Carbon Dioxide (22-30) mmol/L BUN (9-20) mg/dL Creatinine (0.66-1.25) mg/dL Glucose (74-99) mg/dL POC Glucose (mg/dL) 233 H 182 H 149 H (70-110) mg/dL Hemoglobin A1c (0.0-6.0) % Plasma Lactic Acid Vikram (0.7-2.0) mmol/L Alkaline Phosphatase (38-126) U/L Troponin I (0.000-0.034) ng/mL Procalcitonin (0.02-0.09) ng/mL Microbiology - Last 24 Hours (Table) 08/29/22 09:48 Blood Culture Gram Stain - Preliminary Blood 08/29/22 09:48 Blood Culture - Final Blood Assessment and Plan Assessment: 1. Difficulty in breathing secondary to COPD exacerbation 2. Acute on chronic hypoxic respiratory failure secondary to COPD and pulmonary fibrosis. Patient is maintained on 6 L nasal cannula at home 3. Acute on chronic kidney disease stage III 4. Elevated troponins. Repeat troponin order cardiology consult placed 5. Lower extremity cellulitis 6. History of essential hypertension 7. Acute on chronic diastolic heart failure DVT prophylaxis Lovenox. GI prophylaxis Pepcid Cardiology, pulmonary and infectious disease service is consulted Patient currently maintained on BiPAP, IV Solu-Medrol and DuoNeb breathing treatments Repeat labs ordered Blood culture ordered Two-view chest x-ray ordered for a.m.
[2022-08-30] MEDS ORDERED: DEXTROSE 50% SYRINGE 50 ML IVP STA (14:33)
[2022-08-30] MEDS: SODIUM ZIRCONIUM CYCLOSILICATE 10 GM PACKET PO SCH ×2 (15:15→20:41)
--- NOTE | 2022-08-30 15:29 | P.PN ---
Subjective Progress Note Date: 08/30/22 67-year-old male patient with known history of advanced COPD and the patient is obese with a BMI of 30.5 and the patient has an FEV1 of 17% of predicted and the patient has been chronically dependent at 5 L O2 nasal cannula. He has had previous hospitalization for COPD exacerbation. The patient has had a recent admission approximately 2 months ago for a Streptococcus sepsis, treated without antibiotics and ultimately the patient was discharged home on oral antibiotics. He did not any valvular vegetation and the patient had an echocardiogram at that time showed negative vegetation. The source of the infection was probably soft tissue and the patient has chronic ulceration and edema lower oximetry is bilaterally. He does get episodic cellulitis of the lower oximetry is bilaterally. The patient came into the hospital because of worsening shortness of breath as of 4:00 this morning. No fever. No chills. His vital screening including Covid 19, influenza A and B were all negative. In the ED, the patient had a white cell count 16.5 and his lactic acid level was at 2.9. The patient's had a hemoglobin of 12.4, BUN of 36 and a creatinine of 1.4 and his sodium was at 138 with a creatinine of 5.6. His lactic acid level was at 2.1. He was quite short of breath and immediately the patient was placed on BiPAP therapy. The patient is also started on bronchodilators and the patient also started on systemic steroids. Chest x-ray showed cardiomegaly, no airspace disease and there was no evidence of any acute cardiopulmonary abnormalities. There is some chronic changes related to COPD and hyperinflation. Noted the patient's to have any chest pain. Initial troponin was at 1.1 and subsequent troponin came back at 1.8. The patient was started on IV cefazolin by emergency. The patient was started on bronchodilators with DuoNeb about treatments [id number] and IV Solu-Medrol. Cultures were sent and is also still pending for now. Note that his EKG showed a chronic left bundle branch block pattern the patient had a normal sinus rhythm. His previous echocardiogram from 06/18/2022 showed no evidence of any valvular vegetation. He had a normal LV function and he had m oderate concentric LVH. On 08/30/2022, patient is doing better. The patient was taken off the BiPAP this morning and the patient was placed on oxygen at 6 L. Less short of breath. Less bronchospastic. Less wheezy. No signs of any CO2 narcosis. Troponin was elevated at 1.8 and the patient is still awaiting cardiology evaluation. The patient on aspirin. The patient on Lovenox for DVT prophylaxis. The patient remains on DuoNeb about treatments [id number], Perforomist and Pulmicort n eb treatments twice a day and IV Solu-Medrol. The bloodwork was noted. The white cycles of 9.3 with a hemoglobin of 7.5 and a platelet count which is chronically low at 100. The patient's potassium level was at 6.3 and the patient was treated accordingly and his sodium levels is 137, BUN is 57 with a creatinine of 1.4. Troponin is down to 0.98. Objective - Vital Signs Vital signs: Vital Signs Temp 97.5 F L 08/30/22 08:04 Pulse 71 08/30/22 12:00 Resp 18 08/30/22 12:00 BP 104/56 08/30/22 12:00 Pulse Ox 94 L 08/30/22 12:00 FiO2 70 08/30/22 08:46 Intake & Output 08/29/22 08/30/22 08/30/22 18:59 06:59 18:59 Intake Total 118 Output Total 600 625 Balance -600 -507 Weight 121.563 kg Intake: Oral 118 Output: Urine 600 625 Other: Voiding Method Urinal - Exam GENERAL EXAM: Alert, pleasant, 64-year-old white male currently having shortness of breath, and the patient is currently was on BiPAP and the patient has been weaned down to 6 L O2 nasal cannula HEAD: Normocephalic/atraumatic. EYES: Normal reaction of pupils, equal size. Conjunctiva pink, sclera white. NOSE: Clear with pink turbinates. THROAT: No erythema or exudates. NECK: No masses, no JVD, no thyroid enlargement, no adenopathy. CHEST: No chest wall deformity. Symmetrical expansion. LUNGS: Equal air entry with diffuse expiratory wheezes CVS: Regular rate and rhythm, normal S1 and S2, no gallops, no murmurs, no rubs ABDOMEN: Soft, nontender. No hepatosplenomegaly, normal bowel sounds, no guarding or rigidity. EXTREMITIES: No clubbing, , no cyanosis, 2+ pulses and upper and lower extremities.the patient has chronic edema lower extremities and chronic ulceration no evidence of any acute infection MUSCULOSKELETAL: Muscle strength and tone normal. SPINE: No scoliosis or deformity SKIN: No rashes CENTRAL NERVOUS SYSTEM: Alert and oriented -3. No focal deficits, tone is normal in all 4 extremities. PSYCHIATRIC: Alert and oriented -3. Appropriate affect. Intact judgment and insight. - Labs CBC & Chem 7: 08/30/22 11:18 08/30/22 11:18 Labs: Abnormal Lab Results - Last 24 Hours (Table) 08/29/22 08/29/22 08/29/22 Range/Units 09:59 09:59 17:28 RBC (4.30-5.90) m/uL Hgb (13.0-17.5) gm/dL Hct (39.0-53.0) % MCV (80.0-100.0) fL MCH (25.0-35.0) pg Plt Count (150-450) k/uL Neutrophils # (1.3-7.7) k/uL Lymphocytes # (1.0-4.8) k/uL Macrocytosis Potassium (3.5-5.1) mmol/L Chloride (98-107) mmol/L Carbon Dioxide (22-30) mmol/L BUN (9-20) mg/dL Creatinine (0.66-1.25) mg/dL Glucose (74-99) mg/dL POC Glucose (mg/dL) 233 H (70-110) mg/dL Hemoglobin A1c 6.4 H (0.0-6.0) % Troponin I (0.000-0.034) ng/mL Procalcitonin 0.71 H (0.02-0.09) ng/mL 08/29/22 08/30/22 08/30/22 Range/Units 20:53 06:11 11:18 RBC 3.00 L (4.30-5.90) m/uL Hgb 10.5 L (13.0-17.5) gm/dL Hct 33.0 L (39.0-53.0) % MCV 110.1 H (80.0-100.0) fL MCH 35.1 H (25.0-35.0) pg Plt Count 100 L (150-450) k/uL Neutrophils # 8.3 H (1.3-7.7) k/uL Lymphocytes # 0.4 L (1.0-4.8) k/uL Macrocytosis Marked A Potassium (3.5-5.1) mmol/L Chloride (98-107) mmol/L Carbon Dioxide (22-30) mmol/L BUN (9-20) mg/dL Creatinine (0.66-1.25) mg/dL Glucose (74-99) mg/dL POC Glucose (mg/dL) 182 H 149 H (70-110) mg/dL Hemoglobin A1c (0.0-6.0) % Troponin I (0.000-0.034) ng/mL Procalcitonin (0.02-0.09) ng/mL 08/30/22 08/30/22 08/30/22 Range/Units 11:18 11:46 14:31 RBC (4.30-5.90) m/uL Hgb (13.0-17.5) gm/dL Hct (39.0-53.0) % MCV (80.0-100.0) fL MCH (25.0-35.0) pg Plt Count (150-450) k/uL Neutrophils # (1.3-7.7) k/uL Lymphocytes # (1.0-4.8) k/uL Macrocytosis Potassium 6.3 H* (3.5-5.1) mmol/L Chloride 94 L (98-107) mmol/L Carbon Dioxide 38 H (22-30) mmol/L BUN 57 H (9-20) mg/dL Creatinine 1.49 H (0.66-1.25) mg/dL Glucose 165 H (74-99) mg/dL POC Glucose (mg/dL) 188 H (70-110) mg/dL Hemoglobin A1c (0.0-6.0) % Troponin I 0.984 H* (0.000-0.034) ng/mL Procalcitonin (0.02-0.09) ng/mL Microbiology - Last 24 Hours (Table) 08/29/22 10:05 Blood Culture - Preliminary Blood No Growth after 24 hours 08/29/22 09:48 Blood Culture Gram Stain - Preliminary Blood 08/29/22 09:48 Blood Culture - Final Blood Assessment and Plan Plan: acute exacerbation of chronic COPD with impending respiratory failure, currently on a BiPAP for respiratory support, chest x-ray is free of any acute pulmonary infiltrates. The patient was on a BiPAP and the patient has been weaned down to 6 L O2 nasal cannula Acute on chronic hypoxic respiratory failure, the patient is typically on oxygen at 6 L/m nasal cannula Acute shortness of breath secondary to above, improving Advanced COPD with a FEV1 of 70% of predicted at baseline Chronic exertional dyspnea, improving Acute non-ST segment elevation myocardial infarction. The troponin peaked at 1.8 and this is the second set and the patient is free of any chest pain and EKG showing a chronic left bundle branch block pattern. Subsequent troponin levels have been low and the patient is awaiting a cardiology evaluation. The patient on aspirin. Morbid obesity with a body mass index of 38.5 Hypertension Recent hospitalization for a streptococcal septicemia, treated. Echo showed no valvular vegetation Concentric LVH with hypertensive heart disease Hypertension Chronic lower extremity edema Chronic kidney disease stage III, creatinine is stable and a potassium level is at 6.3, treated Chronic anxiety Chronic ALLERGIC rhinitis. Acute hyperkalemia, received treatment Plan Continue BiPAP on off during the day and the patient is currently on 6 L O2 nasal cannul Continue DuoNeb about treatments [id number] continue IV Solu-Medrol Continue monitoring the cardiac enzymes, downtrending Cardiology consultation Recent echo of the heart was within normal limits Blood cultures Check pro calcitonin level , mildly elevated at 0.71 Monitor renal function IV cefazolin as an empiric antibiotic coverage resume all home medications We'll continue to follow
[2022-08-30 16:43] LABS: Glucose,Whole Blood 341 mg/dL (70-110)
[2022-08-30 20:12] LABS: Glucose,Whole Blood 158 mg/dL (70-110)
[2022-08-30] MEDS: MONTELUKAST 10 MG TAB PO SCH (20:41)
--- NOTE | 2022-08-30 23:02 | P.PN ---
Subjective Progress Note Date: 08/30/22 Principal diagnosis: Bilateral leg cellulitis Patient is a 67-year-old male with a past medical history significant for COPD/CHF presented to hospital with increasing shortness of breath patient also noticed to have increasing swelling redness to lower extremities conc erning for cellulitis. On today's evaluation that is 08/30/2022, patient denies having any fever or any chills he is breathing slightly comfortably today denies any chest pain or cough pain to the lower extremity slightly decreased, no abdominal pain no diarrhea Objective - Vital Signs Vital signs: Vital Signs Temp 98 F 08/30/22 20:10 Pulse 100 08/30/22 21:43 Resp 17 08/30/22 20:15 BP 120/67 08/30/22 20:10 Pulse Ox 94 L 08/30/22 20:15 FiO2 70 08/30/22 08:46 Intake & Output 08/30/22 08/30/22 08/31/22 06:59 18:59 06:59 Intake Total 118 Output Total 600 1175 1300 Balance -798 -6879 -1288 Intake: Oral 118 Output: Urine 600 1175 1300 Other: Voiding Method Urinal Urinal # Voids 1 # Bowel Movements 1 - Exam GENERAL DESCRIPTION: An elderly male lying in bed in no distress RESPIRATORY SYSTEM: Unlabored breathing , decreased breath sounds at bases HEART: S1 S2 regular rate and rhythm , ABDOMEN: Soft , no tenderness EXTREMITIES: Diffuse swelling bilateral lower extremity minimal redness - Labs CBC & Chem 7: 08/30/22 11:18 08/30/22 17:47 Labs: Abnormal Lab Results - Last 24 Hours (Table) 08/29/22 08/29/22 08/30/22 Range/Units 09:59 09:59 06:11 RBC (4.30-5.90) m/uL Hgb (13.0-17.5) gm/dL Hct (39.0-53.0) % MCV (80.0-100.0) fL MCH (25.0-35.0) pg Plt Count (150-450) k/uL Neutrophils # (1.3-7.7) k/uL Lymphocytes # (1.0-4.8) k/uL Macrocytosis Potassium (3.5-5.1) mmol/L Chloride (98-107) mmol/L Carbon Dioxide (22-30) mmol/L BUN (9-20) mg/dL Creatinine (0.66-1.25) mg/dL Glucose (74-99) mg/dL POC Glucose (mg/dL) 149 H (70-110) mg/dL Hemoglobin A1c 6.4 H (0.0-6.0) % Troponin I (0.000-0.034) ng/mL Procalcitonin 0.71 H (0.02-0.09) ng/mL 08/30/22 08/30/22 08/30/22 Range/Units 11:18 11:18 11:46 RBC 3.00 L (4.30-5.90) m/uL Hgb 10.5 L (13.0-17.5) gm/dL Hct 33.0 L (39.0-53.0) % MCV 110.1 H (80.0-100.0) fL MCH 35.1 H (25.0-35.0) pg Plt Count 100 L (150-450) k/uL Neutrophils # 8.3 H (1.3-7.7) k/uL Lymphocytes # 0.4 L (1.0-4.8) k/uL Macrocytosis Marked A Potassium 6.3 H* (3.5-5.1) mmol/L Chloride 94 L (98-107) mmol/L Carbon Dioxide 38 H (22-30) mmol/L BUN 57 H (9-20) mg/dL Creatinine 1.49 H (0.66-1.25) mg/dL Glucose 165 H (74-99) mg/dL POC Glucose (mg/dL) 188 H (70-110) mg/dL Hemoglobin A1c (0.0-6.0) % Troponin I (0.000-0.034) ng/mL Procalcitonin (0.02-0.09) ng/mL 08/30/22 08/30/22 08/30/22 Range/Units 14:31 16:41 20:09 RBC (4.30-5.90) m/uL Hgb (13.0-17.5) gm/dL Hct (39.0-53.0) % MCV (80.0-100.0) fL MCH (25.0-35.0) pg Plt Count (150-450) k/uL Neutrophils # (1.3-7.7) k/uL Lymphocytes # (1.0-4.8) k/uL Macrocytosis Potassium (3.5-5.1) mmol/L Chloride (98-107) mmol/L Carbon Dioxide (22-30) mmol/L BUN (9-20) mg/dL Creatinine (0.66-1.25) mg/dL Glucose (74-99) mg/dL POC Glucose (mg/dL) 341 H 158 H (70-110) mg/dL Hemoglobin A1c (0.0-6.0) % Troponin I 0.984 H* (0.000-0.034) ng/mL Procalcitonin (0.02-0.09) ng/mL Microbiology - Last 24 Hours (Table) 08/29/22 10:05 Blood Culture - Preliminary Blood No Growth after 24 hours 08/29/22 09:48 Blood Culture Gram Stain - Preliminary Blood 08/29/22 09:48 Blood Culture - Final Blood Assessment and Plan (1) Cellulitis Current Visit: Yes Status: Acute Code(s): L03.90 - CELLULITIS, UNSPECIFIED SNOMED Code(s): 143545550 Plan: 1patient with bilateral lower extremity swelling and redness some superficial ulceration to scratching concerning for cellulitis likely from gram-positive skin danitza such as strep. 2patient presenting mostly with increasing shortness of breath more likely related to COPD exacerbation chest x-ray was negative for any pneumonia. 3patient also have a positive blood culture with gram-positive cocci in chain questionably Streptococcus related to his leg cellulitis versus skin contamination 4patient continue with cefazolin to 2 g every 8 hour and monitor clinical course closely Time with Patient: Less than 30
[2022-08-31] MEDS: SODIUM CHLORIDE 0.9% 1,000 ML IV STA (00:14)
[2022-08-31] MEDS: methylPREDNISolone SOD SUCCI 125 MG/2 ML VIAL IV SCH ×5 (01:19→23:56)
[2022-08-31 06:14] LABS: Glucose,Whole Blood 181 mg/dL (70-110)
[2022-08-31] MEDS: INSULIN ASPART (NovoLOG) 100 UNIT/ML VIAL SQ SCH ×4 (06:39→20:30)
[2022-08-31] MEDS: BUDESONIDE 1 MG/2 ML NEBU INHALATION SCH ×2 (07:59→20:54)
[2022-08-31] MEDS: FORMOTEROL FUMARATE 20 MCG/2 ML NEBU INHALATION SCH ×2 (07:59→20:54)
[2022-08-31] MEDS: IPRATROPIUM-ALBUTEROL 3 ML NEB INHALATION SCH ×4 (07:59→20:54)
[2022-08-31] MEDS: SODIUM ZIRCONIUM CYCLOSILICATE 10 GM PACKET PO SCH ×2 (09:04→20:30)
[2022-08-31] MEDS: ENOXAPARIN 40 MG/0.4 ML SYRINGE SQ SCH (09:06)
[2022-08-31] MEDS: CHOLECALCIFEROL 25 MCG (1000 IU) TABLET PO SCH (09:06)
[2022-08-31] MEDS: ASPIRIN 81 MG PO SCH (09:06)
[2022-08-31] MEDS: FAMOTIDINE 20 MG TAB PO SCH (09:06)
[2022-08-31] MEDS: METOPROLOL TARTRATE 50 MG TAB PO SCH ×2 (09:06→20:30)
[2022-08-31] MEDS: FUROSEMIDE 20 MG TAB PO SCH ×3 (09:06→20:30)
[2022-08-31 09:25] LABS: Calcium 8.3 mg/dL (8.4-10.2); Magnesium 2.2 mg/dL (1.6-2.3)
[2022-08-31 09:39] LABS: Potassium 4.6 mmol/L (3.5-5.1)
--- NOTE | 2022-08-31 11:13 | CA ---
Transthoracic Echo Report Name: Chemo Escalera Age: 67 Gender: M : 1955 Exam Date: 08/31/2022 09:23 Exam Location: [facility] Ht (in): 70 Wt (lb): 277 Ordering Physician: Solomon Antonio DO ([email or web address]) Attending/Referring Phys: Painting Manager Tish Mclaughlin RDCS Procedure CPT: Indications: re: LV function, NSTEMI Cardiac Hx: Technical Quality: Poor Contrast 1: Lumason Total Dose (mL): 4 Contrast 2: Total Dose (mL): MEASUREMENTS (Male / Female) Normal Values FINDINGS Left Ventricle Limited study, no obvious regional wall motion abnormalities. Left ventricular ejection fraction is estimated at 50 %. Right Ventricle Right Atrium Left Atrium Mitral Valve Aortic Valve Tricuspid Valve Pulmonic Valve Pericardium No pericardial effusion. Aorta CONCLUSIONS Limited 2-D echo Left ventricular ejection fraction 50% with global hypokinesis No pericardial effusion Previewed by: Dr. Solomon Antonio DO (Electronically Signed) Final Date: 31 August 2022 11:12
--- NOTE | 2022-08-31 11:35 | P.NPCON ---
History of Present Illness - Reason for Consult chronic renal failure, hyperkalemia - History of Present Illness Reason for consultation: Chronic kidney disease and hyperkalemia History of present illness: Patient is a 67-year-old male seen in renal consultation for chronic kidney disease and hyperkalemia. Creatinine in January 2022 and September 2021 was in the range of 1.3-1.4. This admission renal function has been stable with creatinine in the range of 1.4-1.5. Patient's potassium level has been on the higher side and was up to 6.3 yesterday which was medically treated with multiple medications. It improved to 4.5 as of last night and was 4.6 this morning. Patient came to the hospital on 08/29/2022 with shortness of breath. He was having a cough and had a low-grade fever. Patient complained of redness and swelling in his lower extremities and is currently being treated for cellulitis. Patient's blood cultures positive for group G strep. He is on oral Lasix 60 mg 3 times daily. He admits to good urine output. No evidence of urinary retention. He does wear 6 L oxygen at home. Patient's echocardiogram showed ejection fraction of 50%. Denies history of diabetes. Denies family history of renal disease. Denies use of nonsteroidals. Vital signs are stable. General: Awake. No acute distress. HEENT: Head exam is unremarkable. On nasal cannula. LUNGS: Breath sounds decreased. HEART: Rate and Rhythm are regular. ABDOMEN: Soft, obese. EXTREMITITES: 1+ edema. Past Medical History Past Medical History: COPD, Hypertension Additional Past Medical History / Comment(s): Obesity, previous history of cellulitis of the lower extremities, hypertension, COPD, chronic hypoxic respiratory failure, osteoarthritis History of Any Multi-Drug Resistant Organisms: None Reported Past Surgical History: No Surgical Hx Reported Additional Past Surgical History / Comment(s): no Reported history of surgeries Past Anesthesia/Blood Transfusion Reactions: No Reported Reaction Past Psychological History: No Psychological Hx Reported Smoking Status: Former smoker Past Alcohol Use History: None Reported Past Drug Use History: None Reported - Past Family History Father History Unknown: Yes Additional Family Medical History / Comment(s): Patient states father at 76 of a blood clot, mother had breast cancer Mother History Unknown: Yes Family Medical History: Dementia Medications and Allergies Home Medications Medication Instructions Recorded Confirmed Type Albuterol Nebulized [Ventolin 2.5 mg INHALATION RT-QID PRN 06/22/14 08/29/22 History Nebulized] Montelukast [Singulair] 10 mg PO HS@209906/09/19 08/29/22 History clonazePAM [KlonoPIN] 0.5 mg PO DAILY PRN 06/09/19 08/29/22 History Albuterol Sulfate [Ventolin HFA] 2 puff INHALATION RT-Q4H PRN 08/27/19 08/29/22 History Fluticasone Propion/Salmeterol 1 puff INHALATION RT-BID 08/27/19 08/29/22 History [Advair 250-50 Diskus] Cholecalciferol [Vitamin D3 (25 25 mcg PO DAILY 06/16/22 08/29/22 History Mcg = 1000 Iu)] Metoprolol Tartrate [Lopressor] 50 mg PO BID@0900,2100 06/16/22 08/29/22 History Furosemide [Lasix] 60 mg PO TID 08/29/22 08/29/22 History Allergies Allergy/AdvReac Type Severity Reaction Status Date / Time clarithromycin [From Biaxin] AdvReac TREMORS Verified 08/29/22 11:41 Physical Exam Vitals: Vital Signs Temp Pulse Pulse Resp BP BP Pulse Ox 08/31/22 08:40 98.1 F 91 18 128/61 92 L 08/31/22 08:21 100 08/31/22 08:14 103 H 08/31/22 08:13 103 H 08/31/22 08:01 98 98 08/31/22 04:00 84 18 129/72 96 08/31/22 03:20 08/31/22 01:19 100 08/31/22 00:00 98 19 122/68 95 08/30/22 21:43 100 08/30/22 21:32 101 H 08/30/22 21:31 100 08/30/22 21:25 99 08/30/22 20:15 17 94 L 08/30/22 20:10 98 F 105 H 18 120/67 98 08/30/22 15:59 104 H 08/30/22 15:47 95 08/30/22 15:39 98.0 F 93 18 123/59 91 L 08/30/22 12:00 86 71 18 104/56 94 L 08/30/22 11:50 87 FiO2 08/31/22 08:40 08/31/22 08:21 08/31/22 08:14 08/31/22 08:13 08/31/22 08:01 08/31/22 04:00 08/31/22 03:20 40 08/31/22 01:19 40 08/31/22 00:00 08/30/22 21:43 08/30/22 21:32 08/30/22 21:31 08/30/22 21:25 08/30/22 20:15 08/30/22 20:10 08/30/22 15:59 08/30/22 15:47 08/30/22 15:39 08/30/22 12:00 08/30/22 11:50 Intake and Output 08/30/22 08/31/22 08/31/22 22:59 06:59 14:59 Intake Total 358 Output Total 1850 700 Balance -1850 -700 358 Intake: Oral 358 Output: Urine 1850 700 Other: Voiding Method Urinal Urinal # Voids 1 # Bowel Movements 1 Weight 125.9 kg Results - Lab Results Most recent lab results Calcium 8.3 mg/dL (8.4-10.2) L 08/31/22 08:13 Magnesium 2.2 mg/dL (1.6-2.3) 08/31/22 08:13 08/30/22 11:18 08/31/22 08:13 Assessment and Plan Plan: Assessment: 1. Chronic kidney disease stage IIIa with baseline creatinine near 1.5 secondary to nephrosclerosis and cardiorenal syndrome. 2. Hyperkalemia secondary to chronic kidney disease, hyperglycemia. Improved with medical management. 3. Acute on chronic diastolic CHF. 4. Lower extremity cellulitis and group G strep bacteremia on antibiotics. ID following. 5. Acute on chronic hypercapnic respiratory failure. Plan: Maintain oral Lasix. Monitor bladder scans to make sure no urinary retention. Check UA. No proteinuria on UA done June 2022. Avoid nephrotoxins. Continue to monitor renal function and urine output. Thank you for the consultation. I will continue to follow patient with you during his hospital stay.
[2022-08-31 11:48] LABS: Glucose,Whole Blood 172 mg/dL (70-110)
--- NOTE | 2022-08-31 13:48 | P.PN ---
Subjective Progress Note Date: 08/31/22 This is a 67-year-old male patient presents to ER with concerns of difficulty breathing. Patient reports that initial symptoms started a few days ago but increasingly became difficulty breathing this a.m. around 4 AM. Patient denies fevers at home. Patient does have a past medical history of COPD, CHF, cellulitis, obesity, ex-smoker, chronic hypoxic respiratory failure and hypertension. Chest x-ray completed showing no evidence for acute pulmonary disease. COVID-19 negative influenza A and B negative. Patient noted to have elevated white count 16.5. Lactic acid 2.9. Troponin also elevated at 1.150. Creatinine 1.44 and bun 36 this does appear improved from baseline. Patient was placed on BiPAP. Pulmonary and cardiology service is consulted. Patient started on IV Solu-Medrol and DuoNeb breathing treatments. Blood cultures ordered. Repeat troponin ordered urine current vital signs temp 98.6, heart rate 108, blood pressure 126/74 patient satting 99% on BiPAP. On 08/30/2022 patient was seen and examined on the medical floor, he is alert and oriented 3 in no apparent distress, he reports improvement in his shortness of breath since yesterday there is no fever or chills no headache or dizziness no chest pain, no nausea or vomiting no abdominal pain no diarrhea and no urinary symptoms 08/31/2022 patient's alert and oriented 3. Patient reports improvement with shortness of breath. Pulmonary patient to stay an additional 24 hours. Patient remains on IV cephalosporins: For lower extremity cellulitis. Creatinine 1.53 bun 71 potassium improved to 4.6. This time patient denies chest pain. Patient denies nausea vomiting or diarrhea. Patient denies any urinary burning or frequency Objective - Vital Signs Vital signs: Vital Signs Temp 98.1 F 08/31/22 08:40 Pulse 90 08/31/22 12:18 Resp 18 08/31/22 08:40 BP 128/61 08/31/22 08:40 Pulse Ox 92 L 08/31/22 08:40 FiO2 40 08/31/22 03:20 Intake & Output 08/30/22 08/31/22 08/31/22 18:59 06:59 18:59 Intake Total 118 358 Output Total 1175 1999 Balance -1056 358 Weight 125.9 kg Intake: Oral 118 358 Output: Urine 1175 2000 Other: Voiding Method Urinal Urinal # Voids 1 # Bowel Movements 1 - Exam In general patient is alert and oriented x 3 in no distress HEENT head normocephalic and atraumatic Neck is supple no JVD no goiter no lymphadenopathy no carotid bruit Chest examination reveals a scattered crackles bilaterally no wheezing Cardiac exam reveals regular heart sounds S1 and S2 no gallops no murmurs Abdomen is soft nontender no organomegaly with normal bowel sounds Extremity exam reveals no edema no cyanosis or clubbing Neurological examination reveals no gross focal deficits - Labs CBC & Chem 7: 08/30/22 11:18 08/31/22 08:13 Labs: Abnormal Lab Results - Last 24 Hours (Table) 08/30/22 08/30/22 08/30/22 Range/Units 11:18 14:31 16:41 Neutrophils # 8.3 H (1.3-7.7) k/uL Lymphocytes # 0.4 L (1.0-4.8) k/uL Chloride (98-107) mmol/L Carbon Dioxide (22-30) mmol/L BUN (9-20) mg/dL Creatinine (0.66-1.25) mg/dL Glucose (74-99) mg/dL POC Glucose (mg/dL) 341 H (70-110) mg/dL Calcium (8.4-10.2) mg/dL Troponin I 0.984 H* (0.000-0.034) ng/mL 08/30/22 08/31/22 08/31/22 Range/Units 20:09 06:13 08:13 Neutrophils # (1.3-7.7) k/uL Lymphocytes # (1.0-4.8) k/uL Chloride 94 L (98-107) mmol/L Carbon Dioxide 36 H (22-30) mmol/L BUN 71 H (9-20) mg/dL Creatinine 1.53 H (0.66-1.25) mg/dL Glucose 224 H (74-99) mg/dL POC Glucose (mg/dL) 158 H 181 H (70-110) mg/dL Calcium 8.3 L (8.4-10.2) mg/dL Troponin I (0.000-0.034) ng/mL 08/31/22 Range/Units 11:46 Neutrophils # (1.3-7.7) k/uL Lymphocytes # (1.0-4.8) k/uL Chloride (98-107) mmol/L Carbon Dioxide (22-30) mmol/L BUN (9-20) mg/dL Creatinine (0.66-1.25) mg/dL Glucose (74-99) mg/dL POC Glucose (mg/dL) 172 H (70-110) mg/dL Calcium (8.4-10.2) mg/dL Troponin I (0.000-0.034) ng/mL Microbiology - Last 24 Hours (Table) 08/29/22 10:05 Blood Culture - Preliminary Blood No Growth after 48 hours 08/29/22 09:48 Blood Culture Gram Stain - Preliminary Blood Blood Culture - Preliminary Beta Hemolytic Strep Group G Assessment and Plan Assessment: 1. Difficulty in breathing secondary to COPD exacerbation 2. Acute on chronic hypoxic respiratory failure secondary to COPD and pulmonary fibrosis. Patient is maintained on 6 L nasal cannula at home 3. Acute on chronic kidney disease stage III 4. Elevated troponins. Repeat troponin order cardiology consult placed 5. Lower extremity cellulitis 6. History of essential hypertension 7. Acute on chronic diastolic heart failure DVT prophylaxis Lovenox. GI prophylaxis Pepcid Cardiology, pulmonary and infectious disease service is consulted Patient currently maintained on BiPAP, IV Solu-Medrol and DuoNeb breathing treatments Repeat labs ordered Blood culture ordered
--- NOTE | 2022-08-31 15:18 | P.PN ---
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 Patient had previously presented 06/18/2022 with questionable syncopal episode and shortness breath and was treated for COPD exacerbation as well as heart failure. At the time he had mildly elevated troponins and echo showed EF 55-60% with mild pulmonary hypertension RVSP 39 and no significant valvular disease. He states that over the last 2 days he has been feeling more short of breath, fatigue and dyspnea with minimal exertion and therefore told family members to bring him in the emergency department. He did have previous hospitalization with strep bacteremia. He denies any fevers or chills. Previous echo did not show any significant vegetation. Workup shows white blood cell count 16.5, hemoglobin 12.4, platelets 73, pCO2 92, creatinine 1.4, potassium 5.6, hemoglobin A1c 6.4, troponin 1.1, 1.8, pro-calcitonin 0.7, proBNP 1960. EKG showing poor R-wave progression with interventricular conduction delay and left bundle branch morphology with what appears to be sinus rhythm. Telemetry reveals 08/31 Patient seen and examined. Overall he states he is feeling much better. Diuresing well with oral Lasix and has had a good urine output. Denies any fevers or chills. He admits his lower extremity edema has improved however still has 2+ lower extremity edema. Limited echo shows EF 50% without signifi cant pericardial effusion. Blood culture 1/2 + for Strep. PHYSICAL EXAMINATION Vital signs reviewed. CONSTITUTIONAL: No apparent distress, chronically ill appearing HEENT: Head is normocephalic. Pupils are equal, round. Sclerae anicteric. Mucous membranes of the mouth are moist. No JVD. No carotid bruit. CHEST EXAMINATION: Diffuse wheeze HEART EXAMINATION: Regular rate and rhythm. S1, S2 heard. No murmurs, gallops or rub. ABDOMEN: Soft, nontender. Positive bowel sounds. EXTREMITIES: 2+ peripheral pulses, 2+ lower extremity edema and no calf tenderness. NEUROLOGIC EXAMINATION: Patient is awake, alert and oriented x3. ASSESSMENT 1. Acute on chronic respiratory failure mainly related to COPD 2. Chronic diastolic heart failure 3. COPD on home 6 L nasal cannula 4. Previous tobacco abuse 5. Non-STEMI somewhat more elevated than previous levels up to 1.7 6. Loss of consciousness, unclear if true syncope appears related to severe hypoxia 7. Pulmonary hypertension likely related to COPD 8. CKD 9. Hyperkalemia 10. Strep bacteremia PLAN Patient with generalized fatigue and still has bacteremia. Monitor symptomatically. Elevated troponins appear type 2 mechanism from bacteremia, CKD and EF predominantly preserved EF 50% Not having any angina-type symptoms. Aspirin and beta kel. Further recommendations to follow. Objective - Vital Signs Vital signs: Vital Signs Temp 98.1 F 08/31/22 08:40 Pulse 90 08/31/22 12:18 Resp 18 08/31/22 12:00 BP 120/63 08/31/22 12:00 Pulse Ox 92 L 08/31/22 12:00 FiO2 40 08/31/22 03:20 Intake & Output 08/30/22 08/31/22 08/31/22 18:59 06:59 18:59 Intake Total 118 358 Output Total 1175 1999 450 Balance -1057 -1999 - Weight 125.9 kg Intake: Oral 118 358 Output: Urine 1175 1999 450 Other: Voiding Method Urinal Urinal # Voids 1 # Bowel Movements 1 - Labs CBC & Chem 7: 08/30/22 11:18 08/31/22 08:13 Labs: Abnormal Lab Results - Last 24 Hours (Table) 08/30/22 08/30/22 08/30/22 Range/Units 14:31 16:41 20:09 Chloride (98-107) mmol/L Carbon Dioxide (22-30) mmol/L BUN (9-20) mg/dL Creatinine (0.66-1.25) mg/dL Glucose (74-99) mg/dL POC Glucose (mg/dL) 341 H 158 H (70-110) mg/dL Calcium (8.4-10.2) mg/dL Troponin I 0.984 H* (0.000-0.034) ng/mL 08/31/22 08/31/22 08/31/22 Range/Units 06:13 08:13 11:46 Chloride 94 L (98-107) mmol/L Carbon Dioxide 36 H (22-30) mmol/L BUN 71 H (9-20) mg/dL Creatinine 1.53 H (0.66-1.25) mg/dL Glucose 224 H (74-99) mg/dL POC Glucose (mg/dL) 181 H 172 H (70-110) mg/dL Calcium 8.3 L (8.4-10.2) mg/dL Troponin I (0.000-0.034) ng/mL Microbiology - Last 24 Hours (Table) 08/29/22 10:05 Blood Culture - Preliminary Blood No Growth after 48 hours 08/29/22 09:48 Blood Culture Gram Stain - Preliminary Blood Blood Culture - Preliminary Beta Hemolytic Strep Group G
--- NOTE | 2022-08-31 15:38 | P.PN ---
Subjective Progress Note Date: 08/31/22 67-year-old male patient with known history of advanced COPD and the patient is obese with a BMI of 30.5 and the patient has an FEV1 of 17% of predicted and the patient has been chronically dependent at 5 L O2 nasal cannula. He has had previous hospitalization for COPD exacerbation. The patient has had a recent admission approximately 2 months ago for a Streptococcus sepsis, treated without antibiotics and ultimately the patient was discharged home on oral antibiotics. He did not any valvular vegetation and the patient had an echocardiogram at that time showed negative vegetation. The source of the infection was probably soft tissue and the patient has chronic ulceration and edema lower oximetry is bilaterally. He does get episodic cellulitis of the lower oximetry is bilaterally. The patient came into the hospital because of worsening shortness of breath as of 4:00 this morning. No fever. No chills. His vital screening including Covid 19, influenza A and B were all negative. In the ED, the patient had a white cell count 16.5 and his lactic acid level was at 2.9. The patient's had a hemoglobin of 12.4, BUN of 36 and a creatinine of 1.4 and his sodium was at 138 with a creatinine of 5.6. His lactic acid level was at 2.1. He was quite short of breath and immediately the patient was placed on BiPAP therapy. The patient is also started on bronchodilators and the patient also started on systemic steroids. Chest x-ray showed cardiomegaly, no airspace disease and there was no evidence of any acute cardiopulmonary abnormalities. There is some chronic changes related to COPD and hyperinflation. Noted the patient's to have any chest pain. Initial troponin was at 1.1 and subsequent troponin came back at 1.8. The patient was started on IV cefazolin by emergency. The patient was started on bronchodilators with DuoNeb about treatments [id number] and IV Solu-Medrol. Cultures were sent and is also still pending for now. Note that his EKG showed a chronic left bundle branch block pattern the patient had a normal sinus rhythm. His previous echocardiogram from 06/18/2022 showed no evidence of any valvular vegetation. He had a normal LV function and he had m oderate concentric LVH. On 08/30/2022, patient is doing better. The patient was taken off the BiPAP this morning and the patient was placed on oxygen at 6 L. Less short of breath. Less bronchospastic. Less wheezy. No signs of any CO2 narcosis. Troponin was elevated at 1.8 and the patient is still awaiting cardiology evaluation. The patient on aspirin. The patient on Lovenox for DVT prophylaxis. The patient remains on DuoNeb about treatments [id number], Perforomist and Pulmicort n eb treatments twice a day and IV Solu-Medrol. The bloodwork was noted. The white cycles of 9.3 with a hemoglobin of 7.5 and a platelet count which is chronically low at 100. The patient's potassium level was at 6.3 and the patient was treated accordingly and his sodium levels is 137, BUN is 57 with a creatinine of 1.4. Troponin is down to 0.98. On today's evaluation of 08/31/2022, the patient is doing well. No specific complaints. Less short of breath and the patient is gradually improving. His on 6 L of oxygen by nasal cannula. On and off, is utilizing BiPAP at a pressure of 10/5 cm of water. He was being diuresed with po Lasix 60 mg by mouth 3 times a day and the patient is feeling better in terms of his fluid balance. Echocardiogram showed a preserved LV function. Troponins were elevated and cardiology thought that this is a type II ischemia. In same time, the patient was found to have Streptococcus group B . This is related to soft tissue infection and episodic serum lites of the lower extremities. Endocarditis cannot be completely ruled out. Echocardiogram during his last admission was negative and limited echocardiogram was done during this current admission showing no vegetation and the patient had a preserved LV function. Infectious diseases on the case. Cardiac is on the case. The patient remains on IV cefazolin. He remains on DuoNeb about treatments [id number]. He is on IV Solu-Medrol 60 mg every 6 hours. He has advanced COPD. Objective - Vital Signs Vital signs: Vital Signs Temp 98.1 F 08/31/22 08:40 Pulse 90 08/31/22 15:30 Resp 18 08/31/22 12:00 BP 120/63 08/31/22 12:00 Pulse Ox 92 L 08/31/22 12:00 FiO2 40 08/31/22 03:20 Intake & Output 08/30/22 08/31/22 08/31/22 18:59 06:59 18:59 Intake Total 118 358 Output Total 1175 1999 Balance -1057 -2000 -92 Weight 125.9 kg Intake: Oral 118 358 Output: Urine 1175 1999 Other: Voiding Method Urinal Urinal # Voids 1 # Bowel Movements 1 - Exam GENERAL EXAM: Alert, pleasant, 64-year-old white male currently having shortness of breath, and the patient is currently was on BiPAP and the patient has been weaned down to 6 L O2 nasal cannula HEAD: Normocephalic/atraumatic. EYES: Normal reaction of pupils, equal size. Conjunctiva pink, sclera white. NOSE: Clear with pink turbinates. THROAT: No erythema or exudates. NECK: No masses, no JVD, no thyroid enlargement, no adenopathy. CHEST: No chest wall deformity. Symmetrical expansion. LUNGS: Equal air entry with diffuse expiratory wheezes CVS: Regular rate and rhythm, normal S1 and S2, no gallops, no murmurs, no rubs ABDOMEN: Soft, nontender. No hepatosplenomegaly, normal bowel sounds, no guarding or rigidity. EXTREMITIES: No clubbing, , no cyanosis, 2+ pulses and upper and lower extremities.the patient has chronic edema lower extremities and chronic ulceration no evidence of any acute infection MUSCULOSKELETAL: Muscle strength and tone normal. SPINE: No scoliosis or deformity SKIN: No rashes CENTRAL NERVOUS SYSTEM: Alert and oriented -3. No focal deficits, tone is normal in all 4 extremities. PSYCHIATRIC: Alert and oriented -3. Appropriate affect. Intact judgment and insight. - Labs CBC & Chem 7: 08/30/22 11:18 08/31/22 08:13 Labs: Abnormal Lab Results - Last 24 Hours (Table) 08/30/22 08/30/22 08/31/22 Range/Units 16:41 20:09 06:13 Chloride (98-107) mmol/L Carbon Dioxide (22-30) mmol/L BUN (9-20) mg/dL Creatinine (0.66-1.25) mg/dL Glucose (74-99) mg/dL POC Glucose (mg/dL) 341 H 158 H 181 H (70-110) mg/dL Calcium (8.4-10.2) mg/dL 08/31/22 08/31/22 Range/Units 08:13 11:46 Chloride 94 L (98-107) mmol/L Carbon Dioxide 36 H (22-30) mmol/L BUN 71 H (9-20) mg/dL Creatinine 1.53 H (0.66-1.25) mg/dL Glucose 224 H (74-99) mg/dL POC Glucose (mg/dL) 172 H (70-110) mg/dL Calcium 8.3 L (8.4-10.2) mg/dL Microbiology - Last 24 Hours (Table) 08/29/22 10:05 Blood Culture - Preliminary Blood No Growth after 48 hours 08/29/22 09:48 Blood Culture Gram Stain - Preliminary Blood Blood Culture - Preliminary Beta Hemolytic Strep Group G Assessment and Plan Plan: acute exacerbation of chronic COPD with impending respiratory failure, currently on a BiPAP for respiratory support, chest x-ray is free of any acute pulmonary infiltrates. The patient is currently on 6 L of oxygen by nasal cannula. Continues to be on examination bronchodilators and steroids. Currently off BiPAP Acute on chronic hypoxic respiratory failure, the patient is typically on oxygen at 6 L/m nasal cannula Acute shortness of breath secondary to above, improving Advanced COPD with a FEV1 of 17 % of predicted at baseline Chronic exertional dyspnea, improving Acute non-ST segment elevation myocardial infarction. The troponin peaked at 1.8 and this is the second set and the patient is free of any chest pain and EKG showing a chronic left bundle branch block pattern. Subsequent troponin levels have been low and the patient is awaiting a cardiology evaluation. The patient on aspirin. Cardiology evaluated the patient and the patient is told to have type II ischemia Septicemia with Streptococcus group B and the patient is currently on IV cefazolin. No evidence of any vegetation based on transthoracic echocardiogram. The patient has a preserved LV function. Morbid obesity with a body mass index of 38.5 Hypertension Recent hospitalization for a streptococcal septicemia, treated. Echo showed no valvular vegetation Concentric LVH with hypertensive heart disease Hypertension Chronic lower extremity edema Chronic kidney disease stage III, creatinine is stable and a potassium level is at 6.3, treated Chronic anxiety Chronic ALLERGIC rhinitis. Acute hyperkalemia, received treatment, recovered and the potassium level is normalized Plan Continue BiPAP on off during the day and the patient is currently on 6 L O2 n renetta cannul Continue DuoNeb about treatments [id number] continue IV Solu-Medrol Continue oral Lasix 60 mg by mouth 3 times a day Continue monitoring the cardiac enzymes, downtrending, likely type II ischemia Cardiology consultation appreciated Recent echo of the heart was within normal limits , no evidence of any vegetation Blood cultures positive for strep and the patient is on IV cefazolin Check pro calcitonin level , mildly elevated at 0.71 Monitor renal function IV cefazolin to be continued l continue to follow
[2022-08-31 16:40] LABS: Glucose,Whole Blood 235 mg/dL (70-110)
[2022-08-31 17:48] LABS: Appearance,Urine Clear (Clear); Bilirubin,Urine Negative (Negative); Blood,Urine Negative (Negative); Color,Urine Light Yellow; Glucose,Urine (UA) Negative (Negative); Ketones,Urine Negative (Negative); Leukocyte Esterase,Urine Negative (Negative); Nitrite,Urine Negative (Negative); Protein,Urine Negative (Negative); Specific Gravity,Urine 1.012 (1.001-1.035); Urobilinogen,Urine <2.0 mg/dL (<2.0)
[2022-08-31 20:20] LABS: Glucose,Whole Blood 208 mg/dL (70-110)
[2022-08-31] MEDS: MONTELUKAST 10 MG TAB PO SCH (20:30)
[2022-09-01 05:58] LABS: Glucose,Whole Blood 193 mg/dL (70-110)
[2022-09-01] MEDS: INSULIN ASPART (NovoLOG) 100 UNIT/ML VIAL SQ SCH ×4 (06:17→20:24)
[2022-09-01] MEDS: methylPREDNISolone SOD SUCCI 125 MG/2 ML VIAL IV SCH ×3 (06:17→19:03)
[2022-09-01] MEDS: BUDESONIDE 1 MG/2 ML NEBU INHALATION SCH ×2 (08:03→20:30)
[2022-09-01] MEDS: IPRATROPIUM-ALBUTEROL 3 ML NEB INHALATION SCH ×4 (08:03→20:30)
[2022-09-01] MEDS: FORMOTEROL FUMARATE 20 MCG/2 ML NEBU INHALATION SCH ×2 (08:03→20:30)
[2022-09-01 09:26] LABS: Basophils % (A) 0 %; Eosinophils % (A) 0 %; HCT 34.9 % (39.0-53.0); HGB 11.3 gm/dL (13.0-17.5); Hypochromasia Moderate; Lymphocytes # (A) 0.4 k/uL (1.0-4.8); Lymphocytes % (A) 5 %; MCH 35.3 pg (25.0-35.0); MCHC 32.3 g/dL (31.0-37.0); MCV 109.3 fL (80.0-100.0); Macrocytosis Moderate; Mean Platelet Volume 11.5; Monocytes # (A) 0.5 k/uL (0-1.0); Monocytes % (A) 7 %; Neutrophils # (A) 6.4 k/uL (1.3-7.7); Neutrophils % (A) 87 %; RBC 3.19 m/uL (4.30-5.90); RDW 12.4 % (11.5-15.5); WBC 7.4 k/uL (3.8-10.6)
[2022-09-01 09:30] LABS: Platelet Count 81 k/uL (150-450)
--- NOTE | 2022-09-01 09:35 | P.PN ---
Subjective Progress Note Date: 09/01/22 Principal diagnosis: This is a 67-year-old male seen in consultation because of chronic kidney disease. Came in with the shortness of breath. Found to have beta-hemolytic strep group G bacteremia. He feels fine denying any chest pain shortness of breath fever chills cough. No nausea vomiting good appetite. Intake and output is documented 780 and 225 mL. Labs not reported yet this morning SA creatinine was 1.53 to stable. History of present illness: Patient is a 67-year-old male seen in renal consultation for chronic kidney disease and hyperkalemia. Creatinine in January 2022 and September 2021 was in the range of 1.3-1.4. This admission renal function has been stable with creatinine in the range of 1.4-1.5. Patient's potassium level has been on the higher side and was up to 6.3 yesterday which was medically treated with multiple medications. It improved to 4.5 as of last night and was 4.6 this morning. Patient came to the hospital on 08/29/2022 with shortness of breath. He was having a cough and had a low-grade fever. Patient complained of redness and swe lling in his lower extremities and is currently being treated for cellulitis. Patient's blood cultures positive for group G strep. He is on oral Lasix 60 mg 3 times daily. He admits to good urine output. No evidence of urinary retention. He does wear 6 L oxygen at home. Patient's echocardiogram showed ejection fraction of 50%. Denies history of diabetes. Denies family history of renal disease. Denies use of nonsteroidals. Objective - Vital Signs Vital signs: Vital Signs Temp 97.8 F 09/01/22 04:00 Pulse 84 09/01/22 08:25 Resp 20 09/01/22 04:00 BP 143/72 09/01/22 04:00 Pulse Ox 98 09/01/22 04:00 FiO2 40 08/31/22 03:20 Intake & Output 08/31/22 09/01/22 09/01/22 18:59 06:59 18:59 Intake Total 476 780 Output Total 450 225 Balance 26 555 Intake: Oral 476 780 Output: Urine 450 225 Other: Voiding Method Urinal Urinal # Voids 1 Vital signs are stable. General: Awake. No acute distress. HEENT: Head exam is unremarkable. On nasal cannula. LUNGS: Breath sounds decreased. HEART: Rate and Rhythm are regular. ABDOMEN: Soft, obese. EXTREMITITES: 1+ edema. - Labs CBC & Chem 7: 08/30/22 11:18 08/31/22 08:13 Labs: Abnormal Lab Results - Last 24 Hours (Table) 08/31/22 08/31/22 08/31/22 Range/Units 08:13 11:46 16:38 Chloride 94 L (98-107) mmol/L Carbon Dioxide 36 H (22-30) mmol/L BUN 71 H (9-20) mg/dL Creatinine 1.53 H (0.66-1.25) mg/dL Glucose 224 H (74-99) mg/dL POC Glucose (mg/dL) 172 H 235 H (70-110) mg/dL Calcium 8.3 L (8.4-10.2) mg/dL 08/31/22 09/01/22 Range/Units 20:18 05:57 Chloride (98-107) mmol/L Carbon Dioxide (22-30) mmol/L BUN (9-20) mg/dL Creatinine (0.66-1.25) mg/dL Glucose (74-99) mg/dL POC Glucose (mg/dL) 208 H 193 H (70-110) mg/dL Calcium (8.4-10.2) mg/dL Microbiology - Last 24 Hours (Table) 08/29/22 10:05 Blood Culture - Preliminary Blood No Growth after 48 hours 08/29/22 09:48 Blood Culture Gram Stain - Preliminary Blood Blood Culture - Preliminary Beta Hemolytic Strep Group G Assessment and Plan Assessment: Assessment: 1. Chronic kidney disease stage IIIa with baseline creatinine near 1.5 secondary to nephrosclerosis and cardiorenal syndrome. 2. Hyperkalemia secondary to chronic kidney disease, hyperglycemia. Improved with medical management. 3. Acute on chronic diastolic CHF. 4. Lower extremity cellulitis and group G strep bacteremia on antibiotics. ID following. 5. Acute on chronic hypercapnic respiratory failure. 6. Mild degree of metabolic alkalosis from diuretics improving with bicarbonate going from 40-36 Plan: Maintain oral Lasix. 60 3 times a day, by mouth Avoid nephrotoxins. Continue to monitor renal function and urine output. Thank you for the consultation. I will continue to follow patient with you during his hospital stay.
[2022-09-01 09:36] LABS: Albumin 3.6 g/dL (3.5-5.0); Calcium 8.2 mg/dL (8.4-10.2); Magnesium 2.2 mg/dL (1.6-2.3); Potassium 3.6 mmol/L (3.5-5.1); Total Bilirubin 0.6 mg/dL (0.2-1.3); Total Protein 6.7 g/dL (6.3-8.2)
[2022-09-01] MEDS: METOPROLOL TARTRATE 50 MG TAB PO SCH ×2 (09:38→20:20)
[2022-09-01] MEDS: FUROSEMIDE 20 MG TAB PO SCH ×3 (09:38→20:20)
[2022-09-01] MEDS: ASPIRIN 81 MG PO SCH (09:38)
[2022-09-01] MEDS: CHOLECALCIFEROL 25 MCG (1000 IU) TABLET PO SCH (09:38)
[2022-09-01] MEDS: FAMOTIDINE 20 MG TAB PO SCH (09:38)
[2022-09-01] MEDS: ENOXAPARIN 40 MG/0.4 ML SYRINGE SQ SCH (09:38)
[2022-09-01 11:36] LABS: Glucose,Whole Blood 229 mg/dL (70-110)
--- NOTE | 2022-09-01 15:31 | P.PN ---
Subjective Progress Note Date: 09/01/22 67-year-old male patient with known history of advanced COPD and the patient is obese with a BMI of 30.5 and the patient has an FEV1 of 17% of predicted and the patient has been chronically dependent at 5 L O2 nasal cannula. He has had previous hospitalization for COPD exacerbation. The patient has had a recent admission approximately 2 months ago for a Streptococcus sepsis, treated without antibiotics and ultimately the patient was discharged home on oral antibiotics. He did not any valvular vegetation and the patient had an echocardiogram at that time showed negative vegetation. The source of the infection was probably soft tissue and the patient has chronic ulceration and edema lower oximetry is bilaterally. He does get episodic cellulitis of the lower oximetry is bilaterally. The patient came into the hospital because of worsening shortness of breath as of 4:00 this morning. No fever. No chills. His vital screening including Covid 19, influenza A and B were all negative. In the ED, the patient had a white cell count 16.5 and his lactic acid level was at 2.9. The patient's had a hemoglobin of 12.4, BUN of 36 and a creatinine of 1.4 and his sodium was at 138 with a creatinine of 5.6. His lactic acid level was at 2.1. He was quite short of breath and immediately the patient was placed on BiPAP therapy. The patient is also started on bronchodilators and the patient also started on systemic steroids. Chest x-ray showed cardiomegaly, no airspace disease and there was no evidence of any acute cardiopulmonary abnormalities. There is some chronic changes related to COPD and hyperinflation. Noted the patient's to have any chest pain. Initial troponin was at 1.1 and subsequent troponin came back at 1.8. The patient was started on IV cefazolin by emergency. The patient was started on bronchodilators with DuoNeb about treatments [id number] and IV Solu-Medrol. Cultures were sent and is also still pending for now. Note that his EKG showed a chronic left bundle branch block pattern the patient had a normal sinus rhythm. His previous echocardiogram from 06/18/2022 showed no evidence of any valvular vegetation. He had a normal LV function and he had m oderate concentric LVH. On 08/30/2022, patient is doing better. The patient was taken off the BiPAP this morning and the patient was placed on oxygen at 6 L. Less short of breath. Less bronchospastic. Less wheezy. No signs of any CO2 narcosis. Troponin was elevated at 1.8 and the patient is still awaiting cardiology evaluation. The patient on aspirin. The patient on Lovenox for DVT prophylaxis. The patient remains on DuoNeb about treatments [id number], Perforomist and Pulmicort n eb treatments twice a day and IV Solu-Medrol. The bloodwork was noted. The white cycles of 9.3 with a hemoglobin of 7.5 and a platelet count which is chronically low at 100. The patient's potassium level was at 6.3 and the patient was treated accordingly and his sodium levels is 137, BUN is 57 with a creatinine of 1.4. Troponin is down to 0.98. On today's evaluation of 08/31/2022, the patient is doing well. No specific complaints. Less short of breath and the patient is gradually improving. His on 6 L of oxygen by nasal cannula. On and off, is utilizing BiPAP at a pressure of 10/5 cm of water. He was being diuresed with po Lasix 60 mg by mouth 3 times a day and the patient is feeling better in terms of his fluid balance. Echocardiogram showed a preserved LV function. Troponins were elevated and cardiology thought that this is a type II ischemia. In same time, the patient was found to have Streptococcus group B . This is related to soft tissue infection and episodic serum lites of the lower extremities. Endocarditis cannot be completely ruled out. Echocardiogram during his last admission was negative and limited echocardiogram was done during this current admission showing no vegetation and the patient had a preserved LV function. Infectious diseases on the case. Cardiac is on the case. The patient remains on IV cefazolin. He remains on DuoNeb about treatments [id number]. He is on IV Solu-Medrol 60 mg every 6 hours. He has advanced COPD. 09/01/2022, the patient is on 6 L of oxygen by nasal cannula. He continues to improve. He remains on DuoNeb about treatments [id number]. He remains on IV Solu-Medrol 60 mg every 6 hours. He is also bacteremic with Streptococcus and the patient is completing a course of IV cefazolin. No fever. No chills. No other new complaints otherwise for now. The patient's echoes at 7.4 with a hemoglobin of 11.3 and a platelet count of 81. BUN is at 69 with a creatinine of 1.67. Sodium is at 141. Glucose this morning is up to 29. He is not using his BiPAP on a regular basis. BiPAP is at the bedside. Objective - Vital Signs Vital signs: Vital Signs Temp 97.9 F 09/01/22 12:00 Pulse 72 09/01/22 14:00 Resp 19 09/01/22 14:00 BP 146/62 09/01/22 12:00 Pulse Ox 93 L 09/01/22 12:00 FiO2 40 08/31/22 03:20 Intake & Output 08/31/22 09/01/22 09/01/22 18:59 06:59 18:59 Intake Total 476 898 Output Total 450 675 Balance 26 223 Intake: Oral 476 898 Output: Urine 450 225 Stool 450 Other: Voiding Method Urinal Urinal Urinal # Voids 1 - Exam GENERAL EXAM: Alert, pleasant, 64-year-old white male currently having shortness of breath, and the patient is currently was on BiPAP and the patient has been weaned down to 6 L O2 nasal cannula HEAD: Normocephalic/atraumatic. EYES: Normal reaction of pupils, equal size. Conjunctiva pink, sclera white. NOSE: Clear with pink turbinates. THROAT: No erythema or exudates. NECK: No masses, no JVD, no thyroid enlargement, no adenopathy. CHEST: No chest wall deformity. Symmetrical expansion. LUNGS: Equal air entry with diffuse expiratory wheezes CVS: Regular rate and rhythm, normal S1 and S2, no gallops, no murmurs, no rubs ABDOMEN: Soft, nontender. No hepatosplenomegaly, normal bowel sounds, no guarding or rigidity. EXTREMITIES: No clubbing, , no cyanosis, 2+ pulses and upper and lower extremities.the patient has chronic edema lower extremities and chronic ulceration no evidence of any acute infection MUSCULOSKELETAL: Muscle strength and tone normal. SPINE: No scoliosis or deformity SKIN: No rashes CENTRAL NERVOUS SYSTEM: Alert and oriented -3. No focal deficits, tone is normal in all 4 extremities. PSYCHIATRIC: Alert and oriented -3. Appropriate affect. Intact judgment and insight. - Labs CBC & Chem 7: 09/01/22 08:29 09/01/22 08:29 Labs: Abnormal Lab Results - Last 24 Hours (Table) 08/31/22 08/31/22 09/01/22 Range/Units 16:38 20:18 05:57 RBC (4.30-5.90) m/uL Hgb (13.0-17.5) gm/dL Hct (39.0-53.0) % MCV (80.0-100.0) fL MCH (25.0-35.0) pg Plt Count (150-450) k/uL Lymphocytes # (1.0-4.8) k/uL Chloride (98-107) mmol/L Carbon Dioxide (22-30) mmol/L BUN (9-20) mg/dL Creatinine (0.66-1.25) mg/dL Glucose (74-99) mg/dL POC Glucose (mg/dL) 235 H 208 H 193 H (70-110) mg/dL Calcium (8.4-10.2) mg/dL 09/01/22 09/01/22 09/01/22 Range/Units 08:29 08:29 11:35 RBC 3.19 L (4.30-5.90) m/uL Hgb 11.3 L (13.0-17.5) gm/dL Hct 34.9 L (39.0-53.0) % MCV 109.3 H (80.0-100.0) fL MCH 35.3 H (25.0-35.0) pg Plt Count 81 L (150-450) k/uL Lymphocytes # 0.4 L (1.0-4.8) k/uL Chloride 93 L (98-107) mmol/L Carbon Dioxide 40 H (22-30) mmol/L BUN 69 H (9-20) mg/dL Creatinine 1.67 H (0.66-1.25) mg/dL Glucose 253 H (74-99) mg/dL POC Glucose (mg/dL) 229 H (70-110) mg/dL Calcium 8.2 L (8.4-10.2) mg/dL Microbiology - Last 24 Hours (Table) 08/29/22 09:48 Blood Culture Gram Stain - Final Blood Blood Culture - Final Beta Hemolytic Strep Group G 08/29/22 10:05 Blood Culture - Preliminary Blood No Growth after 72 hours Assessment and Plan Plan: acute exacerbation of chronic COPD with impending respiratory failure, currently on a BiPAP for respiratory support, chest x-ray is free of any acute pulmonary infiltrates. The patient is currently on 6 L of oxygen by nasal cannula. Continues to be on examination bronchodilators and steroids. Currently off BiPAP, less short of breath on today's evaluation. Not using BiPAP on a regular basis. Acute on chronic hypoxic respiratory failure, the patient is typically on oxygen at 6 L/m nasal cannula Acute shortness of breath secondary to above, improving Advanced COPD with a FEV1 of 17 % of predicted at baseline Chronic exertional dyspnea, improving Acute non-ST segment elevation myocardial infarction. The troponin peaked at 1.8 and this is the second set and the patient is free of any chest pain and EKG showing a chronic left bundle branch block pattern. Subsequent troponin levels have been low and the patient is awaiting a cardiology evaluation. The patient on aspirin. Cardiology evaluated the patient and the patient is told to have type II ischemia Septicemia with Streptococcus group B and the patient is currently on IV cefazolin. No evidence of any vegetation based on transthoracic echocardiogram. The patient has a preserved LV function. Morbid obesity with a body mass index of 38.5 Hypertension Recent hospitalization for a streptococcal septicemia, treated. Echo showed no valvular vegetation Concentric LVH with hypertensive heart disease Hypertension Chronic lower extremity edema Chronic kidney disease stage III, creatinine is stable and a potassium level is at 6.3, treated Chronic anxiety Chronic ALLERGIC rhinitis. Acute hyperkalemia, received treatment, recovered and the potassium level is normalized Plan Clinically improving 6 L O2 nasal cannul Continue DuoNeb about treatments [id number] continue IV Solu-Medrol at a dose of 60 mg IV every 6 hours Continue oral Lasix 60 mg by mouth 3 times a day Continue monitoring the cardiac enzymes, downtrending, likely type II ischemia Cardiology consultation appreciated Recent echo of the heart was within normal limits , no evidence of any vegetation Blood cultures positive for strep and the patient is on IV cefazolin Check pro calcitonin level , mildly elevated at 0.71 Monitor renal function IV cefazolin to be continued l will continue to follow
--- NOTE | 2022-09-01 15:46 | P.PN ---
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 Patient had previously presented 06/18/2022 with questionable syncopal episode and shortness breath and was treated for COPD exacerbation as well as heart failure. At the time he had mildly elevated troponins and echo showed EF 55-60% with mild pulmonary hypertension RVSP 39 and no significant valvular disease. He states that over the last 2 days he has been feeling more short of breath, fatigue and dyspnea with minimal exertion and therefore told family members to bring him in the emergency department. He did have previous hospitalization with strep bacteremia. He denies any fevers or chills. Previous echo did not show any significant vegetation. Workup shows white blood cell count 16.5, hemoglobin 12.4, platelets 73, pCO2 92, creatinine 1.4, potassium 5.6, hemoglobin A1c 6.4, troponin 1.1, 1.8, pro-calcitonin 0.7, proBNP 1960. EKG showing poor R-wave progression with interventricular conduction delay and left bundle branch morphology with what appears to be sinus rhythm. Telemetry reveals 08/31 Patient seen and examined. Overall he states he is feeling much better. Diuresing well with oral Lasix and has had a good urine output. Denies any fevers or chills. He admits his lower extremity edema has improved however still has 2+ lower extremity edema. Limited echo shows EF 50% without signifi cant pericardial effusion. Blood culture 1/2 + for Strep. 09/01 Patient seen and examined. Patient with mild increase in creatinine up to 1.6. Denies any chest pain or pressure. States that shortness breath is slowly improving. Repeat blood culture negative to date PHYSICAL EXAMINATION Vital signs reviewed. CONSTITUTIONAL: No apparent distress, chronically ill appearing HEENT: Head is normocephalic. Pupils are equal, round. Sclerae anicteric. Mucous membranes of the mouth are moist. No JVD. No carotid bruit. CHEST EXAMINATION: Diffuse wheeze HEART EXAMINATION: Regular rate and rhythm. S1, S2 heard. No murmurs, gallops or rub. ABDOMEN: Soft, nontender. Positive bowel sounds. EXTREMITIES: 2+ peripheral pulses, 2+ lower extremity edema and no calf tenderness. NEUROLOGIC EXAMINATION: Patient is awake, alert and oriented x3. ASSESSMENT 1. Acute on chronic respiratory failure mainly related to COPD 2. Chronic diastolic heart failure 3. COPD on home 6 L nasal cannula 4. Previous tobacco abuse 5. Non-STEMI somewhat more elevated than previous levels up to 1.7 6. Loss of consciousness, unclear if true syncope appears related to severe hypoxia 7. Pulmonary hypertension likely related to COPD 8. CKD 9. Hyperkalemia 10. Strep bacteremia 2/2 on presentation PLAN Patient with generalized fatigue and still has bacteremia. Monitor symptomatically. Elevated troponins appear type 2 mechanism from bacteremia, CKD and EF predominantly preserved EF 50% Not having any angina-type symptoms. Aspirin and beta kel. Further recommendations to follow. Continue with current supportive care, antibiotics per ID. Objective - Vital Signs Vital signs: Vital Signs Temp 97.9 F 09/01/22 12:00 Pulse 72 09/01/22 14:00 Resp 19 09/01/22 14:00 BP 146/62 09/01/22 12:00 Pulse Ox 93 L 09/01/22 12:00 FiO2 40 08/31/22 03:20 Intake & Output 08/31/22 09/01/22 09/01/22 18:59 06:59 18:59 Intake Total 476 898 Output Total 450 675 Balance 26 223 Intake: Oral 476 898 Output: Urine 450 225 Stool 450 Other: Voiding Method Urinal Urinal Urinal # Voids 1 - Labs CBC & Chem 7: 09/01/22 08:29 09/01/22 08:29 Labs: Abnormal Lab Results - Last 24 Hours (Table) 08/31/22 08/31/22 09/01/22 Range/Units 16:38 20:18 05:57 RBC (4.30-5.90) m/uL Hgb (13.0-17.5) gm/dL Hct (39.0-53.0) % MCV (80.0-100.0) fL MCH (25.0-35.0) pg Plt Count (150-450) k/uL Lymphocytes # (1.0-4.8) k/uL Chloride (98-107) mmol/L Carbon Dioxide (22-30) mmol/L BUN (9-20) mg/dL Creatinine (0.66-1.25) mg/dL Glucose (74-99) mg/dL POC Glucose (mg/dL) 235 H 208 H 193 H (70-110) mg/dL Calcium (8.4-10.2) mg/dL 09/01/22 09/01/22 09/01/22 Range/Units 08:29 08:29 11:35 RBC 3.19 L (4.30-5.90) m/uL Hgb 11.3 L (13.0-17.5) gm/dL Hct 34.9 L (39.0-53.0) % MCV 109.3 H (80.0-100.0) fL MCH 35.3 H (25.0-35.0) pg Plt Count 81 L (150-450) k/uL Lymphocytes # 0.4 L (1.0-4.8) k/uL Chloride 93 L (98-107) mmol/L Carbon Dioxide 40 H (22-30) mmol/L BUN 69 H (9-20) mg/dL Creatinine 1.67 H (0.66-1.25) mg/dL Glucose 253 H (74-99) mg/dL POC Glucose (mg/dL) 229 H (70-110) mg/dL Calcium 8.2 L (8.4-10.2) mg/dL Microbiology - Last 24 Hours (Table) 08/29/22 09:48 Blood Culture Gram Stain - Final Blood Blood Culture - Final Beta Hemolytic Strep Group G 08/29/22 10:05 Blood Culture - Preliminary Blood No Growth after 72 hours
--- NOTE | 2022-09-01 15:54 | P.PN ---
Subjective Progress Note Date: 09/01/22 This is a 67-year-old male patient presents to ER with concerns of difficulty breathing. Patient reports that initial symptoms started a few days ago but increasingly became difficulty breathing this a.m. around 4 AM. Patient denies fevers at home. Patient does have a past medical history of COPD, CHF, cellulitis, obesity, ex-smoker, chronic hypoxic respiratory failure and hypertension. Chest x-ray completed showing no evidence for acute pulmonary disease. COVID-19 negative influenza A and B negative. Patient noted to have elevated white count 16.5. Lactic acid 2.9. Troponin also elevated at 1.150. Creatinine 1.44 and bun 36 this does appear improved from baseline. Patient was placed on BiPAP. Pulmonary and cardiology service is consulted. Patient started on IV Solu-Medrol and DuoNeb breathing treatments. Blood cultures ordered. Repeat troponin ordered urine current vital signs temp 98.6, heart rate 108, blood pressure 126/74 patient satting 99% on BiPAP. On 08/30/2022 patient was seen and examined on the medical floor, he is alert and oriented 3 in no apparent distress, he reports improvement in his shortness of breath since yesterday there is no fever or chills no headache or dizziness no chest pain, no nausea or vomiting no abdominal pain no diarrhea and no urinary symptoms 08/31/2022 patient's alert and oriented 3. Patient reports improvement with shortness of breath. Pulmonary patient to stay an additional 24 hours. Patient remains on IV cephalosporins: For lower extremity cellulitis. Creatinine 1.53 bun 71 potassium improved to 4.6. This time patient denies chest pain. Patient denies nausea vomiting or diarrhea. Patient denies any urinary burning or frequency. On 09/01/2022 patient was seen and examined on the telemetry floor he is alert and oriented 3 in no apparent distress, he is still maintained on oxygen 6 L via nasal cannula, he is reporting some improvement in shortness of breath he is still maintained on IV Solu-Medrol otherwise he denies any complaints there is no fever or chills no headache or dizziness no chest pain no nausea or vomiting no abdominal pain no diarrhea and no urinary symptoms Objective - Vital Signs Vital signs: Vital Signs Temp 97.8 F 09/01/22 08:35 Pulse 80 09/01/22 11:58 Resp 19 09/01/22 08:35 BP 129/63 09/01/22 08:35 Pulse Ox 96 09/01/22 08:35 FiO2 40 08/31/22 03:20 Intake & Output 08/31/22 09/01/22 09/01/22 18:59 06:59 18:59 Intake Total 476 780 Output Total 450 225 Balance 26 555 Intake: Oral 476 780 Output: Urine 450 225 Other: Voiding Method Urinal Urinal # Voids 1 - Exam In general patient is alert and oriented x 3 in no distress HEENT head normocephalic and atraumatic Neck is supple no JVD no goiter no lymphadenopathy no carotid bruit Chest examination reveals a scattered crackles bilaterally no wheezing Cardiac exam reveals regular heart sounds S1 and S2 no gallops no murmurs Abdomen is soft nontender no organomegaly with normal bowel sounds Extremity exam reveals no edema no cyanosis or clubbing Neurological examination reveals no gross focal deficits - Labs CBC & Chem 7: 09/01/22 08:29 09/01/22 08:29 Labs: Abnormal Lab Results - Last 24 Hours (Table) 08/31/22 08/31/22 09/01/22 Range/Units 16:38 20:18 05:57 RBC (4.30-5.90) m/uL Hgb (13.0-17.5) gm/dL Hct (39.0-53.0) % MCV (80.0-100.0) fL MCH (25.0-35.0) pg Plt Count (150-450) k/uL Lymphocytes # (1.0-4.8) k/uL Chloride (98-107) mmol/L Carbon Dioxide (22-30) mmol/L BUN (9-20) mg/dL Creatinine (0.66-1.25) mg/dL Glucose (74-99) mg/dL POC Glucose (mg/dL) 235 H 208 H 193 H (70-110) mg/dL Calcium (8.4-10.2) mg/dL 09/01/22 09/01/22 09/01/22 Range/Units 08:29 08:29 11:35 RBC 3.19 L (4.30-5.90) m/uL Hgb 11.3 L (13.0-17.5) gm/dL Hct 34.9 L (39.0-53.0) % MCV 109.3 H (80.0-100.0) fL MCH 35.3 H (25.0-35.0) pg Plt Count 81 L (150-450) k/uL Lymphocytes # 0.4 L (1.0-4.8) k/uL Chloride 93 L (98-107) mmol/L Carbon Dioxide 40 H (22-30) mmol/L BUN 69 H (9-20) mg/dL Creatinine 1.67 H (0.66-1.25) mg/dL Glucose 253 H (74-99) mg/dL POC Glucose (mg/dL) 229 H (70-110) mg/dL Calcium 8.2 L (8.4-10.2) mg/dL Microbiology - Last 24 Hours (Table) 08/29/22 09:48 Blood Culture Gram Stain - Final Blood Blood Culture - Final Beta Hemolytic Strep Group G 08/29/22 10:05 Blood Culture - Preliminary Blood No Growth after 72 hours Assessment and Plan Assessment: 1. Difficulty in breathing secondary to COPD exacerbation 2. Acute on chronic hypoxic respiratory failure secondary to COPD and pulmonary fibrosis. Patient is maintained on 6 L nasal cannula at home 3. Acute on chronic kidney disease stage III 4. Elevated troponins. Repeat troponin order cardiology consult placed 5. Lower extremity cellulitis 6. History of essential hypertension 7. Acute on chronic diastolic heart failure DVT prophylaxis Lovenox. GI prophylaxis Pepcid Cardiology, pulmonary and infectious disease service is consulted Patient currently maintained on BiPAP, IV Solu-Medrol and DuoNeb breathing treatments Repeat labs ordered Blood culture ordered
[2022-09-01 16:53] LABS: Glucose,Whole Blood 211 mg/dL (70-110)
[2022-09-01] MEDS: MONTELUKAST 10 MG TAB PO SCH (20:20)
[2022-09-01 20:24] LABS: Glucose,Whole Blood 204 mg/dL (70-110)
--- NOTE | 2022-09-01 23:56 | P.PN ---
Subjective Progress Note Date: 08/31/22 Principal diagnosis: Bilateral leg cellulitis and bacteremia Patient is a 67-year-old male with a past medical history significant for COPD/CHF presented to hospital with increasing shortness of breath patient also noticed to have increasing swelling redness to lower extremities concerning for cellulitis. On today's evaluation that is 08/31/2022, patient remains to be afebrile, the patient is breathing slightly comfortably on nasal cannula oxygen, denies any chest pain or cough pain to the lower extremity slightly decreased, no abdominal pain no diarrhea Objective - Vital Signs Vital signs: Vital Signs Temp 98.1 F 08/31/22 08:40 Pulse 90 08/31/22 12:18 Resp 18 08/31/22 08:40 BP 128/61 08/31/22 08:40 Pulse Ox 92 L 08/31/22 08:40 FiO2 40 08/31/22 03:20 Intake & Output 08/30/22 08/31/22 08/31/22 18:59 06:59 18:59 Intake Total 118 358 Output Total 1175 1999 Balance -1056 358 Weight 125.9 kg Intake: Oral 118 358 Output: Urine 1175 1999 Other: Voiding Method Urinal Urinal # Voids 1 # Bowel Movements 1 - Exam GENERAL DESCRIPTION: An elderly male lying in bed in no distress RESPIRATORY SYSTEM: Unlabored breathing , decreased breath sounds at bases HEART: S1 S2 regular rate and rhythm , ABDOMEN: Soft , no tenderness EXTREMITIES: Diffuse swelling bilateral lower extremity minimal redness - Labs CBC & Chem 7: 09/01/22 08:29 09/01/22 08:29 Labs: Abnormal Lab Results - Last 24 Hours (Table) 08/30/22 08/30/22 08/30/22 Range/Units 11:18 14:31 16:41 Neutrophils # 8.3 H (1.3-7.7) k/uL Lymphocytes # 0.4 L (1.0-4.8) k/uL Chloride (98-107) mmol/L Carbon Dioxide (22-30) mmol/L BUN (9-20) mg/dL Creatinine (0.66-1.25) mg/dL Glucose (74-99) mg/dL POC Glucose (mg/dL) 341 H (70-110) mg/dL Calcium (8.4-10.2) mg/dL Troponin I 0.984 H* (0.000-0.034) ng/mL 08/30/22 08/31/22 08/31/22 Range/Units 20:09 06:13 08:13 Neutrophils # (1.3-7.7) k/uL Lymphocytes # (1.0-4.8) k/uL Chloride 94 L (98-107) mmol/L Carbon Dioxide 36 H (22-30) mmol/L BUN 71 H (9-20) mg/dL Creatinine 1.53 H (0.66-1.25) mg/dL Glucose 224 H (74-99) mg/dL POC Glucose (mg/dL) 158 H 181 H (70-110) mg/dL Calcium 8.3 L (8.4-10.2) mg/dL Troponin I (0.000-0.034) ng/mL 08/31/22 Range/Units 11:46 Neutrophils # (1.3-7.7) k/uL Lymphocytes # (1.0-4.8) k/uL Chloride (98-107) mmol/L Carbon Dioxide (22-30) mmol/L BUN (9-20) mg/dL Creatinine (0.66-1.25) mg/dL Glucose (74-99) mg/dL POC Glucose (mg/dL) 172 H (70-110) mg/dL Calcium (8.4-10.2) mg/dL Troponin I (0.000-0.034) ng/mL Microbiology - Last 24 Hours (Table) 08/29/22 10:05 Blood Culture - Preliminary Blood No Growth after 48 hours 08/29/22 09:48 Blood Culture Gram Stain - Preliminary Blood Blood Culture - Preliminary Beta Hemolytic Strep Group G Assessment and Plan (1) Cellulitis Current Visit: Yes Status: Acute Code(s): L03.90 - CELLULITIS, UNSPECIFIED SNOMED Code(s): 371954023 Plan: 1patient with bilateral lower extremity swelling and redness some superficial ulceration to scratching concerning for cellulitis likely from gram-positive s kin danitza such as strep. 2patient presenting mostly with increasing shortness of breath more likely related to COPD exacerbation chest x-ray was negative for any pneumonia. 3patient also have a positive blood culture with gram-positive cocci in chain likely Streptococcus related to his leg cellulitis 4patient has shown some clinical improvement and will continue with cefazolin to 2 g every 8 hour and monitor clinical course closely Time with Patient: Less than 30
--- NOTE | 2022-09-01 23:58 | P.PN ---
Subjective Progress Note Date: 09/01/22 Principal diagnosis: Bilateral leg cellulitis and bacteremia Patient is a 67-year-old male with a past medical history significant for COPD/CHF presented to hospital with increasing shortness of breath patient also noticed to have increasing swelling redness to lower extremities concerning for cellulitis. On today's evaluation that is 09/01/2022, patient continues to be afebrile, the patient is breathing comfortably on nasal cannula oxygen, the patient denies any chest pain, did have occasional dry cough , the patient pain to the lower extremity slightly decreased, no abdominal pain no diarrhea Objective - Vital Signs Vital signs: Vital Signs Temp 97.9 F 09/01/22 12:00 Pulse 88 09/01/22 15:51 Resp 19 09/01/22 14:00 BP 146/62 09/01/22 12:00 Pulse Ox 93 L 09/01/22 12:00 FiO2 40 08/31/22 03:20 Intake & Output 08/31/22 09/01/22 09/01/22 18:59 06:59 18:59 Intake Total 476 898 Output Total 450 675 Balance 26 223 Intake: Oral 476 898 Output: Urine 450 225 Stool 450 Other: Voiding Method Urinal Urinal Urinal # Voids 1 - Exam GENERAL DESCRIPTION: An elderly male lying in bed in no distress RESPIRATORY SYSTEM: Unlabored breathing , decreased breath sounds at bases HEART: S1 S2 regular rate and rhythm , ABDOMEN: Soft , no tenderness EXTREMITIES: Diffuse swelling bilateral lower extremity minimal redness - Labs CBC & Chem 7: 09/01/22 08:29 09/01/22 08:29 Labs: Abnormal Lab Results - Last 24 Hours (Table) 08/31/22 09/01/22 09/01/22 Range/Units 20:18 05:57 08:29 RBC (4.30-5.90) m/uL Hgb (13.0-17.5) gm/dL Hct (39.0-53.0) % MCV (80.0-100.0) fL MCH (25.0-35.0) pg Plt Count (150-450) k/uL Lymphocytes # (1.0-4.8) k/uL Chloride 93 L (98-107) mmol/L Carbon Dioxide 40 H (22-30) mmol/L BUN 69 H (9-20) mg/dL Creatinine 1.67 H (0.66-1.25) mg/dL Glucose 253 H (74-99) mg/dL POC Glucose (mg/dL) 208 H 193 H (70-110) mg/dL Calcium 8.2 L (8.4-10.2) mg/dL 09/01/22 09/01/22 09/01/22 Range/Units 08:29 11:35 16:52 RBC 3.19 L (4.30-5.90) m/uL Hgb 11.3 L (13.0-17.5) gm/dL Hct 34.9 L (39.0-53.0) % MCV 109.3 H (80.0-100.0) fL MCH 35.3 H (25.0-35.0) pg Plt Count 81 L (150-450) k/uL Lymphocytes # 0.4 L (1.0-4.8) k/uL Chloride (98-107) mmol/L Carbon Dioxide (22-30) mmol/L BUN (9-20) mg/dL Creatinine (0.66-1.25) mg/dL Glucose (74-99) mg/dL POC Glucose (mg/dL) 229 H 211 H (70-110) mg/dL Calcium (8.4-10.2) mg/dL Microbiology - Last 24 Hours (Table) 08/29/22 09:48 Blood Culture Gram Stain - Final Blood Blood Culture - Final Beta Hemolytic Strep Group G 08/29/22 10:05 Blood Culture - Preliminary Blood No Growth after 72 hours Assessment and Plan (1) Cellulitis Current Visit: Yes Status: Acute Code(s): L03.90 - CELLULITIS, UNSPECIFIED SNOMED Code(s): 216615402 Plan: 1patient with bilateral lower extremity swelling and redness some superficial ulceration to scratching concerning for cellulitis likely from gram-positive skin danitza such as strep. 2patient presenting mostly with increasing shortness of breath more likely related to COPD exacerbation chest x-ray was negative for any pneumonia. 3patient also have a positive blood culture with gram-positive cocci which has been finalized as group G Streptococcus related to his leg cellulitis 4patient has shown some clinical improvement and will continue with cefazolin to 2 g every 8 hour hopefully finishing therapy with oral antibiotics Time with Patient: Less than 30
[2022-09-02] MEDS: methylPREDNISolone SOD SUCCI 125 MG/2 ML VIAL IV SCH ×3 (00:18→13:09)
[2022-09-02 06:18] LABS: Glucose,Whole Blood 187 mg/dL (70-110)
[2022-09-02] MEDS: INSULIN ASPART (NovoLOG) 100 UNIT/ML VIAL SQ SCH ×2 (06:35→13:10)
[2022-09-02] MEDS: IPRATROPIUM-ALBUTEROL 3 ML NEB INHALATION SCH ×2 (08:10→11:27)
[2022-09-02] MEDS: FORMOTEROL FUMARATE 20 MCG/2 ML NEBU INHALATION SCH (08:11)
[2022-09-02] MEDS: BUDESONIDE 1 MG/2 ML NEBU INHALATION SCH (08:11)
--- NOTE | 2022-09-02 09:11 | P.PN ---
Subjective Progress Note Date: 09/02/22 Principal diagnosis: This is a 67-year-old male seen in consultation because of chronic kidney disease. Came in with the shortness of breath. Found to have beta-hemolytic strep group G bacteremia. There is also concern for cellulitis of his legs. His significant edema. His on Lasix 60 3 times a day by mouth. 24-hour hour intake is 1438 output is 5 He feels fine denying any chest pain shortness of breath fever chills cough. No nausea vomiting good appetite. Remains on oxygen, and is on oxygen at home as well Creatinine is trending up, 1.49 g, 1.53, 1.67 as of yesterday 09/01/2022 History of present illness: Patient is a 67-year-old male seen in renal consultation for chronic kidney disease and hyperkalemia. Creatinine in January 2022 and September 2021 was in the range of 1.3-1.4. This admission renal function has been stable with creatinine in the range of 1.4-1.5. Patient's potassium level has been on the higher side and was up to 6.3 yesterday which was medically treated with multiple medications. It improved to 4.5 as of last night and was 4.6 this morning. Patient came to the hospital on 08/29/2022 with shortness of breath. He was having a cough and had a low-grade fever. Patient complained of redness and swelling in his lower extremities and is currently being treated for cellulitis. Patient's blood cultures positive for group G strep. He is on oral Lasix 60 mg 3 times daily. He admits to good urine output. No evidence of urinary r etention. He does wear 6 L oxygen at home. Patient's echocardiogram showed ejection fraction of 50%. Denies history of diabetes. Denies family history of renal disease. Denies use of nonsteroidals. Objective - Vital Signs Vital signs: Vital Signs Temp 98 F 09/02/22 04:00 Pulse 88 09/02/22 08:35 Resp 22 09/02/22 04:00 BP 131/63 09/02/22 04:00 Pulse Ox 97 09/02/22 04:00 FiO2 40 08/31/22 03:20 Intake & Output 09/01/22 09/02/22 09/02/22 18:59 06:59 18:59 Intake Total 1438 118 Output Total 675 1400 Balance 763 -1400 118 Intake: Oral 1438 118 Output: Urine 225 1400 Stool 450 Other: Voiding Method Urinal Urinal Exam general awake alert oriented comfortable on nasal cannula oxygen HEENT exam no JVP neck is supple no facial asymmetry Lungs are significant for bilateral coarse crackles and mild end expiratory wheezing Heart sounds unremarkable for any murmur rub gallop Abdomen soft protuberant Extremity exam was 2+ edema Neurologically awake alert oriented - Labs CBC & Chem 7: 09/01/22 08:29 09/01/22 08:29 Labs: Abnormal Lab Results - Last 24 Hours (Table) 09/01/22 09/01/22 09/01/22 Range/Units 08:29 08:29 11:35 RBC 3.19 L (4.30-5.90) m/uL Hgb 11.3 L (13.0-17.5) gm/dL Hct 34.9 L (39.0-53.0) % MCV 109.3 H (80.0-100.0) fL MCH 35.3 H (25.0-35.0) pg Plt Count 81 L (150-450) k/uL Lymphocytes # 0.4 L (1.0-4.8) k/uL Chloride 93 L (98-107) mmol/L Carbon Dioxide 40 H (22-30) mmol/L BUN 69 H (9-20) mg/dL Creatinine 1.67 H (0.66-1.25) mg/dL Glucose 253 H (74-99) mg/dL POC Glucose (mg/dL) 229 H (70-110) mg/dL Calcium 8.2 L (8.4-10.2) mg/dL 09/01/22 09/01/22 09/02/22 Range/Units 16:52 20:22 06:17 RBC (4.30-5.90) m/uL Hgb (13.0-17.5) gm/dL Hct (39.0-53.0) % MCV (80.0-100.0) fL MCH (25.0-35.0) pg Plt Count (150-450) k/uL Lymphocytes # (1.0-4.8) k/uL Chloride (98-107) mmol/L Carbon Dioxide (22-30) mmol/L BUN (9-20) mg/dL Creatinine (0.66-1.25) mg/dL Glucose (74-99) mg/dL POC Glucose (mg/dL) 211 H 204 H 187 H (70-110) mg/dL Calcium (8.4-10.2) mg/dL Microbiology - Last 24 Hours (Table) 08/29/22 09:48 Blood Culture Gram Stain - Final Blood Blood Culture - Final Beta Hemolytic Strep Group G 08/29/22 10:05 Blood Culture - Preliminary Blood No Growth after 72 hours Assessment and Plan Assessment: Assessment: 1. Chronic kidney disease stage IIIa with baseline creatinine near 1.5 secondary to nephrosclerosis and cardiorenal syndrome. 2. Hyperkalemia secondary to chronic kidney disease, hyperglycemia. Improved with medical management. 3. Acute on chronic diastolic CHF. 4. Lower extremity cellulitis and group G strep bacteremia on antibiotics. ID following. 5. Acute on chronic hypercapnic respiratory failure. 6. Mild degree of metabolic alkalosis from diuretics improving with bicarbonate going from 40-36. 7. Severe edema Plan: Maintain oral Lasix. 60 grams, 3 times a day, by mouth Avoid nephrotoxins. Continue to monitor renal function and urine output. Thank you for the consultation. I will continue to follow patient with you during his hospital stay.
[2022-09-02] MEDS: FUROSEMIDE 20 MG TAB PO SCH (09:26)
[2022-09-02] MEDS: ENOXAPARIN 40 MG/0.4 ML SYRINGE SQ SCH (09:26)
[2022-09-02] MEDS: CHOLECALCIFEROL 25 MCG (1000 IU) TABLET PO SCH (09:26)
[2022-09-02] MEDS: METOPROLOL TARTRATE 50 MG TAB PO SCH (09:26)
[2022-09-02] MEDS: ASPIRIN 81 MG PO SCH (09:26)
[2022-09-02] MEDS: FAMOTIDINE 20 MG TAB PO SCH (09:26)
[2022-09-02 10:48] LABS: Basophils % (A) 0 %; Eosinophils % (A) 0 %; HCT 35.7 % (39.0-53.0); HGB 11.3 gm/dL (13.0-17.5); Hypochromasia Slight; Lymphocytes # (A) 0.3 k/uL (1.0-4.8); Lymphocytes % (A) 6 %; MCH 34.3 pg (25.0-35.0); MCHC 31.8 g/dL (31.0-37.0); MCV 107.8 fL (80.0-100.0); Macrocytosis Moderate; Mean Platelet Volume 11.3; Monocytes # (A) 0.3 k/uL (0-1.0); Monocytes % (A) 7 %; Neutrophils # (A) 4.1 k/uL (1.3-7.7); Neutrophils % (A) 85 %; RBC 3.31 m/uL (4.30-5.90); RDW 12.7 % (11.5-15.5); WBC 4.8 k/uL (3.8-10.6)
[2022-09-02 10:50] LABS: Platelet Count 68 k/uL (150-450)
--- NOTE | 2022-09-02 10:57 | P.DS ---
Providers Date of admission: 08/29/22 11:21 Expected date of discharge: 09/02/22 Attending physician: Sofiya Albrecht Consults: 08/29/22 10:35 Consult Physician Urgent Consulting Provider: Ketan Zepeda Consult Reason/Comments: resp failure, bipap Do you want consulting provider notified?: Yes 08/29/22 11:22 Consult Physician Urgent Consulting Provider: Jose Carlos Calvillo Consult Reason/Comments: dyspnea, cardiac eval and treatment Do you want consulting provider notified?: Yes 08/29/22 13:15 Consult Physician Urgent Consulting Provider: Kingston Salcido Consult Reason/Comments: Elevated lactic acid, lower extremity cellulitis Do you want consulting provider notified?: Yes 08/30/22 13:42 Consult Physician Routine Consulting Provider: Alysia Garcia Consult Reason/Comments: re: hyperkalemia Do you want consulting provider notified?: Yes Primary care physician: Sofiya Albrecht [facility] Course: Discharge diagnosis 1. Difficulty in breathing secondary to COPD exacerbation 2. Acute on chronic hypoxic respiratory failure secondary to COPD and pulmonary fibrosis. Patient is maintained on 6 L nasal cannula at home 3. Acute on chronic kidney disease stage III 4. Elevated troponins. Repeat troponin order cardiology consult placed 5. Lower extremity cellulitis 6. History of essential hypertension 7. Acute on chronic diastolic heart failure Hospital course This is a 67-year-old male patient presents to ER with concerns of difficulty breathing. Patient reports that initial symptoms started a few days ago but increasingly became difficulty breathing this a.m. around 4 AM. Patient denies fevers at home. Patient does have a past medical history of COPD, CHF, cellulitis, obesity, ex-smoker, chronic hypoxic respiratory failure and hypertension. Chest x-ray completed showing no evidence for acute pulmonary disease. COVID-19 negative influenza A and B negative. Patient noted to have elevated white count 16.5. Lactic acid 2.9. Troponin also elevated at 1.150. Creatinine 1.44 and bun 36 this does appear improved from baseline. Patient was placed on BiPAP. Pulmonary and cardiology service is consulted. Patient started on IV Solu-Medrol and DuoNeb breathing treatments. Blood cultures ordered. Repeat troponin ordered urine current vital signs temp 98.6, heart rate 108, blood pressure 126/74 patient satting 99% on BiPAP. On 08/30/2022 patient was seen and examined on the medical floor, he is alert and oriented 3 in no apparent distress, he reports improvement in his shortness of breath since yesterday there is no fever or chills no headache or dizziness no chest pain, no nausea or vomiting no abdominal pain no diarrhea and no urinary symptoms 08/31/2022 patient's alert and oriented 3. Patient reports improvement with shortness of breath. Pulmonary patient to stay an additional 24 hours. Patient remains on IV cephalosporins: For lower extremity cellulitis. Creatinine 1.53 bun 71 potassium improved to 4.6. This time patient denies chest pain. Patient denies nausea vomiting or diarrhea. Patient denies any urinary burning or frequency. On 09/01/2022 patient was seen and examined on the telemetry floor he is alert and oriented 3 in no apparent distress, he is still maintained on oxygen 6 L via nasal cannula, he is reporting some improvement in shortness of breath he is still maintained on IV Solu-Medrol otherwise he denies any complaints there is no fever or chills no headache or dizziness no chest pain no nausea or vomiting no abdominal pain no diarrhea and no urinary symptoms On 09/02/2022 patient is alert and oriented 3. Patient feels much improved. Patient states he feels ready to be DC'd home. Did discuss case with pulmonary service is patient cleared for discharge from pulmonary standpoint. Patient is on 6 L in which he wears at home. Did discuss case with infectious disease services per ID patient may be DC'd by antibiotic will be completed later per ID during rounds. This was discussed with nursing staff and verbal understanding. Patient denies chest pain. Patient denies nausea vomiting or diarrhea. Patient denies any urinary burning or frequency Patient Condition at Discharge: Stable Plan - Discharge Summary Discharge Rx Participant: No New Discharge Prescriptions: New Aspirin 81 mg PO DAILY 30 Days #30 tab predniSONE 10 mg PO DIRECTED 12 Days #30 tab Continue Albuterol Nebulized [Ventolin Nebulized] 2.5 mg INHALATION RT-QID PRN PRN Reason: Shortness Of Breath Montelukast [Singulair] 10 mg PO HS@2100 clonazePAM [KlonoPIN] 0.5 mg PO DAILY PRN PRN Reason: Anxiety Albuterol Sulfate [Ventolin HFA] 2 puff INHALATION RT-Q4H PRN PRN Reason: Shortness Of Breath Fluticasone Propion/Salmeterol [Advair 250-50 Diskus] 1 puff INHALATION RT- BID Cholecalciferol [Vitamin D3 (25 Mcg = 1000 Iu)] 25 mcg PO DAILY Metoprolol Tartrate [Lopressor] 50 mg PO BID@899,2099 Furosemide [Lasix] 60 mg PO TID Discharge Medication List Albuterol Nebulized [Ventolin Nebulized] 2.5 mg INHALATION RT-QID PRN 06/22/14 [History] Montelukast [Singulair] 10 mg PO HS@209906/09/19 [History] clonazePAM [KlonoPIN] 0.5 mg PO DAILY PRN 06/09/19 [History] Albuterol Sulfate [Ventolin HFA] 2 puff INHALATION RT-Q4H PRN 08/27/19 [History] Fluticasone Propion/Salmeterol [Advair 250-50 Diskus] 1 puff INHALATION RT-BID 08/27/19 [History] Cholecalciferol [Vitamin D3 (25 Mcg = 1000 Iu)] 25 mcg PO DAILY 06/16/22 [History] Metoprolol Tartrate [Lopressor] 50 mg PO BID@899,209906/16/22 [History] Furosemide [Lasix] 60 mg PO TID 08/29/22 [History] Aspirin 81 mg PO DAILY 30 Days #30 tab 09/02/22 [Rx] predniSONE 10 mg PO DIRECTED 12 Days #30 tab 09/02/22 [Rx] Follow up Appointment(s)/Referral(s): [facility] [NON-STAFF] - ([facility]) Sofiya Albrecht MD [Primary Care Provider] - 1-2 days Jonh Calix DO [Doctor of Osteopathic Medicine] - 1 Week Activity/Diet/Wound Care/Special Instructions: activity as tolerated diet heart healthy Discharge Disposition: HOME WITH HOME HEALTH SERVICES
[2022-09-02 11:11] LABS: Albumin 3.5 g/dL (3.5-5.0); Calcium 8.1 mg/dL (8.4-10.2); Potassium 3.5 mmol/L (3.5-5.1); Total Bilirubin 0.7 mg/dL (0.2-1.3); Total Protein 6.5 g/dL (6.3-8.2)
[2022-09-02 11:31] LABS: Glucose,Whole Blood 251 mg/dL (70-110)
--- NOTE | 2022-09-02 11:55 | P.PN ---
Subjective Progress Note Date: 09/02/22 67-year-old male patient with known history of advanced COPD and the patient is obese with a BMI of 30.5 and the patient has an FEV1 of 17% of predicted and the patient has been chronically dependent at 5 L O2 nasal cannula. He has had previous hospitalization for COPD exacerbation. The patient has had a recent admission approximately 2 months ago for a Streptococcus sepsis, treated without antibiotics and ultimately the patient was discharged home on oral antibiotics. He did not any valvular vegetation and the patient had an echocardiogram at that time showed negative vegetation. The source of the infection was probably soft tissue and the patient has chronic ulceration and edema lower oximetry is bilaterally. He does get episodic cellulitis of the lower oximetry is bilaterally. The patient came into the hospital because of worsening shortness of breath as of 4:00 this morning. No fever. No chills. His vital screening including Covid 19, influenza A and B were all negative. In the ED, the patient had a white cell count 16.5 and his lactic acid level was at 2.9. The patient's had a hemoglobin of 12.4, BUN of 36 and a creatinine of 1.4 and his sodium was at 138 with a creatinine of 5.6. His lactic acid level was at 2.1. He was quite short of breath and immediately the patient was placed on BiPAP therapy. The patient is also started on bronchodilators and the patient also started on systemic steroids. Chest x-ray showed cardiomegaly, no airspace disease and there was no evidence of any acute cardiopulmonary abnormalities. There is some chronic changes related to COPD and hyperinflation. Noted the patient's to have any chest pain. Initial troponin was at 1.1 and subsequent troponin came back at 1.8. The patient was started on IV cefazolin by emergency. The patient was started on bronchodilators with DuoNeb about treatments [id number] and IV Solu-Medrol. Cultures were sent and is also still pending for now. Note that his EKG showed a chronic left bundle branch block pattern the patient had a normal sinus rhythm. His previous echocardiogram from 06/18/2022 showed no evidence of any valvular vegetation. He had a normal LV function and he had m oderate concentric LVH. On 08/30/2022, patient is doing better. The patient was taken off the BiPAP this morning and the patient was placed on oxygen at 6 L. Less short of breath. Less bronchospastic. Less wheezy. No signs of any CO2 narcosis. Troponin was elevated at 1.8 and the patient is still awaiting cardiology evaluation. The patient on aspirin. The patient on Lovenox for DVT prophylaxis. The patient remains on DuoNeb about treatments [id number], Perforomist and Pulmicort n eb treatments twice a day and IV Solu-Medrol. The bloodwork was noted. The white cycles of 9.3 with a hemoglobin of 7.5 and a platelet count which is chronically low at 100. The patient's potassium level was at 6.3 and the patient was treated accordingly and his sodium levels is 137, BUN is 57 with a creatinine of 1.4. Troponin is down to 0.98. On today's evaluation of 08/31/2022, the patient is doing well. No specific complaints. Less short of breath and the patient is gradually improving. His on 6 L of oxygen by nasal cannula. On and off, is utilizing BiPAP at a pressure of 10/5 cm of water. He was being diuresed with po Lasix 60 mg by mouth 3 times a day and the patient is feeling better in terms of his fluid balance. Echocardiogram showed a preserved LV function. Troponins were elevated and cardiology thought that this is a type II ischemia. In same time, the patient was found to have Streptococcus group B . This is related to soft tissue infection and episodic serum lites of the lower extremities. Endocarditis cannot be completely ruled out. Echocardiogram during his last admission was negative and limited echocardiogram was done during this current admission showing no vegetation and the patient had a preserved LV function. Infectious diseases on the case. Cardiac is on the case. The patient remains on IV cefazolin. He remains on DuoNeb about treatments [id number]. He is on IV Solu-Medrol 60 mg every 6 hours. He has advanced COPD. 09/01/2022, the patient is on 6 L of oxygen by nasal cannula. He continues to improve. He remains on DuoNeb about treatments [id number]. He remains on IV Solu-Medrol 60 mg every 6 hours. He is also bacteremic with Streptococcus and the patient is completing a course of IV cefazolin. No fever. No chills. No other new complaints otherwise for now. The patient's echoes at 7.4 with a hemoglobin of 11.3 and a platelet count of 81. BUN is at 69 with a creatinine of 1.67. Sodium is at 141. Glucose this morning is up to 29. He is not using his BiPAP on a regular basis. BiPAP is at the bedside. On 09/02/2022, the patient is doing well. No specific complaints. Marked improvement in the respiratory status. Continues IV cefazolin for bacteremia with Streptococcus. No fever or chills and the patient is hemodynamically stable.Blood work from today shows a white cell count of 4.8 with a hemoglobin of 11.3 and a platelet count of 68. BUN is at 41 with a sodium level of 138 and a potassium level of 3.5. No other significant events otherwise. He is currently on oxygen and he is on 6 L nasal cannula. Trace edema lower extremities bilaterally. Otherwise stable. The patient wants to go home. Awaiting final recommendations from infectious disease regarding antibiotic coverage. Objective - Vital Signs Vital signs: Vital Signs Temp 98 F 09/02/22 04:00 Pulse 88 09/02/22 11:47 Resp 22 09/02/22 04:00 BP 131/63 09/02/22 04:00 Pulse Ox 97 09/02/22 04:00 FiO2 40 08/31/22 03:20 Intake & Output 09/01/22 09/02/22 09/02/22 18:59 06:59 18:59 Intake Total 1438 118 Output Total 675 1400 Balance 763 -1400 118 Intake: Oral 1438 118 Output: Urine 225 1400 Stool 450 Other: Voiding Method Urinal Urinal - Exam GENERAL EXAM: Alert, pleasant, 64-year-old white male currently having shortness of breath, and the patient is currently was on BiPAP and the patient has been weaned down to 6 L O2 nasal cannula HEAD: Normocephalic/atraumatic. EYES: Normal reaction of pupils, equal size. Conjunctiva pink, sclera white. NOSE: Clear with pink turbinates. THROAT: No erythema or exudates. NECK: No masses, no JVD, no thyroid enlargement, no adenopathy. CHEST: No chest wall deformity. Symmetrical expansion. LUNGS: Equal air entry with diffuse expiratory wheezes CVS: Regular rate and rhythm, normal S1 and S2, no gallops, no murmurs, no rubs ABDOMEN: Soft, nontender. No hepatosplenomegaly, normal bowel sounds, no guarding or rigidity. EXTREMITIES: No clubbing, , no cyanosis, 2+ pulses and upper and lower extremities.the patient has chronic edema lower extremities and chronic ulceration no evidence of any acute infection MUSCULOSKELETAL: Muscle strength and tone normal. SPINE: No scoliosis or deformity SKIN: No rashes CENTRAL NERVOUS SYSTEM: Alert and oriented -3. No focal deficits, tone is normal in all 4 extremities. PSYCHIATRIC: Alert and oriented -3. Appropriate affect. Intact judgment and insight. - Labs CBC & Chem 7: 09/02/22 10:03 09/02/22 10:03 Labs: Abnormal Lab Results - Last 24 Hours (Table) 09/01/22 09/01/22 09/02/22 Range/Units 16:52 20:22 06:17 RBC (4.30-5.90) m/uL Hgb (13.0-17.5) gm/dL Hct (39.0-53.0) % MCV (80.0-100.0) fL Plt Count (150-450) k/uL Lymphocytes # (1.0-4.8) k/uL Chloride (98-107) mmol/L Carbon Dioxide (22-30) mmol/L BUN (9-20) mg/dL Creatinine (0.66-1.25) mg/dL Glucose (74-99) mg/dL POC Glucose (mg/dL) 211 H 204 H 187 H (70-110) mg/dL Calcium (8.4-10.2) mg/dL 09/02/22 09/02/22 09/02/22 Range/Units 10:03 10:03 11:30 RBC 3.31 L (4.30-5.90) m/uL Hgb 11.3 L (13.0-17.5) gm/dL Hct 35.7 L (39.0-53.0) % MCV 107.8 H (80.0-100.0) fL Plt Count 68 L (150-450) k/uL Lymphocytes # 0.3 L (1.0-4.8) k/uL Chloride 92 L (98-107) mmol/L Carbon Dioxide 41 H* (22-30) mmol/L BUN 75 H (9-20) mg/dL Creatinine 1.71 H (0.66-1.25) mg/dL Glucose 274 H (74-99) mg/dL POC Glucose (mg/dL) 251 H (70-110) mg/dL Calcium 8.1 L (8.4-10.2) mg/dL Microbiology - Last 24 Hours (Table) 08/29/22 09:48 Blood Culture Gram Stain - Final Blood Blood Culture - Final Beta Hemolytic Strep Group G 08/29/22 10:05 Blood Culture - Preliminary Blood No Growth after 72 hours Assessment and Plan Plan: acute exacerbation of chronic COPD with impending respiratory failure, currently on a BiPAP for respiratory support, chest x-ray is free of any acute pulmonary infiltrates. The patient is currently on 6 L of oxygen by nasal cannula. Continues to be on examination bronchodilators and steroids. Currently off BiPAP, less short of breath on today's evaluation. Not using BiPAP on a regular basis. Acute on chronic hypoxic respiratory failure, the patient is typically on oxygen at 6 L/m nasal cannula Acute shortness of breath secondary to above, improving Advanced COPD with a FEV1 of 17 % of predicted at baseline Chronic exertional dyspnea, improving Acute non-ST segment elevation myocardial infarction. The troponin peaked at 1.8 and this is the second set and the patient is free of any chest pain and EKG showing a chronic left bundle branch block pattern. Subsequent troponin levels have been low and the patient is awaiting a cardiology evaluation. The patient on aspirin. Cardiology evaluated the patient and the patient is told to have type II ischemia Septicemia with Streptococcus group B and the patient is currently on IV cefazolin. No evidence of any vegetation based on transthoracic echocardiogram. The patient has a preserved LV function. Morbid obesity with a body mass index of 38.5 Hypertension Recent hospitalization for a streptococcal septicemia, treated. Echo showed no valvular vegetation Concentric LVH with hypertensive heart disease Hypertension Chronic lower extremity edema Chronic kidney disease stage III, creatinine is stable and a potassium level is at 6.3, treated Chronic anxiety Chronic ALLERGIC rhinitis. Acute hyperkalemia, received treatment, recovered and the potassium level is normalized Plan Clinically improving overall condition stable and the patient can be potentially discharged home from the pulmonary standpoint. Nevertheless, we'll going to wait recommendations to be done by infectious disease regarding IV versus oral antibiotic coverage for the Streptococcus septicemia. 6 L O2 nasal cannul Continue DuoNeb about treatments [id number] continue IV Solu-Medrol at a dose of 60 mg IV every 6 hours, prednisone burst taper at time of discharge Continue oral Lasix 60 mg by mouth 3 times a day, fluids is scant and lower extremities Continue monitoring the cardiac enzymes, downtrending, likely type II ischemia Cardiology consultation appreciated Recent echo of the heart was within normal limits , no evidence of any vegetation Blood cultures positive for strep and the patient is on IV cefazolin Check pro calcitonin level , mildly elevated at 0.71 Monitor renal function IV cefazolin to be continued , awaiting further recommendations from ID Possible home today
--- NOTE | 2022-09-02 12:16 | P.PN ---
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 Patient had previously presented 06/18/2022 with questionable syncopal episode and shortness breath and was treated for COPD exacerbation as well as heart failure. At the time he had mildly elevated troponins and echo showed EF 55-60% with mild pulmonary hypertension RVSP 39 and no significant valvular disease. He states that over the last 2 days he has been feeling more short of breath, fatigue and dyspnea with minimal exertion and therefore told family members to bring him in the emergency department. He did have previous hospitalization with strep bacteremia. He denies any fevers or chills. Previous echo did not show any significant vegetation. Workup shows white blood cell count 16.5, hemoglobin 12.4, platelets 73, pCO2 92, creatinine 1.4, potassium 5.6, hemoglobin A1c 6.4, troponin 1.1, 1.8, pro-calcitonin 0.7, proBNP 1960. EKG showing poor R-wave progression with interventricular conduction delay and left bundle branch morphology with what appears to be sinus rhythm. Telemetry reveals 08/31 Patient seen and examined. Overall he states he is feeling much better. Diuresing well with oral Lasix and has had a good urine output. Denies any fevers or chills. He admits his lower extremity edema has improved however still has 2+ lower extremity edema. Limited echo shows EF 50% without signifi cant pericardial effusion. Blood culture 1/2 + for Strep. 09/01 Patient seen and examined. Patient with mild increase in creatinine up to 1.6. Denies any chest pain or pressure. States that shortness breath is slowly improving. Repeat blood culture negative to date 09/02 Patient seen and examined. Patient states his breathing is at baseline on 6 L. Normally on 6 L at home. Creatinine mildly increased up to 1.7. Denies any fevers or chills. PHYSICAL EXAMINATION Vital signs reviewed. CONSTITUTIONAL: No apparent distress, chronically ill appearing HEENT: Head is normocephalic. Pupils are equal, round. Sclerae anicteric. Mucous membranes of the mouth are moist. No JVD. No carotid bruit. CHEST EXAMINATION: Diffuse wheeze HEART EXAMINATION: Regular rate and rhythm. S1, S2 heard. No murmurs, gallops or rub. ABDOMEN: Soft, nontender. Positive bowel sounds. EXTREMITIES: 2+ peripheral pulses, 2+ lower extremity edema and no calf tenderness. NEUROLOGIC EXAMINATION: Patient is awake, alert and oriented x3. ASSESSMENT 1. Acute on chronic respiratory failure mainly related to COPD 2. Chronic diastolic heart failure 3. COPD on home 6 L nasal cannula 4. Previous tobacco abuse 5. Non-STEMI somewhat more elevated than previous levels up to 1.7 6. Loss of consciousness, unclear if true syncope appears related to severe hypoxia 7. Pulmonary hypertension likely related to COPD 8. CKD 9. Hyperkalemia 10. Strep bacteremia 2/2 on presentation PLAN Patient with generalized fatigue and still has bacteremia. Elevated troponins appear type 2 mechanism from bacteremia, CKD and EF predominantly preserved EF 50% Not having any angina-type symptoms. Aspirin and beta kel. Significant LE edema which is likely somewhat chronic. Appears stable from cardiology perspective for DC Objective - Vital Signs Vital signs: Vital Signs Temp 98 F 09/02/22 04:00 Pulse 88 09/02/22 11:47 Resp 22 09/02/22 04:00 BP 131/63 09/02/22 04:00 Pulse Ox 97 09/02/22 04:00 FiO2 40 08/31/22 03:20 Intake & Output 09/01/22 09/02/22 09/02/22 18:59 06:59 18:59 Intake Total 1438 118 Output Total 675 1400 Balance 763 -1400 118 Intake: Oral 1438 118 Output: Urine 225 1400 Stool 450 Other: Voiding Method Urinal Urinal - Labs CBC & Chem 7: 09/02/22 10:03 09/02/22 10:03 Labs: Abnormal Lab Results - Last 24 Hours (Table) 09/01/22 09/01/22 09/02/22 Range/Units 16:52 20:22 06:17 RBC (4.30-5.90) m/uL Hgb (13.0-17.5) gm/dL Hct (39.0-53.0) % MCV (80.0-100.0) fL Plt Count (150-450) k/uL Lymphocytes # (1.0-4.8) k/uL Chloride (98-107) mmol/L Carbon Dioxide (22-30) mmol/L BUN (9-20) mg/dL Creatinine (0.66-1.25) mg/dL Glucose (74-99) mg/dL POC Glucose (mg/dL) 211 H 204 H 187 H (70-110) mg/dL Calcium (8.4-10.2) mg/dL 09/02/22 09/02/22 09/02/22 Range/Units 10:03 10:03 11:30 RBC 3.31 L (4.30-5.90) m/uL Hgb 11.3 L (13.0-17.5) gm/dL Hct 35.7 L (39.0-53.0) % MCV 107.8 H (80.0-100.0) fL Plt Count 68 L (150-450) k/uL Lymphocytes # 0.3 L (1.0-4.8) k/uL Chloride 92 L (98-107) mmol/L Carbon Dioxide 41 H* (22-30) mmol/L BUN 75 H (9-20) mg/dL Creatinine 1.71 H (0.66-1.25) mg/dL Glucose 274 H (74-99) mg/dL POC Glucose (mg/dL) 251 H (70-110) mg/dL Calcium 8.1 L (8.4-10.2) mg/dL Microbiology - Last 24 Hours (Table) 08/29/22 10:05 Blood Culture - Preliminary Blood No Growth after 96 hours 08/29/22 09:48 Blood Culture Gram Stain - Final Blood Blood Culture - Final Beta Hemolytic Strep Group G
[2022-09-02 13:21] VITALS: RESP 18; TEMP 98
[2022-09-02 13:22] VITALS: BP 118/61; PULSE 66
--- NOTE | 2022-09-02 15:40 | P.PN ---
Subjective Progress Note Date: 09/02/22 Principal diagnosis: Bilateral leg cellulitis and bacteremia Patient is a 67-year-old male with a past medical history significant for COPD/CHF presented to hospital with increasing shortness of breath patient also noticed to have increasing swelling redness to lower extremities concerning for cellulitis. On today's evaluation that is 09/02/2022, patient denies any fever or any chills, the patient is breathing comfortably on 6 L nasal cannula oxygen which is baseline for him, the patient denies any chest pain, patient denies any worsening cough or sputum production , the patient pain to the lower extremity slightly decreased, no abdominal pain no diarrhea Objective - Vital Signs Vital signs: Vital Signs Temp 98.0 F 09/02/22 09:15 Pulse 66 09/02/22 13:10 Resp 18 09/02/22 13:10 BP 118/61 09/02/22 13:10 Pulse Ox 95 09/02/22 13:10 FiO2 40 08/31/22 03:20 Intake & Output 09/01/22 09/02/22 09/02/22 18:59 06:59 18:59 Intake Total 1438 236 Output Total 675 1400 Balance 763 -1400 236 Intake: Oral 1438 236 Output: Urine 225 1400 Stool 450 Other: Voiding Method Urinal Urinal Urinal - Exam GENERAL DESCRIPTION: An elderly male lying in bed in no distress RESPIRATORY SYSTEM: Unlabored breathing , decreased breath sounds at bases HEART: S1 S2 regular rate and rhythm , ABDOMEN: Soft , no tenderness EXTREMITIES: Right lower extremity swelling redness has decreased no drainage - Labs CBC & Chem 7: 09/02/22 10:03 09/02/22 10:03 Labs: Abnormal Lab Results - Last 24 Hours (Table) 09/01/22 09/01/22 09/02/22 Range/Units 16:52 20:22 06:17 RBC (4.30-5.90) m/uL Hgb (13.0-17.5) gm/dL Hct (39.0-53.0) % MCV (80.0-100.0) fL Plt Count (150-450) k/uL Lymphocytes # (1.0-4.8) k/uL Chloride (98-107) mmol/L Carbon Dioxide (22-30) mmol/L BUN (9-20) mg/dL Creatinine (0.66-1.25) mg/dL Glucose (74-99) mg/dL POC Glucose (mg/dL) 211 H 204 H 187 H (70-110) mg/dL Calcium (8.4-10.2) mg/dL 09/02/22 09/02/22 09/02/22 Range/Units 10:03 10:03 11:30 RBC 3.31 L (4.30-5.90) m/uL Hgb 11.3 L (13.0-17.5) gm/dL Hct 35.7 L (39.0-53.0) % MCV 107.8 H (80.0-100.0) fL Plt Count 68 L (150-450) k/uL Lymphocytes # 0.3 L (1.0-4.8) k/uL Chloride 92 L (98-107) mmol/L Carbon Dioxide 41 H* (22-30) mmol/L BUN 75 H (9-20) mg/dL Creatinine 1.71 H (0.66-1.25) mg/dL Glucose 274 H (74-99) mg/dL POC Glucose (mg/dL) 251 H (70-110) mg/dL Calcium 8.1 L (8.4-10.2) mg/dL Microbiology - Last 24 Hours (Table) 08/29/22 10:05 Blood Culture - Preliminary Blood No Growth after 96 hours 08/29/22 09:48 Blood Culture Gram Stain - Final Blood Blood Culture - Final Beta Hemolytic Strep Group G Assessment and Plan (1) Cellulitis Current Visit: Yes Status: Acute Code(s): L03.90 - CELLULITIS, UNSPECIFIED SNOMED Code(s): 332151517 Plan: 1patient with bilateral lower extremity swelling and redness some superficial ulceration to scratching concerning for cellulitis likely from gram-positive skin danitza such as strep. 2patient presenting mostly with increasing shortness of breath more likely related to COPD exacerbation chest x-ray was negative for any pneumonia. 3patient also have a positive blood culture with gram-positive cocci which has been finalized as group G Streptococcus related to his leg cellulitis 4patient has shown some clinical improvement and the patient has been insisting on going home, patient has been cleared for discharge by admitting team prescription for oral Keflex sent to the pharmacy and close outpatient follow-up Time with Patient: Less than 30
--- NOTE | 2022-09-05 16:34 | CDI ---
Documentation Clarification Form Date: 09/05/2022 04:21:00 PM From: Zita Macias Admit Date: 08/29/2022 11:21:00 AM Patient Name: Chemo Escalera Visit Number: [id number] Discharge Date: 09/02/2022 03:45:00 PM ATTENTION: The Clinical Documentation Specialists (CDI) and [facility] Coding Staff appreciate your assistance in clarifying documentation. Please respond to the clarification below the line at the bottom and electronically sign. The CDI & [facility] Coding staff will review the response and follow-up if needed. Please note: Queries are made part of the Legal Health Record. If you have any questions, please contact the author of this message via ITS. Dr. Sofiya Albrecht Documentation of bilateral lower extremity cellulitis and bacteremia with positive blood cultures (Streptococcus) is documented in the consult and progress notes 08/30/22 - 09/02/22. Patient had a recent hospitalization for Streptococcal septicemia. Progress notes 08/30/22 - 09/02/22 also state patient has "Septicemia with Streptococcus group B" and patient is currently on IV cefazolin. Additional clarification regarding the etiology/cause of the clinical indicators is requested. History/Risk Factors: 67-year-old male with SOB, cough, COPD, CHF, cellulitis, respiratory failure, positive blood cultures, elevated lactic acid, and elevated WBCs Clinical Indicators: WBC: 16.5 Lactic acid: 2.9 Blood cultures: beta hemolytic strep group G Vitals signs: T 99.3 Pulse: 138 R: 24 BP: 102/54 O2: 99 nasal cannula and Bipap ID Consult: Omari Antibiotics: IV cefazolin In your professional opinion, please clarify if these findings signify one of the following conditions: [ ] Septicemia due to Cellulitis with Group G Strep [ xxx ] Septicemia ruled out [ ] Bacteremia [ ] Other, please specify [ ] Unable to determine MTDD
== END 2022-09-02 15:45 | disposition home health service (06) | DRG 190 ==
LOC: EC 09:35 → 3SCARD 11:21
PROVIDERS: ADMIT Internal Medicine; ATTEND Internal Medicine
PROC: 5A09357 Assistance with Respiratory Ventilation, Less than 24 Consecutive Hours, Continuous Positive Airway Pressure (ICD-10-PCS; principal; 2022-08-29)
DX: J44.1 Chronic obstructive pulmonary disease with (acute) exacerbation (principal); I21.A1 Myocardial infarction type 2; J96.21 Acute and chronic respiratory failure with hypoxia; I50.33 Acute on chronic diastolic (congestive) heart failure; J96.22 Acute and chronic respiratory failure with hypercapnia; I13.0 Hypertensive heart and chronic kidney disease with heart failure and stage 1 through stage 4 chronic kidney disease, or unspecified chronic kidney disease; L03.116 Cellulitis of left lower limb; L03.115 Cellulitis of right lower limb; E87.3 Alkalosis; L97.929 Non-pressure chronic ulcer of unspecified part of left lower leg with unspecified severity; L97.919 Non-pressure chronic ulcer of unspecified part of right lower leg with unspecified severity; N17.9 Acute kidney failure, unspecified; R78.81 Bacteremia; Z20.822 Contact with and (suspected) exposure to COVID-19; N18.31 Chronic kidney disease, stage 3a; E87.5 Hyperkalemia; J84.10 Pulmonary fibrosis, unspecified; I44.7 Left bundle-branch block, unspecified; B95.4 Other streptococcus as the cause of diseases classified elsewhere; I27.20 Pulmonary hypertension, unspecified; M19.90 Unspecified osteoarthritis, unspecified site; E66.01 Morbid (severe) obesity due to excess calories; F41.9 Anxiety disorder, unspecified; J30.9 Allergic rhinitis, unspecified; R73.9 Hyperglycemia, unspecified; R55 Syncope and collapse; T50.2X5A Adverse effect of carbonic-anhydrase inhibitors, benzothiadiazides and other diuretics, initial encounter; Z87.891 Personal history of nicotine dependence; Z79.899 Other long term (current) drug therapy; Z68.39 Body mass index [BMI] 39.0-39.9, adult; Z88.1 Allergy status to other antibiotic agents; Z99.81 Dependence on supplemental oxygen
CPT/HCPCS: 36415; 71045; 71046; 80048; 80053; 81003; 82803; 83036; 83605; 83735; 83880; 84132; 84145; 84484; 85025; 85610; 85730; 87040; 87077; 87186; 87502; 87635; 93005; 93308; 94640; 94660; 94760; 96365; 96375; 96376; 99291

== ENCOUNTER 2022-09-11 17:36 | Inpatient (IN) | payer MEDICARE ==
--- NOTE | 2022-09-11 18:33 | ED ---
General Adult HPI - General Chief complaint: GI Bleed Stated complaint: Sent by PCP to R/O Internal Bleeding Time Seen by Provider: 09/11/22 18:13 Source: patient, RN notes reviewed Mode of arrival: wheelchair Limitations: no limitations - History of Present Illness Initial comments: This is a pleasant 67-year-old male who presents to emergency department complaining of generalized fatigue, malaise, dark stools, and difficulty ambulating secondary to weakness. Patient here with his daughter who states he was admitted to the hospital and released about 6 days ago. Ever since getting home from the hospital he has been unable to partaken activities daily living. Daughter states she's hardly eating as well. She states that he is unwilling or unable to walk to the bathroom, get out of bed or to even Limited activities. Patient denying any pain. Patient is on oxygen chronically at 6 L/m. History of COPD. Patient was admitted here for COPD exacerbation with CO2 retention. Patient also has a history of chronic kidney disease, CHF, lower leg cellulitis. Patient currently on cephalexin. GENERALIZED fatigue and weakness, No headache, no fever or chills, no changes in vision or hearing, no sore throat or difficulty with speech, no neck pain, no chest pain, no abdominal pain, no nausea or vomiting, no changes in urination or bowel movements, no numbness or tingling, bilateral extremity edema, no skin rashes or lesions. Past medical, surgical, social, and family history reviewed. - Related Data Home Medications Medication Instructions Recorded Confirmed Albuterol Nebulized [Ventolin 2.5 mg INHALATION RT-QID PRN 06/22/14 09/11/22 Nebulized] Montelukast [Singulair] 10 mg PO HS@2100 06/09/19 09/11/22 clonazePAM [KlonoPIN] 0.5 mg PO DAILY PRN 06/09/19 09/11/22 Albuterol Sulfate [Ventolin HFA] 2 puff INHALATION RT-Q4H PRN 08/27/19 09/11/22 Fluticasone Propion/Salmeterol 1 puff INHALATION RT-BID 08/27/19 09/11/22 [Advair 250-50 Diskus] Cholecalciferol [Vitamin D3 (25 25 mcg PO DAILY 06/16/22 09/11/22 Mcg = 1000 Iu)] Metoprolol Tartrate [Lopressor] 50 mg PO BID@0900,2100 06/16/22 09/11/22 Furosemide [Lasix] 60 mg PO TID 08/29/22 09/11/22 predniSONE See Taper PO DIRECTED 09/11/22 09/11/22 Previous Rx's Medication Instructions Recorded Aspirin 81 mg PO DAILY 30 Days #30 tab 09/02/22 Cephalexin [Keflex] 500 mg PO Q6HR 10 Days #40 cap 09/02/22 Allergies Allergy/AdvReac Type Severity Reaction Status Date / Time clarithromycin [From Biaxin] AdvReac TREMORS Verified 09/11/22 19:55 Review of Systems ROS Statement: Those systems with pertinent positive or pertinent negative responses have been documented in the HPI. ROS Other: All systems not noted in ROS Statement are negative. Past Medical History Past Medical History: Heart Failure, COPD, Hypertension Additional Past Medical History / Comment(s): Obesity, previous history of cellulitis of the lower extremities, hypertension, COPD, chronic hypoxic respiratory failure, osteoarthritis History of Any Multi-Drug Resistant Organisms: None Reported Past Surgical History: No Surgical Hx Reported Additional Past Surgical History / Comment(s): no Reported history of surgeries Past Anesthesia/Blood Transfusion Reactions: No Reported Reaction Past Psychological History: No Psychological Hx Reported Smoking Status: Former smoker Past Alcohol Use History: None Reported Past Drug Use History: None Reported - Past Family History Father History Unknown: Yes Additional Family Medical History / Comment(s): Patient states father at 76 of a blood clot, mother had breast cancer Mother History Unknown: Yes Family Medical History: Dementia General Exam - General Exam Comments Initial Comments: Deconditioned and pale-appearing male in mild distress. On oxygen 6 L minute. Capillary refill is sluggish. Cranial nerves II through XII grossly intact Limitations: no limitations General appearance: alert, obese Head exam: Present: atraumatic, normocephalic, normal inspection Eye exam: Present: normal appearance, PERRL, EOMI. Absent: scleral icterus, conjunctival injection, periorbital swelling ENT exam: Present: normal exam, normal oropharynx, mucous membranes moist, normal external ear exam. Absent: mucous membranes dry Neck exam: Present: normal inspection, full ROM. Absent: tenderness, meningismus, lymphadenopathy Respiratory exam: Present: rales. Absent: respiratory distress, wheezes, rhonchi, stridor Cardiovascular Exam: Present: regular rate, normal rhythm, normal heart sounds. Absent: systolic murmur, diastolic murmur, rubs, gallop, clicks GI/Abdominal exam: Present: soft, normal bowel sounds. Absent: distended, tenderness, guarding, rebound, rigid Extremities exam: Present: normal inspection, full ROM. Absent: tenderness, normal capillary refill (3-4 seconds), pedal edema, joint swelling, calf tenderness Back exam: Present: normal inspection Neurological exam: Present: alert, oriented X3, CN II-XII intact Psychiatric exam: Present: normal affect, normal mood Skin exam: Present: warm, dry, intact, normal color, pallor. Absent: rash, cyanosis, diaphoretic, erythema, urticaria, vesicles, petechiae, mottled, abrasion Course Vital Signs 09/11/22 17:56 Temperature 98.7 F Pulse Rate 89 Respiratory 16 Rate Blood Pressure 124/67 O2 Sat by Pulse 98 Oximetry - Reevaluation(s) Reevaluation #1: 09/11/22 20:53 Patient reevaluated, patient generally weak, not able to ambulate safely. Appears to be at baseline respiratory status. - Consultations Consultation #1: Case discussed in detail with the patient's primary care provider, Dr. Albrecht who agrees to admit the patient. We'll consult infectious disease and pulmonary. EKG Findings - EKG Comments: EKG Findings:: EKG done at 843 and read by me reveals right axis deviation with right bundle branch block. Rate of 92. IN interval 172, Q holiness 129, QTC 291 no definitive evidence of acute changes when compared to the previous study from August 29. Rate is improved at 92 today. Rate on that study was 133. Medical Decision Making - Medical Decision Making Differential diagnosis would include infectious process, possibly hospital- acquired. Given the dark stools, symptomatic anemia also within the differential. Viral syndrome within the differential as well. Certainly this could be CHF exacerbation as the patient does have bilateral rales noted. Patient afebrile. Does not appear to be consistent with sepsis. Gen. cardiopulmonary workup we'll add in a lactic acid, BNP, viral testing. Stool negative for occult blood. Patient's hemoglobin is stable at 11.9. Hematocrit 37.1. Carbon dioxide level 44. Chloride is 89. When necessary 113, creatinine 1.81, glucose 230, lactic acid 2.1. Magnesium 2.5. Mild elevations in the hepatic enzymes. We'll plan for admission. We'll order gentle hydration. Patient unsafe to walk due to generalized weakness. The case was discussed in detail with ED attending physician. Presentation, findings, treatment plan discussed in detail. Window Assembler Dr. Mai - Lab Data Result diagrams: 09/11/22 19:47 09/11/22 19:47 Lab Results 09/11/22 09/11/22 09/11/22 Range/Units 18:45 18:45 19:47 WBC 9.4 (3.8-10.6) k/uL RBC 3.44 L (4.30-5.90) m/uL Hgb 11.9 L (13.0-17.5) gm/dL Hct 37.1 L (39.0-53.0) % MCV 107.7 H (80.0-100.0) fL MCH 34.7 (25.0-35.0) pg MCHC 32.2 (31.0-37.0) g/dL RDW 12.4 (11.5-15.5) % Plt Count 51 L (150-450) k/uL MPV 14.8 Neutrophils % 91 % Lymphocytes % 3 % Monocytes % 5 % Eosinophils % 0 % Basophils % 0 % Neutrophils # 8.6 H (1.3-7.7) k/uL Lymphocytes # 0.3 L (1.0-4.8) k/uL Monocytes # 0.5 (0-1.0) k/uL Eosinophils # 0.0 (0-0.7) k/uL Basophils # 0.0 (0-0.2) k/uL Hypochromasia Slight Macrocytosis Moderate Sodium (137-145) mmol/L Potassium (3.5-5.1) mmol/L Chloride (98-107) mmol/L Carbon Dioxide (22-30) mmol/L Anion Gap mmol/L BUN (9-20) mg/dL Creatinine (0.66-1.25) mg/dL Est GFR (CKD-EPI)AfAm (>60 ml/min/1.73 sqM) Est GFR (CKD-EPI)NonAf (>60 ml/min/1.73 sqM) Glucose (74-99) mg/dL Plasma Lactic Acid Vikram (0.7-2.0) mmol/L Calcium (8.4-10.2) mg/dL Phosphorus (2.5-4.5) mg/dL Magnesium (1.6-2.3) mg/dL Total Bilirubin (0.2-1.3) mg/dL AST (17-59) U/L ALT (4-49) U/L Alkaline Phosphatase (38-126) U/L Troponin I (0.000-0.034) ng/mL NT-Pro-B Natriuret Pep pg/mL Total Protein (6.3-8.2) g/dL Albumin (3.5-5.0) g/dL Stool Occult Blood Negative (Negative) Influenza Type A (PCR) Not Detected (Not Detectd) Influenza Type B (PCR) Not Detected (Not Detectd) RSV (PCR) Not Detected (Not Detectd) SARS-CoV-2 (PCR) Detected A (Not Detectd) Blood Type Blood Type Recheck Bld Type Recheck Status Antibody Screen Spec Expiration Date 09/11/22 09/11/22 09/11/22 Range/Units 19:47 19:47 19:47 WBC (3.8-10.6) k/uL RBC (4.30-5.90) m/uL Hgb (13.0-17.5) gm/dL Hct (39.0-53.0) % MCV (80.0-100.0) fL MCH (25.0-35.0) pg MCHC (31.0-37.0) g/dL RDW (11.5-15.5) % Plt Count (150-450) k/uL MPV Neutrophils % % Lymphocytes % % Monocytes % % Eosinophils % % Basophils % % Neutrophils # (1.3-7.7) k/uL Lymphocytes # (1.0-4.8) k/uL Monocytes # (0-1.0) k/uL Eosinophils # (0-0.7) k/uL Basophils # (0-0.2) k/uL Hypochromasia Macrocytosis Sodium 137 (137-145) mmol/L Potassium 4.1 (3.5-5.1) mmol/L Chloride 89 L (98-107) mmol/L Carbon Dioxide 44 H* (22-30) mmol/L Anion Gap 4 mmol/L BUN 113 H* (9-20) mg/dL Creatinine 1.81 H (0.66-1.25) mg/dL Est GFR (CKD-EPI)AfAm 43 (>60 ml/min/1.73 sqM) Est GFR (CKD-EPI)NonAf 37 (>60 ml/min/1.73 sqM) Glucose 230 H (74-99) mg/dL Plasma Lactic Acid Vikram (0.7-2.0) mmol/L Calcium 8.8 (8.4-10.2) mg/dL Phosphorus 3.6 (2.5-4.5) mg/dL Magnesium 2.5 H (1.6-2.3) mg/dL Total Bilirubin 1.4 H (0.2-1.3) mg/dL AST 78 H (17-59) U/L ALT 84 H (4-49) U/L Alkaline Phosphatase 140 H (38-126) U/L Troponin I 0.116 H* (0.000-0.034) ng/mL NT-Pro-B Natriuret Pep pg/mL Total Protein 6.5 (6.3-8.2) g/dL Albumin 3.4 L (3.5-5.0) g/dL Stool Occult Blood (Negative) Influenza Type A (PCR) (Not Detectd) Influenza Type B (PCR) (Not Detectd) RSV (PCR) (Not Detectd) SARS-CoV-2 (PCR) (Not Detectd) Blood Type O Positive Blood Type Recheck No Previous Record Bld Type Recheck Status CABO Indicated Antibody Screen NEGATIVE Spec Expiration Date 09/14/2022234609/11/22 09/11/22 Range/Units 19:47 19:47 WBC (3.8-10.6) k/uL RBC (4.30-5.90) m/uL Hgb (13.0-17.5) gm/dL Hct (39.0-53.0) % MCV (80.0-100.0) fL MCH (25.0-35.0) pg MCHC (31.0-37.0) g/dL RDW (11.5-15.5) % Plt Count (150-450) k/uL MPV Neutrophils % % Lymphocytes % % Monocytes % % Eosinophils % % Basophils % % Neutrophils # (1.3-7.7) k/uL Lymphocytes # (1.0-4.8) k/uL Monocytes # (0-1.0) k/uL Eosinophils # (0-0.7) k/uL Basophils # (0-0.2) k/uL Hypochromasia Macrocytosis Sodium (137-145) mmol/L Potassium (3.5-5.1) mmol/L Chloride (98-107) mmol/L Carbon Dioxide (22-30) mmol/L Anion Gap mmol/L BUN (9-20) mg/dL Creatinine (0.66-1.25) mg/dL Est GFR (CKD-EPI)AfAm (>60 ml/min/1.73 sqM) Est GFR (CKD-EPI)NonAf (>60 ml/min/1.73 sqM) Glucose (74-99) mg/dL Plasma Lactic Acid Vikram 2.1 H* (0.7-2.0) mmol/L Calcium (8.4-10.2) mg/dL Phosphorus (2.5-4.5) mg/dL Magnesium (1.6-2.3) mg/dL Total Bilirubin (0.2-1.3) mg/dL AST (17-59) U/L ALT (4-49) U/L Alkaline Phosphatase (38-126) U/L Troponin I (0.000-0.034) ng/mL NT-Pro-B Natriuret Pep 762 pg/mL Total Protein (6.3-8.2) g/dL Albumin (3.5-5.0) g/dL Stool Occult Blood (Negative) Influenza Type A (PCR) (Not Detectd) Influenza Type B (PCR) (Not Detectd) RSV (PCR) (Not Detectd) SARS-CoV-2 (PCR) (Not Detectd) Blood Type Blood Type Recheck Bld Type Recheck Status Antibody Screen Spec Expiration Date - Radiology Data Radiology results: report reviewed, image reviewed 1 view chest x-ray interpreted by me shows some evidence of chronic fibrotic changes. Bilateral pleural effusions noted. Concur with radiology interpretation Disposition Clinical Impression: COVID-19, Generalized weakness Disposition: ADMITTED IP TO THIS HOSP Condition: Fair Is patient prescribed a controlled substance at d/c from ED?: No Referrals: Sofiya Albrecht MD [Primary Care Provider] - 1-2 days Time of Disposition: 20:56 Decision to Admit Reason: Admit from EC Decision Time: 20:57
[2022-09-11 20:27] LABS: Basophils % (A) 0 %; Eosinophils % (A) 0 %; HCT 37.1 % (39.0-53.0); HGB 11.9 gm/dL (13.0-17.5); Hypochromasia Slight; Lymphocytes # (A) 0.3 k/uL (1.0-4.8); Lymphocytes % (A) 3 %; MCH 34.7 pg (25.0-35.0); MCHC 32.2 g/dL (31.0-37.0); MCV 107.7 fL (80.0-100.0); Macrocytosis Moderate; Mean Platelet Volume 14.8; Monocytes # (A) 0.5 k/uL (0-1.0); Monocytes % (A) 5 %; Neutrophils # (A) 8.6 k/uL (1.3-7.7); Neutrophils % (A) 91 %; RBC 3.44 m/uL (4.30-5.90); RDW 12.4 % (11.5-15.5); WBC 9.4 k/uL (3.8-10.6)
[2022-09-11] MEDS ORDERED: DEXAMETHASONE SOD PHOSPHATE 10 MG/ML 1 ML VIAL IVP STA (20:32)
[2022-09-11 20:34] LABS: Platelet Count 51 k/uL (150-450)
[2022-09-11 20:37] LABS: Albumin 3.4 g/dL (3.5-5.0); Calcium 8.8 mg/dL (8.4-10.2); Magnesium 2.5 mg/dL (1.6-2.3); Phosphorus 3.6 mg/dL (2.5-4.5); Potassium 4.1 mmol/L (3.5-5.1); Total Bilirubin 1.4 mg/dL (0.2-1.3); Total Protein 6.5 g/dL (6.3-8.2)
[2022-09-11 20:40] LABS: Partial Thromboplastin Time 23.6 sec (22.0-30.0); Prothrombin Time 10.9 sec (9.0-12.0)
--- NOTE | 2022-09-11 20:51 | XR ---
EXAMINATION TYPE: XR chest 1V portable DATE OF EXAM: 09/11/2022 COMPARISON: 08/30/2022 HISTORY: Short of breath TECHNIQUE: Single view FINDINGS: Heart is normal. Lungs are clear of consolidation. There is slight blunting of the costophrenic angle s. There is mild thoracic dextroscoliosis. Heart size is normal. IMPRESSION: There is some mild pleural reaction in subsegmental atelectasis at the lung bases similar to old exam . No obvious heart failure. Normal heart size.
[2022-09-11] MEDS ORDERED: ACETAMINOPHEN TAB 325 MG TAB PO PRN (21:03)
[2022-09-11] MEDS ORDERED: NALOXONE 0.4 MG/ML 1 ML VIAL IV PRN (21:03)
[2022-09-11] MEDS ORDERED: ONDANSETRON 4 MG/2 ML VIAL IVP PRN (21:03)
[2022-09-11] MEDS ORDERED: clonazePAM 0.5 MG TAB PO PRN (21:05)
[2022-09-11] MEDS ORDERED: SODIUM CHLORIDE 0.9% 500 ML 250 ML IV ONE (21:11)
[2022-09-11] MEDS: FUROSEMIDE 20 MG TAB PO SCH (22:04)
[2022-09-11] MEDS: PANTOPRAZOLE 40 MG/10 ML VIAL IV SCH (22:07)
[2022-09-11] MEDS: SODIUM CHLORIDE 0.9% 1,000 ML IV SCH (22:10)
[2022-09-11] MEDS: ALBUTEROL HFA INHALER INHALATION PRN (22:51)
[2022-09-11 23:20] LABS: Glucose,Whole Blood 240 mg/dL (70-110)
[2022-09-12] MEDS: CEPHALEXIN 500 MG CAP PO SCH ×3 (00:45→20:29)
[2022-09-12] MEDS ORDERED: SODIUM CHLORIDE 0.9% 500 ML 500 ML IV ONE (04:24)
[2022-09-12 06:08] LABS: Appearance,Urine Cloudy (Clear); Bacteria,Urine Rare /hpf; Bilirubin,Urine Negative (Negative); Blood,Urine Negative (Negative); Color,Urine Yellow; Glucose,Urine (UA) Negative (Negative); Hyaline Casts,Urine 27 /lpf (0-2); Ketones,Urine Negative (Negative); Leukocyte Esterase,Urine Negative (Negative); Mucus,Urine Rare /hpf; Nitrite,Urine Negative (Negative); Protein,Urine Negative (Negative); RBC,Urine <1 /hpf (0-5); Specific Gravity,Urine 1.013 (1.001-1.035); Squamous Epithelial Cell,Urine 1 /hpf (0-4); WBC,Urine 1 /hpf (0-5)
[2022-09-12 06:13] LABS: Glucose,Whole Blood 251 mg/dL (70-110)
[2022-09-12] MEDS: INSULIN ASPART (NovoLOG) 100 UNIT/ML VIAL SQ SCH ×4 (06:57→20:29)
[2022-09-12] MEDS: ALBUTEROL HFA INHALER INHALATION PRN ×4 (07:55→20:21)
[2022-09-12] MEDS ORDERED: SYMBICORT 80-4.5 MCG INHALER INHALATION SCH (08:00)
[2022-09-12 08:09] LABS: Basophils % (A) 0 %; Eosinophils % (A) 0 %; HCT 34.4 % (39.0-53.0); HGB 10.8 gm/dL (13.0-17.5); Hypochromasia Moderate; Lymphocytes # (A) 0.3 k/uL (1.0-4.8); Lymphocytes % (A) 4 %; MCH 34.5 pg (25.0-35.0); MCHC 31.2 g/dL (31.0-37.0); MCV 110.5 fL (80.0-100.0); Macrocytosis Marked; Mean Platelet Volume 14.2; Monocytes # (A) 0.3 k/uL (0-1.0); Monocytes % (A) 4 %; Neutrophils # (A) 6.3 k/uL (1.3-7.7); Neutrophils % (A) 91 %; RBC 3.12 m/uL (4.30-5.90); RDW 12.8 % (11.5-15.5); WBC 6.9 k/uL (3.8-10.6)
[2022-09-12 08:15] LABS: Calcium 8.1 mg/dL (8.4-10.2); Magnesium 2.4 mg/dL (1.6-2.3); Potassium 4.1 mmol/L (3.5-5.1); Total Bilirubin 1.1 mg/dL (0.2-1.3); Total Protein 5.8 g/dL (6.3-8.2)
[2022-09-12 08:27] LABS: Platelet Count 52 k/uL (150-450)
[2022-09-12 10:08] LABS: Large Platelets Present
[2022-09-12] MEDS: FUROSEMIDE 20 MG TAB PO SCH ×3 (10:20→20:29)
[2022-09-12] MEDS: CHOLECALCIFEROL 25 MCG (1000 IU) TABLET PO SCH (10:20)
[2022-09-12] MEDS: ASPIRIN 81 MG PO SCH (10:20)
[2022-09-12] MEDS: METOPROLOL TARTRATE 50 MG TAB PO SCH ×2 (10:21→20:29)
[2022-09-12] MEDS: PANTOPRAZOLE 40 MG/10 ML VIAL IV SCH (10:21)
[2022-09-12 11:48] LABS: Glucose,Whole Blood 254 mg/dL (70-110)
--- NOTE | 2022-09-12 13:14 | P.HPIM ---
History of Present Illness H&P Date: 09/12/22 Chemo Escalera, is a 67-year-old male who presented to [facility] emergency room with a chief complaint of worsening shortness of breath, and multiple episodes of black stools. He was evaluated in the emergency room vital examination on presentation revealed a temperature of 98.7 pulse 89 respiration 16 blood pressure 124/67 pulse ox 98% on 6 L oxygen via nasal cannula Laboratory data revealed a white blood count of 9.4 hemoglobin 11.9 platelet count 51 BUN 113 creatinine 1.81 glucose 213 lactic acid 2.1 Covid 19 PCR was positive, stools for occult blood was negative Testing in the emergency room revealed chest x-ray done in the emergency room revealed mild pleural reaction, EKG done in the emergency room revealed sinus rhythm with right axis deviation and right bundle branch block and possible anteroseptal myocardial infarction of indeterminate age. Patient was admitted to medical floor for further evaluation and treatment. Past Medical History Past Medical History: Heart Failure, COPD, Hypertension, Osteoarthritis (OA), Skin Disorder Additional Past Medical History / Comment(s): Obesity, previous history of cellulitis of the lower extremities, hypertension, COPD, chronic hypoxic respiratory failure, osteoarthritis History of Any Multi-Drug Resistant Organisms: None Reported Past Surgical History: No Surgical Hx Reported Additional Past Surgical History / Comment(s): no Reported history of surgeries Past Anesthesia/Blood Transfusion Reactions: No Reported Reaction Past Psychological History: No Psychological Hx Reported Smoking Status: Former smoker Past Alcohol Use History: None Reported Past Drug Use History: None Reported - Past Family History Father History Unknown: Yes Additional Family Medical History / Comment(s): Patient states father at 76 of a blood clot, mother had breast cancer Mother History Unknown: Yes Family Medical History: Dementia Medications and Allergies Home Medications Medication Instructions Recorded Confirmed Type Albuterol Nebulized [Ventolin 2.5 mg INHALATION RT-QID PRN 06/22/14 09/11/22 History Nebulized] Montelukast [Singulair] 10 mg PO HS@2100 06/09/19 09/11/22 History clonazePAM [KlonoPIN] 0.5 mg PO DAILY PRN 06/09/19 09/11/22 History Albuterol Sulfate [Ventolin HFA] 2 puff INHALATION RT-Q4H PRN 08/27/19 09/11/22 History Fluticasone Propion/Salmeterol 1 puff INHALATION RT-BID 08/27/19 09/11/22 History [Advair 250-50 Diskus] Cholecalciferol [Vitamin D3 (25 25 mcg PO DAILY 06/16/22 09/11/22 History Mcg = 1000 Iu)] Metoprolol Tartrate [Lopressor] 50 mg PO BID@0900,2100 06/16/22 09/11/22 History Furosemide [Lasix] 60 mg PO TID 08/29/22 09/11/22 History Aspirin 81 mg PO DAILY 30 Days #30 tab 09/02/22 09/11/22 Rx Cephalexin [Keflex] 500 mg PO Q6HR 10 Days #40 cap 09/02/22 09/11/22 Rx predniSONE See Taper PO DIRECTED 09/11/22 09/11/22 History Allergies Allergy/AdvReac Type Severity Reaction Status Date / Time clarithromycin [From Biaxin] AdvReac TREMORS Verified 09/11/22 19:55 Physical Exam Vitals: Vital Signs Temp Pulse Pulse Resp BP BP Pulse Ox 09/12/22 08:00 97.3 F L 97 18 110/53 96 09/12/22 07:55 95 09/12/22 04:00 97.8 F 90 18 117/52 95 09/12/22 02:00 18 09/11/22 23:00 98.2 F 93 18 94/48 98 09/11/22 21:58 84 15 126/65 100 09/11/22 17:56 98.7 F 89 16 124/67 98 Intake and Output 09/11/22 09/12/22 09/12/22 22:59 06:59 14:59 Intake Total 118 Balance 118 Intake: Oral 118 Other: Voiding Method Urinal # Voids 1 # Bowel Movements 1 Weight 125.645 kg 125.1 kg In general patient is alert and oriented x 3 in no distress HEENT head normocephalic and atraumatic Neck is supple no JVD no goiter no lymphadenopathy no carotid bruit Chest examination reveals a scattered crackles bilaterally no wheezing Cardiac exam reveals regular heart sounds S1 and S2 no gallops no murmurs Abdomen is soft nontender no organomegaly with normal bowel sounds Extremity exam reveals no edema no cyanosis or clubbing Neurological examination reveals no gross focal deficits Results CBC & Chem 7: 09/12/22 06:55 09/12/22 06:55 Labs: Abnormal Lab Results - Last 24 Hours (Table) 09/11/22 09/11/22 09/11/22 Range/Units 18:45 19:47 19:47 RBC 3.44 L (4.30-5.90) m/uL Hgb 11.9 L (13.0-17.5) gm/dL Hct 37.1 L (39.0-53.0) % MCV 107.7 H (80.0-100.0) fL Plt Count 51 L (150-450) k/uL Neutrophils # 8.6 H (1.3-7.7) k/uL Lymphocytes # 0.3 L (1.0-4.8) k/uL Macrocytosis Sodium (137-145) mmol/L Chloride 89 L (98-107) mmol/L Carbon Dioxide 44 H* (22-30) mmol/L BUN 113 H* (9-20) mg/dL Creatinine 1.81 H (0.66-1.25) mg/dL Glucose 230 H (74-99) mg/dL POC Glucose (mg/dL) (70-110) mg/dL Plasma Lactic Acid Vikram (0.7-2.0) mmol/L Calcium (8.4-10.2) mg/dL Magnesium 2.5 H (1.6-2.3) mg/dL Total Bilirubin 1.4 H (0.2-1.3) mg/dL AST 78 H (17-59) U/L ALT 84 H (4-49) U/L Alkaline Phosphatase 140 H (38-126) U/L Troponin I (0.000-0.034) ng/mL Total Protein (6.3-8.2) g/dL Albumin 3.4 L (3.5-5.0) g/dL Urine Bacteria (None) /hpf Hyaline Casts (0-2) /lpf Urine Mucus (None) /hpf SARS-CoV-2 (PCR) Detected A (Not Detectd) 09/11/22 09/11/22 09/11/22 Range/Units 19:47 19:47 23:19 RBC (4.30-5.90) m/uL Hgb (13.0-17.5) gm/dL Hct (39.0-53.0) % MCV (80.0-100.0) fL Plt Count (150-450) k/uL Neutrophils # (1.3-7.7) k/uL Lymphocytes # (1.0-4.8) k/uL Macrocytosis Sodium (137-145) mmol/L Chloride (98-107) mmol/L Carbon Dioxide (22-30) mmol/L BUN (9-20) mg/dL Creatinine (0.66-1.25) mg/dL Glucose (74-99) mg/dL POC Glucose (mg/dL) 240 H (70-110) mg/dL Plasma Lactic Acid Vikram 2.1 H* (0.7-2.0) mmol/L Calcium (8.4-10.2) mg/dL Magnesium (1.6-2.3) mg/dL Total Bilirubin (0.2-1.3) mg/dL AST (17-59) U/L ALT (4-49) U/L Alkaline Phosphatase (38-126) U/L Troponin I 0.116 H* (0.000-0.034) ng/mL Total Protein (6.3-8.2) g/dL Albumin (3.5-5.0) g/dL Urine Bacteria (None) /hpf Hyaline Casts (0-2) /lpf Urine Mucus (None) /hpf SARS-CoV-2 (PCR) (Not Detectd) 09/11/22 09/12/22 09/12/22 Range/Units 23:50 03:33 04:42 RBC (4.30-5.90) m/uL Hgb (13.0-17.5) gm/dL Hct (39.0-53.0) % MCV (80.0-100.0) fL Plt Count (150-450) k/uL Neutrophils # (1.3-7.7) k/uL Lymphocytes # (1.0-4.8) k/uL Macrocytosis Sodium (137-145) mmol/L Chloride (98-107) mmol/L Carbon Dioxide (22-30) mmol/L BUN (9-20) mg/dL Creatinine (0.66-1.25) mg/dL Glucose (74-99) mg/dL POC Glucose (mg/dL) (70-110) mg/dL Plasma Lactic Acid Vikram 2.1 H* 3.2 H* (0.7-2.0) mmol/L Calcium (8.4-10.2) mg/dL Magnesium (1.6-2.3) mg/dL Total Bilirubin (0.2-1.3) mg/dL AST (17-59) U/L ALT (4-49) U/L Alkaline Phosphatase (38-126) U/L Troponin I (0.000-0.034) ng/mL Total Protein (6.3-8.2) g/dL Albumin (3.5-5.0) g/dL Urine Bacteria Rare H (None) /hpf Hyaline Casts 27 H (0-2) /lpf Urine Mucus Rare H (None) /hpf SARS-CoV-2 (PCR) (Not Detectd) 09/12/22 09/12/22 09/12/22 Range/Units 06:12 06:55 06:55 RBC 3.12 L (4.30-5.90) m/uL Hgb 10.8 L (13.0-17.5) gm/dL Hct 34.4 L (39.0-53.0) % MCV 110.5 H (80.0-100.0) fL Plt Count 52 L (150-450) k/uL Neutrophils # (1.3-7.7) k/uL Lymphocytes # 0.3 L (1.0-4.8) k/uL Macrocytosis Marked A Sodium 136 L (137-145) mmol/L Chloride 91 L (98-107) mmol/L Carbon Dioxide 40 H (22-30) mmol/L BUN 113 H* (9-20) mg/dL Creatinine 1.85 H (0.66-1.25) mg/dL Glucose 251 H (74-99) mg/dL POC Glucose (mg/dL) 251 H (70-110) mg/dL Plasma Lactic Acid Vikram (0.7-2.0) mmol/L Calcium 8.1 L (8.4-10.2) mg/dL Magnesium 2.4 H (1.6-2.3) mg/dL Total Bilirubin (0.2-1.3) mg/dL AST 60 H (17-59) U/L ALT 70 H (4-49) U/L Alkaline Phosphatase 133 H (38-126) U/L Troponin I (0.000-0.034) ng/mL Total Protein 5.8 L (6.3-8.2) g/dL Albumin 3.0 L (3.5-5.0) g/dL Urine Bacteria (None) /hpf Hyaline Casts (0-2) /lpf Urine Mucus (None) /hpf SARS-CoV-2 (PCR) (Not Detectd) 09/12/22 Range/Units 06:55 RBC (4.30-5.90) m/uL Hgb (13.0-17.5) gm/dL Hct (39.0-53.0) % MCV (80.0-100.0) fL Plt Count (150-450) k/uL Neutrophils # (1.3-7.7) k/uL Lymphocytes # (1.0-4.8) k/uL Macrocytosis Sodium (137-145) mmol/L Chloride (98-107) mmol/L Carbon Dioxide (22-30) mmol/L BUN (9-20) mg/dL Creatinine (0.66-1.25) mg/dL Glucose (74-99) mg/dL POC Glucose (mg/dL) (70-110) mg/dL Plasma Lactic Acid Vikram 2.2 H* (0.7-2.0) mmol/L Calcium (8.4-10.2) mg/dL Magnesium (1.6-2.3) mg/dL Total Bilirubin (0.2-1.3) mg/dL AST (17-59) U/L ALT (4-49) U/L Alkaline Phosphatase (38-126) U/L Troponin I (0.000-0.034) ng/mL Total Protein (6.3-8.2) g/dL Albumin (3.5-5.0) g/dL Urine Bacteria (None) /hpf Hyaline Casts (0-2) /lpf Urine Mucus (None) /hpf SARS-CoV-2 (PCR) (Not Detectd) Thrombosis Risk Factor Assmnt - Choose All That Apply Any of the Below Risk Factors Present?: Yes Each Factor Represents 1 point: Abnormal pulmonary function (COPD), Obesity (BMI >25), Swollen legs (current) Each Risk Factor Represents 2 Points: Age 61-74 years, Patient confined to bed Other congenital or acquired thrombophilia - If yes, enter type in comment: No Thrombosis Risk Factor Assessment Total Risk Factor Score: 7 Thrombosis Risk Factor Assessment Level: High Risk Assessment and Plan Plan: Acute COVID-19 infection, patient admitted to the medical floor, he was started on IV dexamethasone, vitamin C vitamin D and zinc supplements, infectious disease consultation requested Acute kidney injury on top of chronic kidney disease stage III consultation for nephrology was initiated Underlying history of advanced COPD Acute hypercapnic and hypoxic respiratory failure Bilateral lower extremity cellulitis Underlying history of hypertension Underlying history of chronic diastolic congestive heart failure Recent diagnosis of bilateral lower extremity cellulitis maintained on oral Keflex At this time patient is admitted to telemetry floor Home medications reviewed and reordered to Consultation for infectious disease and nephrology initiated For DVT prophylaxis subcu Lovenox For GI prophylaxis IV proton next Will follow closely
[2022-09-12 16:48] LABS: Glucose,Whole Blood 180 mg/dL (70-110)
[2022-09-12] MEDS: SODIUM CHLORIDE 0.9% 1,000 ML IV SCH (16:48)
--- NOTE | 2022-09-12 16:56 | P.CNPUL ---
History of Present Illness Consult date: 09/12/22 Requesting physician: Sofiya Albrecht Reason for consult: dyspnea, cough, COPD, hypoxemia, abnormal CXR/CT Chief complaint: Shortness of breath, weakness. History of present illness: Pulmonary consult dated 09/12/2022. A 67-year-old male who presented to the emergency department, complaining of ge neralized fatigue, malaise, dark stools, difficulty ambulating, and shortness of breath. He was released from the hospital about a week ago, at which time, the patient had a thoracentesis performed by my partner. The patient does have a history of severe chronic lung disease, with an FEV1 that is 17% of predicted. Currently, he's on 6 L of oxygen. He tested positive for coronavirus. Pro-calcitonin level is 0.19. His medical problems include heart failure, severe COPD, hypertension, obesity, pleural effusion, and lower extremity cellulitis. The patient also is on home oxygen, and therefore, has chronic hypoxemic respiratory failure. White count 6.9, hemoglobin 10.8, hematocrit 34.4, and platelet count 52,000. Sodium is 136, potassium 4.1, chlorides 91, CO2 40, BUN 113, creatinine 1.85. Lactic acid is 2.1. AST is 60, ALT is 70. Troponin was 0.116. N-terminal proBNP was 762. Urine was negative. He did test positive for coronavirus. He is vaccinated. Chest x-ray show some basilar atelectasis, small effusions. Chest x-ray was compared to a chest x-ray done August 30, and is unchanged. Review of Systems REVIEW OF SYSTEMS: CONSTITUTIONAL: Weakness and fatigue. NEUROLOGIC: [ Negative.] HEENT: [ Negative.] CARDIAC: [Negative.] PULMONARY: Shortness of breath. GI: [Negative.] : [Negative.] RHEUMATOLOGIC: [ Negative.] IMMUNOLOGIC: [ Negative.] ENDOCRINE: [Negative. ] DERMATOLOGIC: [Negative.] Past Medical History Past Medical History: Heart Failure, COPD, Hypertension, Osteoarthritis (OA), Skin Disorder Additional Past Medical History / Comment(s): Obesity, previous history of cellulitis of the lower extremities, hypertension, COPD, chronic hypoxic respiratory failure, osteoarthritis History of Any Multi-Drug Resistant Organisms: None Reported Past Surgical History: No Surgical Hx Reported Additional Past Surgical History / Comment(s): no Reported history of surgeries Past Anesthesia/Blood Transfusion Reactions: No Reported Reaction Past Psychological History: No Psychological Hx Reported Smoking Status: Former smoker Past Alcohol Use History: None Reported Past Drug Use History: None Reported - Past Family History Father History Unknown: Yes Additional Family Medical History / Comment(s): Patient states father at 76 of a blood clot, mother had breast cancer Mother History Unknown: Yes Family Medical History: Dementia Medications and Allergies Home Medications Medication Instructions Recorded Confirmed Type Albuterol Nebulized [Ventolin 2.5 mg INHALATION RT-QID PRN 06/22/14 09/11/22 History Nebulized] Montelukast [Singulair] 10 mg PO HS@2100 06/09/19 09/11/22 History clonazePAM [KlonoPIN] 0.5 mg PO DAILY PRN 06/09/19 09/11/22 History Albuterol Sulfate [Ventolin HFA] 2 puff INHALATION RT-Q4H PRN 08/27/19 09/11/22 History Fluticasone Propion/Salmeterol 1 puff INHALATION RT-BID 08/27/19 09/11/22 History [Advair 250-50 Diskus] Cholecalciferol [Vitamin D3 (25 25 mcg PO DAILY 06/16/22 09/11/22 History Mcg = 1000 Iu)] Metoprolol Tartrate [Lopressor] 50 mg PO BID@0900,2100 06/16/22 09/11/22 History Furosemide [Lasix] 60 mg PO TID 08/29/22 09/11/22 History Aspirin 81 mg PO DAILY 30 Days #30 tab 09/02/22 09/11/22 Rx Cephalexin [Keflex] 500 mg PO Q6HR 10 Days #40 cap 09/02/22 09/11/22 Rx predniSONE See Taper PO DIRECTED 09/11/22 09/11/22 History Allergies Allergy/AdvReac Type Severity Reaction Status Date / Time clarithromycin [From Biaxin] AdvReac TREMORS Verified 09/11/22 19:55 Physical Exam Osteopathic Statement: *. No significant issues noted on an osteopathic structural exam other than those noted in the History and Physical/Consult. Vitals: Vital Signs Temp Pulse Pulse Resp BP BP Pulse Ox 09/12/22 14:00 97 18 09/12/22 12:00 105/56 09/12/22 08:00 97.3 F L 97 18 110/53 96 09/12/22 07:55 95 09/12/22 04:00 97.8 F 90 18 117/52 95 09/12/22 02:00 18 09/11/22 23:00 98.2 F 93 18 94/48 98 09/11/22 21:58 84 15 126/65 100 09/11/22 17:56 98.7 F 89 16 124/67 98 Intake and Output 09/12/22 09/12/22 09/12/22 06:59 14:59 22:59 Intake Total 236 Output Total 240 Balance -4 Intake: Oral 236 Output: Urine 240 Other: Voiding Method Urinal # Voids 1 # Bowel Movements 1 Weight 125.1 kg No acute distress, oriented 3. No respiratory distress. Currently on 6 L of oxygen. HEENT examination is grossly unremarkable. Neck supple. Full range of motion. No adenopathy thyromegaly or neck vein distention. Cardiovascular examination reveals regular rhythm rate. S1-S2 normal. No S3 or S4. No discernible murmur noted. Heart rate 97 bpm. Lungs reveal scattered bilateral rhonchi. No wheezes. Minimal basilar crackles. Breath sounds equal bilaterally. 6 L saturation is 96%. Abdomen soft bowel sounds are heard. No masses or tenderness. Extremities are intact. No cyanosis or clubbing. Trace edema noted. Skin is without rash or lesion. Neurologic examination is brief but nonfocal. Results - Laboratory Findings CBC and BMP: 09/12/22 06:55 09/12/22 06:55 PT/INR, D-dimer PT 10.9 sec (9.0-12.0) 09/11/22 19:47 INR 1.0 (<1.2) 09/11/22 19:47 Abnormal lab findings: Abnormal Labs 09/11/22 09/11/22 09/11/22 18:45 19:47 19:47 RBC 3.44 L Hgb 11.9 L Hct 37.1 L MCV 107.7 H Plt Count 51 L Neutrophils # 8.6 H Lymphocytes # 0.3 L Macrocytosis Sodium Chloride 89 L Carbon Dioxide 44 H* BUN 113 H* Creatinine 1.81 H Glucose 230 H POC Glucose (mg/dL) Plasma Lactic Acid Vikram Calcium Magnesium 2.5 H Total Bilirubin 1.4 H AST 78 H ALT 84 H Alkaline Phosphatase 140 H Troponin I Total Protein Albumin 3.4 L Procalcitonin Urine Bacteria Hyaline Casts Urine Mucus SARS-CoV-2 (PCR) Detected A 09/11/22 09/11/22 09/11/22 19:47 19:47 23:19 RBC Hgb Hct MCV Plt Count Neutrophils # Lymphocytes # Macrocytosis Sodium Chloride Carbon Dioxide BUN Creatinine Glucose POC Glucose (mg/dL) 240 H Plasma Lactic Acid Vikram 2.1 H* Calcium Magnesium Total Bilirubin AST ALT Alkaline Phosphatase Troponin I 0.116 H* Total Protein Albumin Procalcitonin Urine Bacteria Hyaline Casts Urine Mucus SARS-CoV-2 (PCR) 09/11/22 09/12/22 09/12/22 23:50 03:33 04:42 RBC Hgb Hct MCV Plt Count Neutrophils # Lymphocytes # Macrocytosis Sodium Chloride Carbon Dioxide BUN Creatinine Glucose POC Glucose (mg/dL) Plasma Lactic Acid Vikram 2.1 H* 3.2 H* Calcium Magnesium Total Bilirubin AST ALT Alkaline Phosphatase Troponin I Total Protein Albumin Procalcitonin Urine Bacteria Rare H Hyaline Casts 27 H Urine Mucus Rare H SARS-CoV-2 (PCR) 09/12/22 09/12/22 09/12/22 06:12 06:55 06:55 RBC 3.12 L Hgb 10.8 L Hct 34.4 L MCV 110.5 H Plt Count 52 L Neutrophils # Lymphocytes # 0.3 L Macrocytosis Marked A Sodium 136 L Chloride 91 L Carbon Dioxide 40 H BUN 113 H* Creatinine 1.85 H Glucose 251 H POC Glucose (mg/dL) 251 H Plasma Lactic Acid Vikram Calcium 8.1 L Magnesium 2.4 H Total Bilirubin AST 60 H ALT 70 H Alkaline Phosphatase 133 H Troponin I Total Protein 5.8 L Albumin 3.0 L Procalcitonin Urine Bacteria Hyaline Casts Urine Mucus SARS-CoV-2 (PCR) 09/12/22 09/12/22 09/12/22 06:55 06:55 10:00 RBC Hgb Hct MCV Plt Count Neutrophils # Lymphocytes # Macrocytosis Sodium Chloride Carbon Dioxide BUN Creatinine Glucose POC Glucose (mg/dL) Plasma Lactic Acid Vikram 2.2 H* 2.2 H* Calcium Magnesium Total Bilirubin AST ALT Alkaline Phosphatase Troponin I Total Protein Albumin Procalcitonin 0.19 H Urine Bacteria Hyaline Casts Urine Mucus SARS-CoV-2 (PCR) 09/12/22 09/12/22 11:44 13:59 RBC Hgb Hct MCV Plt Count Neutrophils # Lymphocytes # Macrocytosis Sodium Chloride Carbon Dioxide BUN Creatinine Glucose POC Glucose (mg/dL) 254 H Plasma Lactic Acid Vikram 2.1 H* Calcium Magnesium Total Bilirubin AST ALT Alkaline Phosphatase Troponin I Total Protein Albumin Procalcitonin Urine Bacteria Hyaline Casts Urine Mucus SARS-CoV-2 (PCR) - Diagnostic Findings Chest x-ray: image reviewed Assessment and Plan Assessment: Generalized fatigue, malaise, difficulty ambulating, weakness, likely all related to coronavirus infection. No evidence of coronavirus associated pneumonia. History of severe COPD, with an FEV1 that's 17% of predicted. Recent admission to the hospital, August 2022, for impending respiratory failure secondary to COPD exacerbation. Possible GI bleed. Obesity. History of lower extremity cellulitis. History of hypertension. History of heart failure. History of osteoarthritis. Prior history of tobacco use. Plan: Plan dated 09/12/2022. The patient's respiratory status appears to be reasonably stable. He does have chronic hypoxemic respiratory failure. He is currently on 6 L of oxygen. Saturations are in the mid to high 90s. The patient is currently on albuterol, Symbicort, and Decadron. He did test positive for coronavirus, but I doubt that he has significant coronavirus associated pneumonia. The patient's also receiving GI prophylaxis, and subcutaneous heparin. We will continue to follow make recommendations along the way. Prognosis is certainly guarded. Time with Patient: Greater than 30
[2022-09-12] MEDS: DEXAMETHASONE SOD PHOSPHATE 4 MG/ML 1 ML VIAL IVP SCH (18:02)
[2022-09-12 20:09] LABS: Glucose,Whole Blood 221 mg/dL (70-110)
[2022-09-12] MEDS: SYMBICORT 160-4.5 MCG INHALER INHALATION SCH (20:22)
[2022-09-12] MEDS: HEPARIN SODIUM,PORCINE/PF 5,000 UNIT/0.5 ML SYRINGE SQ SCH (20:29)
[2022-09-12] MEDS: MONTELUKAST 10 MG TAB PO SCH (20:29)
--- NOTE | 2022-09-12 22:49 | P.CONS ---
History of Present Illness - Reason for Consult Consult date: 09/12/22 - History of Present Illness Patient is 67-year male was recently admitted to this facility and treated for bilateral lower extremity cellulitis with group B strep bacteremia patient now presenting back to the hospital concerning for generalized fatigue malaise dark stool and difficulty ambulating secondary to weakness patient symptom has been getting worse for the last few days before presentation to the hospital the patient also complaining of decreased appetite and oral intake but denies any nausea vomiting abdominal pain or any diarrhea patient denies having any pain swelling or redness of lower extremity the patient did have a history of COPD and is chronically on a 6 L nasal cannula oxygen with the patient is currently satting 90 to 97% patient did not have any fever on presentation to the hospital patient did have a normal white count did have elevated BUN/creatinine levels observed mild elevated did have elevated lactic acid urine has been negative patient did have positive COVID testing RSV and influenza was negative patient has been admitted to the hospital infectious disease was consulted for further management Past Medical History Past Medical History: Heart Failure, COPD, Hypertension, Osteoarthritis (OA), Skin Disorder Additional Past Medical History / Comment(s): Obesity, previous history of cellulitis of the lower extremities, hypertension, COPD, chronic hypoxic respiratory failure, osteoarthritis History of Any Multi-Drug Resistant Organisms: None Reported Past Surgical History: No Surgical Hx Reported Additional Past Surgical History / Comment(s): no Reported history of surgeries Past Anesthesia/Blood Transfusion Reactions: No Reported Reaction Past Psychological History: No Psychological Hx Reported Smoking Status: Former smoker Past Alcohol Use History: None Reported Past Drug Use History: None Reported - Past Family History Father History Unknown: Yes Additional Family Medical History / Comment(s): Patient states father at 76 of a blood clot, mother had breast cancer Mother History Unknown: Yes Family Medical History: Dementia Medications and Allergies Home Medications Medication Instructions Recorded Confirmed Type Albuterol Nebulized [Ventolin 2.5 mg INHALATION RT-QID PRN 06/22/14 09/11/22 His tory Nebulized] Montelukast [Singulair] 10 mg PO HS@2100 06/09/19 09/11/22 History clonazePAM [KlonoPIN] 0.5 mg PO DAILY PRN 06/09/19 09/11/22 History Albuterol Sulfate [Ventolin HFA] 2 puff INHALATION RT-Q4H PRN 08/27/19 09/11/22 History Fluticasone Propion/Salmeterol 1 puff INHALATION RT-BID 08/27/19 09/11/22 History [Advair 250-50 Diskus] Cholecalciferol [Vitamin D3 (25 25 mcg PO DAILY 06/16/22 09/11/22 History Mcg = 1000 Iu)] Metoprolol Tartrate [Lopressor] 50 mg PO BID@0900,2100 06/16/22 09/11/22 History Furosemide [Lasix] 60 mg PO TID 08/29/22 09/11/22 History Aspirin 81 mg PO DAILY 30 Days #30 tab 09/02/22 09/11/22 Rx Cephalexin [Keflex] 500 mg PO Q6HR 10 Days #40 cap 09/02/22 09/11/22 Rx predniSONE See Taper PO DIRECTED 09/11/22 09/11/22 History Allergies Allergy/AdvReac Type Severity Reaction Status Date / Time clarithromycin [From Biaxin] AdvReac TREMORS Verified 09/11/22 19:55 Physical Exam Vitals: Vital Signs Temp Pulse Pulse Resp BP BP Pulse Ox 09/12/22 08:00 97.3 F L 97 18 110/53 96 09/12/22 07:55 95 09/12/22 04:00 97.8 F 90 18 117/52 95 09/12/22 02:00 18 09/11/22 23:00 98.2 F 93 18 94/48 98 09/11/22 21:58 84 15 126/65 100 09/11/22 17:56 98.7 F 89 16 124/67 98 Intake and Output 09/12/22 09/12/22 09/12/22 06:59 14:59 22:59 Intake Total 236 Output Total 240 Balance -4 Intake: Oral 236 Output: Urine 240 Other: Voiding Method Urinal # Voids 1 # Bowel Movements 1 Weight 125.1 kg Results CBC & Chem 7: 09/12/22 06:55 09/12/22 06:55 Labs: Abnormal Lab Results - Last 24 Hours (Table) 09/11/22 09/11/22 09/11/22 Range/Units 18:45 19:47 19:47 RBC 3.44 L (4.30-5.90) m/uL Hgb 11.9 L (13.0-17.5) gm/dL Hct 37.1 L (39.0-53.0) % MCV 107.7 H (80.0-100.0) fL Plt Count 51 L (150-450) k/uL Neutrophils # 8.6 H (1.3-7.7) k/uL Lymphocytes # 0.3 L (1.0-4.8) k/uL Macrocytosis Sodium (137-145) mmol/L Chloride 89 L (98-107) mmol/L Carbon Dioxide 44 H* (22-30) mmol/L BUN 113 H* (9-20) mg/dL Creatinine 1.81 H (0.66-1.25) mg/dL Glucose 230 H (74-99) mg/dL POC Glucose (mg/dL) (70-110) mg/dL Plasma Lactic Acid Vikram (0.7-2.0) mmol/L Calcium (8.4-10.2) mg/dL Magnesium 2.5 H (1.6-2.3) mg/dL Total Bilirubin 1.4 H (0.2-1.3) mg/dL AST 78 H (17-59) U/L ALT 84 H (4-49) U/L Alkaline Phosphatase 140 H (38-126) U/L Troponin I (0.000-0.034) ng/mL Total Protein (6.3-8.2) g/dL Albumin 3.4 L (3.5-5.0) g/dL Procalcitonin (0.02-0.09) ng/mL Urine Bacteria (None) /hpf Hyaline Casts (0-2) /lpf Urine Mucus (None) /hpf SARS-CoV-2 (PCR) Detected A (Not Detectd) 09/11/22 09/11/22 09/11/22 Range/Units 19:47 19:47 23:19 RBC (4.30-5.90) m/uL Hgb (13.0-17.5) gm/dL Hct (39.0-53.0) % MCV (80.0-100.0) fL Plt Count (150-450) k/uL Neutrophils # (1.3-7.7) k/uL Lymphocytes # (1.0-4.8) k/uL Macrocytosis Sodium (137-145) mmol/L Chloride (98-107) mmol/L Carbon Dioxide (22-30) mmol/L BUN (9-20) mg/dL Creatinine (0.66-1.25) mg/dL Glucose (74-99) mg/dL POC Glucose (mg/dL) 240 H (70-110) mg/dL Plasma Lactic Acid Vikram 2.1 H* (0.7-2.0) mmol/L Calcium (8.4-10.2) mg/dL Magnesium (1.6-2.3) mg/dL Total Bilirubin (0.2-1.3) mg/dL AST (17-59) U/L ALT (4-49) U/L Alkaline Phosphatase (38-126) U/L Troponin I 0.116 H* (0.000-0.034) ng/mL Total Protein (6.3-8.2) g/dL Albumin (3.5-5.0) g/dL Procalcitonin (0.02-0.09) ng/mL Urine Bacteria (None) /hpf Hyaline Casts (0-2) /lpf Urine Mucus (None) /hpf SARS-CoV-2 (PCR) (Not Detectd) 09/11/22 09/12/22 09/12/22 Range/Units 23:50 03:33 04:42 RBC (4.30-5.90) m/uL Hgb (13.0-17.5) gm/dL Hct (39.0-53.0) % MCV (80.0-100.0) fL Plt Count (150-450) k/uL Neutrophils # (1.3-7.7) k/uL Lymphocytes # (1.0-4.8) k/uL Macrocytosis Sodium (137-145) mmol/L Chloride (98-107) mmol/L Carbon Dioxide (22-30) mmol/L BUN (9-20) mg/dL Creatinine (0.66-1.25) mg/dL Glucose (74-99) mg/dL POC Glucose (mg/dL) (70-110) mg/dL Plasma Lactic Acid Vikram 2.1 H* 3.2 H* (0.7-2.0) mmol/L Calcium (8.4-10.2) mg/dL Magnesium (1.6-2.3) mg/dL Total Bilirubin (0.2-1.3) mg/dL AST (17-59) U/L ALT (4-49) U/L Alkaline Phosphatase (38-126) U/L Troponin I (0.000-0.034) ng/mL Total Protein (6.3-8.2) g/dL Albumin (3.5-5.0) g/dL Procalcitonin (0.02-0.09) ng/mL Urine Bacteria Rare H (None) /hpf Hyaline Casts 27 H (0-2) /lpf Urine Mucus Rare H (None) /hpf SARS-CoV-2 (PCR) (Not Detectd) 09/12/22 09/12/22 09/12/22 Range/Units 06:12 06:55 06:55 RBC 3.12 L (4.30-5.90) m/uL Hgb 10.8 L (13.0-17.5) gm/dL Hct 34.4 L (39.0-53.0) % MCV 110.5 H (80.0-100.0) fL Plt Count 52 L (150-450) k/uL Neutrophils # (1.3-7.7) k/uL Lymphocytes # 0.3 L (1.0-4.8) k/uL Macrocytosis Marked A Sodium 136 L (137-145) mmol/L Chloride 91 L (98-107) mmol/L Carbon Dioxide 40 H (22-30) mmol/L BUN 113 H* (9-20) mg/dL Creatinine 1.85 H (0.66-1.25) mg/dL Glucose 251 H (74-99) mg/dL POC Glucose (mg/dL) 251 H (70-110) mg/dL Plasma Lactic Acid Vikram (0.7-2.0) mmol/L Calcium 8.1 L (8.4-10.2) mg/dL Magnesium 2.4 H (1.6-2.3) mg/dL Total Bilirubin (0.2-1.3) mg/dL AST 60 H (17-59) U/L ALT 70 H (4-49) U/L Alkaline Phosphatase 133 H (38-126) U/L Troponin I (0.000-0.034) ng/mL Total Protein 5.8 L (6.3-8.2) g/dL Albumin 3.0 L (3.5-5.0) g/dL Procalcitonin (0.02-0.09) ng/mL Urine Bacteria (None) /hpf Hyaline Casts (0-2) /lpf Urine Mucus (None) /hpf SARS-CoV-2 (PCR) (Not Detectd) 09/12/22 09/12/22 09/12/22 Range/Units 06:55 06:55 10:00 RBC (4.30-5.90) m/uL Hgb (13.0-17.5) gm/dL Hct (39.0-53.0) % MCV (80.0-100.0) fL Plt Count (150-450) k/uL Neutrophils # (1.3-7.7) k/uL Lymphocytes # (1.0-4.8) k/uL Macrocytosis Sodium (137-145) mmol/L Chloride (98-107) mmol/L Carbon Dioxide (22-30) mmol/L BUN (9-20) mg/dL Creatinine (0.66-1.25) mg/dL Glucose (74-99) mg/dL POC Glucose (mg/dL) (70-110) mg/dL Plasma Lactic Acid Vikram 2.2 H* 2.2 H* (0.7-2.0) mmol/L Calcium (8.4-10.2) mg/dL Magnesium (1.6-2.3) mg/dL Total Bilirubin (0.2-1.3) mg/dL AST (17-59) U/L ALT (4-49) U/L Alkaline Phosphatase (38-126) U/L Troponin I (0.000-0.034) ng/mL Total Protein (6.3-8.2) g/dL Albumin (3.5-5.0) g/dL Procalcitonin 0.19 H (0.02-0.09) ng/mL Urine Bacteria (None) /hpf Hyaline Casts (0-2) /lpf Urine Mucus (None) /hpf SARS-CoV-2 (PCR) (Not Detectd) 09/12/22 09/12/22 Range/Units 11:44 13:59 RBC (4.30-5.90) m/uL Hgb (13.0-17.5) gm/dL Hct (39.0-53.0) % MCV (80.0-100.0) fL Plt Count (150-450) k/uL Neutrophils # (1.3-7.7) k/uL Lymphocytes # (1.0-4.8) k/uL Macrocytosis Sodium (137-145) mmol/L Chloride (98-107) mmol/L Carbon Dioxide (22-30) mmol/L BUN (9-20) mg/dL Creatinine (0.66-1.25) mg/dL Glucose (74-99) mg/dL POC Glucose (mg/dL) 254 H (70-110) mg/dL Plasma Lactic Acid Vikram 2.1 H* (0.7-2.0) mmol/L Calcium (8.4-10.2) mg/dL Magnesium (1.6-2.3) mg/dL Total Bilirubin (0.2-1.3) mg/dL AST (17-59) U/L ALT (4-49) U/L Alkaline Phosphatase (38-126) U/L Troponin I (0.000-0.034) ng/mL Total Protein (6.3-8.2) g/dL Albumin (3.5-5.0) g/dL Procalcitonin (0.02-0.09) ng/mL Urine Bacteria (None) /hpf Hyaline Casts (0-2) /lpf Urine Mucus (None) /hpf SARS-CoV-2 (PCR) (Not Detectd) Assessment and Plan Plan: 1patient present to hospital with generalized weakness no energy decreased appetite likely related to underlying COVID-19 infection in this patient currently with no fever chest x-ray did not show any acute infiltrate. 2patient to continue with the dexamethasone we will add zinc and ascorbic acid. 3patient currently do not have any evidence of cellulitis to lower extremity monitor for swelling and no need for consistent antibiotic therapy. 4droplet isolation We will follow on clinical condition and cultures to further adjust medication if needed Thank you for this consultation will follow this patient along with you
[2022-09-13] MEDS: DEXAMETHASONE SOD PHOSPHATE 4 MG/ML 1 ML VIAL IVP SCH ×4 (00:29→16:53)
[2022-09-13] MEDS: SODIUM CHLORIDE 0.9% 1,000 ML IV SCH (06:20)
[2022-09-13 06:27] LABS: Glucose,Whole Blood 212 mg/dL (70-110)
[2022-09-13] MEDS: INSULIN ASPART (NovoLOG) 100 UNIT/ML VIAL SQ SCH ×4 (06:32→21:36)
[2022-09-13 08:56] LABS: Calcium 8.4 mg/dL (8.4-10.2); Magnesium 2.3 mg/dL (1.6-2.3); Potassium 4.5 mmol/L (3.5-5.1); Total Bilirubin 1.3 mg/dL (0.2-1.3); Total Protein 5.7 g/dL (6.3-8.2)
[2022-09-13] MEDS: SYMBICORT 160-4.5 MCG INHALER INHALATION SCH ×2 (09:11→20:13)
[2022-09-13] MEDS: ALBUTEROL HFA INHALER INHALATION PRN ×3 (09:11→20:13)
[2022-09-13 09:24] LABS: Basophils % (A) 0 %; Eosinophils % (A) 0 %; HCT 32.7 % (39.0-53.0); HGB 10.7 gm/dL (13.0-17.5); Hypochromasia Slight; Lymphocytes # (A) 0.3 k/uL (1.0-4.8); Lymphocytes % (A) 4 %; MCH 34.8 pg (25.0-35.0); MCHC 32.6 g/dL (31.0-37.0); MCV 106.8 fL (80.0-100.0); Macrocytosis Moderate; Mean Platelet Volume 14.3; Monocytes # (A) 0.3 k/uL (0-1.0); Monocytes % (A) 4 %; Neutrophils # (A) 5.4 k/uL (1.3-7.7); Neutrophils % (A) 90 %; RBC 3.06 m/uL (4.30-5.90); RDW 12.7 % (11.5-15.5)
[2022-09-13 09:26] LABS: Platelet Count 36 k/uL (150-450)
[2022-09-13] MEDS ORDERED: SODIUM CHLORIDE 0.65% NASAL SPRAY 44 ML BTL NASAL PRN (10:11)
[2022-09-13] MEDS: METOPROLOL TARTRATE 50 MG TAB PO SCH ×2 (10:18→21:36)
[2022-09-13] MEDS: CHOLECALCIFEROL 25 MCG (1000 IU) TABLET PO SCH (10:18)
[2022-09-13] MEDS: CEPHALEXIN 500 MG CAP PO SCH ×2 (10:18→16:54)
[2022-09-13] MEDS: PANTOPRAZOLE 40 MG/10 ML VIAL IV SCH (10:19)
[2022-09-13] MEDS: FUROSEMIDE 20 MG TAB PO SCH ×3 (10:19→21:36)
[2022-09-13] MEDS: ASPIRIN 81 MG PO SCH (10:41)
[2022-09-13] MEDS: HEPARIN SODIUM,PORCINE/PF 5,000 UNIT/0.5 ML SYRINGE SQ SCH (10:41)
--- NOTE | 2022-09-13 11:02 | XR ---
EXAMINATION TYPE: XR chest 1V portable DATE OF EXAM: 09/13/2022 COMPARISON: 09/11/2022 HISTORY: Shortness of breath TECHNIQUE: Single frontal view of the chest is obtained. FINDINGS: A new large area of consolidation involving the left upper lobe with subsegmental changes at both lung bases. Underlying COPD. No interstitial edema. Patient is markedly rotated limiting asse ssment of cardiomediastinal silhouette. No sizable pneumothorax. Arthropathy of the shoulders. IMPRESSION: 1. New large area of consolidation left upper lobe correlate for pneumonia. 2. COPD with basilar atelectasis favored over pneumonia.
--- NOTE | 2022-09-13 11:35 | P.NPCON ---
History of Present Illness - Reason for Consult acute renal failure, chronic renal failure - History of Present Illness Reason for consultation: Acute kidney injury on chronic kidney disease History of present illness: Patient is a 67-year-old male seen in renal consultation for acute kidney injury on chronic kidney disease. Patient has chronic kidney disease stage IIIa with baseline creatinine near 1.5 from August 2022. Creatinine this admission was 1.81 and is stable at the same level today. Patient presented to the hospital with generalized fatigue and also had an episode of black bowel movement. Patient denies any black bowel movements since she's been in the hospital. His oral intake had been poor prior to admission. Patient has a history of chronic COPD and is maintained on 6 L of oxygen at home. Patient states swelling in his legs is chronic. Patient's last echocardiogram showed ejection fraction of 55- 60%. Patient was receiving IV fluids yesterday and are now discontinued. He remains on oral Lasix. Has been voiding. No hematuria. He denies history of diabetes. Denies history of coronary artery disease. No vomiting or diarrhea. Vital signs are stable. General: Awake. No acute distress. HEENT: Head exam is unremarkable. LUNGS: Breath sounds decreased. HEART: Rate and Rhythm are regular. ABDOMEN: Soft, obese. EXTREMITITES: 1+ edema. Chronic changes noted. Past Medical History Past Medical History: Heart Failure, COPD, Hypertension, Osteoarthritis (OA), Skin Disorder Additional Past Medical History / Comment(s): Obesity, previous history of cellulitis of the lower extremities, hypertension, COPD, chronic hypoxic respiratory failure, osteoarthritis History of Any Multi-Drug Resistant Organisms: None Reported Past Surgical History: No Surgical Hx Reported Additional Past Surgical History / Comment(s): no Reported history of surgeries Past Anesthesia/Blood Transfusion Reactions: No Reported Reaction Past Psychological History: No Psychological Hx Reported Smoking Status: Former smoker Past Alcohol Use History: None Reported Past Drug Use History: None Reported - Past Family History Father History Unknown: Yes Additional Family Medical History / Comment(s): Patient states father at 76 of a blood clot, mother had breast cancer Mother History Unknown: Yes Family Medical History: Dementia Medications and Allergies Home Medications Medication Instructions Recorded Confirmed Type Albuterol Nebulized [Ventolin 2.5 mg INHALATION RT-QID PRN 06/22/14 09/11/22 History Nebulized] Montelukast [Singulair] 10 mg PO HS@2100 06/09/19 09/11/22 History clonazePAM [KlonoPIN] 0.5 mg PO DAILY PRN 06/09/19 09/11/22 History Albuterol Sulfate [Ventolin HFA] 2 puff INHALATION RT-Q4H PRN 08/27/19 09/11/22 History Fluticasone Propion/Salmeterol 1 puff INHALATION RT-BID 08/27/19 09/11/22 Hist ory [Advair 250-50 Diskus] Cholecalciferol [Vitamin D3 (25 25 mcg PO DAILY 06/16/22 09/11/22 History Mcg = 1000 Iu)] Metoprolol Tartrate [Lopressor] 50 mg PO BID@0900,2100 06/16/22 09/11/22 History Furosemide [Lasix] 60 mg PO TID 08/29/22 09/11/22 History Aspirin 81 mg PO DAILY 30 Days #30 tab 09/02/22 09/11/22 Rx Cephalexin [Keflex] 500 mg PO Q6HR 10 Days #40 cap 09/02/22 09/11/22 Rx predniSONE See Taper PO DIRECTED 09/11/22 09/11/22 History Allergies Allergy/AdvReac Type Severity Reaction Status Date / Time clarithromycin [From Biaxin] AdvReac TREMORS Verified 09/11/22 19:55 Physical Exam Vitals: Vital Signs Temp Pulse Resp BP Pulse Ox 09/13/22 04:00 97.6 F 16 117/59 94 L 09/13/22 00:00 97.7 F 71 18 112/60 95 09/12/22 20:00 97.7 F 82 19 118/55 97 09/12/22 16:00 85 18 91/54 92 L 09/12/22 14:00 97 18 09/12/22 12:00 105/56 Intake and Output 09/12/22 09/13/22 09/13/22 22:59 06:59 14:59 Intake Total 128 10 236 Output Total 950 300 Balance -822 -290 236 Intake: IV 10 10 Invasive Line 1 10 10 Oral 118 236 Output: Urine 950 300 Other: Voiding Method Urinal Urinal Weight 125.1 kg Results - Lab Results Most recent lab results Calcium 8.4 mg/dL (8.4-10.2) 09/13/22 07:33 Phosphorus 3.6 mg/dL (2.5-4.5) 09/11/22 19:47 Magnesium 2.3 mg/dL (1.6-2.3) 09/13/22 07:33 09/13/22 07:33 09/13/22 07:33 Assessment and Plan Plan: Assessment: 1. Acute kidney injury mostly prerenal secondary to cardiorenal syndrome. Cr eatinine stable at 1.81. 2. Chronic kidney disease stage IIIa with baseline creatinine near 1.5 sec ondary to nephrosclerosis and cardiorenal syndrome. UA benign. 3. Acute on chronic diastolic CHF. 4. COVID-19 infection. 5. Chronic COPD maintained on home oxygen. Plan: Maintain oral Lasix. Encourage oral intake. Avoid nephrotoxins. Continue to monitor renal function and urine output. Check renal ultrasound. Check bladder scan to make sure no urinary retention. Thank you for the consultation. I will continue to follow patient with you during his hospital stay.
[2022-09-13 11:51] LABS: Glucose,Whole Blood 244 mg/dL (70-110)
--- NOTE | 2022-09-13 12:43 | P.PN ---
Subjective Progress Note Date: 09/13/22 Principal diagnosis: Shortness of breath. Pulmonary consult dated 09/12/2022. A 67-year-old male who presented to the emergency department, complaining of generalized fatigue, malaise, dark stools, difficulty ambulating, and shortness of breath. He was released from the hospital about a week ago, at which time, the patient had a thoracentesis performed by my partner. The patient does have a history of severe chronic lung disease, with an FEV1 that is 17% of predicted. Currently, he's on 6 L of oxygen. He tested positive for coronavirus. Pro- calcitonin level is 0.19. His medical problems include heart failure, severe COPD, hypertension, obesity, pleural effusion, and lower extremity cellulitis. The patient also is on home oxygen, and therefore, has chronic hypoxemic respiratory failure. White count 6.9, hemoglobin 10.8, hematocrit 34.4, and platelet count 52,000. Sodium is 136, potassium 4.1, chlorides 91, CO2 40, BUN 113, creatinine 1.85. Lactic acid is 2.1. AST is 60, ALT is 70. Troponin was 0.116. N-terminal proBNP was 762. Urine was negative. He did test positive for coronavirus. He is vaccinated. Chest x-ray show some basilar atelectasis, small effusions. Chest x-ray was compared to a chest x-ray done August 30, and is unchanged. Progress note dated 09/13/2022. 67-year-old male seen yesterday in consultation. Please see the note above. He is seen today again in room 367. He is currently on 6 L of oxygen. He requests some Wright nasal spray for his nose. He is not receiving any IV fluids. He does not appear to be in any distress. I did tell the nurse, to accept saturations are bit lower on this patient, since he has severe COPD, with an FEV1 that is 17% of predicted. White count 6, hemoglobin 10.7, hematocrit 32.7, and platelet count 36,000. Sodium is 138, potassium 4.5, chlorides 93, CO2 39, BUN 108, and creatinine 1.81. Chest x-ray show some left upper lobe infiltrate, which may relate to left upper lobe collapse. Objective - Vital Signs Vital signs: Vital Signs Temp 98.0 F 09/13/22 08:00 Pulse 67 09/13/22 08:00 Resp 20 09/13/22 08:00 BP 121/64 09/13/22 08:00 Pulse Ox 85 L 09/13/22 08:00 FiO2 Intake & Output 09/12/22 09/13/22 09/13/22 18:59 06:59 18:59 Intake Total 354 20 236 Output Total 990 500 Balance -636 -480 236 Weight 125.1 kg Intake: IV 20 Invasive Line 1 20 Oral 354 236 Output: Urine 990 500 Other: Voiding Method Urinal Urinal # Bowel Movements 1 - Exam No acute distress, oriented 3. No respiratory distress. Currently on 6 L of oxygen. HEENT examination is grossly unremarkable. Neck supple. Full range of motion. No adenopathy thyromegaly or neck vein distention. Cardiovascular examination reveals regular rhythm rate. S1-S2 normal. No S3 or S4. No discernible murmur noted. Heart rate 67 bpm. Lungs reveal scattered bilateral rhonchi. No wheezes. Minimal basilar crackles. Breath sounds equal bilaterally. 6 L saturation is between 85 and 94%. Abdomen soft bowel sounds are heard. No masses or tenderness. Extremities are intact. No cyanosis or clubbing. Trace edema noted. Skin is without rash or lesion. Neurologic examination is brief but nonfocal. - Labs CBC & Chem 7: 09/13/22 07:33 09/13/22 07:33 Labs: Abnormal Lab Results - Last 24 Hours (Table) 09/12/22 09/12/22 09/12/22 Range/Units 13:59 16:43 17:23 RBC (4.30-5.90) m/uL Hgb (13.0-17.5) gm/dL Hct (39.0-53.0) % MCV (80.0-100.0) fL Plt Count (150-450) k/uL Lymphocytes # (1.0-4.8) k/uL Chloride (98-107) mmol/L Carbon Dioxide (22-30) mmol/L BUN (9-20) mg/dL Creatinine (0.66-1.25) mg/dL Glucose (74-99) mg/dL POC Glucose (mg/dL) 180 H (70-110) mg/dL Plasma Lactic Acid Vikram 2.1 H* 2.5 H* (0.7-2.0) mmol/L ALT (4-49) U/L Total Protein (6.3-8.2) g/dL Albumin (3.5-5.0) g/dL 09/12/22 09/12/22 09/13/22 Range/Units 20:07 21:15 06:25 RBC (4.30-5.90) m/uL Hgb (13.0-17.5) gm/dL Hct (39.0-53.0) % MCV (80.0-100.0) fL Plt Count (150-450) k/uL Lymphocytes # (1.0-4.8) k/uL Chloride (98-107) mmol/L Carbon Dioxide (22-30) mmol/L BUN (9-20) mg/dL Creatinine (0.66-1.25) mg/dL Glucose (74-99) mg/dL POC Glucose (mg/dL) 221 H 212 H (70-110) mg/dL Plasma Lactic Acid Vikram 2.4 H* (0.7-2.0) mmol/L ALT (4-49) U/L Total Protein (6.3-8.2) g/dL Albumin (3.5-5.0) g/dL 09/13/22 09/13/22 09/13/22 Range/Units 07:33 07:33 11:45 RBC 3.06 L (4.30-5.90) m/uL Hgb 10.7 L (13.0-17.5) gm/dL Hct 32.7 L (39.0-53.0) % MCV 106.8 H (80.0-100.0) fL Plt Count 36 L (150-450) k/uL Lymphocytes # 0.3 L (1.0-4.8) k/uL Chloride 93 L (98-107) mmol/L Carbon Dioxide 39 H (22-30) mmol/L BUN 108 H* (9-20) mg/dL Creatinine 1.81 H (0.66-1.25) mg/dL Glucose 219 H (74-99) mg/dL POC Glucose (mg/dL) 244 H (70-110) mg/dL Plasma Lactic Acid Vikram (0.7-2.0) mmol/L ALT 66 H (4-49) U/L Total Protein 5.7 L (6.3-8.2) g/dL Albumin 3.0 L (3.5-5.0) g/dL Assessment and Plan Assessment: Generalized fatigue, malaise, difficulty ambulating, weakness, likely all related to coronavirus infection. No evidence of coronavirus associated pneumonia, although the patient may have developed some left upper lobe collapse/consolidation. History of severe COPD, with an FEV1 that's 17% of predicted. Recent admission to the hospital, August 2022, for impending respiratory failure secondary to COPD exacerbation. Possible GI bleed. Obesity. History of lower extremity cellulitis. History of hypertension. History of heart failure. History of osteoarthritis. Prior history of tobacco use. Plan: Plan dated 09/12/2022. The patient's respiratory status appears to be reasonably stable. He does have chronic hypoxemic respiratory failure. He is currently on 6 L of oxygen. Saturations are in the mid to high 90s. The patient is currently on albuterol, Symbicort, and Decadron. He did test positive for coronavirus, but I doubt that he has significant coronavirus associated pneumonia. The patient's also receiving GI prophylaxis, and subcutaneous heparin. We will continue to follow make recommendations along the way. Prognosis is certainly guarded. Plan dated 09/13/2022. The patient will have a repeat chest x-ray tomorrow. Additional recommendations and suggestions are forthcoming. He is on appropriate medications. Labs, x- rays, medications are reviewed. We will continue to follow and make recommen dations along the way. The patient has severe chronic lung disease, with an FEV1 percent that is only 17% of predicted. Time with Patient: Less than 30
[2022-09-13 16:27] LABS: Glucose,Whole Blood 293 mg/dL (70-110)
--- NOTE | 2022-09-13 16:41 | P.PN ---
Subjective Progress Note Date: 09/13/22 Chemo Escalera, is a 67-year-old male who presented to [facility] emergency room with a chief complaint of worsening shortness of breath, and multiple episodes of black stools. He was evaluated in the emergency room vital examination on presentation revealed a temperature of 98.7 pulse 89 respiration 16 blood pressure 124/67 pulse ox 98% on 6 L oxygen via nasal cannula Laboratory data revealed a white blood count of 9.4 hemoglobin 11.9 platelet count 51 BUN 113 creatinine 1.81 glucose 213 lactic acid 2.1 Covid 19 PCR was positive, stools for occult blood was negative Testing in the emergency room revealed chest x-ray done in the emergency room revealed mild pleural reaction, EKG done in the emergency room revealed sinus rhythm with right axis deviation and right bundle branch block and possible anteroseptal myocardial infarction of indeterminate age. Patient was admitted to medical floor for further evaluation and treatment. On 09/13/2022 patient was seen and examined on the medical floor, he is alert and oriented 3 in no apparent distress, he is complaining of shortness of breath with any activity he has occasional cough otherwise he denies any complaints he is maintained on oxygen at 6 L via nasal cannula there is no fever or chills no headache or dizziness no chest pain no nausea or vomiting no abdominal pain no diarrhea no blood in the stools no burning with urination no frequency or urgency and no hematuria Objective - Vital Signs Vital signs: Vital Signs Temp 97.6 F 09/13/22 04:00 Pulse 71 09/13/22 00:00 Resp 16 09/13/22 04:00 BP 117/59 09/13/22 04:00 Pulse Ox 94 L 09/13/22 04:00 FiO2 Intake & Output 09/12/22 09/13/22 09/13/22 18:59 06:59 18:59 Intake Total 354 20 Output Total 990 500 Balance -710 -480 Intake: IV 20 Invasive Line 1 20 Oral 354 Output: Urine 990 500 Other: Voiding Method Urinal # Bowel Movements 1 - Exam In general patient is alert and oriented x 3 in no distress HEENT head normocephalic and atraumatic Neck is supple no JVD no goiter no lymphadenopathy no carotid bruit Chest examination reveals a scattered crackles bilaterally no wheezing Cardiac exam reveals regular heart sounds S1 and S2 no gallops no murmurs Abdomen is soft nontender no organomegaly with normal bowel sounds Extremity exam reveals no edema no cyanosis or clubbing Neurological examination reveals no gross focal deficits - Labs CBC & Chem 7: 09/13/22 07:33 09/13/22 07:33 Labs: Abnormal Lab Results - Last 24 Hours (Table) 09/12/22 09/12/22 09/12/22 Range/Units 06:55 06:55 10:00 Plt Count 52 L (150-450) k/uL Lymphocytes # 0.3 L (1.0-4.8) k/uL POC Glucose (mg/dL) (70-110) mg/dL Plasma Lactic Acid Vikram 2.2 H* (0.7-2.0) mmol/L Procalcitonin 0.19 H (0.02-0.09) ng/mL 09/12/22 09/12/22 09/12/22 Range/Units 11:44 13:59 16:43 Plt Count (150-450) k/uL Lymphocytes # (1.0-4.8) k/uL POC Glucose (mg/dL) 254 H 180 H (70-110) mg/dL Plasma Lactic Acid Vikram 2.1 H* (0.7-2.0) mmol/L Procalcitonin (0.02-0.09) ng/mL 09/12/22 09/12/22 09/12/22 Range/Units 17:23 20:07 21:15 Plt Count (150-450) k/uL Lymphocytes # (1.0-4.8) k/uL POC Glucose (mg/dL) 221 H (70-110) mg/dL Plasma Lactic Acid Vikram 2.5 H* 2.4 H* (0.7-2.0) mmol/L Procalcitonin (0.02-0.09) ng/mL 09/13/22 Range/Units 06:25 Plt Count (150-450) k/uL Lymphocytes # (1.0-4.8) k/uL POC Glucose (mg/dL) 212 H (70-110) mg/dL Plasma Lactic Acid Vikram (0.7-2.0) mmol/L Procalcitonin (0.02-0.09) ng/mL Assessment and Plan Plan: Acute COVID-19 infection, patient admitted to the medical floor, he was started on IV dexamethasone, vitamin C vitamin D and zinc supplements, infectious disease consultation requested Acute kidney injury on top of chronic kidney disease stage III consultation for nephrology was initiated Underlying history of advanced COPD Acute hypercapnic and hypoxic respiratory failure Bilateral lower extremity cellulitis Underlying history of hypertension Underlying history of chronic diastolic congestive heart failure Recent diagnosis of bilateral lower extremity cellulitis maintained on oral Keflex At this time patient is admitted to telemetry floor Home medications reviewed and reordered to Consultation for infectious disease and nephrology initiated For DVT prophylaxis subcu Lovenox For GI prophylaxis IV proton next Will follow closely
[2022-09-13 18:44] LABS: Hepatitis A Antibody IgM Nonreactive (Nonreactive); Hepatitis B Core IgM Nonreactive (Nonreactive); Hepatitis B Surface Antigen Nonreactive (Nonreactive); Hepatitis C IgG Antibody Nonreactive (Nonreactive)
[2022-09-13 20:13] LABS: Glucose,Whole Blood 245 mg/dL (70-110)
--- NOTE | 2022-09-13 21:24 | US ---
EXAMINATION TYPE: US kidneys/renal and bladder DATE OF EXAM: 09/13/2022 COMPARISON: NONE CLINICAL HISTORY: mauro. mauro EXAM MEASUREMENTS: Patient sitting up on side of bed and stated he could not lay down for exam* Right Kidney: 10.6 x 4.4 x 6.2 cm Left Kidney: 9.2 x 4.5 x 5.1 cm Right Kidney: No hydronephrosis or masses seen. Left Kidney: No hydronephrosis or masses seen. Bladder: Could not evaluate due to pt not being able to lay back. IMPRESSION: No acute process.
[2022-09-13] MEDS: MONTELUKAST 10 MG TAB PO SCH (21:36)
[2022-09-13 21:52] LABS: HIV 2 AB Non-Reactive (Non-Reactive); HIV AB P24 Non-Reactive (Non-Reactive); HIV P24 AG Non-Reactive (Non-Reactive)
[2022-09-14] MEDS: CEPHALEXIN 500 MG CAP PO SCH ×3 (00:57→17:29)
[2022-09-14] MEDS: DEXAMETHASONE SOD PHOSPHATE 4 MG/ML 1 ML VIAL IVP SCH ×4 (00:57→17:29)
[2022-09-14 06:21] LABS: Glucose,Whole Blood 288 mg/dL (70-110)
[2022-09-14] MEDS: INSULIN ASPART (NovoLOG) 100 UNIT/ML VIAL SQ SCH ×4 (06:27→20:28)
--- NOTE | 2022-09-14 06:42 | XR ---
EXAMINATION TYPE: XR chest 1V portable DATE OF EXAM: 09/14/2022 CLINICAL HISTORY: Difficulty breathing progress study. TECHNIQUE: Single AP portable upright view of the chest is obtained. COMPARISON: Chest x-ray from one day earlier and older studies. FINDINGS: Interval improved aeration left upper lobe. Left basilar opacity remains present. Patchy r ight basilar atelectasis again seen. Stable mild cardiomegaly. Osseous structures remain demineralize d with underlying scoliosis noted. IMPRESSION: Mild cardiomegaly with left basilar acute infiltrate and/or atelectasis and likely small left pleural effusion and patchy right basilar atelectasis are redemonstrated and stable. Resolved le ft upper lobe collapse or atelectasis noted from one day earlier.
--- NOTE | 2022-09-14 08:03 | US ---
EXAMINATION TYPE: US abdomen complete DATE OF EXAM: 09/14/2022 COMPARISON: Renal ultrasound 09/13/2022 CLINICAL HISTORY: thrombocytopenia. TECHNIQUE: Multiple sonographic images of the abdomen are obtained. FINDINGS: EXAM MEASUREMENTS: Liver Length: 11.2 cm Gallbladder Wall: 0.49 cm CBD: Not visualized Spleen: 11.3 cm Right Kidney: 10.2 x 4.9 x 3.7 cm Left Kidney: Not visualized COMPENSATION AND BENEFITS ANALYST NOTES: Exam limited by overlying bowel gas and inability to lay flat or decub. Scanned u pright Pancreas: Tail obscured by overlying bowel gas Liver: Heterogenous, atrophic, lobular Gallbladder: Thickened wall, multiple stones visualized throughout. Evidence for sonographic Chin's sign: No CBD: Not visualized Spleen: wnl Right Kidney: wnl Left Kidney: Obscured by overlying bowel gas Upper IVC: limited Abd Aorta: Obscured by overlying bowel gas Suboptimal study due to overlying bowel gas and patient's limited mobility. Suboptimal evaluation of pancreas on initial images. No aneurysm of the proximal abdominal aorta. Suboptimal evaluation distal ly. IVC is seen near the hepatic dome. Visualized liver is heterogeneously hyperechoic and somewhat s mall in size with lobulated contour. Small 2 moderate amount of surrounding ascites is present. No ri ght-sided hydronephrosis. Shadowing mobile gallstones within gallbladder. Gallbladder wall mildly thi ckened up to 5 mm. Normal size spleen. Suboptimal evaluated left kidney. IMPRESSION: Markedly suboptimal study. Small heterogeneous hyperechoic liver suggesting underlying he patocellular disease with adjacent ascites. Correlate for cirrhosis. Spleen noted normal in size. Gal lstones are present. Abnormal gallbladder wall thickening could be products of underlying hepatocellu lar disease.
[2022-09-14] MEDS: SYMBICORT 160-4.5 MCG INHALER INHALATION SCH ×2 (08:08→20:31)
[2022-09-14] MEDS: ALBUTEROL HFA INHALER INHALATION PRN ×2 (08:08→20:31)
[2022-09-14 08:33] LABS: Calcium 8.4 mg/dL (8.4-10.2); Magnesium 2.4 mg/dL (1.6-2.3); Potassium 4.7 mmol/L (3.5-5.1); Total Bilirubin 1.2 mg/dL (0.2-1.3); Total Protein 5.8 g/dL (6.3-8.2)
[2022-09-14 08:35] LABS: Basophils % (A) 0 %; Eosinophils % (A) 0 %; HCT 33.4 % (39.0-53.0); HGB 10.8 gm/dL (13.0-17.5); Hypochromasia Slight; Lymphocytes # (A) 0.3 k/uL (1.0-4.8); Lymphocytes % (A) 3 %; MCH 34.5 pg (25.0-35.0); MCHC 32.3 g/dL (31.0-37.0); Macrocytosis Moderate; Mean Platelet Volume 14.3; Monocytes # (A) 0.4 k/uL (0-1.0); Monocytes % (A) 5 %; Neutrophils # (A) 7.9 k/uL (1.3-7.7); Neutrophils % (A) 91 %; RBC 3.12 m/uL (4.30-5.90); RDW 12.9 % (11.5-15.5); WBC 8.7 k/uL (3.8-10.6)
[2022-09-14 08:37] LABS: Platelet Count 43 k/uL (150-450)
[2022-09-14 08:44] LABS: INR 1.1 (<1.2); Prothrombin Time 11.4 sec (9.0-12.0)
[2022-09-14] MEDS: PANTOPRAZOLE 40 MG/10 ML VIAL IV SCH (09:41)
[2022-09-14] MEDS: METOPROLOL TARTRATE 50 MG TAB PO SCH ×2 (09:41→20:28)
[2022-09-14] MEDS: FUROSEMIDE 20 MG TAB PO SCH ×3 (09:41→20:28)
[2022-09-14] MEDS: CHOLECALCIFEROL 25 MCG (1000 IU) TABLET PO SCH (09:41)
[2022-09-14] MEDS: FOLIC ACID 1 MG TAB PO SCH (09:44)
[2022-09-14 10:05] LABS: Toxic Vacuolation Present
--- NOTE | 2022-09-14 11:32 | P.PN ---
Subjective Patient is seen in follow-up for acute kidney injury and chronic kidney disease. Renal function stable. Remains on oral Lasix. Has been voiding. Denies chest pain or shortness of breath at this time. On 6 L nasal cannula. Blood pressure stable. Vital signs are stable. General: Awake. No acute distress. HEENT: Head exam is unremarkable. LUNGS: Breath sounds decreased. HEART: Rate and Rhythm are regular. ABDOMEN: Soft, no distention. EXTREMITITES: Trace edema. Chronic changes noted. Objective - Vital Signs Vital signs: Vital Signs Temp 97.4 F L 09/14/22 09:34 Pulse 83 09/14/22 10:10 Resp 18 09/14/22 10:10 BP 125/63 09/14/22 09:34 Pulse Ox 95 09/14/22 09:34 FiO2 Intake & Output 09/13/22 09/14/22 09/14/22 18:59 06:59 18:59 Intake Total 236 10 Output Total 500 625 Balance -264 -615 Weight 125.1 kg Intake: IV 10 Invasive Line 1 10 Oral 236 Output: Urine 500 625 Other: Voiding Method Urinal Urinal Urinal # Voids 1 # Bowel Movements 1 - Labs CBC & Chem 7: 09/14/22 07:55 09/14/22 07:55 Labs: Abnormal Lab Results - Last 24 Hours (Table) 09/13/22 09/13/22 09/13/22 Range/Units 11:09 11:45 16:26 RBC (4.30-5.90) m/uL Hgb (13.0-17.5) gm/dL Hct (39.0-53.0) % MCV (80.0-100.0) fL Plt Count (150-450) k/uL Neutrophils # (1.3-7.7) k/uL Lymphocytes # (1.0-4.8) k/uL Chloride (98-107) mmol/L Carbon Dioxide (22-30) mmol/L BUN (9-20) mg/dL Creatinine (0.66-1.25) mg/dL Glucose (74-99) mg/dL POC Glucose (mg/dL) 244 H 293 H (70-110) mg/dL Magnesium (1.6-2.3) mg/dL AST (17-59) U/L ALT (4-49) U/L Alkaline Phosphatase (38-126) U/L Total Protein (6.3-8.2) g/dL Albumin (3.5-5.0) g/dL Folate 3.30 L (4.40-31.00) ng/mL 09/13/22 09/14/22 09/14/22 Range/Units 20:12 06:20 07:55 RBC (4.30-5.90) m/uL Hgb (13.0-17.5) gm/dL Hct (39.0-53.0) % MCV (80.0-100.0) fL Plt Count (150-450) k/uL Neutrophils # (1.3-7.7) k/uL Lymphocytes # (1.0-4.8) k/uL Chloride 93 L (98-107) mmol/L Carbon Dioxide 41 H* (22-30) mmol/L BUN 111 H* (9-20) mg/dL Creatinine 1.90 H (0.66-1.25) mg/dL Glucose 256 H (74-99) mg/dL POC Glucose (mg/dL) 245 H 288 H (70-110) mg/dL Magnesium 2.4 H (1.6-2.3) mg/dL AST 78 H (17-59) U/L ALT 93 H (4-49) U/L Alkaline Phosphatase 133 H (38-126) U/L Total Protein 5.8 L (6.3-8.2) g/dL Albumin 3.0 L (3.5-5.0) g/dL Folate (4.40-31.00) ng/mL 09/14/22 Range/Units 07:55 RBC 3.12 L (4.30-5.90) m/uL Hgb 10.8 L (13.0-17.5) gm/dL Hct 33.4 L (39.0-53.0) % MCV 107.0 H (80.0-100.0) fL Plt Count 43 L (150-450) k/uL Neutrophils # 7.9 H (1.3-7.7) k/uL Lymphocytes # 0.3 L (1.0-4.8) k/uL Chloride (98-107) mmol/L Carbon Dioxide (22-30) mmol/L BUN (9-20) mg/dL Creatinine (0.66-1.25) mg/dL Glucose (74-99) mg/dL POC Glucose (mg/dL) (70-110) mg/dL Magnesium (1.6-2.3) mg/dL AST (17-59) U/L ALT (4-49) U/L Alkaline Phosphatase (38-126) U/L Total Protein (6.3-8.2) g/dL Albumin (3.5-5.0) g/dL Folate (4.40-31.00) ng/mL Assessment and Plan Plan: Assessment: 1. Acute kidney injury mostly prerenal secondary to cardiorenal syndrome. Creatinine fairly stable at 1.9 today. Disproportionately elevated BUN secondary to steroids. 2. Chronic kidney disease stage IIIa with baseline creatinine near 1.5 secondary to nephrosclerosis and cardiorenal syndrome. UA benign. No hydronephrosis noted on kidney ultrasound. 3. Acute on chronic diastolic CHF. 4. COVID-19 infection. 5. Chronic COPD maintained on home oxygen. 6. Metabolic alkalosis which is compensatory for underlying chronic respiratory acidosis. Plan: Maintain oral Lasix. Encourage oral intake. Avoid nephrotoxins. Continue to monitor renal function and urine output.
[2022-09-14 12:07] LABS: Glucose,Whole Blood 369 mg/dL (70-110)
--- NOTE | 2022-09-14 12:08 | P.CONS ---
History of Present Illness - Reason for Consult Consult date: 09/13/22 thrombocytopenia Requesting physician: Sofiya Albrecht - Chief Complaint covid - History of Present Illness Mr Escalera is a pleasant 67-year-old male we have been consult to see regarding thrombocytopenia. Patient denies any history of the same. He is currently admitted with cold infection. He is symptomatic with shortness of breath and cough. Patient is denying any history of blood disorder or cancer. On chart review the thrombocytopenia is not new but, it is progressive. Patient reports a 30 pound weight loss over a year, he reports recent black, tarry stools, 3 da ys, "burned", this has now stopped. He denies any abdominal pain or cramping. He thinks he has had a colonoscopy but it was quite some time ago. Prior to his code infection he denies frequent illnesses, bleeding, unusual bruising or petechiae. Review of Systems 10 point ROS is neg except as stated in HPI Past Medical History Past Medical History: Heart Failure, COPD, Hypertension, Osteoarthritis (OA), Skin Disorder Additional Past Medical History / Comment(s): Obesity, previous history of cellulitis of the lower extremities, hypertension, COPD, chronic hypoxic respiratory failure, osteoarthritis History of Any Multi-Drug Resistant Organisms: None Reported Past Surgical History: No Surgical Hx Reported Additional Past Surgical History / Comment(s): no Reported history of surgeries Past Anesthesia/Blood Transfusion Reactions: No Reported Reaction Past Psychological History: No Psychological Hx Reported Smoking Status: Former smoker Past Alcohol Use History: None Reported Past Drug Use History: None Reported - Past Family History Father History Unknown: Yes Additional Family Medical History / Comment(s): Patient states father at 76 of a blood clot, mother had breast cancer Mother History Unknown: Yes Family Medical History: Dementia Medications and Allergies Home Medications Medication Instructions Recorded Confirmed Type Albuterol Nebulized [Ventolin 2.5 mg INHALATION RT-QID PRN 06/22/14 09/11/22 History Nebulized] Montelukast [Singulair] 10 mg PO HS@2100 06/09/19 09/11/22 History clonazePAM [KlonoPIN] 0.5 mg PO DAILY PRN 06/09/19 09/11/22 History Albuterol Sulfate [Ventolin HFA] 2 puff INHALATION RT-Q4H PRN 08/27/19 09/11/22 History Fluticasone Propion/Salmeterol 1 puff INHALATION RT-BID 08/27/19 09/11/22 History [Advair 250-50 Diskus] Cholecalciferol [Vitamin D3 (25 25 mcg PO DAILY 06/16/22 09/11/22 History Mcg = 1000 Iu)] Metoprolol Tartrate [Lopressor] 50 mg PO BID@0900,2100 06/16/22 09/11/22 History Furosemide [Lasix] 60 mg PO TID 08/29/22 09/11/22 History Aspirin 81 mg PO DAILY 30 Days #30 tab 09/02/22 09/11/22 Rx Cephalexin [Keflex] 500 mg PO Q6HR 10 Days #40 cap 09/02/22 09/11/22 Rx predniSONE See Taper PO DIRECTED 09/11/22 09/11/22 History Allergies Allergy/AdvReac Type Severity Reaction Status Date / Time clarithromycin [From Biaxin] AdvReac TREMORS Verified 09/11/22 19:55 Physical Exam Vitals: Vital Signs Temp Pulse Resp BP Pulse Ox 09/13/22 20:00 97.9 F 90 18 124/60 97 09/13/22 16:00 80 16 111/59 99 09/13/22 14:00 82 20 09/13/22 12:00 98.2 F 82 20 113/55 92 L 09/13/22 08:00 98.0 F 67 20 121/64 85 L 09/13/22 04:00 97.6 F 16 117/59 94 L 09/13/22 00:00 97.7 F 71 18 112/60 95 Intake and Output 09/13/22 09/13/22 09/14/22 14:59 22:59 06:59 Intake Total 236 10 Output Total 200 300 Balance 36 -290 Intake: IV 10 Invasive Line 1 10 Oral 236 Output: Urine 200 300 Other: Voiding Method Urinal Urinal # Bowel Movements 1 Weight 125.1 kg - Constitutional General appearance: cooperative, mild distress, obese - EENT Eyes: anicteric sclerae, EOMI ENT: hearing grossly normal - Neck Neck: no lymphadenopathy - Respiratory increased RR, pt refuses to lay back in bed due to orthopnea Respiratory: bilateral: diminished - Cardiovascular Rhythm: regular Heart sounds: normal: S1, S2 Abnormal Heart Sounds: no systolic murmur, no diastolic murmur, no rub, no S3 Gallop, no S4 Gallop, no click, no other leg Peripheral Edema: bilateral: Trace - Gastrointestinal General gastrointestinal: no absent bowel sounds, no decreased bowel sounds, no distended, no hepatomegaly, no hyperactive bowel sounds, normal bowel sounds, no organomegaly, no rigid, no scaphoid, soft, no splenomegaly, no tenderness, no umbilical hernia, no ventral hernia - Integumentary Integumentary: normal - Neurologic Neurologic: CNII-XII intact - Musculoskeletal Musculoskeletal: generalized weakness, strength equal bilaterally - Psychiatric Psychiatric: A&O x's 3, appropriate affect, intact judgment & insight Results CBC & Chem 7: 09/14/22 07:55 09/14/22 07:55 Labs: Abnormal Lab Results - Last 24 Hours (Table) 09/13/22 09/13/22 09/13/22 Range/Units 06:25 07:33 07:33 RBC 3.06 L (4.30-5.90) m/uL Hgb 10.7 L (13.0-17.5) gm/dL Hct 32.7 L (39.0-53.0) % MCV 106.8 H (80.0-100.0) fL Plt Count 36 L (150-450) k/uL Lymphocytes # 0.3 L (1.0-4.8) k/uL Chloride 93 L (98-107) mmol/L Carbon Dioxide 39 H (22-30) mmol/L BUN 108 H* (9-20) mg/dL Creatinine 1.81 H (0.66-1.25) mg/dL Glucose 219 H (74-99) mg/dL POC Glucose (mg/dL) 212 H (70-110) mg/dL ALT 66 H (4-49) U/L Total Protein 5.7 L (6.3-8.2) g/dL Albumin 3.0 L (3.5-5.0) g/dL Folate (4.40-31.00) ng/mL 09/13/22 09/13/22 09/13/22 Range/Units 11:09 11:45 16:26 RBC (4.30-5.90) m/uL Hgb (13.0-17.5) gm/dL Hct (39.0-53.0) % MCV (80.0-100.0) fL Plt Count (150-450) k/uL Lymphocytes # (1.0-4.8) k/uL Chloride (98-107) mmol/L Carbon Dioxide (22-30) mmol/L BUN (9-20) mg/dL Creatinine (0.66-1.25) mg/dL Glucose (74-99) mg/dL POC Glucose (mg/dL) 244 H 293 H (70-110) mg/dL ALT (4-49) U/L Total Protein (6.3-8.2) g/dL Albumin (3.5-5.0) g/dL Folate 3.30 L (4.40-31.00) ng/mL 09/13/22 Range/Units 20:12 RBC (4.30-5.90) m/uL Hgb (13.0-17.5) gm/dL Hct (39.0-53.0) % MCV (80.0-100.0) fL Plt Count (150-450) k/uL Lymphocytes # (1.0-4.8) k/uL Chloride (98-107) mmol/L Carbon Dioxide (22-30) mmol/L BUN (9-20) mg/dL Creatinine (0.66-1.25) mg/dL Glucose (74-99) mg/dL POC Glucose (mg/dL) 245 H (70-110) mg/dL ALT (4-49) U/L Total Protein (6.3-8.2) g/dL Albumin (3.5-5.0) g/dL Folate (4.40-31.00) ng/mL Chest x-ray: report reviewed Assessment and Plan (1) COVID-19 Current Visit: Yes Status: Acute Priority: High Code(s): U07.1 - COVID-19 SNOMED Code(s): 716110248 (2) Thrombocytopenia Current Visit: Yes Status: Chronic Priority: High Code(s): D69.6 - THROMBOCYTOPENIA, UNSPECIFIED SNOMED Code(s): 029169753 Plan: Acute covid infection, pt is symptomatic. IM, Pulm and ID mgmt On chart review, pt has had thrombcytopenia noted back to 2013. This has progressed the last few months, today his plt are the lowest they have ever been. Hold antiplatelet and anticoagulation, SCDs for DVT prophylaxis. Exte nsive thrombocytopenia workup ordered. CBC daily. Monitor closely for any signs or symptoms of infection. DIC workup ordered. Attests:I have seen and examined pt, performed H&P, developed impression and plan of care. Discussed with dictator. Agree with documentation, dictated as a scribe.
--- NOTE | 2022-09-14 13:06 | P.PN ---
Subjective Progress Note Date: 09/14/22 Chemo sEcalera, is a 67-year-old male who presented to [facility] emergency room with a chief complaint of worsening shortness of breath, and multiple episodes of black stools. He was evaluated in the emergency room vital examination on presentation revealed a temperature of 98.7 pulse 89 respiration 16 blood pressure 124/67 pulse ox 98% on 6 L oxygen via nasal cannula Laboratory data revealed a white blood count of 9.4 hemoglobin 11.9 platelet count 51 BUN 113 creatinine 1.81 glucose 213 lactic acid 2.1 Covid 19 PCR was positive, stools for occult blood was negative Testing in the emergency room revealed chest x-ray done in the emergency room revealed mild pleural reaction, EKG done in the emergency room revealed sinus rhythm with right axis deviation and right bundle branch block and possible anteroseptal myocardial infarction of indeterminate age. Patient was admitted to medical floor for further evaluation and treatment. On 09/13/2022 patient was seen and examined on the medical floor, he is alert and oriented 3 in no apparent distress, he is complaining of shortness of breath with any activity he has occasional cough otherwise he denies any complaints he is maintained on oxygen at 6 L via nasal cannula there is no fever or chills no headache or dizziness no chest pain no nausea or vomiting no abdominal pain no diarrhea no blood in the stools no burning with urination no frequency or urgency and no hematuria On 09/14/2022 patient was seen and examined is alert and oriented 3 in no apparent distress he is still complaining of shortness of breath with any activ ity and complaining of cough otherwise he denies any complaints there is no fever or chills no headache or dizziness no chest pain no nausea or vomiting no abdominal pain no diarrhea and no urinary symptoms. He is still maintained on oxygen 6 L via nasal cannula today hemoglobin is 10.8 CO2 41 BUN 111 creatinine 1.9 nephrology are following Objective - Vital Signs Vital signs: Vital Signs Temp 97.4 F L 09/14/22 09:34 Pulse 83 09/14/22 09:34 Resp 18 09/14/22 09:34 BP 125/63 09/14/22 09:34 Pulse Ox 95 09/14/22 09:34 FiO2 Intake & Output 09/13/22 09/14/22 09/14/22 18:59 06:59 18:59 Intake Total 236 10 Output Total 500 625 Balance -264 -615 Weight 125.1 kg Intake: IV 10 Invasive Line 1 10 Oral 236 Output: Urine 500 625 Other: Voiding Method Urinal Urinal # Voids 1 # Bowel Movements 1 - Exam In general patient is alert and oriented x 3 in no distress HEENT head normocephalic and atraumatic Neck is supple no JVD no goiter no lymphadenopathy no carotid bruit Chest examination reveals a scattered crackles bilaterally no wheezing Cardiac exam reveals regular heart sounds S1 and S2 no gallops no murmurs Abdomen is soft nontender no organomegaly with normal bowel sounds Extremity exam reveals no edema no cyanosis or clubbing Neurological examination reveals no gross focal deficits - Labs CBC & Chem 7: 09/14/22 07:55 09/14/22 07:55 Labs: Abnormal Lab Results - Last 24 Hours (Table) 09/13/22 09/13/22 09/13/22 Range/Units 11:09 11:45 16:26 RBC (4.30-5.90) m/uL Hgb (13.0-17.5) gm/dL Hct (39.0-53.0) % MCV (80.0-100.0) fL Plt Count (150-450) k/uL Neutrophils # (1.3-7.7) k/uL Lymphocytes # (1.0-4.8) k/uL Chloride (98-107) mmol/L Carbon Dioxide (22-30) mmol/L BUN (9-20) mg/dL Creatinine (0.66-1.25) mg/dL Glucose (74-99) mg/dL POC Glucose (mg/dL) 244 H 293 H (70-110) mg/dL Magnesium (1.6-2.3) mg/dL AST (17-59) U/L ALT (4-49) U/L Alkaline Phosphatase (38-126) U/L Total Protein (6.3-8.2) g/dL Albumin (3.5-5.0) g/dL Folate 3.30 L (4.40-31.00) ng/mL 09/13/22 09/14/22 09/14/22 Range/Units 20:12 06:20 07:55 RBC (4.30-5.90) m/uL Hgb (13.0-17.5) gm/dL Hct (39.0-53.0) % MCV (80.0-100.0) fL Plt Count (150-450) k/uL Neutrophils # (1.3-7.7) k/uL Lymphocytes # (1.0-4.8) k/uL Chloride 93 L (98-107) mmol/L Carbon Dioxide 41 H* (22-30) mmol/L BUN 111 H* (9-20) mg/dL Creatinine 1.90 H (0.66-1.25) mg/dL Glucose 256 H (74-99) mg/dL POC Glucose (mg/dL) 245 H 288 H (70-110) mg/dL Magnesium 2.4 H (1.6-2.3) mg/dL AST 78 H (17-59) U/L ALT 93 H (4-49) U/L Alkaline Phosphatase 133 H (38-126) U/L Total Protein 5.8 L (6.3-8.2) g/dL Albumin 3.0 L (3.5-5.0) g/dL Folate (4.40-31.00) ng/mL 09/14/22 Range/Units 07:55 RBC 3.12 L (4.30-5.90) m/uL Hgb 10.8 L (13.0-17.5) gm/dL Hct 33.4 L (39.0-53.0) % MCV 107.0 H (80.0-100.0) fL Plt Count 43 L (150-450) k/uL Neutrophils # 7.9 H (1.3-7.7) k/uL Lymphocytes # 0.3 L (1.0-4.8) k/uL Chloride (98-107) mmol/L Carbon Dioxide (22-30) mmol/L BUN (9-20) mg/dL Creatinine (0.66-1.25) mg/dL Glucose (74-99) mg/dL POC Glucose (mg/dL) (70-110) mg/dL Magnesium (1.6-2.3) mg/dL AST (17-59) U/L ALT (4-49) U/L Alkaline Phosphatase (38-126) U/L Total Protein (6.3-8.2) g/dL Albumin (3.5-5.0) g/dL Folate (4.40-31.00) ng/mL Assessment and Plan Plan: Acute COVID-19 infection, patient admitted to the medical floor, he was started on IV dexamethasone, vitamin C vitamin D and zinc supplements, infectious disease consultation requested Acute kidney injury on top of chronic kidney disease stage III consultation for nephrology was initiated Underlying history of advanced COPD Acute hypercapnic and hypoxic respiratory failure Bilateral lower extremity cellulitis Underlying history of hypertension Underlying history of chronic diastolic congestive heart failure Recent diagnosis of bilateral lower extremity cellulitis maintained on oral Keflex At this time patient is admitted to telemetry floor Home medications reviewed and reordered to Consultation for infectious disease and nephrology initiated For DVT prophylaxis subcu Lovenox For GI prophylaxis IV proton next Will follow closely
--- NOTE | 2022-09-14 14:56 | P.PN ---
Subjective Progress Note Date: 09/14/22 Principal diagnosis: Shortness of breath. Pulmonary consult dated 09/12/2022. A 67-year-old male who presented to the emergency department, complaining of generalized fatigue, malaise, dark stools, difficulty ambulating, and shortness of breath. He was released from the hospital about a week ago, at which time, the patient had a thoracentesis performed by my partner. The patient does have a history of severe chronic lung disease, with an FEV1 that is 17% of predicted. Currently, he's on 6 L of oxygen. He tested positive for coronavirus. Pro- calcitonin level is 0.19. His medical problems include heart failure, severe COPD, hypertension, obesity, pleural effusion, and lower extremity cellulitis. The patient also is on home oxygen, and therefore, has chronic hypoxemic respiratory failure. White count 6.9, hemoglobin 10.8, hematocrit 34.4, and platelet count 52,000. Sodium is 136, potassium 4.1, chlorides 91, CO2 40, BUN 113, creatinine 1.85. Lactic acid is 2.1. AST is 60, ALT is 70. Troponin was 0.116. N-terminal proBNP was 762. Urine was negative. He did test positive for coronavirus. He is vaccinated. Chest x-ray show some basilar atelectasis, small effusions. Chest x-ray was compared to a chest x-ray done August 30, and is unchanged. Progress note dated 09/13/2022. 67-year-old male seen yesterday in consultation. Please see the note above. He is seen today again in room 367. He is currently on 6 L of oxygen. He requests some [place] nasal spray for his nose. He is not receiving any IV fluids. He does not appear to be in any distress. I did tell the nurse, to accept saturations are bit lower on this patient, since he has severe COPD, with an FEV1 that is 17% of predicted. White count 6, hemoglobin 10.7, hematocrit 32.7, and platelet count 36,000. Sodium is 138, potassium 4.5, chlorides 93, CO2 39, BUN 108, and creatinine 1.81. Chest x-ray show some left upper lobe infiltrate, which may relate to left upper lobe collapse. Progress note dated 09/14/2022. 67-year-old male seen in consultation 2 days ago. He is seen again today in room 367. Currently, the patient is on 6 L of oxygen. No IV fluids. A chest x-ray yesterday showed partial left upper lobe collapse. Today's chest x-ray, shows that the collapse has resolved. Clinically, he feels better doing well. He denies any shortness of breath, cough, or phlegm production. He does have severe COPD, with an FEV1 that is 17% of predicted. He feels like he is at baseline. White count 8.7, hemoglobin 10.8, hematocrit 33.4, and platelet count 43,000. PT, INR, PTT, and fibrinogen are all normal. Sodium 138, potassium 4.7, chloride 93, CO2 41, BUN 111, and creatinine 1.90. Objective - Vital Signs Vital signs: Vital Signs Temp 97.4 F L 09/14/22 09:34 Pulse 81 09/14/22 14:02 Resp 18 09/14/22 14:02 BP 113/65 09/14/22 12:25 Pulse Ox 95 09/14/22 09:34 FiO2 Intake & Output 09/13/22 09/14/22 09/14/22 18:59 06:59 18:59 Intake Total 236 10 Output Total 500 625 500 Balance -264 -815 -500 Weight 125.1 kg Intake: IV 10 Invasive Line 1 10 Oral 236 Output: Urine 500 625 500 Other: Voiding Method Urinal Urinal Urinal # Voids 1 # Bowel Movements 1 1 - Exam No acute distress, oriented 3. No respiratory distress. Currently on 6 L of oxygen. HEENT examination is grossly unremarkable. Neck supple. Full range of motion. No adenopathy thyromegaly or neck vein distention. Cardiovascular examination reveals regular rhythm rate. S1-S2 normal. No S3 or S4. No discernible murmur noted. Heart rate 81 bpm. Lungs reveal scattered bilateral rhonchi. No wheezes. Minimal basilar crackles. Breath sounds equal bilaterally. 6 L saturation is 95%. Abdomen soft bowel sounds are heard. No masses or tenderness. Extremities are intact. No cyanosis or clubbing. Trace edema noted. Skin is without rash or lesion. Neurologic examination is brief but nonfocal. - Labs CBC & Chem 7: 09/14/22 07:55 09/14/22 07:55 Labs: Abnormal Lab Results - Last 24 Hours (Table) 12/08/22 12/08/22 12/08/22 Range/Units 11:09 16:26 20:12 RBC (4.30-5.90) m/uL Hgb (13.0-17.5) gm/dL Hct (39.0-53.0) % MCV (80.0-100.0) fL Plt Count (150-450) k/uL Neutrophils # (1.3-7.7) k/uL Lymphocytes # (1.0-4.8) k/uL Chloride (98-107) mmol/L Carbon Dioxide (22-30) mmol/L BUN (9-20) mg/dL Creatinine (0.66-1.25) mg/dL Glucose (74-99) mg/dL POC Glucose (mg/dL) 293 H 245 H (70-110) mg/dL Magnesium (1.6-2.3) mg/dL AST (17-59) U/L ALT (4-49) U/L Alkaline Phosphatase (38-126) U/L Total Protein (6.3-8.2) g/dL Albumin (3.5-5.0) g/dL Folate 3.30 L (4.40-31.00) ng/mL 09/14/22 09/14/22 09/14/22 Range/Units 06:20 07:55 07:55 RBC 3.12 L (4.30-5.90) m/uL Hgb 10.8 L (13.0-17.5) gm/dL Hct 33.4 L (39.0-53.0) % MCV 107.0 H (80.0-100.0) fL Plt Count 43 L (150-450) k/uL Neutrophils # 7.9 H (1.3-7.7) k/uL Lymphocytes # 0.3 L (1.0-4.8) k/uL Chloride 93 L (98-107) mmol/L Carbon Dioxide 41 H* (22-30) mmol/L BUN 111 H* (9-20) mg/dL Creatinine 1.90 H (0.66-1.25) mg/dL Glucose 256 H (74-99) mg/dL POC Glucose (mg/dL) 288 H (70-110) mg/dL Magnesium 2.4 H (1.6-2.3) mg/dL AST 78 H (17-59) U/L ALT 93 H (4-49) U/L Alkaline Phosphatase 133 H (38-126) U/L Total Protein 5.8 L (6.3-8.2) g/dL Albumin 3.0 L (3.5-5.0) g/dL Folate (4.40-31.00) ng/mL 09/14/22 Range/Units 12:05 RBC (4.30-5.90) m/uL Hgb (13.0-17.5) gm/dL Hct (39.0-53.0) % MCV (80.0-100.0) fL Plt Count (150-450) k/uL Neutrophils # (1.3-7.7) k/uL Lymphocytes # (1.0-4.8) k/uL Chloride (98-107) mmol/L Carbon Dioxide (22-30) mmol/L BUN (9-20) mg/dL Creatinine (0.66-1.25) mg/dL Glucose (74-99) mg/dL POC Glucose (mg/dL) 369 H (70-110) mg/dL Magnesium (1.6-2.3) mg/dL AST (17-59) U/L ALT (4-49) U/L Alkaline Phosphatase (38-126) U/L Total Protein (6.3-8.2) g/dL Albumin (3.5-5.0) g/dL Folate (4.40-31.00) ng/mL Assessment and Plan Assessment: Generalized fatigue, malaise, difficulty ambulating, weakness, likely all related to coronavirus infection. No evidence of coronavirus associated pneumonia, although the patient may have developed some left upper lobe collapse/consolidation, which has resolved. History of severe COPD, with an FEV1 that's 17% of predicted. Recent admission to the hospital, August 2022, for impending respiratory failure secondary to COPD exacerbation. Possible GI bleed. Obesity. History of lower extremity cellulitis. History of hypertension. History of heart failure. History of osteoarthritis. Prior history of tobacco use. Plan: Plan dated 09/12/2022. The patient's respiratory status appears to be reasonably stable. He does have chronic hypoxemic respiratory failure. He is currently on 6 L of oxygen. Saturations are in the mid to high 90s. The patient is currently on albuterol, Symbicort, and Decadron. He did test positive for coronavirus, but I doubt that he has significant coronavirus associated pneumonia. The patient's also receiving GI prophylaxis, and subcutaneous heparin. We will continue to follow make recommendations along the way. Prognosis is certainly guarded. Plan dated 09/13/2022. The patient will have a repeat chest x-ray tomorrow. Additional recommendations and suggestions are forthcoming. He is on appropriate medications. Labs, x- rays, medications are reviewed. We will continue to follow and make recommendations along the way. The patient has severe chronic lung disease, with an FEV1 percent that is only 17% of predicted. Plan dated 09/14/2022. The patient is feeling better today. His chest x-ray today is improved. The left upper lung collapse, is now much improved. Labs, x-rays, and medications are reviewed. Prognosis is guarded. Patient feels much better. He continues on 6 L. Saturations are 95%. The patient is not receiving any IV fluids. We will continue to follow the patient and make recommendations along the way. Time with Patient: Less than 30
[2022-09-14 16:51] LABS: Glucose,Whole Blood 248 mg/dL (70-110)
[2022-09-14 20:26] LABS: Glucose,Whole Blood 316 mg/dL (70-110)
[2022-09-14] MEDS: MONTELUKAST 10 MG TAB PO SCH (20:28)
[2022-09-15] MEDS: CEPHALEXIN 500 MG CAP PO SCH ×3 (00:56→17:23)
[2022-09-15] MEDS: DEXAMETHASONE SOD PHOSPHATE 4 MG/ML 1 ML VIAL IVP SCH ×4 (00:56→17:24)
[2022-09-15 06:23] LABS: Glucose,Whole Blood 302 mg/dL (70-110)
[2022-09-15] MEDS: INSULIN ASPART (NovoLOG) 100 UNIT/ML VIAL SQ SCH ×4 (06:46→21:27)
[2022-09-15] MEDS: FOLIC ACID 1 MG TAB PO SCH (08:24)
[2022-09-15] MEDS: FUROSEMIDE 20 MG TAB PO SCH ×3 (08:24→21:27)
[2022-09-15] MEDS: METOPROLOL TARTRATE 50 MG TAB PO SCH ×2 (08:24→21:27)
[2022-09-15] MEDS: CHOLECALCIFEROL 25 MCG (1000 IU) TABLET PO SCH (08:24)
[2022-09-15] MEDS: PANTOPRAZOLE 40 MG/10 ML VIAL IV SCH (08:25)
[2022-09-15] MEDS: ALBUTEROL HFA INHALER INHALATION PRN ×4 (08:32→20:31)
[2022-09-15] MEDS: SYMBICORT 160-4.5 MCG INHALER INHALATION SCH ×2 (08:32→20:31)
--- NOTE | 2022-09-15 10:44 | P.PN ---
Subjective Patient is seen in follow-up for acute kidney injury and chronic kidney disease. Renal function stable as of yesterday. Remains on oral Lasix. Has been voiding. Denies chest pain or shortness of breath at this time. On 6 L nasal cannula. Blood pressure stable. Vital signs are stable. General: Awake. No acute distress. HEENT: Head exam is unremarkable. LUNGS: Breath sounds decreased. HEART: Rate and Rhythm are regular. ABDOMEN: Soft, no distention. EXTREMITITES: Trace edema. Chronic changes noted. Objective - Vital Signs Vital signs: Vital Signs Temp 97.5 F L 09/15/22 08:22 Pulse 79 09/15/22 09:42 Resp 18 09/15/22 09:42 BP 117/57 09/15/22 08:22 Pulse Ox 95 09/15/22 08:22 FiO2 Intake & Output 09/14/22 09/15/22 09/15/22 18:59 06:59 18:59 Intake Total 10 118 Output Total 500 450 475 Balance -500 -440 -357 Intake: IV 10 Invasive Line 1 10 Oral 118 Output: Urine 500 450 475 Other: Voiding Method Urinal Urinal Urinal # Bowel Movements 1 - Labs CBC & Chem 7: 09/14/22 07:55 09/14/22 07:55 Labs: Abnormal Lab Results - Last 24 Hours (Table) 09/14/22 09/14/22 09/14/22 Range/Units 12:05 16:48 20:25 POC Glucose (mg/dL) 369 H 248 H 316 H (70-110) mg/dL 09/15/22 Range/Units 06:20 POC Glucose (mg/dL) 302 H (70-110) mg/dL Assessment and Plan Plan: Assessment: 1. Acute kidney injury mostly prerenal secondary to cardiorenal syndrome. Creatinine fairly stable at 1.9 yesterday. Disproportionately elevated BUN secondary to steroids. 2. Chronic kidney disease stage IIIa with baseline creatinine near 1.5 secondary to nephrosclerosis and cardiorenal syndrome. UA benign. No hydronephrosis noted on kidney ultrasound. 3. Acute on chronic diastolic CHF. 4. COVID-19 infection. 5. Chronic COPD maintained on home oxygen. 6. Metabolic alkalosis which is compensatory for underlying chronic respiratory acidosis. Plan: Maintain oral Lasix. Encourage oral intake. Avoid nephrotoxins. Continue to monitor renal function and urine output. Morning labs pending.
--- NOTE | 2022-09-15 11:57 | P.PN ---
Subjective Progress Note Date: 09/15/22 Chemo Escalera, is a 67-year-old male who presented to [facility] emergency room with a chief complaint of worsening shortness of breath, and multiple episodes of black stools. He was evaluated in the emergency room vital examination on presentation revealed a temperature of 98.7 pulse 89 respiration 16 blood pressure 124/67 pulse ox 98% on 6 L oxygen via nasal cannula Laboratory data revealed a white blood count of 9.4 hemoglobin 11.9 platelet count 51 BUN 113 creatinine 1.81 glucose 213 lactic acid 2.1 Covid 19 PCR was positive, stools for occult blood was negative Testing in the emergency room revealed chest x-ray done in the emergency room revealed mild pleural reaction, EKG done in the emergency room revealed sinus rhythm with right axis deviation and right bundle branch block and possible anteroseptal myocardial infarction of indeterminate age. Patient was admitted to medical floor for further evaluation and treatment. On 09/13/2022 patient was seen and examined on the medical floor, he is alert and oriented 3 in no apparent distress, he is complaining of shortness of breath with any activity he has occasional cough otherwise he denies any complaints he is maintained on oxygen at 6 L via nasal cannula there is no fever or chills no headache or dizziness no chest pain no nausea or vomiting no abdominal pain no diarrhea no blood in the stools no burning with urination no frequency or urgency and no hematuria On 09/14/2022 patient was seen and examined is alert and oriented 3 in no apparent distress he is still complaining of shortness of breath with any activ ity and complaining of cough otherwise he denies any complaints there is no fever or chills no headache or dizziness no chest pain no nausea or vomiting no abdominal pain no diarrhea and no urinary symptoms. He is still maintained on oxygen 6 L via nasal cannula today hemoglobin is 10.8 CO2 41 BUN 111 creatinine 1.9 nephrology are following On 09/15/2022 patient was seen and examined is alert and oriented 3 in no distress he is complaining of shortness of breath with activity and complaining of cough otherwise he denies any complaints there is no fever or chills no headache or dizziness no chest pain no nausea or vomiting no abdominal pain no diarrhea and no urinary symptoms. He is still maintained on oxygen 6 L via nasal cannula today hemoglobin is 10.8 CO2 41 BUN 111 creatinine 1.9 nephrology are following Objective - Vital Signs Vital signs: Vital Signs Temp 97.9 F 09/15/22 03:15 Pulse 69 09/15/22 03:15 Resp 18 09/15/22 03:15 BP 108/74 09/15/22 03:15 Pulse Ox 93 L 09/15/22 03:15 FiO2 Intake & Output 09/14/22 09/15/22 09/15/22 18:59 06:59 18:59 Intake Total 10 Output Total 500 450 Balance -500 -440 Intake: IV 10 Invasive Line 1 10 Output: Urine 500 450 Other: Voiding Method Urinal Urinal # Bowel Movements 1 - Exam In general patient is alert and oriented x 3 in no distress HEENT head normocephalic and atraumatic Neck is supple no JVD no goiter no lymphadenopathy no carotid bruit Chest examination reveals a scattered crackles bilaterally no wheezing Cardiac exam reveals regular heart sounds S1 and S2 no gallops no murmurs Abdomen is soft nontender no organomegaly with normal bowel sounds Extremity exam reveals no edema no cyanosis or clubbing Neurological examination reveals no gross focal deficits - Labs CBC & Chem 7: 09/14/22 07:55 09/14/22 07:55 Labs: Abnormal Lab Results - Last 24 Hours (Table) 09/14/22 09/14/22 09/14/22 Range/Units 07:55 07:55 12:05 RBC 3.12 L (4.30-5.90) m/uL Hgb 10.8 L (13.0-17.5) gm/dL Hct 33.4 L (39.0-53.0) % MCV 107.0 H (80.0-100.0) fL Plt Count 43 L (150-450) k/uL Neutrophils # 7.9 H (1.3-7.7) k/uL Lymphocytes # 0.3 L (1.0-4.8) k/uL Chloride 93 L (98-107) mmol/L Carbon Dioxide 41 H* (22-30) mmol/L BUN 111 H* (9-20) mg/dL Creatinine 1.90 H (0.66-1.25) mg/dL Glucose 256 H (74-99) mg/dL POC Glucose (mg/dL) 369 H (70-110) mg/dL Magnesium 2.4 H (1.6-2.3) mg/dL AST 78 H (17-59) U/L ALT 93 H (4-49) U/L Alkaline Phosphatase 133 H (38-126) U/L Total Protein 5.8 L (6.3-8.2) g/dL Albumin 3.0 L (3.5-5.0) g/dL 09/14/22 09/14/22 09/15/22 Range/Units 16:48 20:25 06:20 RBC (4.30-5.90) m/uL Hgb (13.0-17.5) gm/dL Hct (39.0-53.0) % MCV (80.0-100.0) fL Plt Count (150-450) k/uL Neutrophils # (1.3-7.7) k/uL Lymphocytes # (1.0-4.8) k/uL Chloride (98-107) mmol/L Carbon Dioxide (22-30) mmol/L BUN (9-20) mg/dL Creatinine (0.66-1.25) mg/dL Glucose (74-99) mg/dL POC Glucose (mg/dL) 248 H 316 H 302 H (70-110) mg/dL Magnesium (1.6-2.3) mg/dL AST (17-59) U/L ALT (4-49) U/L Alkaline Phosphatase (38-126) U/L Total Protein (6.3-8.2) g/dL Albumin (3.5-5.0) g/dL Assessment and Plan Plan: Acute COVID-19 infection, patient admitted to the medical floor, he was started on IV dexamethasone, vitamin C vitamin D and zinc supplements, infectious disease consultation requested Acute kidney injury on top of chronic kidney disease stage III consultation for nephrology was initiated Underlying history of advanced COPD Acute hypercapnic and hypoxic respiratory failure Bilateral lower extremity cellulitis Underlying history of hypertension Underlying history of chronic diastolic congestive heart failure Recent diagnosis of bilateral lower extremity cellulitis maintained on oral Keflex At this time patient is admitted to telemetry floor Home medications reviewed and reordered to Consultation for infectious disease and nephrology initiated For DVT prophylaxis subcu Lovenox For GI prophylaxis IV proton next Will follow closely
[2022-09-15 12:06] LABS: Glucose,Whole Blood 271 mg/dL (70-110)
--- NOTE | 2022-09-15 13:09 | P.PN ---
Subjective Progress Note Date: 09/15/22 Principal diagnosis: Shortness of breath. Pulmonary consult dated 09/12/2022. A 67-year-old male who presented to the emergency department, complaining of generalized fatigue, malaise, dark stools, difficulty ambulating, and shortness of breath. He was released from the hospital about a week ago, at which time, the patient had a thoracentesis performed by my partner. The patient does have a history of severe chronic lung disease, with an FEV1 that is 17% of predicted. Currently, he's on 6 L of oxygen. He tested positive for coronavirus. Pro- calcitonin level is 0.19. His medical problems include heart failure, severe COPD, hypertension, obesity, pleural effusion, and lower extremity cellulitis. The patient also is on home oxygen, and therefore, has chronic hypoxemic respiratory failure. White count 6.9, hemoglobin 10.8, hematocrit 34.4, and platelet count 52,000. Sodium is 136, potassium 4.1, chlorides 91, CO2 40, BUN 113, creatinine 1.85. Lactic acid is 2.1. AST is 60, ALT is 70. Troponin was 0.116. N-terminal proBNP was 762. Urine was negative. He did test positive for coronavirus. He is vaccinated. Chest x-ray show some basilar atelectasis, small effusions. Chest x-ray was compared to a chest x-ray done August 30, and is unchanged. Progress note dated 09/13/2022. 67-year-old male seen yesterday in consultation. Please see the note above. He is seen today again in room 367. He is currently on 6 L of oxygen. He requests some [place] nasal spray for his nose. He is not receiving any IV fluids. He does not appear to be in any distress. I did tell the nurse, to accept saturations are bit lower on this patient, since he has severe COPD, with an FEV1 that is 17% of predicted. White count 6, hemoglobin 10.7, hematocrit 32.7, and platelet count 36,000. Sodium is 138, potassium 4.5, chlorides 93, CO2 39, BUN 108, and creatinine 1.81. Chest x-ray show some left upper lobe infiltrate, which may relate to left upper lobe collapse. Progress note dated 09/14/2022. 67-year-old male seen in consultation 2 days ago. He is seen again today in room 367. Currently, the patient is on 6 L of oxygen. No IV fluids. A chest x-ray yesterday showed partial left upper lobe collapse. Today's chest x-ray, shows that the collapse has resolved. Clinically, he feels better doing well. He denies any shortness of breath, cough, or phlegm production. He does have severe COPD, with an FEV1 that is 17% of predicted. He feels like he is at baseline. White count 8.7, hemoglobin 10.8, hematocrit 33.4, and platelet count 43,000. PT, INR, PTT, and fibrinogen are all normal. Sodium 138, potassium 4.7, chloride 93, CO2 41, BUN 111, and creatinine 1.90. Progress note dated 09/15/2022. 67-year-old male, seen in room 367. He remains on 6 L of oxygen. No IV fluids. He is feeling much better today. Lab work today includes a glucose of 271. The blood work from September 14 is reviewed. Objective - Vital Signs Vital signs: Vital Signs Temp 97.5 F L 09/15/22 08:22 Pulse 82 09/15/22 12:49 Resp 19 09/15/22 12:49 BP 113/56 09/15/22 12:49 Pulse Ox 93 L 09/15/22 12:49 FiO2 Intake & Output 09/14/22 09/15/22 09/15/22 18:59 06:59 18:59 Intake Total 10 118 Output Total 500 450 475 Balance -500 -440 -357 Intake: IV 10 Invasive Line 1 10 Oral 118 Output: Urine 500 450 475 Other: Voiding Method Urinal Urinal Urinal # Bowel Movements 1 - Exam No acute distress, oriented 3. No respiratory distress. Currently on 6 L of oxygen. HEENT examination is grossly unremarkable. Neck supple. Full range of motion. No adenopathy thyromegaly or neck vein distention. Cardiovascular examination reveals regular rhythm rate. S1-S2 normal. No S3 or S4. No discernible murmur noted. Heart rate 82 bpm. Lungs reveal scattered bilateral rhonchi. No wheezes. Minimal basilar crackles. Breath sounds equal bilaterally. 6 L saturation is 93 %. Abdomen soft bowel sounds are heard. No masses or tenderness. Extremities are intact. No cyanosis or clubbing. Trace edema noted. Skin is without rash or lesion. Neurologic examination is brief but nonfocal. - Labs CBC & Chem 7: 09/14/22 07:55 09/14/22 07:55 Labs: Abnormal Lab Results - Last 24 Hours (Table) 09/14/22 09/14/22 09/15/22 Range/Units 16:48 20:25 06:20 POC Glucose (mg/dL) 248 H 316 H 302 H (70-110) mg/dL 09/15/22 Range/Units 12:04 POC Glucose (mg/dL) 271 H (70-110) mg/dL Assessment and Plan Assessment: Generalized fatigue, malaise, difficulty ambulating, weakness, likely all rel ated to coronavirus infection. No evidence of coronavirus associated pneumonia, although the patient may have developed some left upper lobe collapse/consolidation, which has resolved. History of severe COPD, with an FEV1 that's 17% of predicted. Recent admission to the hospital, August 2022, for impending respiratory failure secondary to COPD exacerbation. Possible GI bleed. Obesity. History of lower extremity cellulitis. History of hypertension. History of heart failure. History of osteoarthritis. Prior history of tobacco use. Plan: Plan dated 09/12/2022. The patient's respiratory status appears to be reasonably stable. He does have chronic hypoxemic respiratory failure. He is currently on 6 L of oxygen. Saturations are in the mid to high 90s. The patient is currently on albuterol, Symbicort, and Decadron. He did test positive for coronavirus, but I doubt that he has significant coronavirus associated pneumonia. The patient's also receiving GI prophylaxis, and subcutaneous heparin. We will continue to follow make recommendations along the way. Prognosis is certainly guarded. Plan dated 09/13/2022. The patient will have a repeat chest x-ray tomorrow. Additional recommendations and suggestions are forthcoming. He is on appropriate medications. Labs, x- rays, medications are reviewed. We will continue to follow and make recommendations along the way. The patient has severe chronic lung disease, with an FEV1 percent that is only 17% of predicted. Plan dated 09/14/2022. The patient is feeling better today. His chest x-ray today is improved. The left upper lung collapse, is now much improved. Labs, x-rays, and medications are reviewed. Prognosis is guarded. Patient feels much better. He continues on 6 L. Saturations are 95%. The patient is not receiving any IV fluids. We will continue to follow the patient and make recommendations along the way. Plan dated 09/15/2022. The patient is doing much better today. He is on his home amount of oxygen, which is 6 L. The patient's feeling much better. In my opinion, the patient could be considered for possible discharge. He's not receiving any IV fluids. Labs, x-rays, and medications are reviewed. We will continue to follow make recommendations along the way. Time with Patient: Less than 30
--- NOTE | 2022-09-15 16:23 | P.PN ---
Subjective Progress Note Date: 09/13/22 Principal diagnosis: Covid 19 Patient is 67-year male was recently admitted to this facility and treated for bilateral lower extremity cellulitis with group B strep bacteremia patient now presenting back to the hospital concerning for generalized fatigue malaise dark stool and difficulty ambulating secondary to weakness , patient has been diagnosed with a covid 19 infection. On today's evaluation that is 09/13/2022, the patient had denies having any fever or any chills he seemed to be breathing comfortably currently on a 6 L nasal cannula which is baseline for him patient denies having any chest pain or cough or sputum production no abdominal pain no diarrhea and no pain to the lower extremity Objective - Vital Signs Vital signs: Vital Signs Temp 98.2 F 09/13/22 12:00 Pulse 82 09/13/22 12:00 Resp 20 09/13/22 12:00 BP 113/55 09/13/22 12:00 Pulse Ox 92 L 09/13/22 12:00 FiO2 Intake & Output 09/12/22 09/13/22 09/13/22 18:59 06:59 18:59 Intake Total 354 20 236 Output Total 990 500 Balance -636 -480 236 Weight 125.1 kg Intake: IV 20 Invasive Line 1 20 Oral 354 236 Output: Urine 990 500 Other: Voiding Method Urinal Urinal # Bowel Movements 1 - Exam GENERAL DESCRIPTION: An elderly male lying in bed in no distress RESPIRATORY SYSTEM: Unlabored breathing , decreased breath sounds at bases HEART: S1 S2 regular rate and rhythm , ABDOMEN: Soft , no tenderness EXTREMITIES: Diffuse swelling bilateral lower extremity no erythema no blister - Labs CBC & Chem 7: 09/14/22 07:55 09/14/22 07:55 Labs: Abnormal Lab Results - Last 24 Hours (Table) 09/12/22 09/12/22 09/12/22 Range/Units 13:59 16:43 17:23 RBC (4.30-5.90) m/uL Hgb (13.0-17.5) gm/dL Hct (39.0-53.0) % MCV (80.0-100.0) fL Plt Count (150-450) k/uL Lymphocytes # (1.0-4.8) k/uL Chloride (98-107) mmol/L Carbon Dioxide (22-30) mmol/L BUN (9-20) mg/dL Creatinine (0.66-1.25) mg/dL Glucose (74-99) mg/dL POC Glucose (mg/dL) 180 H (70-110) mg/dL Plasma Lactic Acid Vikram 2.1 H* 2.5 H* (0.7-2.0) mmol/L ALT (4-49) U/L Total Protein (6.3-8.2) g/dL Albumin (3.5-5.0) g/dL 09/12/22 09/12/22 09/13/22 Range/Units 20:07 21:15 06:25 RBC (4.30-5.90) m/uL Hgb (13.0-17.5) gm/dL Hct (39.0-53.0) % MCV (80.0-100.0) fL Plt Count (150-450) k/uL Lymphocytes # (1.0-4.8) k/uL Chloride (98-107) mmol/L Carbon Dioxide (22-30) mmol/L BUN (9-20) mg/dL Creatinine (0.66-1.25) mg/dL Glucose (74-99) mg/dL POC Glucose (mg/dL) 221 H 212 H (70-110) mg/dL Plasma Lactic Acid Vikram 2.4 H* (0.7-2.0) mmol/L ALT (4-49) U/L Total Protein (6.3-8.2) g/dL Albumin (3.5-5.0) g/dL 09/13/22 09/13/22 09/13/22 Range/Units 07:33 07:33 11:45 RBC 3.06 L (4.30-5.90) m/uL Hgb 10.7 L (13.0-17.5) gm/dL Hct 32.7 L (39.0-53.0) % MCV 106.8 H (80.0-100.0) fL Plt Count 36 L (150-450) k/uL Lymphocytes # 0.3 L (1.0-4.8) k/uL Chloride 93 L (98-107) mmol/L Carbon Dioxide 39 H (22-30) mmol/L BUN 108 H* (9-20) mg/dL Creatinine 1.81 H (0.66-1.25) mg/dL Glucose 219 H (74-99) mg/dL POC Glucose (mg/dL) 244 H (70-110) mg/dL Plasma Lactic Acid Vikram (0.7-2.0) mmol/L ALT 66 H (4-49) U/L Total Protein 5.7 L (6.3-8.2) g/dL Albumin 3.0 L (3.5-5.0) g/dL Assessment and Plan (1) COVID-19 Current Visit: Yes Status: Acute Priority: High Code(s): U07.1 - COVID-19 SNOMED Code(s): 463239130 Plan: 1patient present to hospital with generalized weakness no energy decreased appetite likely related to underlying COVID-19 infection in this patient currently with no fever chest x-ray did not show any acute infiltrate. 2patient to continue with the dexamethasone we will add zinc and ascorbic acid and monitor clinical course closely 3patient currently do not have any evidence of cellulitis to lower extremity monitor for swelling and no need for systemic antibiotic therapy. 4 Time with Patient: Less than 30
--- NOTE | 2022-09-15 16:25 | P.PN ---
Subjective Progress Note Date: 09/14/22 Principal diagnosis: Covid 19 Patient is 67-year male was recently admitted to this facility and treated for bilateral lower extremity cellulitis with group B strep bacteremia patient now presenting back to the hospital concerning for generalized fatigue malaise dark stool and difficulty ambulating secondary to weakness , patient has been diagnosed with a covid 19 infection. On today's evaluation that is 09/14/2022, the patient remains to be afebrile, the patient is breathing comfortably currently on a 6 L nasal cannula which is baseline for him patient denies having any chest pain or cough or sputum production no abdominal pain no diarrhea and no pain to the lower extremity Objective - Vital Signs Vital signs: Vital Signs Temp 97.4 F L 09/14/22 09:34 Pulse 81 09/14/22 12:25 Resp 18 09/14/22 12:25 BP 113/65 09/14/22 12:25 Pulse Ox 95 09/14/22 09:34 FiO2 Intake & Output 09/13/22 09/14/22 09/14/22 18:59 06:59 18:59 Intake Total 236 10 Output Total 500 625 Balance -264 -615 Weight 125.1 kg Intake: IV 10 Invasive Line 1 10 Oral 236 Output: Urine 500 625 Other: Voiding Method Urinal Urinal Urinal # Voids 1 # Bowel Movements 1 - Exam GENERAL DESCRIPTION: An elderly male lying in bed in no distress RESPIRATORY SYSTEM: Unlabored breathing , decreased breath sounds at bases HEART: S1 S2 regular rate and rhythm , ABDOMEN: Soft , no tenderness EXTREMITIES: Diffuse swelling bilateral lower extremity no erythema no blister - Labs CBC & Chem 7: 09/14/22 07:55 09/14/22 07:55 Labs: Abnormal Lab Results - Last 24 Hours (Table) 09/13/22 09/13/22 09/13/22 Range/Units 11:09 16:26 20:12 RBC (4.30-5.90) m/uL Hgb (13.0-17.5) gm/dL Hct (39.0-53.0) % MCV (80.0-100.0) fL Plt Count (150-450) k/uL Neutrophils # (1.3-7.7) k/uL Lymphocytes # (1.0-4.8) k/uL Chloride (98-107) mmol/L Carbon Dioxide (22-30) mmol/L BUN (9-20) mg/dL Creatinine (0.66-1.25) mg/dL Glucose (74-99) mg/dL POC Glucose (mg/dL) 293 H 245 H (70-110) mg/dL Magnesium (1.6-2.3) mg/dL AST (17-59) U/L ALT (4-49) U/L Alkaline Phosphatase (38-126) U/L Total Protein (6.3-8.2) g/dL Albumin (3.5-5.0) g/dL Folate 3.30 L (4.40-31.00) ng/mL 09/14/22 09/14/22 09/14/22 Range/Units 06:20 07:55 07:55 RBC 3.12 L (4.30-5.90) m/uL Hgb 10.8 L (13.0-17.5) gm/dL Hct 33.4 L (39.0-53.0) % MCV 107.0 H (80.0-100.0) fL Plt Count 43 L (150-450) k/uL Neutrophils # 7.9 H (1.3-7.7) k/uL Lymphocytes # 0.3 L (1.0-4.8) k/uL Chloride 93 L (98-107) mmol/L Carbon Dioxide 41 H* (22-30) mmol/L BUN 111 H* (9-20) mg/dL Creatinine 1.90 H (0.66-1.25) mg/dL Glucose 256 H (74-99) mg/dL POC Glucose (mg/dL) 288 H (70-110) mg/dL Magnesium 2.4 H (1.6-2.3) mg/dL AST 78 H (17-59) U/L ALT 93 H (4-49) U/L Alkaline Phosphatase 133 H (38-126) U/L Total Protein 5.8 L (6.3-8.2) g/dL Albumin 3.0 L (3.5-5.0) g/dL Folate (4.40-31.00) ng/mL 09/14/22 Range/Units 12:05 RBC (4.30-5.90) m/uL Hgb (13.0-17.5) gm/dL Hct (39.0-53.0) % MCV (80.0-100.0) fL Plt Count (150-450) k/uL Neutrophils # (1.3-7.7) k/uL Lymphocytes # (1.0-4.8) k/uL Chloride (98-107) mmol/L Carbon Dioxide (22-30) mmol/L BUN (9-20) mg/dL Creatinine (0.66-1.25) mg/dL Glucose (74-99) mg/dL POC Glucose (mg/dL) 369 H (70-110) mg/dL Magnesium (1.6-2.3) mg/dL AST (17-59) U/L ALT (4-49) U/L Alkaline Phosphatase (38-126) U/L Total Protein (6.3-8.2) g/dL Albumin (3.5-5.0) g/dL Folate (4.40-31.00) ng/mL Assessment and Plan (1) COVID-19 Current Visit: Yes Status: Acute Priority: High Code(s): U07.1 - COVID-19 SNOMED Code(s): 494938607 Plan: 1patient present to hospital with generalized weakness no energy decreased appetite likely related to underlying COVID-19 infection in this patient chest x-ray completed this morning did shows resolved left upper lobe collapse or atelectasis in the show some left basilar atelectasis 2patient seemed had shown clinical improvement and we'll continue with the dexamethasone along with zinc and ascorbic acid and monitor clinical course closely 3patient currently do not have any evidence of cellulitis to lower extremity monitor for swelling and no need for systemic antibiotic therapy. 4 Time with Patient: Less than 30
--- NOTE | 2022-09-15 16:27 | P.PN ---
Subjective Progress Note Date: 09/15/22 Principal diagnosis: Covid 19 Patient is 67-year male was recently admitted to this facility and treated for bilateral lower extremity cellulitis with group B strep bacteremia patient now presenting back to the hospital concerning for generalized fatigue malaise dark stool and difficulty ambulating secondary to weakness , patient has been diagnosed with a covid 19 infection. On today's evaluation that is 09/15/2022, the patient denies any fever or any chills, the patient is breathing comfortably currently on a 6 L nasal cannula, the patient denies having any chest pain he did have occasional dry cough, the patient denies nausea and vomiting no abdominal pain no diarrhea and no pain to the lower extremity Objective - Vital Signs Vital signs: Vital Signs Temp 97.5 F L 09/15/22 08:22 Pulse 82 09/15/22 14:47 Resp 19 09/15/22 14:47 BP 113/56 09/15/22 12:49 Pulse Ox 93 L 09/15/22 12:49 FiO2 Intake & Output 09/14/22 09/15/22 09/15/22 18:59 06:59 18:59 Intake Total 10 118 Output Total 500 450 475 Balance -500 -440 -678 Intake: IV 10 Invasive Line 1 10 Oral 118 Output: Urine 500 450 475 Other: Voiding Method Urinal Urinal Urinal # Bowel Movements 1 - Exam GENERAL DESCRIPTION: An elderly male lying in bed in no distress RESPIRATORY SYSTEM: Unlabored breathing , decreased breath sounds at bases HEART: S1 S2 regular rate and rhythm , ABDOMEN: Soft , no tenderness EXTREMITIES: Diffuse swelling bilateral lower extremity no erythema no blister - Labs CBC & Chem 7: 09/14/22 07:55 09/14/22 07:55 Labs: Abnormal Lab Results - Last 24 Hours (Table) 09/14/22 09/14/22 09/15/22 Range/Units 16:48 20:25 06:20 POC Glucose (mg/dL) 248 H 316 H 302 H (70-110) mg/dL 09/15/22 Range/Units 12:04 POC Glucose (mg/dL) 271 H (70-110) mg/dL Assessment and Plan (1) COVID-19 Current Visit: Yes Status: Acute Priority: High Code(s): U07.1 - COVID-19 SNOMED Code(s): 878412473 Plan: 1patient present to hospital with generalized weakness no energy decreased appetite likely related to underlying COVID-19 infection in this patient chest x-ray completed 09/14/2022 did shows resolved left upper lobe collapse or atelectasis in the show some left basilar atelectasis 2patient currently do not have any evidence of cellulitis to lower extremity monitor for swelling and no need for systemic antibiotic therapy. 3-patient seemed had shown clinical improvement , the patient to continue the current supportive treatment of dexamethasone along with zinc and ascorbic acid and monitor clinical course closely Time with Patient: Less than 30
[2022-09-15 17:08] LABS: Glucose,Whole Blood 243 mg/dL (70-110)
[2022-09-15 20:31] LABS: Glucose,Whole Blood 278 mg/dL (70-110)
[2022-09-15] MEDS: MONTELUKAST 10 MG TAB PO SCH (21:27)
[2022-09-16] MEDS: DEXAMETHASONE SOD PHOSPHATE 4 MG/ML 1 ML VIAL IVP SCH ×4 (00:28→17:43)
[2022-09-16 04:15] LABS: Basophils % (A) 0 %; Eosinophils % (A) 1 %; HGB 10.2 gm/dL (13.0-17.5); Hypochromasia Slight; Lymphocytes # (A) 0.3 k/uL (1.0-4.8); Lymphocytes % (A) 4 %; MCH 34.8 pg (25.0-35.0); MCHC 32.8 g/dL (31.0-37.0); MCV 106.2 fL (80.0-100.0); Macrocytosis Slight; Mean Platelet Volume 14.6; Monocytes # (A) 0.4 k/uL (0-1.0); Monocytes % (A) 5 %; Neutrophils # (A) 7.8 k/uL (1.3-7.7); Neutrophils % (A) 90 %; RBC 2.92 m/uL (4.30-5.90); RDW 12.5 % (11.5-15.5); WBC 8.6 k/uL (3.8-10.6)
[2022-09-16 04:16] LABS: Platelet Count 43 k/uL (150-450)
[2022-09-16 04:31] LABS: Albumin 2.7 g/dL (3.5-5.0); Calcium 8.4 mg/dL (8.4-10.2); Magnesium 2.5 mg/dL (1.6-2.3); Potassium 4.9 mmol/L (3.5-5.1); Total Bilirubin 1.2 mg/dL (0.2-1.3); Total Protein 5.4 g/dL (6.3-8.2)
[2022-09-16 06:21] LABS: Glucose,Whole Blood 261 mg/dL (70-110)
[2022-09-16] MEDS: INSULIN ASPART (NovoLOG) 100 UNIT/ML VIAL SQ SCH ×4 (06:40→20:52)
[2022-09-16] MEDS: ALBUTEROL HFA INHALER INHALATION PRN ×4 (07:28→20:52)
[2022-09-16] MEDS: SYMBICORT 160-4.5 MCG INHALER INHALATION SCH ×2 (07:28→20:52)
[2022-09-16] MEDS: METOPROLOL TARTRATE 50 MG TAB PO SCH ×2 (08:20→20:52)
[2022-09-16] MEDS: FOLIC ACID 1 MG TAB PO SCH (08:20)
[2022-09-16] MEDS: CHOLECALCIFEROL 25 MCG (1000 IU) TABLET PO SCH (08:20)
[2022-09-16] MEDS: FUROSEMIDE 20 MG TAB PO SCH ×3 (08:21→20:52)
[2022-09-16] MEDS: PANTOPRAZOLE 40 MG/10 ML VIAL IV SCH (08:21)
--- NOTE | 2022-09-16 09:45 | P.PN ---
Subjective Progress Note Date: 09/16/22 Chemo Escalera, is a 67-year-old male who presented to [facility] emergency room with a chief complaint of worsening shortness of breath, and multiple episodes of black stools. He was evaluated in the emergency room vital examination on presentation revealed a temperature of 98.7 pulse 89 respiration 16 blood pressure 124/67 pulse ox 98% on 6 L oxygen via nasal cannula Laboratory data revealed a white blood count of 9.4 hemoglobin 11.9 platelet count 51 BUN 113 creatinine 1.81 glucose 213 lactic acid 2.1 Covid 19 PCR was positive, stools for occult blood was negative Testing in the emergency room revealed chest x-ray done in the emergency room revealed mild pleural reaction, EKG done in the emergency room revealed sinus rhythm with right axis deviation and right bundle branch block and possible anteroseptal myocardial infarction of indeterminate age. Patient was admitted to medical floor for further evaluation and treatment. On 09/13/2022 patient was seen and examined on the medical floor, he is alert and oriented 3 in no apparent distress, he is complaining of shortness of breath with any activity he has occasional cough otherwise he denies any complaints he is maintained on oxygen at 6 L via nasal cannula there is no fever or chills no headache or dizziness no chest pain no nausea or vomiting no abdominal pain no diarrhea no blood in the stools no burning with urination no frequency or urgency and no hematuria On 09/14/2022 patient was seen and examined is alert and oriented 3 in no apparent distress he is still complaining of shortness of breath with any activ ity and complaining of cough otherwise he denies any complaints there is no fever or chills no headache or dizziness no chest pain no nausea or vomiting no abdominal pain no diarrhea and no urinary symptoms. He is still maintained on oxygen 6 L via nasal cannula today hemoglobin is 10.8 CO2 41 BUN 111 creatinine 1.9 nephrology are following On 09/15/2022 patient was seen and examined is alert and oriented 3 in no distress he is complaining of shortness of breath with activity and complaining of cough otherwise he denies any complaints there is no fever or chills no headache or dizziness no chest pain no nausea or vomiting no abdominal pain no diarrhea and no urinary symptoms. He is still maintained on oxygen 6 L via nasal cannula today hemoglobin is 10.8 CO2 41 BUN 111 creatinine 1.9 nephrology are following 09/16/2022 patient is alert and oriented 3. Patient is still complaining of shortness breath. Patient currently on 6 L nasal cannula. Vital signs temp 97.6, heart rate 80, respiratory rate 18 blood pressure 127/69. Creatinine 1.5, bun 119. Pulmonary: Infectious disease and nephrology services are following Objective - Vital Signs Vital signs: Vital Signs Temp 97.6 F 09/16/22 08:18 Pulse 82 09/16/22 08:18 Resp 18 09/16/22 08:18 BP 127/69 09/16/22 08:18 Pulse Ox 91 L 09/16/22 08:18 FiO2 Intake & Output 09/15/22 09/16/22 09/16/22 18:59 06:59 18:59 Intake Total 118 Output Total 475 400 Balance -357 -400 Weight 126 kg Intake: Oral 118 Output: Urine 475 400 Other: Voiding Method Urinal Urinal # Voids 3 - Exam In general patient is alert and oriented x 3 in no distress HEENT head normocephalic and atraumatic Neck is supple no JVD no goiter no lymphadenopathy no carotid bruit Chest examination reveals a scattered crackles bilaterally no wheezing Cardiac exam reveals regular heart sounds S1 and S2 no gallops no murmurs Abdomen is soft nontender no organomegaly with normal bowel sounds Extremity exam reveals no edema no cyanosis or clubbing Neurological examination reveals no gross focal deficits - Labs CBC & Chem 7: 09/16/22 03:57 09/16/22 03:57 Labs: Abnormal Lab Results - Last 24 Hours (Table) 09/15/22 09/15/22 09/15/22 Range/Units 12:04 16:56 20:29 RBC (4.30-5.90) m/uL Hgb (13.0-17.5) gm/dL Hct (39.0-53.0) % MCV (80.0-100.0) fL Plt Count (150-450) k/uL Neutrophils # (1.3-7.7) k/uL Lymphocytes # (1.0-4.8) k/uL Sodium (137-145) mmol/L Chloride (98-107) mmol/L Carbon Dioxide (22-30) mmol/L BUN (9-20) mg/dL Creatinine (0.66-1.25) mg/dL Glucose (74-99) mg/dL POC Glucose (mg/dL) 271 H 243 H 278 H (70-110) mg/dL Magnesium (1.6-2.3) mg/dL AST (17-59) U/L ALT (4-49) U/L Total Protein (6.3-8.2) g/dL Albumin (3.5-5.0) g/dL 09/16/22 09/16/22 09/16/22 Range/Units 03:57 03:57 06:20 RBC 2.92 L (4.30-5.90) m/uL Hgb 10.2 L (13.0-17.5) gm/dL Hct 31.0 L (39.0-53.0) % MCV 106.2 H (80.0-100.0) fL Plt Count 43 L (150-450) k/uL Neutrophils # 7.8 H (1.3-7.7) k/uL Lymphocytes # 0.3 L (1.0-4.8) k/uL Sodium 133 L (137-145) mmol/L Chloride 92 L (98-107) mmol/L Carbon Dioxide 40 H (22-30) mmol/L BUN 119 H* (9-20) mg/dL Creatinine 1.85 H (0.66-1.25) mg/dL Glucose 200 H (74-99) mg/dL POC Glucose (mg/dL) 261 H (70-110) mg/dL Magnesium 2.5 H (1.6-2.3) mg/dL AST 61 H (17-59) U/L ALT 101 H (4-49) U/L Total Protein 5.4 L (6.3-8.2) g/dL Albumin 2.7 L (3.5-5.0) g/dL Assessment and Plan Plan: Acute COVID-19 infection, patient admitted to the medical floor, he was started on IV dexamethasone, vitamin C vitamin D and zinc supplements, infectious disease consultation requested Acute kidney injury on top of chronic kidney disease stage III consultation for nephrology was initiated Underlying history of advanced COPD Acute hypercapnic and hypoxic respiratory failure Bilateral lower extremity cellulitis Underlying history of hypertension Underlying history of chronic diastolic congestive heart failure Recent diagnosis of bilateral lower extremity cellulitis maintained on oral Keflex At this time patient is admitted to telemetry floor Home medications reviewed and reordered to Consultation for infectious disease and nephrology initiated For DVT prophylaxis subcu Lovenox For GI prophylaxis IV proton next Will follow closely
--- NOTE | 2022-09-16 10:22 | P.DS ---
Providers Date of admission: 09/11/22 21:07 Expected date of discharge: 09/16/22 Attending physician: Sofiya Albrecht Consults: 09/11/22 21:03 Consult Physician Urgent Consulting Provider: Chelsea Earl Consult Reason/Comments: COVID-19, COPD Do you want consulting provider notified?: Yes Consult Physician Urgent Consulting Provider: Kingston Salcido Consult Reason/Comments: COVID-19 Do you want consulting provider notified?: Yes 09/12/22 13:15 Consult Physician Routine Consulting Provider: Alysia Garcia Consult Reason/Comments: acute on chronic renal failure Do you want consulting provider notified?: Yes 09/13/22 10:40 Consult Physician Urgent Consulting Provider: Gerhard Beard Consult Reason/Comments: thrombocytopenia Do you want consulting provider notified?: Already Contacted Primary care physician: Sofiya Albrecht [facility] Course: Discharge diagnosis Acute COVID-19 infection, patient admitted to the medical floor, he was started on IV dexamethasone, vitamin C vitamin D and zinc supplements, infectious disease consultation requested Acute kidney injury on top of chronic kidney disease stage III consultation for nephrology was initiated Underlying history of advanced COPD Acute hypercapnic and hypoxic respiratory failure Bilateral lower extremity cellulitis Underlying history of hypertension Underlying history of chronic diastolic congestive heart failure Recent diagnosis of bilateral lower extremity cellulitis maintained on oral Keflex Hospital course Chemo Escalera, is a 67-year-old male who presented to [facility] emergency room with a chief complaint of worsening shortness of breath, and multiple episodes of black stools. He was evaluated in the emergency room vital examination on presentation revealed a temperature of 98.7 pulse 89 respiration 16 blood pressure 124/67 pulse ox 98% on 6 L oxygen via nasal cannula Laboratory data revealed a white blood count of 9.4 hemoglobin 11.9 platelet count 51 BUN 113 creatinine 1.81 glucose 213 lactic acid 2.1 Covid 19 PCR was positive, stools for occult blood was negative Testing in the emergency room revealed chest x-ray done in the emergency room revealed mild pleural reaction, EKG done in the emergency room revealed sinus rhythm with right axis deviation and right bundle branch block and possible anteroseptal myocardial infarction of indeterminate age. Patient was admitted to medical floor for further evaluation and treatment. On 09/13/2022 patient was seen and examined on the medical floor, he is alert and oriented 3 in no apparent distress, he is complaining of shortness of breath with any activity he has occasional cough otherwise he denies any complaints he is maintained on oxygen at 6 L via nasal cannula there is no fever or chills no headache or dizziness no chest pain no nausea or vomiting no abdominal pain no diarrhea no blood in the stools no burning with urination no frequency or urgency and no hematuria On 09/14/2022 patient was seen and examined is alert and oriented 3 in no apparent distress he is still complaining of shortness of breath with any activity and complaining of cough otherwise he denies any complaints there is no fever or chills no headache or dizziness no chest pain no nausea or vomiting no abdominal pain no diarrhea and no urinary symptoms. He is still maintained on oxygen 6 L via nasal cannula today hemoglobin is 10.8 CO2 41 BUN 111 creatinine 1.9 nephrology are following On 09/15/2022 patient was seen and examined is alert and oriented 3 in no distress he is complaining of shortness of breath with activity and complaining of cough otherwise he denies any complaints there is no fever or chills no headache or dizziness no chest pain no nausea or vomiting no abdominal pain no diarrhea and no urinary symptoms. He is still maintained on oxygen 6 L via nasal cannula today hemoglobin is 10.8 CO2 41 BUN 111 creatinine 1.9 nephrology are following 09/16/2022 patient is alert and oriented 3. Patient is still complaining of shortness breath. Patient currently on 6 L nasal cannula. Vital signs temp 97.6, heart rate 80, respiratory rate 18 blood pressure 127/69. Creatinine 1.5, bun 119. Pulmonary: Infectious disease and nephrology services are following Patient has been cleared for discharge from pulmonary standpoint. Patient will be DC'd on Decadron folic acid and Symbicort inhaler. Patient follow-up PCP for further management Patient Condition at Discharge: Stable Plan - Discharge Summary Discharge Rx Participant: Yes New Discharge Prescriptions: New dexAMETHasone [Decadron] 4 mg PO BID 10 Days #20 tablet Folic Acid 1 mg PO DAILY tab Budesonide-Formot 160-4.5 Mcg [Symbicort 160-4.5 Mcg Inhaler] 2 puff INHALATION RT-BID each Continue Albuterol Nebulized [Ventolin Nebulized] 2.5 mg INHALATION RT-QID PRN PRN Reason: Shortness Of Breath Montelukast [Singulair] 10 mg PO HS@2099 clonazePAM [KlonoPIN] 0.5 mg PO DAILY PRN PRN Reason: Anxiety Albuterol Sulfate [Ventolin HFA] 2 puff INHALATION RT-Q4H PRN PRN Reason: Shortness Of Breath Fluticasone Propion/Salmeterol [Advair 250-50 Diskus] 1 puff INHALATION RT- BID Cholecalciferol [Vitamin D3 (25 Mcg = 1000 Iu)] 25 mcg PO DAILY Metoprolol Tartrate [Lopressor] 50 mg PO BID@899,2099 Furosemide [Lasix] 60 mg PO TID Aspirin 81 mg PO DAILY 30 Days #30 tab Cephalexin [Keflex] 500 mg PO Q6HR 10 Days #40 cap Discontinued predniSONE See Taper PO DIRECTED Discharge Medication List Albuterol Nebulized [Ventolin Nebulized] 2.5 mg INHALATION RT-QID PRN 06/22/14 [History] Montelukast [Singulair] 10 mg PO HS@209906/09/19 [History] clonazePAM [KlonoPIN] 0.5 mg PO DAILY PRN 06/09/19 [History] Albuterol Sulfate [Ventolin HFA] 2 puff INHALATION RT-Q4H PRN 08/27/19 [History] Fluticasone Propion/Salmeterol [Advair 250-50 Diskus] 1 puff INHALATION RT-BID 08/27/19 [History] Cholecalciferol [Vitamin D3 (25 Mcg = 1000 Iu)] 25 mcg PO DAILY 06/16/22 [History] Metoprolol Tartrate [Lopressor] 50 mg PO BID@899,209906/16/22 [History] Furosemide [Lasix] 60 mg PO TID 08/29/22 [History] Aspirin 81 mg PO DAILY 30 Days #30 tab 09/02/22 [Rx] Cephalexin [Keflex] 500 mg PO Q6HR 10 Days #40 cap 09/02/22 [Rx] Budesonide-Formot 160-4.5 Mcg [Symbicort 160-4.5 Mcg Inhaler] 2 puff INHALATION RT-BID each 09/16/22 [Rx] Folic Acid 1 mg PO DAILY tab 09/16/22 [Rx] dexAMETHasone [Decadron] 4 mg PO BID 10 Days #20 tablet 09/16/22 [Rx] Follow up Appointment(s)/Referral(s): Sofiya Albrecht MD [Primary Care Provider] - 1-2 days
--- NOTE | 2022-09-16 10:38 | P.PN ---
Subjective Patient is seen in follow-up for acute kidney injury and chronic kidney disease. Renal function stable. Remains on oral Lasix. Has been voiding. Denies chest pain or shortness of breath at this time. On 6 L nasal cannula. Blood pressure stable. Vital signs are stable. General: Awake. No acute distress. HEENT: Head exam is unremarkable. LUNGS: Breath sounds decreased. HEART: Rate and Rhythm are regular. ABDOMEN: Soft, no distention. EXTREMITITES: Trace edema. Chronic changes noted. Objective - Vital Signs Vital signs: Vital Signs Temp 97.6 F 09/16/22 08:18 Pulse 82 09/16/22 10:03 Resp 18 09/16/22 10:03 BP 127/69 09/16/22 08:18 Pulse Ox 91 L 09/16/22 08:18 FiO2 Intake & Output 09/15/22 09/16/22 09/16/22 18:59 06:59 18:59 Intake Total 118 Output Total 475 400 Balance -357 -400 Weight 126 kg Intake: Oral 118 Output: Urine 475 400 Other: Voiding Method Urinal Urinal Urinal # Voids 3 - Labs CBC & Chem 7: 09/16/22 03:57 09/16/22 03:57 Labs: Abnormal Lab Results - Last 24 Hours (Table) 09/15/22 09/15/22 09/15/22 Range/Units 12:04 16:56 20:29 RBC (4.30-5.90) m/uL Hgb (13.0-17.5) gm/dL Hct (39.0-53.0) % MCV (80.0-100.0) fL Plt Count (150-450) k/uL Neutrophils # (1.3-7.7) k/uL Lymphocytes # (1.0-4.8) k/uL Sodium (137-145) mmol/L Chloride (98-107) mmol/L Carbon Dioxide (22-30) mmol/L BUN (9-20) mg/dL Creatinine (0.66-1.25) mg/dL Glucose (74-99) mg/dL POC Glucose (mg/dL) 271 H 243 H 278 H (70-110) mg/dL Magnesium (1.6-2.3) mg/dL AST (17-59) U/L ALT (4-49) U/L Total Protein (6.3-8.2) g/dL Albumin (3.5-5.0) g/dL 09/16/22 09/16/22 09/16/22 Range/Units 03:57 03:57 06:20 RBC 2.92 L (4.30-5.90) m/uL Hgb 10.2 L (13.0-17.5) gm/dL Hct 31.0 L (39.0-53.0) % MCV 106.2 H (80.0-100.0) fL Plt Count 43 L (150-450) k/uL Neutrophils # 7.8 H (1.3-7.7) k/uL Lymphocytes # 0.3 L (1.0-4.8) k/uL Sodium 133 L (137-145) mmol/L Chloride 92 L (98-107) mmol/L Carbon Dioxide 40 H (22-30) mmol/L BUN 119 H* (9-20) mg/dL Creatinine 1.85 H (0.66-1.25) mg/dL Glucose 200 H (74-99) mg/dL POC Glucose (mg/dL) 261 H (70-110) mg/dL Magnesium 2.5 H (1.6-2.3) mg/dL AST 61 H (17-59) U/L ALT 101 H (4-49) U/L Total Protein 5.4 L (6.3-8.2) g/dL Albumin 2.7 L (3.5-5.0) g/dL Assessment and Plan Plan: Assessment: 1. Acute kidney injury mostly prerenal secondary to cardiorenal syndrome. Renal function stable.. Disproportionately elevated BUN secondary to steroids. 2. Chronic kidney disease stage IIIa with baseline creatinine near 1.5 secondary to nephrosclerosis and cardiorenal syndrome. UA benign. No hydronephrosis noted on kidney ultrasound. 3. Acute on chronic diastolic CHF. 4. COVID-19 infection. 5. Chronic COPD maintained on home oxygen. 6. Metabolic alkalosis which is compensatory for underlying chronic respiratory acidosis. Plan: Maintain oral Lasix. Encourage oral intake. Avoid nephrotoxins. Continue to monitor renal function and urine output.
--- NOTE | 2022-09-16 11:50 | P.PN ---
Subjective Progress Note Date: 09/16/22 Principal diagnosis: Shortness of breath. Pulmonary consult dated 09/12/2022. A 67-year-old male who presented to the emergency department, complaining of generalized fatigue, malaise, dark stools, difficulty ambulating, and shortness of breath. He was released from the hospital about a week ago, at which time, the patient had a thoracentesis performed by my partner. The patient does have a history of severe chronic lung disease, with an FEV1 that is 17% of predicted. Currently, he's on 6 L of oxygen. He tested positive for coronavirus. Pro- calcitonin level is 0.19. His medical problems include heart failure, severe COPD, hypertension, obesity, pleural effusion, and lower extremity cellulitis. The patient also is on home oxygen, and therefore, has chronic hypoxemic respiratory failure. White count 6.9, hemoglobin 10.8, hematocrit 34.4, and platelet count 52,000. Sodium is 136, potassium 4.1, chlorides 91, CO2 40, BUN 113, creatinine 1.85. Lactic acid is 2.1. AST is 60, ALT is 70. Troponin was 0.116. N-terminal proBNP was 762. Urine was negative. He did test positive for coronavirus. He is vaccinated. Chest x-ray show some basilar atelectasis, small effusions. Chest x-ray was compared to a chest x-ray done August 30, and is unchanged. Progress note dated 09/13/2022. 67-year-old male seen yesterday in consultation. Please see the note above. He is seen today again in room 367. He is currently on 6 L of oxygen. He requests some [place] nasal spray for his nose. He is not receiving any IV fluids. He does not appear to be in any distress. I did tell the nurse, to accept saturations are bit lower on this patient, since he has severe COPD, with an FEV1 that is 17% of predicted. White count 6, hemoglobin 10.7, hematocrit 32.7, and platelet count 36,000. Sodium is 138, potassium 4.5, chlorides 93, CO2 39, BUN 108, and creatinine 1.81. Chest x-ray show some left upper lobe infiltrate, which may relate to left upper lobe collapse. Progress note dated 09/14/2022. 67-year-old male seen in consultation 2 days ago. He is seen again today in room 367. Currently, the patient is on 6 L of oxygen. No IV fluids. A chest x-ray yesterday showed partial left upper lobe collapse. Today's chest x-ray, shows that the collapse has resolved. Clinically, he feels better doing well. He denies any shortness of breath, cough, or phlegm production. He does have severe COPD, with an FEV1 that is 17% of predicted. He feels like he is at baseline. White count 8.7, hemoglobin 10.8, hematocrit 33.4, and platelet count 43,000. PT, INR, PTT, and fibrinogen are all normal. Sodium 138, potassium 4.7, chloride 93, CO2 41, BUN 111, and creatinine 1.90. Progress note dated 09/15/2022. 67-year-old male, seen in room 367. He remains on 6 L of oxygen. No IV fluids. He is feeling much better today. Lab work today includes a glucose of 271. The blood work from September 14 is reviewed. Progress note dated 09/16/2022. 67-year-old male seen in room 367. He remains on 6 L of oxygen. The patient has a history of severe COPD, with an FEV1 that's 17% of predicted. He's pretty much feeling back to baseline. Laboratory data includes a white count 8.6, hemoglobin 10.2, hematocrit 31, and a platelet count of 43,000. Sodium 133, potassium 4.9, chlorides 92, CO2 40, BUN 119, and creatinine 1.85. Objective - Vital Signs Vital signs: Vital Signs Temp 97.6 F 09/16/22 08:18 Pulse 82 09/16/22 10:03 Resp 18 09/16/22 10:03 BP 127/69 09/16/22 08:18 Pulse Ox 91 L 09/16/22 08:18 FiO2 Intake & Output 09/15/22 09/16/22 09/16/22 18:59 06:59 18:59 Intake Total 118 Output Total 475 400 Balance -357 -400 Weight 126 kg Intake: Oral 118 Output: Urine 475 400 Other: Voiding Method Urinal Urinal Urinal # Voids 3 - Exam No acute distress, oriented 3. No respiratory distress. Currently on 6 L of oxygen. HEENT examination is grossly unremarkable. Neck supple. Full range of motion. No adenopathy thyromegaly or neck vein distention. Cardiovascular examination reveals regular rhythm rate. S1-S2 normal. No S3 or S4. No discernible murmur noted. Heart rate 88 bpm. Lungs reveal scattered bilateral rhonchi. No wheezes. Minimal basilar crackles. Breath sounds equal bilaterally. 6 L saturation is 94 %. Abdomen soft bowel sounds are heard. No masses or tenderness. Extremities are intact. No cyanosis or clubbing. Trace edema noted. Skin is without rash or lesion. Neurologic examination is brief but nonfocal. - Labs CBC & Chem 7: 09/16/22 03:57 09/16/22 03:57 Labs: Abnormal Lab Results - Last 24 Hours (Table) 09/15/22 09/15/22 09/15/22 Range/Units 12:04 16:56 20:29 RBC (4.30-5.90) m/uL Hgb (13.0-17.5) gm/dL Hct (39.0-53.0) % MCV (80.0-100.0) fL Plt Count (150-450) k/uL Neutrophils # (1.3-7.7) k/uL Lymphocytes # (1.0-4.8) k/uL Sodium (137-145) mmol/L Chloride (98-107) mmol/L Carbon Dioxide (22-30) mmol/L BUN (9-20) mg/dL Creatinine (0.66-1.25) mg/dL Glucose (74-99) mg/dL POC Glucose (mg/dL) 271 H 243 H 278 H (70-110) mg/dL Magnesium (1.6-2.3) mg/dL AST (17-59) U/L ALT (4-49) U/L Total Protein (6.3-8.2) g/dL Albumin (3.5-5.0) g/dL 09/16/22 09/16/22 09/16/22 Range/Units 03:57 03:57 06:20 RBC 2.92 L (4.30-5.90) m/uL Hgb 10.2 L (13.0-17.5) gm/dL Hct 31.0 L (39.0-53.0) % MCV 106.2 H (80.0-100.0) fL Plt Count 43 L (150-450) k/uL Neutrophils # 7.8 H (1.3-7.7) k/uL Lymphocytes # 0.3 L (1.0-4.8) k/uL Sodium 133 L (137-145) mmol/L Chloride 92 L (98-107) mmol/L Carbon Dioxide 40 H (22-30) mmol/L BUN 119 H* (9-20) mg/dL Creatinine 1.85 H (0.66-1.25) mg/dL Glucose 200 H (74-99) mg/dL POC Glucose (mg/dL) 261 H (70-110) mg/dL Magnesium 2.5 H (1.6-2.3) mg/dL AST 61 H (17-59) U/L ALT 101 H (4-49) U/L Total Protein 5.4 L (6.3-8.2) g/dL Albumin 2.7 L (3.5-5.0) g/dL Assessment and Plan Assessment: Generalized fatigue, malaise, difficulty ambulating, weakness, likely all related to coronavirus infection. No evidence of coronavirus associated pneumonia, although the patient may have developed some left upper lobe collapse/consolidation, which has resolved. History of severe COPD, with an FEV1 that's 17% of predicted. Recent admission to the hospital, August 2022, for impending respiratory failure secondary to COPD exacerbation. Possible GI bleed. Obesity. History of lower extremity cellulitis. History of hypertension. History of heart failure. History of osteoarthritis. Prior history of tobacco use. Plan: Plan dated 09/12/2022. The patient's respiratory status appears to be reasonably stable. He does have chronic hypoxemic respiratory failure. He is currently on 6 L of oxygen. Saturations are in the mid to high 90s. The patient is currently on albuterol, Symbicort, and Decadron. He did test positive for coronavirus, but I doubt that he has significant coronavirus associated pneumonia. The patient's also receiving GI prophylaxis, and subcutaneous heparin. We will continue to follow make recommendations along the way. Prognosis is certainly guarded. Plan dated 09/13/2022. The patient will have a repeat chest x-ray tomorrow. Additional recommendations and suggestions are forthcoming. He is on appropriate medications. Labs, x- rays, medications are reviewed. We will continue to follow and make recommendations along the way. The patient has severe chronic lung disease, with an FEV1 percent that is only 17% of predicted. Plan dated 09/14/2022. The patient is feeling better today. His chest x-ray today is improved. The left upper lung collapse, is now much improved. Labs, x-rays, and medications are reviewed. Prognosis is guarded. Patient feels much better. He continues on 6 L. Saturations are 95%. The patient is not receiving any IV fluids. We will continue to follow the patient and make recommendations along the way. Plan dated 09/15/2022. The patient is doing much better today. He is on his home amount of oxygen, which is 6 L. The patient's feeling much better. In my opinion, the patient could be considered for possible discharge. He's not receiving any IV fluids. Labs, x-rays, and medications are reviewed. We will continue to follow make recommendations along the way. Plan dated 09/16/2022. From the pulmonary standpoint, the patient's back to baseline. He came in pr imarily with symptoms of weakness and fatigue, secondary to coronavirus infection. Those symptoms have pretty much resolved. Labs, x-rays, and medications are reviewed. The patient could be considered for possible discharge. We will leave that up to the primary service. The patient does have severe COPD, with an FEV1 that is 17% of predicted. Time with Patient: Less than 30
[2022-09-16 12:06] LABS: Glucose,Whole Blood 293 mg/dL (70-110)
--- NOTE | 2022-09-16 15:55 | P.PN ---
Subjective Progress Note Date: 09/16/22 Principal diagnosis: Covid 19 Patient is 67-year male was recently admitted to this facility and treated for bilateral lower extremity cellulitis with group B strep bacteremia patient now presenting back to the hospital concerning for generalized fatigue malaise dark stool and difficulty ambulating secondary to weakness , patient has been diagnosed with a covid 19 infection. On today's evaluation that is 09/16/2022, the patient remains to be afebrile, the patient is breathing comfortably currently on a 6 L nasal cannula, the patient denies chest pain, the patient did have occasional dry cough, the patient denies nausea and vomiting no abdominal pain no diarrhea and no pain to the lower extremity Objective - Vital Signs Vital signs: Vital Signs Temp 97.6 F 09/16/22 08:18 Pulse 82 09/16/22 14:30 Resp 18 09/16/22 14:30 BP 120/69 09/16/22 12:00 Pulse Ox 92 L 09/16/22 12:00 FiO2 Intake & Output 09/15/22 09/16/22 09/16/22 18:59 06:59 18:59 Intake Total 118 120 Output Total 475 400 300 Balance -357 -400 -180 Weight 126 kg Intake: Oral 118 120 Output: Urine 475 400 300 Other: Voiding Method Urinal Urinal Urinal # Voids 3 - Exam GENERAL DESCRIPTION: An elderly male lying in bed in no distress RESPIRATORY SYSTEM: Unlabored breathing , decreased breath sounds at bases HEART: S1 S2 regular rate and rhythm , ABDOMEN: Soft , no tenderness EXTREMITIES: Diffuse swelling bilateral lower extremity no erythema no blister - Labs CBC & Chem 7: 09/16/22 03:57 09/16/22 03:57 Labs: Abnormal Lab Results - Last 24 Hours (Table) 09/15/22 09/15/22 09/16/22 Range/Units 16:56 20:29 03:57 RBC 2.92 L (4.30-5.90) m/uL Hgb 10.2 L (13.0-17.5) gm/dL Hct 31.0 L (39.0-53.0) % MCV 106.2 H (80.0-100.0) fL Plt Count 43 L (150-450) k/uL Neutrophils # 7.8 H (1.3-7.7) k/uL Lymphocytes # 0.3 L (1.0-4.8) k/uL Sodium (137-145) mmol/L Chloride (98-107) mmol/L Carbon Dioxide (22-30) mmol/L BUN (9-20) mg/dL Creatinine (0.66-1.25) mg/dL Glucose (74-99) mg/dL POC Glucose (mg/dL) 243 H 278 H (70-110) mg/dL Magnesium (1.6-2.3) mg/dL AST (17-59) U/L ALT (4-49) U/L Total Protein (6.3-8.2) g/dL Albumin (3.5-5.0) g/dL 09/16/22 09/16/22 09/16/22 Range/Units 03:57 06:20 11:55 RBC (4.30-5.90) m/uL Hgb (13.0-17.5) gm/dL Hct (39.0-53.0) % MCV (80.0-100.0) fL Plt Count (150-450) k/uL Neutrophils # (1.3-7.7) k/uL Lymphocytes # (1.0-4.8) k/uL Sodium 133 L (137-145) mmol/L Chloride 92 L (98-107) mmol/L Carbon Dioxide 40 H (22-30) mmol/L BUN 119 H* (9-20) mg/dL Creatinine 1.85 H (0.66-1.25) mg/dL Glucose 200 H (74-99) mg/dL POC Glucose (mg/dL) 261 H 293 H (70-110) mg/dL Magnesium 2.5 H (1.6-2.3) mg/dL AST 61 H (17-59) U/L ALT 101 H (4-49) U/L Total Protein 5.4 L (6.3-8.2) g/dL Albumin 2.7 L (3.5-5.0) g/dL Assessment and Plan (1) COVID-19 Current Visit: Yes Status: Acute Priority: High Code(s): U07.1 - COVID-19 SNOMED Code(s): 337150279 Plan: 1patient present to hospital with generalized weakness no energy decreased appetite likely related to underlying COVID-19 infection in this patient chest x-ray completed 09/14/2022 did shows resolved left upper lobe collapse or atelectasis in the show some left basilar atelectasis 2patient currently do not have any evidence of cellulitis to lower extremity mostly swelling and patient seemed to have done well off systemic antibiotic therapy. 3-patient continued to show clinical improvement , the patient to continue the current supportive treatment of dexamethasone along with zinc and ascorbic acid and monitor clinical course closely Time with Patient: Less than 30
[2022-09-16 15:59] LABS: HCT 34.8 % (39.0-53.0); HGB 11.1 gm/dL (13.0-17.5); Hypochromasia Slight; MCH 34.4 pg (25.0-35.0); MCHC 31.8 g/dL (31.0-37.0); MCV 108.1 fL (80.0-100.0); Macrocytosis Moderate; Mean Platelet Volume 14.6; RBC 3.22 m/uL (4.30-5.90); RDW 12.9 % (11.5-15.5); WBC 10.3 k/uL (3.8-10.6)
[2022-09-16 16:02] LABS: Platelet Count 54 k/uL (150-450)
[2022-09-16 17:06] LABS: Glucose,Whole Blood 255 mg/dL (70-110)
[2022-09-16 20:48] LABS: Glucose,Whole Blood 222 mg/dL (70-110)
[2022-09-16] MEDS: MONTELUKAST 10 MG TAB PO SCH (20:52)
[2022-09-17] MEDS: DEXAMETHASONE SOD PHOSPHATE 4 MG/ML 1 ML VIAL IVP SCH ×3 (00:54→11:48)
[2022-09-17 06:39] LABS: Glucose,Whole Blood 274 mg/dL (70-110)
[2022-09-17] MEDS: INSULIN ASPART (NovoLOG) 100 UNIT/ML VIAL SQ SCH ×4 (06:59→20:40)
[2022-09-17] MEDS: ALBUTEROL HFA INHALER INHALATION PRN ×4 (08:46→18:59)
[2022-09-17] MEDS: SYMBICORT 160-4.5 MCG INHALER INHALATION SCH ×2 (08:46→18:58)
[2022-09-17 09:02] LABS: Basophils % (A) 0 %; Eosinophils % (A) 0 %; HCT 34.4 % (39.0-53.0); Hypochromasia Slight; Lymphocytes # (A) 0.3 k/uL (1.0-4.8); Lymphocytes % (A) 3 %; MCH 34.6 pg (25.0-35.0); MCV 108.2 fL (80.0-100.0); Macrocytosis Moderate; Monocytes # (A) 0.5 k/uL (0-1.0); Monocytes % (A) 4 %; Neutrophils # (A) 10.9 k/uL (1.3-7.7); Neutrophils % (A) 92 %; RBC 3.18 m/uL (4.30-5.90); WBC 11.8 k/uL (3.8-10.6)
[2022-09-17 09:06] LABS: Albumin 3.3 g/dL (3.5-5.0); Calcium 8.6 mg/dL (8.4-10.2); Potassium 5.1 mmol/L (3.5-5.1); Total Bilirubin 1.7 mg/dL (0.2-1.3); Total Protein 6.2 g/dL (6.3-8.2)
[2022-09-17 09:17] LABS: Platelet Count 56 k/uL (150-450)
[2022-09-17] MEDS: CHOLECALCIFEROL 25 MCG (1000 IU) TABLET PO SCH (10:03)
[2022-09-17] MEDS: METOPROLOL TARTRATE 50 MG TAB PO SCH ×2 (10:03→20:41)
[2022-09-17] MEDS: FOLIC ACID 1 MG TAB PO SCH (10:03)
[2022-09-17] MEDS: PANTOPRAZOLE 40 MG/10 ML VIAL IV SCH (10:03)
[2022-09-17] MEDS: FUROSEMIDE 20 MG TAB PO SCH ×3 (10:03→20:41)
--- NOTE | 2022-09-17 11:09 | P.CONS ---
History of Present Illness - Chief Complaint Kinsley positive pneumonia - History of Present Illness I had the opportunity to see patient for inpatient rehab consultation today. Patient admitted to Dr. Albrecht September 11 with fatigue and multiple dark stools. Covid positive. Seen by who notes chronic hypoxic respiratory failure. Seen by Dr. Salcido who notes lower extremity cellulitis with bactere alvino. Seen by Dr. Ashford for acute on chronic kidney disease stage IIIa. Seen by oncology for thrombocytopenia apparently long-standing. Diagnostic tests withAbdominal ultrasound done.Chest x-ray demonstrates cardiomegaly, less base infiltrate with effusion and patchy infiltrate right base. Resolved left upper lobe change. PT and OT prescribed but no notes on chart currently. Previous functional history as elicited from patient: 67-year-old right-handed white male who is single lives in one for home with son and daughter. Son generally does the take out dinner errands and daughter does the laundry and both drive. Patient retired. Previously independent with standing shower, gait without device. Does not drive. PCP Dr. krystal reza. Denies tobacco or alcohol. Review of Systems Review of systems: ENT: Denies sneezes or discharge. Eyes: Denies discharge or photophobia. Cardiac: Denies chest pain or palpitation. Pulmonary: Resolving/resolved shortness of breath. Gastrointestinal: Denies nausea, emesis, constipation, diarrhea. Genitourinary: Denies discharge or frequency. Musculoskeletal: Denies muscle or bone aches. Neurologic: At least mild generalized weakness. Endocrine: Denies shakes or sweats. Oncology: Denies cancers. Dermatologic: Denies rash, itching, pruritus. ALLERGY/immunology: Denies sneezes, rashes. Past Medical History Past Medical History: Heart Failure, COPD, Hypertension, Osteoarthritis (OA), Skin Disorder Additional Past Medical History / Comment(s): Obesity, previous history of cellulitis of the lower extremities, hypertension, COPD, chronic hypoxic respiratory failure, osteoarthritis History of Any Multi-Drug Resistant Organisms: None Reported Past Surgical History: No Surgical Hx Reported Additional Past Surgical History / Comment(s): no Reported history of surgeries Past Anesthesia/Blood Transfusion Reactions: No Reported Reaction Past Psychological History: No Psychological Hx Reported Smoking Status: Former smoker Past Alcohol Use History: None Reported Past Drug Use History: None Reported - Past Family History Father History Unknown: Yes Additional Family Medical History / Comment(s): Patient states father at 76 of a blood clot, mother had breast cancer Mother History Unknown: Yes Family Medical History: Dementia Medications and Allergies Home Medications Medication Instructions Recorded Confirmed Type Albuterol Nebulized [Ventolin 2.5 mg INHALATION RT-QID PRN 06/22/14 09/11/22 History Nebulized] Montelukast [Singulair] 10 mg PO HS@2100 06/09/19 09/11/22 History clonazePAM [KlonoPIN] 0.5 mg PO DAILY PRN 06/09/19 09/11/22 History Albuterol Sulfate [Ventolin HFA] 2 puff INHALATION RT-Q4H PRN 08/27/19 09/11/22 History Fluticasone Propion/Salmeterol 1 puff INHALATION RT-BID 08/27/19 09/11/22 History [Advair 250-50 Diskus] Cholecalciferol [Vitamin D3 (25 25 mcg PO DAILY 06/16/22 09/11/22 History Mcg = 1000 Iu)] Metoprolol Tartrate [Lopressor] 50 mg PO BID@0900,2100 06/16/22 09/11/22 History Furosemide [Lasix] 60 mg PO TID 08/29/22 09/11/22 History Aspirin 81 mg PO DAILY 30 Days #30 tab 09/02/22 09/11/22 Rx Cephalexin [Keflex] 500 mg PO Q6HR 10 Days #40 cap 09/02/22 09/11/22 Rx Budesonide-Formot 160-4.5 Mcg 2 puff INHALATION RT-BID each 09/16/22 Rx [Symbicort 160-4.5 Mcg Inhaler] Folic Acid 1 mg PO DAILY tab 09/16/22 Rx dexAMETHasone [Decadron] 4 mg PO BID 10 Days #20 tablet 09/16/22 Rx Allergies Allergy/AdvReac Type Severity Reaction Status Date / Time clarithromycin [From Biaxin] AdvReac TREMORS Verified 09/11/22 19:55 Physical Exam Vitals: Vital Signs Temp Pulse Resp BP Pulse Ox 09/17/22 08:52 100 09/17/22 08:00 97.8 F 73 20 143/111 95 09/17/22 04:00 98.1 F 70 16 115/75 98 09/17/22 02:00 65 18 09/17/22 00:00 97.6 F 65 18 123/65 98 09/16/22 20:00 97.6 F 82 16 116/57 94 L 09/16/22 17:36 97.5 F L 78 18 103/54 96 09/16/22 14:30 82 18 09/16/22 12:00 92 18 120/69 92 L Intake and Output 09/16/22 09/17/22 09/17/22 22:59 06:59 14:59 Intake Total 0 Output Total 800 750 Balance -800 -750 Intake: Oral 0 Output: Urine 800 750 Other: Voiding Method Urinal Urinal Urinal # Bowel Movements 1 1 Skin: Good color, texture, turgor. General: Overweight build and comfortable appearance. Head: Normocephalic, atraumatic. Eyes: Symmetric. Pupils equal round. Ears: Symmetric. Hearing within normal limits. Mouth: Clear. Neck: Supple. Carotid without bruit. Cardiac: Regular rate and rhythm. Lungs: Clear anteriorly and posteriorly. Abdomen: Soft active nontender. Extremities: Normal tone. Neurological: Mental status: Alert, cooperative, pleasant. Cranial nerves: Symmetric facial tone and trapezius. Motor: Actively moves all 4 limbs. Sensation: Intact throughout. DTRs: Symmetric and equal throughout. Mobility: Patient reports that he ambulates in the room and bathroom on own but then later reports that he receives assistance for toileting. Results CBC & Chem 7: 09/17/22 08:41 09/17/22 08:41 Labs: Abnormal Lab Results - Last 24 Hours (Table) 09/16/22 09/16/22 09/16/22 Range/Units 11:55 15:22 17:04 WBC (3.8-10.6) k/uL RBC 3.22 L (4.30-5.90) m/uL Hgb 11.1 L (13.0-17.5) gm/dL Hct 34.8 L (39.0-53.0) % MCV 108.1 H (80.0-100.0) fL Plt Count 54 L (150-450) k/uL Sodium (137-145) mmol/L Chloride (98-107) mmol/L Carbon Dioxide (22-30) mmol/L BUN (9-20) mg/dL Creatinine (0.66-1.25) mg/dL Glucose (74-99) mg/dL POC Glucose (mg/dL) 293 H 255 H (70-110) mg/dL Total Bilirubin (0.2-1.3) mg/dL ALT (4-49) U/L Alkaline Phosphatase (38-126) U/L Total Protein (6.3-8.2) g/dL Albumin (3.5-5.0) g/dL 09/16/22 09/17/22 09/17/22 Range/Units 20:46 06:32 08:41 WBC 11.8 H (3.8-10.6) k/uL RBC 3.18 L (4.30-5.90) m/uL Hgb 11.0 L (13.0-17.5) gm/dL Hct 34.4 L (39.0-53.0) % MCV 108.2 H (80.0-100.0) fL Plt Count 56 L (150-450) k/uL Sodium (137-145) mmol/L Chloride (98-107) mmol/L Carbon Dioxide (22-30) mmol/L BUN (9-20) mg/dL Creatinine (0.66-1.25) mg/dL Glucose (74-99) mg/dL POC Glucose (mg/dL) 222 H 274 H (70-110) mg/dL Total Bilirubin (0.2-1.3) mg/dL ALT (4-49) U/L Alkaline Phosphatase (38-126) U/L Total Protein (6.3-8.2) g/dL Albumin (3.5-5.0) g/dL 09/17/22 Range/Units 08:41 WBC (3.8-10.6) k/uL RBC (4.30-5.90) m/uL Hgb (13.0-17.5) gm/dL Hct (39.0-53.0) % MCV (80.0-100.0) fL Plt Count (150-450) k/uL Sodium 136 L (137-145) mmol/L Chloride 89 L (98-107) mmol/L Carbon Dioxide 41 H* (22-30) mmol/L BUN 118 H* (9-20) mg/dL Creatinine 2.14 H (0.66-1.25) mg/dL Glucose 270 H (74-99) mg/dL POC Glucose (mg/dL) (70-110) mg/dL Total Bilirubin 1.7 H (0.2-1.3) mg/dL ALT 88 H (4-49) U/L Alkaline Phosphatase 127 H (38-126) U/L Total Protein 6.2 L (6.3-8.2) g/dL Albumin 3.3 L (3.5-5.0) g/dL Assessment and Plan (1) COVID-19 Current Visit: Yes Status: Acute Priority: High Code(s): U07.1 - COVID-19 SNOMED Code(s): 054806697 (2) Generalized weakness Current Visit: Yes Status: Acute Code(s): R53.1 - WEAKNESS SNOMED Code(s): 59156664 (3) Thrombocytopenia Current Visit: Yes Status: Chronic Priority: High Code(s): D69.6 - THROMBOCYTOPENIA, UNSPECIFIED SNOMED Code(s): 621732007 (4) Acute respiratory failure Current Visit: No Status: Acute Code(s): J96.00 - ACUTE RESPIRATORY FAILURE, UNSP W HYPOXIA OR HYPERCAPNIA SNOMED Code(s): 81316006 (5) Bacteremia Current Visit: No Status: Acute Code(s): R78.81 - BACTEREMIA SNOMED Code(s): 5555761 (6) COPD exacerbation Current Visit: No Status: Acute Code(s): J44.1 - CHRONIC OBSTRUCTIVE PU LMONARY DISEASE W (ACUTE) EXACERBATION SNOMED Code(s): 620016969 (7) Cellulitis Current Visit: No Status: Acute Code(s): L03.90 - CELLULITIS, UNSPECIFIED SNOMED Code(s): 982061626 (8) Congestive heart failure Current Visit: No Status: Acute Code(s): I50.9 - HEART FAILURE, UNSPECIFIED SNOMED Code(s): 02295095 Plan: Comments and plan: At this time it appears as though son and daughter may be u ncomfortable taking patient home as a discharge summary is done and patient not returning directly to home. Would need to know whether specific concerns are with regard inpatient rehab. Also require PT and OT notes in order to make determination on patient needs and possible I [place].
[2022-09-17 11:22] VITALS: BMI 37.6
[2022-09-17 11:36] LABS: Glucose,Whole Blood 261 mg/dL (70-110)
--- NOTE | 2022-09-17 11:52 | P.PN ---
Subjective Patient is seen in follow-up for acute kidney injury and chronic kidney disease. Renal function was today. Remains on oral Lasix. Has been voiding. Denies chest pain or shortness of breath at this time. On 6 L nasal cannula. Blood pressure stable. Vital signs are stable. General: Awake. No acute distress. HEENT: Head exam is unremarkable. LUNGS: Breath sounds decreased. HEART: Rate and Rhythm are regular. ABDOMEN: Soft, no distention. EXTREMITITES: Trace edema. Chronic changes noted. Objective - Vital Signs Vital signs: Vital Signs Temp 97.8 F 09/17/22 08:00 Pulse 73 09/17/22 08:00 Resp 20 09/17/22 08:00 BP 143/111 09/17/22 08:00 Pulse Ox 100 09/17/22 08:52 FiO2 Intake & Output 09/16/22 09/17/22 09/17/22 18:59 06:59 18:59 Intake Total 440 Output Total 1100 750 Balance -660 -750 Weight 126 kg Intake: Oral 440 Output: Urine 1100 750 Other: Voiding Method Urinal Urinal Urinal # Bowel Movements 1 1 - Labs CBC & Chem 7: 09/17/22 08:41 09/17/22 08:41 Labs: Abnormal Lab Results - Last 24 Hours (Table) 09/16/22 09/16/22 09/16/22 Range/Units 11:55 15:22 17:04 WBC (3.8-10.6) k/uL RBC 3.22 L (4.30-5.90) m/uL Hgb 11.1 L (13.0-17.5) gm/dL Hct 34.8 L (39.0-53.0) % MCV 108.1 H (80.0-100.0) fL Plt Count 54 L (150-450) k/uL Sodium (137-145) mmol/L Chloride (98-107) mmol/L Carbon Dioxide (22-30) mmol/L BUN (9-20) mg/dL Creatinine (0.66-1.25) mg/dL Glucose (74-99) mg/dL POC Glucose (mg/dL) 293 H 255 H (70-110) mg/dL Total Bilirubin (0.2-1.3) mg/dL ALT (4-49) U/L Alkaline Phosphatase (38-126) U/L Total Protein (6.3-8.2) g/dL Albumin (3.5-5.0) g/dL 09/16/22 09/17/22 09/17/22 Range/Units 20:46 06:32 08:41 WBC 11.8 H (3.8-10.6) k/uL RBC 3.18 L (4.30-5.90) m/uL Hgb 11.0 L (13.0-17.5) gm/dL Hct 34.4 L (39.0-53.0) % MCV 108.2 H (80.0-100.0) fL Plt Count 56 L (150-450) k/uL Sodium (137-145) mmol/L Chloride (98-107) mmol/L Carbon Dioxide (22-30) mmol/L BUN (9-20) mg/dL Creatinine (0.66-1.25) mg/dL Glucose (74-99) mg/dL POC Glucose (mg/dL) 222 H 274 H (70-110) mg/dL Total Bilirubin (0.2-1.3) mg/dL ALT (4-49) U/L Alkaline Phosphatase (38-126) U/L Total Protein (6.3-8.2) g/dL Albumin (3.5-5.0) g/dL 09/17/22 09/17/22 Range/Units 08:41 11:34 WBC (3.8-10.6) k/uL RBC (4.30-5.90) m/uL Hgb (13.0-17.5) gm/dL Hct (39.0-53.0) % MCV (80.0-100.0) fL Plt Count (150-450) k/uL Sodium 136 L (137-145) mmol/L Chloride 89 L (98-107) mmol/L Carbon Dioxide 41 H* (22-30) mmol/L BUN 118 H* (9-20) mg/dL Creatinine 2.14 H (0.66-1.25) mg/dL Glucose 270 H (74-99) mg/dL POC Glucose (mg/dL) 261 H (70-110) mg/dL Total Bilirubin 1.7 H (0.2-1.3) mg/dL ALT 88 H (4-49) U/L Alkaline Phosphatase 127 H (38-126) U/L Total Protein 6.2 L (6.3-8.2) g/dL Albumin 3.3 L (3.5-5.0) g/dL Assessment and Plan Plan: Assessment: 1. Acute kidney injury mostly prerenal secondary to cardiorenal syndrome. Renal function stable.. Disproportionately elevated BUN secondary to steroids. 2. Chronic kidney disease stage IIIa with baseline creatinine near 1.5 secondary to nephrosclerosis and cardiorenal syndrome. UA benign. No hydronephrosis noted on kidney ultrasound. 3. Acute on chronic diastolic CHF. 4. COVID-19 infection. 5. Chronic COPD maintained on home oxygen. 6. Metabolic alkalosis which is compensatory for underlying chronic respiratory acidosis. Plan: Maintain oral Lasix. Encourage oral intake. Avoid nephrotoxins. Continue to monitor renal function and urine output. Diamox 250 mg 2 doses today.
--- NOTE | 2022-09-17 12:52 | P.PN ---
Subjective Progress Note Date: 09/17/22 On 09/17/2022, I'm seeing the patient for a follow-up. The patient has advanced COPD with an FEV1 of 70% of predicted. He tested positive for Covid 19 on 09/11/2022. He came in with generalized fatigue and tiredness and difficulty with ambulation and some shortness of breath. His x-rays were reviewed and a chest x-ray from admission showed some mild pleural reaction and subsegmental atelectasis in the lung bases. The most recent chest x-ray was done on 09/14/2022 and there is some interval worsening of the pleural reaction on the left. There is some atelectatic change in the right lung also. There is also some cardiomegaly. Left lower lobe pulmonary infiltrate/atelectasis obviously there along with a small left-sided pleural effusion. As for the left upper lobe collapse/atelectasis, this is essentially recovered and resolved. The patient is currently on oxygen and he is on 6 L O2 nasal cannula. There has been no worsening in his oxygenation since his admission. At the same time, the patient is on Decadron 4 mg IV every 6 hours and albuterol HFA every 4 hours when necessary. He is on Symbicort 160/4.52 puffs twice a day. His blood work includes a pro-calcitonin level that was at 0.19 and temp of admission. His LFTs were slightly abnormal from today with a AST of 49 ALT of 88 alkaline phosphatase of 127. Serum bicarbs of 41 with a sodium level of 136 and a potassium level of 5.1. Blood sugars at 261. His creatinine is at 2.14 which is slightly higher compared to earlier values and his BUN is up to 118. He is on Lasix 60 mg by mouth 3 times a day. Objective - Vital Signs Vital signs: Vital Signs Temp 97.8 F 09/17/22 12:00 Pulse 73 09/17/22 12:00 Resp 20 09/17/22 12:00 BP 108/59 09/17/22 12:00 Pulse Ox 94 L 09/17/22 12:00 FiO2 Intake & Output 09/16/22 09/17/22 09/17/22 18:59 06:59 18:59 Intake Total 440 Output Total 1100 750 Balance -660 -750 Weight 126 kg Intake: Oral 440 Output: Urine 1100 750 Other: Voiding Method Urinal Urinal Urinal # Bowel Movements 1 1 - Exam No acute distress, oriented 3. No respiratory distress. Currently on 6 L of oxygen. HEENT examination is grossly unremarkable. Neck supple. Full range of motion. No adenopathy thyromegaly or neck vein distention. Cardiovascular examination reveals regular rhythm rate. S1-S2 normal. No S3 or S4. No discernible murmur noted. Heart rate 88 bpm. Lungs reveal scattered bilateral rhonchi. No wheezes. Minimal basilar crackles. Breath sounds equal bilaterally. 6 L saturation is 94 %. Abdomen soft bowel sounds are heard. No masses or tenderness. Extremities are intact. No cyanosis or clubbing. Trace edema noted. Skin is without rash or lesion. Neurologic examination is brief but nonfocal. - Labs CBC & Chem 7: 09/17/22 08:41 09/17/22 08:41 Labs: Abnormal Lab Results - Last 24 Hours (Table) 09/16/22 09/16/22 09/16/22 Range/Units 15:22 17:04 20:46 WBC (3.8-10.6) k/uL RBC 3.22 L (4.30-5.90) m/uL Hgb 11.1 L (13.0-17.5) gm/dL Hct 34.8 L (39.0-53.0) % MCV 108.1 H (80.0-100.0) fL Plt Count 54 L (150-450) k/uL Sodium (137-145) mmol/L Chloride (98-107) mmol/L Carbon Dioxide (22-30) mmol/L BUN (9-20) mg/dL Creatinine (0.66-1.25) mg/dL Glucose (74-99) mg/dL POC Glucose (mg/dL) 255 H 222 H (70-110) mg/dL Total Bilirubin (0.2-1.3) mg/dL ALT (4-49) U/L Alkaline Phosphatase (38-126) U/L Total Protein (6.3-8.2) g/dL Albumin (3.5-5.0) g/dL 09/17/22 09/17/22 09/17/22 Range/Units 06:32 08:41 08:41 WBC 11.8 H (3.8-10.6) k/uL RBC 3.18 L (4.30-5.90) m/uL Hgb 11.0 L (13.0-17.5) gm/dL Hct 34.4 L (39.0-53.0) % MCV 108.2 H (80.0-100.0) fL Plt Count 56 L (150-450) k/uL Sodium 136 L (137-145) mmol/L Chloride 89 L (98-107) mmol/L Carbon Dioxide 41 H* (22-30) mmol/L BUN 118 H* (9-20) mg/dL Creatinine 2.14 H (0.66-1.25) mg/dL Glucose 270 H (74-99) mg/dL POC Glucose (mg/dL) 274 H (70-110) mg/dL Total Bilirubin 1.7 H (0.2-1.3) mg/dL ALT 88 H (4-49) U/L Alkaline Phosphatase 127 H (38-126) U/L Total Protein 6.2 L (6.3-8.2) g/dL Albumin 3.3 L (3.5-5.0) g/dL 09/17/22 Range/Units 11:34 WBC (3.8-10.6) k/uL RBC (4.30-5.90) m/uL Hgb (13.0-17.5) gm/dL Hct (39.0-53.0) % MCV (80.0-100.0) fL Plt Count (150-450) k/uL Sodium (137-145) mmol/L Chloride (98-107) mmol/L Carbon Dioxide (22-30) mmol/L BUN (9-20) mg/dL Creatinine (0.66-1.25) mg/dL Glucose (74-99) mg/dL POC Glucose (mg/dL) 261 H (70-110) mg/dL Total Bilirubin (0.2-1.3) mg/dL ALT (4-49) U/L Alkaline Phosphatase (38-126) U/L Total Protein (6.3-8.2) g/dL Albumin (3.5-5.0) g/dL Assessment and Plan Plan: Generalized fatigue, malaise, difficulty ambulating, weakness, likely all related to coronavirus infection. Covid 19 infection, confirmed on 09/11/2022. No evidence of coronavirus associated pneumonia, although the patient may have developed some left upper lobe collapse/consolidation, which has resolved. History of severe COPD, with an FEV1 that's 17% of predicted. Recent admission to the hospital, August 2022, for impending respiratory failure secondary to COPD exacerbation. Possible GI bleed. Obesity. History of lower extremity cellulitis. History of hypertension. History of heart failure. History of osteoarthritis. Acute kidney injury on top of chronic stage III kidney disease, patient is maintained on Lasix. Metabolic alkalosis, is being given Diamox by nephrology. Prior history of tobacco use. Plan Repeat chest x-ray Keep the oxygen at 6 L which is his baseline oxygen requirements Continue Decadron and switch the dose to 6 mg by mouth daily to complete a 10 day course Continue Symbicort and albuterol HFA 4 times a day Check inflammatory markers regarding Covid 19 infection including LDH and CRP and check pro calcitonin level. Provide incentive spirometer Management of renal failure and diuretics per nephrology We'll continue to follow. Diamox was given regarding metabolic alkalosis.
--- NOTE | 2022-09-17 14:01 | XR ---
EXAMINATION TYPE: XR chest 1V DATE OF EXAM: 09/17/2022 1:34 PM COMPARISON: Chest radiographs from TECHNIQUE: XR chest 1V Portable AP radiograph of the chest. CLINICAL INDICATION:Male, 67 years old with history of COVID-19 pneumonia; FINDINGS: Lungs/Pleura: Persistent airspace opacities are seen in the lung bases most pronounced on the left la teral aspect. There is suspected small left pleural effusion. Pulmonary vascularity: Unremarkable. Heart/mediastinum: Cardiomediastinal silhouette is unremarkable. Musculoskeletal: No acute osseous pathology. IMPRESSION: 1. Similar suspected left small pleural effusion and associated airspace opacities. 2. COPD changes.
[2022-09-17] MEDS: acetaZOLAMIDE 250 MG TAB PO SCH ×2 (15:24→20:46)
[2022-09-17 16:35] LABS: Glucose,Whole Blood 246 mg/dL (70-110)
--- NOTE | 2022-09-17 17:19 | P.PN ---
Subjective Progress Note Date: 09/17/22 Chemo Escalera, is a 67-year-old male who presented to [facility] emergency room with a chief complaint of worsening shortness of breath, and multiple episodes of black stools. He was evaluated in the emergency room vital examination on presentation revealed a temperature of 98.7 pulse 89 respiration 16 blood pressure 124/67 pulse ox 98% on 6 L oxygen via nasal cannula Laboratory data revealed a white blood count of 9.4 hemoglobin 11.9 platelet count 51 BUN 113 creatinine 1.81 glucose 213 lactic acid 2.1 Covid 19 PCR was positive, stools for occult blood was negative Testing in the emergency room revealed chest x-ray done in the emergency room revealed mild pleural reaction, EKG done in the emergency room revealed sinus rhythm with right axis deviation and right bundle branch block and possible anteroseptal myocardial infarction of indeterminate age. Patient was admitted to medical floor for further evaluation and treatment. On 09/13/2022 patient was seen and examined on the medical floor, he is alert and oriented 3 in no apparent distress, he is complaining of shortness of breath with any activity he has occasional cough otherwise he denies any complaints he is maintained on oxygen at 6 L via nasal cannula there is no fever or chills no headache or dizziness no chest pain no nausea or vomiting no abdominal pain no diarrhea no blood in the stools no burning with urination no frequency or urgency and no hematuria On 09/14/2022 patient was seen and examined is alert and oriented 3 in no apparent distress he is still complaining of shortness of breath with any activ ity and complaining of cough otherwise he denies any complaints there is no fever or chills no headache or dizziness no chest pain no nausea or vomiting no abdominal pain no diarrhea and no urinary symptoms. He is still maintained on oxygen 6 L via nasal cannula today hemoglobin is 10.8 CO2 41 BUN 111 creatinine 1.9 nephrology are following On 09/15/2022 patient was seen and examined is alert and oriented 3 in no distress he is complaining of shortness of breath with activity and complaining of cough otherwise he denies any complaints there is no fever or chills no headache or dizziness no chest pain no nausea or vomiting no abdominal pain no diarrhea and no urinary symptoms. He is still maintained on oxygen 6 L via nasal cannula today hemoglobin is 10.8 CO2 41 BUN 111 creatinine 1.9 nephrology are following 09/16/2022 patient is alert and oriented 3. Patient is still complaining of shortness breath. Patient currently on 6 L nasal cannula. Vital signs temp 97.6, heart rate 80, respiratory rate 18 blood pressure 127/69. Creatinine 1.5, bun 119. Pulmonary: Infectious disease and nephrology services are following. On 09/17/2022 patient was seen and examined on the medical floor he is alert and oriented 3 in no apparent distress he is still complaining of shortness of br eath and generalized weakness yesterday he wanted to go home and he was cleared by pulmonary to be discharged discharge was put in however patient was too weak to go and family refused to take him home at this time physical therapy and occupational therapy are continuing to work with patient he will probably need to go to a rehab before going consultation for Dr. Edmond was initiated otherwise he denies any complaints there is no fever or chills no headache or dizziness no chest pain no nausea or vomiting no abdominal pain no diarrhea and no urinary symptoms Objective - Vital Signs Vital signs: Vital Signs Temp 98.1 F 09/17/22 04:00 Pulse 70 09/17/22 04:00 Resp 16 09/17/22 04:00 BP 115/75 09/17/22 04:00 Pulse Ox 100 09/17/22 08:52 FiO2 Intake & Output 09/16/22 09/17/22 09/17/22 18:59 06:59 18:59 Intake Total 440 Output Total 1100 750 Balance -660 -750 Intake: Oral 440 Output: Urine 1100 750 Other: Voiding Method Urinal Urinal # Bowel Movements 1 1 - Exam In general patient is alert and oriented x 3 in no distress HEENT head normocephalic and atraumatic Neck is supple no JVD no goiter no lymphadenopathy no carotid bruit Chest examination reveals a scattered crackles bilaterally no wheezing Cardiac exam reveals regular heart sounds S1 and S2 no gallops no murmurs Abdomen is soft nontender no organomegaly with normal bowel sounds Extremity exam reveals no edema no cyanosis or clubbing Neurological examination reveals no gross focal deficits - Labs CBC & Chem 7: 09/17/22 08:41 09/17/22 08:41 Labs: Abnormal Lab Results - Last 24 Hours (Table) 09/16/22 09/16/22 09/16/22 Range/Units 11:55 15:22 17:04 RBC 3.22 L (4.30-5.90) m/uL Hgb 11.1 L (13.0-17.5) gm/dL Hct 34.8 L (39.0-53.0) % MCV 108.1 H (80.0-100.0) fL Plt Count 54 L (150-450) k/uL POC Glucose (mg/dL) 293 H 255 H (70-110) mg/dL 09/16/22 09/17/22 Range/Units 20:46 06:32 RBC (4.30-5.90) m/uL Hgb (13.0-17.5) gm/dL Hct (39.0-53.0) % MCV (80.0-100.0) fL Plt Count (150-450) k/uL POC Glucose (mg/dL) 222 H 274 H (70-110) mg/dL Assessment and Plan Plan: Acute COVID-19 infection, patient admitted to the medical floor, he was started on IV dexamethasone, vitamin C vitamin D and zinc supplements, infectious disease consultation requested Acute kidney injury on top of chronic kidney disease stage III consultation for nephrology was initiated Underlying history of advanced COPD Acute hypercapnic and hypoxic respiratory failure Bilateral lower extremity cellulitis Underlying history of hypertension Underlying history of chronic diastolic congestive heart failure Recent diagnosis of bilateral lower extremity cellulitis maintained on oral Keflex At this time patient is admitted to telemetry floor Home medications reviewed and reordered to Consultation for infectious disease and nephrology initiated For DVT prophylaxis subcu Lovenox For GI prophylaxis IV proton next Will follow closely
[2022-09-17 20:18] LABS: Glucose,Whole Blood 298 mg/dL (70-110)
[2022-09-17] MEDS: MONTELUKAST 10 MG TAB PO SCH (20:41)
[2022-09-18 06:25] LABS: Glucose,Whole Blood 191 mg/dL (70-110)
[2022-09-18] MEDS: INSULIN ASPART (NovoLOG) 100 UNIT/ML VIAL SQ SCH ×2 (06:41→12:26)
[2022-09-18] MEDS ORDERED: dexAMETHasone 2 MG TAB PO SCH (09:00)
[2022-09-18] MEDS: ALBUTEROL HFA INHALER INHALATION PRN ×3 (09:02→16:07)
[2022-09-18] MEDS: SYMBICORT 160-4.5 MCG INHALER INHALATION SCH (09:02)
[2022-09-18] MEDS: acetaZOLAMIDE 250 MG TAB PO SCH (09:42)
[2022-09-18] MEDS: FUROSEMIDE 20 MG TAB PO SCH (09:42)
[2022-09-18] MEDS: FOLIC ACID 1 MG TAB PO SCH (09:43)
[2022-09-18] MEDS: PANTOPRAZOLE 40 MG/10 ML VIAL IV SCH (09:43)
[2022-09-18] MEDS: CHOLECALCIFEROL 25 MCG (1000 IU) TABLET PO SCH (09:43)
[2022-09-18] MEDS: METOPROLOL TARTRATE 50 MG TAB PO SCH (09:43)
[2022-09-18 09:51] VITALS: RESP 17; TEMP 97.3
[2022-09-18 11:15] VITALS: BP 107/68
[2022-09-18 11:28] LABS: Glucose,Whole Blood 173 mg/dL (70-110)
--- NOTE | 2022-09-18 11:42 | P.PN ---
Subjective Patient is seen for follow-up for acute kidney injury and top of chronic kidney disease. He has underlying Covid infection and volume overload Patient is being diuresed. Lasix is currently oral Renal function is fairly stable with serum creatinine at 2.1 yesterday which was slightly higher than 1.9-1.8. Good urine output No significant complaints today. Objective - Vital Signs Vital signs: Vital Signs Temp 97.3 F L 09/18/22 09:51 Pulse 77 09/18/22 11:14 Resp 17 09/18/22 09:51 BP 107/68 09/18/22 11:14 Pulse Ox 94 L 09/18/22 09:51 FiO2 Intake & Output 09/17/22 09/18/22 09/18/22 18:59 06:59 18:59 Intake Total 240 Output Total 200 350 Balance -200 -350 240 Weight 126 kg Intake: Oral 240 Output: Urine 200 350 Other: Voiding Method Urinal Urinal Urinal - Exam Awake, comfortable, no acute distress Examination of the heart S1 and S2 Examination lungs decreased breath sounds at the bases Abdomen is soft nontender Exertion lower extremities shows chronic skin changes edema 1+ bilaterally [employer] exam grossly intact - Labs CBC & Chem 7: 09/17/22 08:41 09/17/22 08:41 Labs: Abnormal Lab Results - Last 24 Hours (Table) 09/17/22 09/17/22 09/17/22 Range/Units 08:41 12:52 12:52 Neutrophils # 10.9 H (1.3-7.7) k/uL Lymphocytes # 0.3 L (1.0-4.8) k/uL D-Dimer 2.00 H (<0.60) mg/L FEU POC Glucose (mg/dL) (70-110) mg/dL Lactate Dehydrogenase 721 H (313-618) U/L C-Reactive Protein 1.0 H (<1.0) mg/dL Procalcitonin (0.02-0.09) ng/mL 09/17/22 09/17/22 09/17/22 Range/Units 12:52 16:34 20:16 Neutrophils # (1.3-7.7) k/uL Lymphocytes # (1.0-4.8) k/uL D-Dimer (<0.60) mg/L FEU POC Glucose (mg/dL) 246 H 298 H (70-110) mg/dL Lactate Dehydrogenase (313-618) U/L C-Reactive Protein (<1.0) mg/dL Procalcitonin 0.16 H (0.02-0.09) ng/mL 09/18/22 09/18/22 Range/Units 06:23 11:27 Neutrophils # (1.3-7.7) k/uL Lymphocytes # (1.0-4.8) k/uL D-Dimer (<0.60) mg/L FEU POC Glucose (mg/dL) 191 H 173 H (70-110) mg/dL Lactate Dehydrogenase (313-618) U/L C-Reactive Protein (<1.0) mg/dL Procalcitonin (0.02-0.09) ng/mL Assessment and Plan Assessment: 1. Acute kidney injury mostly prerenal secondary to cardiorenal syndrome. Renal function stable.. Disproportionately elevated BUN secondary to steroids. 2. Chronic kidney disease stage IIIa with baseline creatinine near 1.5 secondary to nephrosclerosis and cardiorenal syndrome. UA benign. No hydronephrosis noted on kidney ultrasound. 3. Acute on chronic diastolic CHF. 4. COVID-19 infection. 5. Chronic COPD maintained on home oxygen. 6. Metabolic alkalosis which is compensatory for underlying chronic respiratory acidosis. Plan: Continue with oral Lasix Repeat labs
[2022-09-18 12:15] LABS: Calcium 8.5 mg/dL (8.4-10.2); Magnesium 2.8 mg/dL (1.6-2.3); Potassium 5.1 mmol/L (3.5-5.1)
--- NOTE | 2022-09-18 13:32 | P.DS ---
Providers Date of admission: 09/11/22 21:07 Expected date of discharge: 09/18/22 Attending physician: Sofiya Albrecht Consults: 09/11/22 21:03 Consult Physician Urgent Consulting Provider: Chelsea Earl Consult Reason/Comments: COVID-19, COPD Do you want consulting provider notified?: Yes Consult Physician Urgent Consulting Provider: Kingston Salcido Consult Reason/Comments: COVID-19 Do you want consulting provider notified?: Yes 09/12/22 13:15 Consult Physician Routine Consulting Provider: Alysia Garcia Consult Reason/Comments: acute on chronic renal failure Do you want consulting provider notified?: Yes 09/13/22 10:40 Consult Physician Urgent Consulting Provider: Gerhard Beard Consult Reason/Comments: thrombocytopenia Do you want consulting provider notified?: Already Contacted 09/17/22 08:58 Consult Physician Routine Consulting Provider: Edmundo Blanco Consult Reason/Comments: debility Do you want consulting provider notified?: Yes Primary care physician: Sofiya Albrecht [facility] Course: diagnosis on discharge: Acute COVID-19 infection, patient admitted to the medical floor, he was started on IV dexamethasone, vitamin C vitamin D and zinc supplements, infectious disease consultation requested Acute kidney injury on top of chronic kidney disease stage III consultation for nephrology was initiated Underlying history of advanced COPD Acute hypercapnic and hypoxic respiratory failure Bilateral lower extremity cellulitis Underlying history of hypertension Underlying history of chronic diastolic congestive heart failure Recent diagnosis of bilateral lower extremity cellulitis maintained on oral Keflex Hospital course: Chemo Escalera, is a 67-year-old male who presented to [facility] emergency room with a chief complaint of worsening shortness of breath, and multiple episodes of black stools. He was evaluated in the emergency room vital examination on presentation revealed a temperature of 98.7 pulse 89 respiration 16 blood pressure 124/67 pulse ox 98% on 6 L oxygen via nasal cannula Laboratory data revealed a white blood count of 9.4 hemoglobin 11.9 platelet count 51 BUN 113 creatinine 1.81 glucose 213 lactic acid 2.1 Covid 19 PCR was positive, stools for occult blood was negative Testing in the emergency room revealed chest x-ray done in the emergency room revealed mild pleural reaction, EKG done in the emergency room revealed sinus rhythm with right axis deviation and right bundle branch block and possible anteroseptal myocardial infarction of indeterminate age. Patient was admitted to medical floor for further evaluation and treatment. On 09/13/2022 patient was seen and examined on the medical floor, he is alert and oriented 3 in no apparent distress, he is complaining of shortness of breath with any activity he has occasional cough otherwise he denies any complaints he is maintained on oxygen at 6 L via nasal cannula there is no fever or chills no headache or dizziness no chest pain no nausea or vomiting no abdominal pain no diarrhea no blood in the stools no burning with urination no frequency or urgency and no hematuria On 09/14/2022 patient was seen and examined is alert and oriented 3 in no apparent distress he is still complaining of shortness of breath with any activity and complaining of cough otherwise he denies any complaints there is no fever or chills no headache or dizziness no chest pain no nausea or vomiting no abdominal pain no diarrhea and no urinary symptoms. He is still maintained on oxygen 6 L via nasal cannula today hemoglobin is 10.8 CO2 41 BUN 111 creatinine 1.9 nephrology are following On 09/15/2022 patient was seen and examined is alert and oriented 3 in no distress he is complaining of shortness of breath with activity and complaining of cough otherwise he denies any complaints there is no fever or chills no headache or dizziness no chest pain no nausea or vomiting no abdominal pain no diarrhea and no urinary symptoms. He is still maintained on oxygen 6 L via nasal cannula today hemoglobin is 10.8 CO2 41 BUN 111 creatinine 1.9 nephrology are following 09/16/2022 patient is alert and oriented 3. Patient is still complaining of shortness breath. Patient currently on 6 L nasal cannula. Vital signs temp 97.6, heart rate 80, respiratory rate 18 blood pressure 127/69. Creatinine 1.5, bun 119. Pulmonary: Infectious disease and nephrology services are following. On 09/17/2022 patient was seen and examined on the medical floor he is alert and oriented 3 in no apparent distress he is still complaining of shortness of breath and generalized weakness yesterday he wanted to go home and he was cleared by pulmonary to be discharged discharge was put in however patient was too weak to go and family refused to take him home at this time physical therapy and occupational therapy are continuing to work with patient he will probably need to go to a rehab before going consultation for Dr. Bella was initiated otherwise he denies any complaints there is no fever or chills no headache or dizziness no chest pain no nausea or vomiting no abdominal pain no diarrhea and no urinary symptoms On 09/18/2022 patient was seen and examined on the medical floor he is alert and oriented in no apparent distress he is complaining of cough and generalized weakness and shortness of breath otherwise he denies any complaints there is no fever or chills no headache or dizziness no chest pain, no nausea or vomiting no abdominal pain no diarrhea and no urinary symptoms. Plan is for discharge tomorrow with [place] today. Patient Condition at Discharge: Stable Plan - Discharge Summary Discharge Rx Participant: Yes New Discharge Prescriptions: New dexAMETHasone ORAL [Hexadrol] 6 mg PO DAILY tab Folic Acid 1 mg PO DAILY tab Budesonide-Formot 160-4.5 Mcg [Symbicort 160-4.5 Mcg Inhaler] 2 puff INHAL ATION RT-BID each Continue Albuterol Nebulized [Ventolin Nebulized] 2.5 mg INHALATION RT-QID PRN PRN Reason: Shortness Of Breath Montelukast [Singulair] 10 mg PO HS@2100 clonazePAM [KlonoPIN] 0.5 mg PO DAILY PRN PRN Reason: Anxiety Albuterol Sulfate [Ventolin HFA] 2 puff INHALATION RT-Q4H PRN PRN Reason: Shortness Of Breath Fluticasone Propion/Salmeterol [Advair 250-50 Diskus] 1 puff INHALATION RT- BID Cholecalciferol [Vitamin D3 (25 Mcg = 1000 Iu)] 25 mcg PO DAILY Metoprolol Tartrate [Lopressor] 50 mg PO BID@0900,2100 Furosemide [Lasix] 60 mg PO TID Aspirin 81 mg PO DAILY 30 Days #30 tab Cephalexin [Keflex] 500 mg PO Q6HR 10 Days #40 cap Discontinued predniSONE See Taper PO DIRECTED Discharge Medication List Albuterol Nebulized [Ventolin Nebulized] 2.5 mg INHALATION RT-QID PRN 06/22/14 [History] Montelukast [Singulair] 10 mg PO HS@2100 06/09/19 [History] clonazePAM [KlonoPIN] 0.5 mg PO DAILY PRN 06/09/19 [History] Albuterol Sulfate [Ventolin HFA] 2 puff INHALATION RT-Q4H PRN 08/27/19 [History] Fluticasone Propion/Salmeterol [Advair 250-50 Diskus] 1 puff INHALATION RT-BID 08/27/19 [History] Cholecalciferol [Vitamin D3 (25 Mcg = 1000 Iu)] 25 mcg PO DAILY 06/16/22 [History] Metoprolol Tartrate [Lopressor] 50 mg PO BID@0900,2100 06/16/22 [History] Furosemide [Lasix] 60 mg PO TID 08/29/22 [History] Aspirin 81 mg PO DAILY 30 Days #30 tab 09/02/22 [Rx] Cephalexin [Keflex] 500 mg PO Q6HR 10 Days #40 cap 09/02/22 [Rx] Budesonide-Formot 160-4.5 Mcg [Symbicort 160-4.5 Mcg Inhaler] 2 puff INHALATION RT-BID each 09/16/22 [Rx] Folic Acid 1 mg PO DAILY tab 09/16/22 [Rx] dexAMETHasone ORAL [Hexadrol] 6 mg PO DAILY tab 09/18/22 [Rx] Follow up Appointment(s)/Referral(s): Sofiya Albrecht MD [Primary Care Provider] - 1-2 days (please call and make appointment) Patient Instructions/Handouts: Thrombocytopenia (DC)
--- NOTE | 2022-09-18 14:15 | P.DS ---
Providers Date of admission: 09/11/22 21:07 Expected date of discharge: 09/18/22 Attending physician: Sofiya Albrecht Consults: 09/11/22 21:03 Consult Physician Urgent Consulting Provider: Chelsea Earl Consult Reason/Comments: COVID-19, COPD Do you want consulting provider notified?: Yes Consult Physician Urgent Consulting Provider: Kingston Salcido Consult Reason/Comments: COVID-19 Do you want consulting provider notified?: Yes 09/12/22 13:15 Consult Physician Routine Consulting Provider: Alysia Garcia Consult Reason/Comments: acute on chronic renal failure Do you want consulting provider notified?: Yes 09/13/22 10:40 Consult Physician Urgent Consulting Provider: Gerhard Beard Consult Reason/Comments: thrombocytopenia Do you want consulting provider notified?: Already Contacted 09/17/22 08:58 Consult Physician Routine Consulting Provider: Edmundo Blanco Consult Reason/Comments: debility Do you want consulting provider notified?: Yes Primary care physician: Sofiya Albrecht [facility] Course: diagnosis on discharge: Acute COVID-19 infection, patient admitted to the medical floor, he was started on IV dexamethasone, vitamin C vitamin D and zinc supplements, infectious disease consultation requested Acute kidney injury on top of chronic kidney disease stage III consultation for nephrology was initiated Underlying history of advanced COPD Acute hypercapnic and hypoxic respiratory failure Bilateral lower extremity cellulitis Underlying history of hypertension Underlying history of chronic diastolic congestive heart failure Recent diagnosis of bilateral lower extremity cellulitis maintained on oral Keflex Hospital course: Chemo Escalera, is a 67-year-old male who presented to [facility] emergency room with a chief complaint of worsening shortness of breath, and multiple episodes of black stools. He was evaluated in the emergency room vital examination on presentation revealed a temperature of 98.7 pulse 89 respiration 16 blood pressure 124/67 pulse ox 98% on 6 L oxygen via nasal cannula Laboratory data revealed a white blood count of 9.4 hemoglobin 11.9 platelet count 51 BUN 113 creatinine 1.81 glucose 213 lactic acid 2.1 Covid 19 PCR was positive, stools for occult blood was negative Testing in the emergency room revealed chest x-ray done in the emergency room revealed mild pleural reaction, EKG done in the emergency room revealed sinus rhythm with right axis deviation and right bundle branch block and possible anteroseptal myocardial infarction of indeterminate age. Patient was admitted to medical floor for further evaluation and treatment. On 09/13/2022 patient was seen and examined on the medical floor, he is alert and oriented 3 in no apparent distress, he is complaining of shortness of breath with any activity he has occasional cough otherwise he denies any complaints he is maintained on oxygen at 6 L via nasal cannula there is no fever or chills no headache or dizziness no chest pain no nausea or vomiting no abdominal pain no diarrhea no blood in the stools no burning with urination no frequency or urgency and no hematuria On 09/14/2022 patient was seen and examined is alert and oriented 3 in no apparent distress he is still complaining of shortness of breath with any activity and complaining of cough otherwise he denies any complaints there is no fever or chills no headache or dizziness no chest pain no nausea or vomiting no abdominal pain no diarrhea and no urinary symptoms. He is still maintained on oxygen 6 L via nasal cannula today hemoglobin is 10.8 CO2 41 BUN 111 creatinine 1.9 nephrology are following On 09/15/2022 patient was seen and examined is alert and oriented 3 in no distress he is complaining of shortness of breath with activity and complaining of cough otherwise he denies any complaints there is no fever or chills no headache or dizziness no chest pain no nausea or vomiting no abdominal pain no diarrhea and no urinary symptoms. He is still maintained on oxygen 6 L via nasal cannula today hemoglobin is 10.8 CO2 41 BUN 111 creatinine 1.9 nephrology are following 09/16/2022 patient is alert and oriented 3. Patient is still complaining of shortness breath. Patient currently on 6 L nasal cannula. Vital signs temp 97.6, heart rate 80, respiratory rate 18 blood pressure 127/69. Creatinine 1.5, bun 119. Pulmonary: Infectious disease and nephrology services are following. On 09/17/2022 patient was seen and examined on the medical floor he is alert and oriented 3 in no apparent distress he is still complaining of shortness of breath and generalized weakness yesterday he wanted to go home and he was cleared by pulmonary to be discharged discharge was put in however patient was too weak to go and family refused to take him home at this time physical therapy and occupational therapy are continuing to work with patient he will probably need to go to a rehab before going consultation for Dr. Bella was initiated otherwise he denies any complaints there is no fever or chills no headache or dizziness no chest pain no nausea or vomiting no abdominal pain no diarrhea and no urinary symptoms On 09/18/2022 patient was seen and examined on the medical floor he is alert and oriented in no apparent distress he is complaining of cough and generalized weakness and shortness of breath otherwise he denies any complaints there is no fever or chills no headache or dizziness no chest pain, no nausea or vomiting no abdominal pain no diarrhea and no urinary symptoms. Plan is for discharge tomorrow with [place] today. Patient Condition at Discharge: Stable Patient Condition at Discharge: Stable Plan - Discharge Summary Discharge Rx Participant: Yes New Discharge Prescriptions: New dexAMETHasone ORAL [Hexadrol] 6 mg PO DAILY tab Folic Acid 1 mg PO DAILY tab Budesonide-Formot 160-4.5 Mcg [Symbicort 160-4.5 Mcg Inhaler] 2 puff INHALATION RT-BID each Continue Albuterol Nebulized [Ventolin Nebulized] 2.5 mg INHALATION RT-QID PRN PRN Reason: Shortness Of Breath Montelukast [Singulair] 10 mg PO HS@2100 clonazePAM [KlonoPIN] 0.5 mg PO DAILY PRN PRN Reason: Anxiety Albuterol Sulfate [Ventolin HFA] 2 puff INHALATION RT-Q4H PRN PRN Reason: Shortness Of Breath Fluticasone Propion/Salmeterol [Advair 250-50 Diskus] 1 puff INHALATION RT- BID Cholecalciferol [Vitamin D3 (25 Mcg = 1000 Iu)] 25 mcg PO DAILY Metoprolol Tartrate [Lopressor] 50 mg PO BID@0900,2100 Furosemide [Lasix] 60 mg PO TID Aspirin 81 mg PO DAILY 30 Days #30 tab Discontinued predniSONE See Taper PO DIRECTED Cephalexin [Keflex] 500 mg PO Q6HR 10 Days #40 cap Discharge Medication List Albuterol Nebulized [Ventolin Nebulized] 2.5 mg INHALATION RT-QID PRN 06/22/14 [History] Montelukast [Singulair] 10 mg PO HS@2100 06/09/19 [History] clonazePAM [KlonoPIN] 0.5 mg PO DAILY PRN 06/09/19 [History] Albuterol Sulfate [Ventolin HFA] 2 puff INHALATION RT-Q4H PRN 08/27/19 [History] Fluticasone Propion/Salmeterol [Advair 250-50 Diskus] 1 puff INHALATION RT-BID 08/27/19 [History] Cholecalciferol [Vitamin D3 (25 Mcg = 1000 Iu)] 25 mcg PO DAILY 06/16/22 [History] Metoprolol Tartrate [Lopressor] 50 mg PO BID@0900,2100 06/16/22 [History] Furosemide [Lasix] 60 mg PO TID 08/29/22 [History] Aspirin 81 mg PO DAILY 30 Days #30 tab 09/02/22 [Rx] Budesonide-Formot 160-4.5 Mcg [Symbicort 160-4.5 Mcg Inhaler] 2 puff INHALATION RT-BID each 09/16/22 [Rx] Folic Acid 1 mg PO DAILY tab 09/16/22 [Rx] dexAMETHasone ORAL [Hexadrol] 6 mg PO DAILY tab 09/18/22 [Rx] Follow up Appointment(s)/Referral(s): Sofiya Albrecht MD [Primary Care Provider] - 1-2 days (please call and make appointment) Patient Instructions/Handouts: Thrombocytopenia (DC)
[2022-09-18 14:26] VITALS: PULSE 95
--- NOTE | 2022-09-18 14:45 | P.PN ---
Subjective Progress Note Date: 09/18/22 On 09/17/2022, I'm seeing the patient for a follow-up. The patient has advanced COPD with an FEV1 of 17% of predicted. He tested positive for Covid 19 on 09/11/2022. He came in with generalized fatigue and tiredness and difficulty with ambulation and some shortness of breath. His x-rays were reviewed and a chest x-ray from admission showed some mild pleural reaction and subsegmental atelectasis in the lung bases. The most recent chest x-ray was done on 09/14/2022 and there is some interval worsening of the pleural reaction on the left. There is some atelectatic change in the right lung also. There is also some cardiomegaly. Left lower lobe pulmonary infiltrate/atelectasis obviously there along with a small left-sided pleural effusion. As for the left upper lobe collapse/atelectasis, this is essentially recovered and resolved. The patient is currently on oxygen and he is on 6 L O2 nasal cannula. There has been no worsening in his oxygenation since his admission. At the same time, the patient is on Decadron 4 mg IV every 6 hours and albuterol HFA every 4 hours when necessary. He is on Symbicort 160/4.52 puffs twice a day. His blood work includes a pro-calcitonin level that was at 0.19 and temp of admission. His LFTs were slightly abnormal from today with a AST of 49 ALT of 88 alkaline phosphatase of 127. Serum bicarbs of 41 with a sodium level of 136 and a potassium level of 5.1. Blood sugars at 261. His creatinine is at 2.14 which is slightly higher compared to earlier values and his BUN is up to 118. He is on Lasix 60 mg by mouth 3 times a day. Follow 2021, the patient is essentially unchanged and stable on 4 L of O2 cannula with a pulse ox of 90%. And the patient is post Covid 19 infection treated with Decadron on multivitamins. The patient also suffered an acute kidney injury on top of chronic stage III kidney disease and this was evaluated by nephrology. The patient continues to have chronic lower extremity edema lower hypertension and chronic diastolic heart failure and COPD and the patient advanced COPD with an FEV1 of 70% of predicted. His oxygen dependent. He remains on Decadron. The chest x-ray from yesterday showed a small left pleural effusion and background COPD. Objective - Vital Signs Vital signs: Vital Signs Temp 97.3 F L 09/18/22 09:51 Pulse 95 09/18/22 14:25 Resp 17 09/18/22 09:51 BP 107/68 09/18/22 11:14 Pulse Ox 94 L 09/18/22 09:51 FiO2 Intake & Output 09/17/22 09/18/22 09/18/22 18:59 06:59 18:59 Intake Total 1320 Output Total 200 350 Balance -200 -350 1320 Weight 126 kg Intake: Oral 1320 Output: Urine 200 350 Other: Voiding Method Urinal Urinal Urinal - Exam No acute distress, oriented 3. No respiratory distress. Currently on 6 L of oxygen. HEENT examination is grossly unremarkable. Neck supple. Full range of motion. No adenopathy thyromegaly or neck vein distention. Cardiovascular examination reveals regular rhythm rate. S1-S2 normal. No S3 or S4. No discernible murmur noted. Heart rate 88 bpm. Lungs reveal scattered bilateral rhonchi. No wheezes. Minimal basilar crackles. Breath sounds equal bilaterally. 6 L saturation is 94 %. Abdomen soft bowel sounds are heard. No masses or tenderness. Extremities are intact. No cyanosis or clubbing. Trace edema noted. Skin is without rash or lesion. Neurologic examination is brief but nonfocal. - Labs CBC & Chem 7: 09/17/22 08:41 09/18/22 11:35 Labs: Abnormal Lab Results - Last 24 Hours (Table) 09/17/22 09/17/22 09/17/22 Range/Units 12:52 16:34 20:16 Chloride (98-107) mmol/L Carbon Dioxide (22-30) mmol/L BUN (9-20) mg/dL Creatinine (0.66-1.25) mg/dL Glucose (74-99) mg/dL POC Glucose (mg/dL) 246 H 298 H (70-110) mg/dL Magnesium (1.6-2.3) mg/dL Procalcitonin 0.16 H (0.02-0.09) ng/mL 09/18/22 09/18/22 09/18/22 Range/Units 06:23 11:27 11:35 Chloride 90 L (98-107) mmol/L Carbon Dioxide 39 H (22-30) mmol/L BUN 126 H* (9-20) mg/dL Creatinine 2.74 H (0.66-1.25) mg/dL Glucose 184 H (74-99) mg/dL POC Glucose (mg/dL) 191 H 173 H (70-110) mg/dL Magnesium 2.8 H (1.6-2.3) mg/dL Procalcitonin (0.02-0.09) ng/mL Assessment and Plan Plan: Generalized fatigue, malaise, difficulty ambulating, weakness, likely all related to coronavirus infection. Clinically improved Covid 19 infection, confirmed on 09/11/2022. No evidence of coronavirus associated pneumonia, although the patient may have developed some left upper lobe collapse/consolidation, which has resolved. Chronic hypoxic respiratory failure currently on 4 L O2 nasal cannula History of severe COPD, with an FEV1 that's 17% of predicted. Recent admission to the hospital, August 2022, for impending respiratory failure secondary to COPD exacerbation. Possible GI bleed. Obesity. History of lower extremity cellulitis. History of hypertension. History of heart failure. History of osteoarthritis. Acute kidney injury on top of chronic stage III kidney disease, patient is maintained on Lasix. Metabolic alkalosis, is being given Diamox by nephrology. Prior history of tobacco use. Plan Patient currently on 4 L O2 nasal cannula Continue Decadron and switch the dose to 6 mg by mouth daily to complete a 10 day course Continue Symbicort and albuterol HFA 4 times a day Check inflammatory markers regarding Covid 19 infection including LDH and CRP and check pro calcitonin level. These were checked and the LDH level was at 721 with a CRP of 1 and the pro calcitonin level of 0.16 and the d-dimer was at 2.0. Provide incentive spirometer Management of renal failure and diuretics per nephrology Possible discharge today Long-term prognosis poor based above-mentioned comorbidities
== END 2022-09-18 16:30 | DRG 177 ==
LOC: EC 17:36 → 3SCARD 21:07
PROVIDERS: ADMIT Internal Medicine; ATTEND Internal Medicine
DX: U07.1 COVID-19 (principal); I50.33 Acute on chronic diastolic (congestive) heart failure; J96.21 Acute and chronic respiratory failure with hypoxia; J96.22 Acute and chronic respiratory failure with hypercapnia; J12.82 Pneumonia due to coronavirus disease 2019; E87.4 Mixed disorder of acid-base balance; L03.115 Cellulitis of right lower limb; L03.116 Cellulitis of left lower limb; N17.9 Acute kidney failure, unspecified; I13.0 Hypertensive heart and chronic kidney disease with heart failure and stage 1 through stage 4 chronic kidney disease, or unspecified chronic kidney disease; J98.11 Atelectasis; J44.1 Chronic obstructive pulmonary disease with (acute) exacerbation; D69.6 Thrombocytopenia, unspecified; D63.1 Anemia in chronic kidney disease; N18.31 Chronic kidney disease, stage 3a; Z28.310 Unvaccinated for COVID-19; I45.10 Unspecified right bundle-branch block; T38.0X5A Adverse effect of glucocorticoids and synthetic analogues, initial encounter; L98.9 Disorder of the skin and subcutaneous tissue, unspecified; M19.90 Unspecified osteoarthritis, unspecified site; R19.5 Other fecal abnormalities; E66.9 Obesity, unspecified; Z68.37 Body mass index [BMI] 37.0-37.9, adult; Z99.81 Dependence on supplemental oxygen; Z79.899 Other long term (current) drug therapy; Z79.82 Long term (current) use of aspirin; Z79.51 Long term (current) use of inhaled steroids; Z87.891 Personal history of nicotine dependence; Z71.3 Dietary counseling and surveillance; Z88.1 Allergy status to other antibiotic agents
CPT/HCPCS: 36415; 71045; 76700; 76770; 80048; 80053; 80074; 81001; 82272; 82607; 82746; 83605; 83615; 83735; 83880; 84100; 84145; 84484; 85025; 85027; 85379; 85384; 85610; 85730; 86140; 86850; 86900; 86901; 87390; 87636; 93005; 94640; 94667; 94760; 96374; 96375; 99285